=== PATIENT | male | born 1950 | race African-American/Black ===

== ENCOUNTER 2017-01-01 17:21 | Emergency (ER) | payer MEDICAID ==
[2017-01-01] MEDS ORDERED: Nitroglycerin TAB 0.4 MG* 0.4 MG TAB ONE ×2 (17:28)
[2017-01-01] MEDS ORDERED: Aspirin Low Dose CHEW TAB* 81 MG ONE ×2 (17:28)
[2017-01-01] MEDS ORDERED: Heparin for STEMI(*) 5,000 UNITS/ML 1 ML VIAL IV ONE ×2 (17:29)
[2017-01-01] MEDS ORDERED: nitroGLYCERIN DRIP* 0 MCG/0 ML BTL ONE ×2 (17:29→17:39)
[2017-01-01] MEDS ORDERED: NS 0.9% 1000 ML* 2,000 ML IV ONE (17:31)
[2017-01-01] MEDS ORDERED: Heparin 2 UNITS/ML IVPREMIX* 2,000 ML IV ONE ×2 (17:38)
[2017-01-01] MEDS ORDERED: fentaNYL* 50 MCG/ML 2 ML VIAL (100 MCG VIAL) ONE (17:38)
[2017-01-01] MEDS ORDERED: Heparin(*) 1000 UNIT/ML 10 ML VIAL CATH LAB IV ONE (17:39)
[2017-01-01] MEDS ORDERED: Lidocaine 1% INJ* 10 MG/ML 30 ML SDV ONE (17:39)
[2017-01-01] MEDS ORDERED: Iohexol 350 (CONTRAST) 200 ML MDV IV ONE (17:39)
[2017-01-01] MEDS ORDERED: Midazolam* 1 MG/ML 10 ML VIAL (10 MG) ONE (17:40)
[2017-01-01] MEDS ORDERED: Succinylcholine* 20 MG/ML 10 ML VIAL IV ONE (17:48)
[2017-01-01] MEDS ORDERED: Midazolam* 1 MG/ML 5 ML VIAL (5 MG) IV ONE (17:48)
[2017-01-01 17:51] LABS: Hematocrit 29 % (42-52); Hemoglobin 9.4 g/dl (14.0-18.0); Mean Corpuscular HGB Conc 33 g/dl (31-36); Mean Corpuscular Hemoglobin 34 pg (27-31); Mean Corpuscular Volume 103 fL (80-94); Mean Platelet Volume 7 um3 (7.4-10.4); Red Blood Count 2.79 10^6/ul (4.0-5.4); Red Cell Distribution Width 15 % (10.5-15); White Blood Count 5.1 10^3/ul (3.5-10.8)
[2017-01-01] MEDS ORDERED: Heparin DRIP 25,000 UNITS(*) 25,000 UNITS/500 ML BAG IV SCH (18:00)
[2017-01-01] MEDS ORDERED: Heparin VIAL(*) 5000 UNITS/ML VIAL (FIVE THOUSAND) IV SCH (18:00)
[2017-01-01] MEDS ORDERED: Midazolam PREMIX BAG 1 MG/ML* 100 MG/100 ML BAG IV SCH ×2 (18:00)
[2017-01-01] MEDS ORDERED: Midazolam IV for DRIP* 100 MG in NS 0.9% 100 ML* 80 ML IV SCH (18:00)
[2017-01-01] MEDS ORDERED: Succinylcholine* 20 MG/ML 10 ML VIAL ONE ×2 (18:00)
--- NOTE | 2017-01-01 18:02 | RAD ---
INDICATION: Altered mental status, intubation. COMPARISON: Comparison is made with a prior chest x-ray study from August 23, 2014. TECHNIQUE: A portable view of the chest was obtained. FINDINGS: The patient is status post intubation. The endotracheal tube appears slightly low in position approximately 1.2 cm above the candido. There is a nasogastric tube which demonstrates normal course. The lungs are underinflated. There is mild prominence of the interstitial markings. No focal infiltrate or pleural effusion is seen. The heart is within normal limits in size. IMPRESSION: STATUS POST INTUBATION. THE ENDOTRACHEAL TUBE TIP APPEARS SLIGHTLY LOW IN POSITION NOTED.
[2017-01-01 18:04] LABS: Albumin 3.5 g/dL (3.2-5.2); BUN/Creatinine Ratio 7.6 (8-20); Calcium 8.5 mg/dL (8.6-10.3); EGFR African American 70.2 (>60); EGFR Non-African American 54.6 (>60); Globulin 2.9 g/dL (2-4); Potassium 3.6 mmol/L (3.5-5.0); Total Bilirubin 0.4 mg/dL (0.2-1.0); Total Protein 6.4 g/dL (6.4-8.9)
[2017-01-01] MEDS ORDERED: Heparin DRIP 25,000 UNITS(*) 25,000 UNITS/500 ML BAG ONE ×2 (18:09)
[2017-01-01 18:15] LABS: Troponin I 0.04 ng/mL (<0.04)
[2017-01-01] MEDS ORDERED: fentaNYL* 50 MCG/ML 2 ML VIAL (100 MCG VIAL) IV SLOW PU ONE (18:33)
--- NOTE | 2017-01-01 18:46 | ED ---
Michael Membreno Abhishek, scribed for Tyron Chu MD on 01/01/17 at 1823 . Palpitations / Dysrhythmia - HPI Summary HPI Summary: LEVEL 5 CAVEAT, HPI was unable to be obtained by pt due to altered mental state. STEMI Alert at 1717: Pt ETA was 5 min from [facility] This patient is a 66 year old M BIBA with a chief complaint of dysrhythmia since minutes ago. Patient is unresponsive and was brought into room at 1720. ABC code alert at 1721. HPI obtained from previous medical records and EMS reports. Symptoms aggravated by nothing. Symptoms alleviated by nothing. Patient reports unresponsiveness and exhibited LOC at [facility]. Prior to entering [facility] according to EMS report, patient was at fiance's house at the onset of the episode and vomited one time prior to EMS arrival. EMS reports bradycardia, bradypnea, CP and low BP prior to entering [facility]. Patient's family member states patient "was doing a little bit of everything" when describing prior substance history of the patient. Patient's family member also report a PMHx of a "blockage in his leg", substance abuse (cocaine) and a "torn muscle near his heart area." - History of Current Complaint Chief Complaint: EDDysrhythmPalp Hx Obtained From: Family/Grinder Setup Operator, EMS Hx From Patient Unobtainable Due To: Altered Mental Status Onset/Duration: Sudden Onset - minutes ago Timing: Constant Aggravating: Nothing Alleviating: Nothing Associated Signs & Symptoms: Syncope - LOC, Chest Pain, Vomiting - 1 times - Allergy/Home Medications Allergies/Adverse Reactions: Allergies Allergy/AdvReac Type Severity Reaction Status Date / Time Aspirin Allergy Nausea Verified 09/12/14 13:22 PMH/Surg Hx/FS Hx/Imm Hx Endocrine/Hematology History: Denies: Hx Diabetes Cardiovascular History: Reports: Hx Hypertension, Other Cardiovascular Problems/ Disorders - based on meds with patient HTN and rate control Denies: Hx Congestive Heart Failure History: Denies: Hx Renal Disease Musculoskeletal History: Reports: Hx Scoliosis Psychiatric History: Denies: Hx Eating Disorder, Hx of Violent Episodes Against Others - Surgical History Surgery Procedure, Year, and Place: carpal tunnel left and right wrist 2000. tonsillectomy 1999 Hx Anesthesia Reactions: No - Immunization History Date of Tetanus Vaccine: UNKNOWN Infectious Disease History: No Infectious Disease History: Denies: Traveled Outside the [place] in Last 30 Days - Family History Known Family History: Positive: Cardiac Disease, Respiratory Disease - Asthma, Other - Cancer - Social History Alcohol Use: Occasionally Alcohol Amount: 2 beers Substance Use Type: Reports: Cocaine, Marijuana Substance Use Comment - Amount & Last Used: occasional Smoking Status (MU): Heavy Every Day Tobacco Smoker Type: Cigarettes Have You Smoked in the Last Year: Yes Review of Systems Constitutional: Negative Eyes: Negative ENT: Negative Positive: Chest Pain Respiratory: Negative Positive: Vomiting Genitourinary: Negative Musculoskeletal: Negative Skin: Negative Positive: Syncope Psychological: Other - LOC All Other Systems Reviewed And Are Negative: Yes Physical Exam - Summary Physical Exam Summary: LEVEL 5 CAVEAT due to altered mental state. General: Tolerating oral pharyngeal airway without gagging, HENT: Atraumatic Lymph: no adenopathy Cardiovascular: Dorsalis pedal pulses are minimal bilaterally Pulmonary: Minimal spontaneous breathing Abdomen: Non-distended Skin: Warm, pink, dry Musculoskeletal: no joint swelling Neuro: Pupils are reactive 4 mm Psych: N/A Triage Information Reviewed: Yes Vital Signs On Initial Exam: Initial Vitals Temp Pulse Resp BP Pulse Ox 96 F 58 14 131/85 85 01/01/17 17:34 01/01/17 17:34 01/01/17 17:34 01/01/17 17:34 01/01/17 17:34 Vital Signs Reviewed: Yes Diagnostics - Vital Signs Vital Signs Temp Pulse Resp BP Pulse Ox 01/01/17 17:34 96 F 58 14 131/85 85 - Laboratory Lab Results: Lab Results 01/01/17 Range/Units 17:30 WBC 5.1 (3.5-10.8) 10^3/ul RBC 2.79 L (4.0-5.4) 10^6/ul Hgb 9.4 L (14.0-18.0) g/dl Hct 29 L (42-52) % MCV 103 H (80-94) fL MCH 34 H (27-31) pg MCHC 33 (31-36) g/dl RDW 15 (10.5-15) % Plt Count 256 (150-450) 10^3/ul MPV 7 L (7.4-10.4) um3 Result Diagrams: 01/01/17 17:30 01/01/17 17:31 Lab Statement: Any lab studies that have been ordered have been reviewed, and results considered in the medical decision making process. - Radiology Chest x-ray Radiology Interpretation Completed By: Radiologist - CXR reveals STATUS POST INTUBATION. THE ENDOTRACHEAL TUBE TIP APPEARS SLIGHTLY LOW IN POSITION NOTED. ED Physician as reviewed this radiology report and agrees. Re-Evaluation - Re-Evaluation 1800 Re-Evaluation Time: 18:00 - NSR, BP STABLE Change: Unchanged Second Eval Re-Evaluation Time: 18:45 - NSR, BP STABLE, SYMMETRIC LUNG SOUNDS Course/Dx - Course Assessment/Plan: LEVEL 5 CAVEAT, HPI was unable to be obtained by pt due to altered mental state. STEMI Alert at 1717: Pt ETA was 5 min from [facility]. This patient is a 66 year old M BIBA with a chief complaint of dysrhythmia since minutes ago. Patient is unresponsive and was brought into room at 1720. ABC code alert at 1721. HPI obtained from previous medical records and EMS reports. Patient reports unresponsiveness and exhibited LOC at [facility]. Prior to entering [facility] according to EMS report, patient was at [facility] at the onset of the episode and vomited one time prior to EMS arrival. EMS reports bradycardia, bradypnea, CP and low BP prior to entering [facility]. Patient's family member states patient "was doing a little bit of everything" when describing prior substance history of the patient. Patient's family member also report a PMHx of a "blockage in his leg", substance abuse (cocaine) and a "torn muscle near his heart area.". CXR reveals STATUS POST INTUBATION. THE ENDOTRACHEAL TUBE TIP APPEARS SLIGHTLY LOW IN. POSITION NOTED. ED Physician as reviewed this radiology report and agrees. We did a medical records review and patient has a history of substance abuse (cocaine). Consulted swatch clerk at 1750 Dr. Roberts. We did not administer any other sedatives as he received versed in the ambulance 3 minutes before arrival. Patient will be transfered to [facility] due to high risk cardiac catheterizatoin and extensive vascular disease. Dx is acute cornary syndrome and 3rd degree heart block. 90 minutes of critical care time was given. - Diagnoses Provider Diagnoses: Acute coronary syndrome, Third degree heart block - Physician Notifications Discussed Care Of Patient With: John Roberts Time Discussed With Above Provider: 17:50 Instructed by Provider To: Transfer - Transfer to [facility] due to high risk cardiac catheterization and extensive vascular disease. - Critical Care Time Critical Care Time: 75-104 min - 90 minutes Discharge - Discharge Plan Condition: Critical Disposition: TRANS HIGHER LVL OF CARE FAC Referrals: Garret Lockhart MD [Primary Care Provider] - The documentation as recorded by the Michael arreguin Abhishek accurately reflects the service I personally performed and the decisions made by , Tyron Chu MD.
[2017-01-01 18:51] VITALS: BP 132/71
--- NOTE | 2017-01-02 12:33 | CONS ---
Cc: Dr. Moses Sun; Dr. Niraj Ly.* EMERGENCY ROOM INTERVENTIONAL CARDIOLOGY CONSULT: DATE OF CONSULT: 01/01/17 REASON FOR CONSULT: Reportedly had acute ST-segment elevation inferior wall myocardial infarction with unresponsiveness, question transient loss of pulse and blood pressure with advanced heart block, assess cardiac status. HISTORY OF PRESENT ILLNESS: The patient is a 66-year-old gentleman for whom the emergency medical service was called complaining of chest discomfort prior to the ambulance arrival. Apparently on arrival the patient became somewhat unresponsive and emergency medical service had difficulty finding a pulse on him. EKG was performed, which showed mild ST segment elevation in III and aVF with reciprocal changes in I and aVL and down slopping in V4 through V6. There was T-wave inversion in the inferior leads as well. He spontaneously developed return of circulation. He was noted to have advanced heart block, which at one point was felt to be a third-degree heart block with a junctional escape of 38 beats per minute. They gave him atropine without significant success. Pulling into the emergency room, he apparently went unresponsive again. He, in the emergency room was intubated, and when I came to see him, was already sedated and intubated, by that time had a blood pressure that was stable in the 113 range with 2:1 heart block with no evidence of more advance heart block with narrowed complex. A history of his prior cardiac issues included a history of cardiac catheterization back in March 2014 with the right coronary artery noted to have a heavily calcified 20 mm long lesion in the mid portion followed by 60% distal lesion. A balloon was attempted to be passed and could not even be passed across this. Decision was going to be made to do rotational atherectomy when a discussion with the patient's primary chief ii dispatcher Dr. Hernán Sun with the patient on the table discussed that he felt the patient had a fixed defect suggesting a prior infarct to that area and as such he did not recommend proceeding with the intervention at that time. The patient did not have the intervention done. He apparently had a 40% lesion seen in the mid LAD and the circumflex with mildly disease at best. This was preoperatively for an aortobifem bypass. It appears the patient never had that procedure and when I was in the emergency room and with discussion with Dr. Sun, he had no evidence that the patient had ever had a bypass or treatment to that at that time with him reviewing the available records he had online. He also stated that the patient had did not have good pulses in his radial arteries bilaterally and as such radial approach could not be used. 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 PAST MEDICAL HISTORY: The patient's past medical history included hypertension , carpal tunnel, claudication bilaterally, chronic hepatitis, left ventricular systolic dysfunction, and cocaine abuse. With regard to the cocaine abuse, the family that was present could not say whether or not he had used cocaine that day. REVIEW OF SYSTEMS: Unobtainable as the patient was sedated and intubated. PHYSICAL EXAM: When I saw him, revealed blood pressure 113/62, pulse was in the 50s with probable 2:1 heart block with narrow complex, respirations 18, unresponsive due to sedation. Neck had no increased JVP. Carotids could not be assessed due to the breathing sounds from the ventilator. Lungs were coarse bilaterally. Heart had a regular rate and rhythm without any murmur. Abdomen was soft. Extremities: Without edema. The pulses were severely diminished bilaterally. They could not be palpated in the femoral areas as well. Neuro: The patient was sedated. DIAGNOSTIC STUDIES/LAB DATA: Laboratory results that had come back by the time I saw him revealed a hemoglobin and hematocrit of 9.4 and 29 with a white count of 5100, platelet count of 256,000. Sodium 139, potassium 3.6, chloride 108, bicarb 23, BUN 10, creatinine 1.3, glucose 110. SGOT was 201, SGPT 137, troponin was 0.04. CPK 109, MB 3.7, BNP 122. Repeat EKG done had showed resolution of the ST-segment elevation with T-wave inversion inferiorly with improvement of the downsloping ST segments in V4 through V6 with T-wave inversions still noted in V3. Mild down slopping in I and aVL still seen. IMPRESSION: Mr. Ga presents now with severe peripheral vascular disease with a non-dilatable right coronary artery lesion known in the past. At this point in time, I honestly believe the best form of therapy for him would be placing him on heparin and emergently flying him to the [facility] for assessment for possible rotational atherectomy for this lesion or bypass potentially. Discussion was had with the interventionalist comparison shopper for the [facility], Dr. Beck, who graciously accepted the patient but felt the patient should go to the intensive care unit, so they could further analyze potential options of how to approach doing coronary arteriography, specifically from what vascular site. The patient is on heparin therapy currently and I would avoid all beta jesus therapy in light of his heart block at this point. ADDENDUM: A family member eventually did come in who explained that it is her understanding that the patient had received a stent to one of his legs but could be stented in the other leg, so as such there is perhaps a vehicle to get up from the groin area. This information was shared with Dr. Beck with the patient in flight. Of note, Dr. John Pacheco, the dip brazier graciously came in to manage the ventilator while in the emergency room prior to helicopter transport and the patient was stable throughout the course prior to being transferred by helicopter to the [facility]. The amount of time spent with this patient well exceeded 90 minutes with at least three-quarters of it directly in patient care with the patient in addition to discussing with the family, what was going on as well as making phone calls to both Dr. Sun to get further information and keeping him updated as well as personally speaking with Dr. Beck the interventionalist who accepted the patient at the [facility]. [id number]/[facility] #: [id number] MTDD
== END 2017-01-01 19:10 | disposition short-term general hospital (02) ==
LOC: ED 17:21
DX: I24.9 Acute ischemic heart disease, unspecified (principal); I44.2 Atrioventricular block, complete; I10 Essential (primary) hypertension; K73.9 Chronic hepatitis, unspecified
CPT/HCPCS: 36415; 71010; 80053; 82550; 82553; 83721; 83880; 84484; 85027; 85610; 85730; 86850; 86900; 86901; 92950; 93005; 94002; 96360; 96374; 96375; 96376; 99285; A9270-GY; J0330; J1644; J2250; J3010

== ENCOUNTER 2017-03-29 07:42 | Inpatient (IN) | payer MEDICAID ==
[2017-03-29] MEDS ORDERED: NS 0.9% 1000 ML*IV.FLUID IV ONE (08:05)
--- NOTE | 2017-03-29 08:47 | RAD ---
Indication: Tachycardia. Single frontal view of the chest performed at 0813 hours was reviewed. Comparison is made with previous exam dated January 01, 2017. No mediastinal shift is noted. Heart is of normal size and configuration. Lung mraino appear clear. IMPRESSION: NO ACTIVE CARDIOPULMONARY DISEASE IS NOTED.
[2017-03-29 09:07] LABS: EGFR Non-African American 57.1 (>60)
[2017-03-29] MEDS ORDERED: Iohexol 350* (CONTRAST) 500 ML MDV IV ONE (09:24)
[2017-03-29] MEDS ORDERED: diPHENhydraMINE IV* 50 MG/ML 1 ml VIAL (BENADRYL) ONE (09:59)
[2017-03-29] MEDS ORDERED: Vancomycin(*) 1,000 MG in NS 0.9% 250 ML* 250 ML IVPB ONE (10:13)
[2017-03-29] MEDS ORDERED: Cefepime(*) 2 GM in NS 0.9% 50 ML* 50 ML IVPB ONE (10:13)
[2017-03-29] MEDS ORDERED: Amiodarone 150 MG IVPREMIX* 150 MG/100 ML BAG IV ONE (10:14)
[2017-03-29] MEDS ORDERED: NS 0.9% 1000 ML* 1,000 ML IV ONE (10:14)
[2017-03-29] MEDS ORDERED: Propofol* 100 ML ONE (10:24)
[2017-03-29 10:31] LABS: INR 1.48 (0.77-1.02)
[2017-03-29 10:34] LABS: Hematocrit 8 % (42-52); Hemoglobin 2.1 g/dl (14.0-18.0); Mean Corpuscular HGB Conc 27 g/dl (31-36); Mean Corpuscular Hemoglobin 32 pg (27-31); Mean Corpuscular Volume 118 fL (80-94); Mean Platelet Volume 7 um3 (7.4-10.4); Platelet Count 224 10^3/ul (150-450); Red Blood Count 0.65 10^6/ul (4.0-5.4); Red Cell Distribution Width 25 % (10.5-15); White Blood Count 11.7 10^3/ul (3.5-10.8)
[2017-03-29] MEDS: Propofol* 100 ML IV SCH ×4 (10:41→22:36)
[2017-03-29] MEDS ORDERED: Midazolam* 1 MG/ML 5 ML VIAL (5 MG) ONE (10:44)
[2017-03-29] MEDS ORDERED: Midazolam* 1 MG/ML 2 ML VIAL (2 MG) IV ONE (10:44)
[2017-03-29] MEDS ORDERED: NS 0.9% 50 ML* 50 ML ONE (10:44)
[2017-03-29] MEDS ORDERED: Cefepime 2 GM in Dextrose(*) 2 GM/50 ML BAG IV ONE ×2 (10:45→11:00)
[2017-03-29] MEDS ORDERED: Midazolam* 1 MG/ML 5 ML VIAL (5 MG) SLOW PUSH ONE (10:47)
--- NOTE | 2017-03-29 10:50 | RAD ---
STUDY: CT angiography of the chest, abdomen and pelvis. INDICATION: Hypotension and dizziness after "recent vascular intervention". COMPARISON: CTA chest abdomen pelvis dated August 23, 2014 TECHNIQUE: Multidetector CT angiography of the chest, abdomen and pelvis were obtained from the lung apices to the ischial tuberosities after the intravenous injection of 99 mL Omnipaque 350. Reformats were created in the coronal and sagittal planes. 3-D vascular imaging was created from the source images and reviewed as well. ANGIOGRAPHIC FINDINGS: The patient is status post left subclavian artery by femoral bypass graft placement. The surgical graft appears to be patent. There is scattered calcified atherosclerosis at the coronary arteries, aortic ring and arch of the aorta. There is mild curvature of the lower thoracic and abdominal aorta. There is no pathologic aneurysmal dilatation or signs of dissection of the thoracic or abdominal aorta. The major branch vessels of the abdominal aorta including the celiac trunk, superior mesenteric artery and bilateral renal arteries exhibit calcified atherosclerosis to varying degrees but otherwise appear to be patent. There is eccentric noncalcified atheroma occluding the right anterior half of the abdominal aorta above the iliac bifurcation. This connects to complete occlusion of the bilateral common iliac arteries. More inferiorly there is coarse calcification occluding the lumens of both of the common iliac arteries with an appearance consistent with "coral calcification". The bypass graft bifurcates in the subcutaneous tissue overlying the left upper abdomen before anastomosing with the bilateral common femoral arteries. There is diminutive filling of the bilateral external iliac arteries. The visualized portions of the bilateral femoral profundus and superficial femoral arteries appear to fill with contrast. NON ANGIOGRAPHIC FINDINGS: Chest: Adjacent to the lateral aspect of the left fissure is an elongate nodule measuring 4 mm in greatest dimension (axial image 39 and sagittal image 101). Along the lateral aspect of the right upper lobe (axial image 30) there is a groundglass nodule abutting the pleura measuring 1.1 x 1.2 x 1.4 cm. At the right middle lobe there is a 2 mm pleural-based nodule (image 44). Overall the lungs exhibit mild centrilobular emphysematous changes. There are no large pleural effusions. There are coarsely calcified granulomas at the lower posterior right of midline mediastinum tracking along the right mainstem bronchus and inferior. There are no pathologically enlarged mediastinal or hilar lymph nodes that are not calcified. The heart is grossly normal in appearance. Abdomen & Pelvis: There are scattered calcified granulomas in the spleen. The spleen is otherwise normal in attenuation and size. The liver, pancreas and adrenal glands are grossly normal in appearance. The gallbladder is normal. The kidneys are normal in appearance without focal mass, calcification or signs of hydronephrosis. The renal cortices enhance promptly and symmetrically on arterial phase imaging. The small and large bowel are not distended. There is no gross retroperitoneal or mesenteric lymphadenopathy. The pelvic viscera is normal in appearance. There are multilevel degenerative changes of the thoracic and lumbar spine including loss of intervertebral disc height. There is levoconvex curvature of the lumbar spine measuring approximately 60 degrees with the apex at the L2/L3 intervertebral disc space. The L1 vertebral body is hypoplastic exhibiting a triangular deformity in the coronal plane (coronal image 100) either accommodating or contributing to the patient's scoliosis. IMPRESSION: 1. Patent left subclavian artery to bilateral common femoral artery bypass graft without CTA evidence of acute vascular abnormality. 2. Multiple pulmonary nodules as described above, the largest is a groundglass nodule measuring 1.2 cm in greatest axial dimension. This was not seen on the August 23, 2014 CT examination. Considering the patient's apparent cigarette smoking history, the possibility of neoplasm should be considered. Recommendation is either for short-term interval follow-up, PET/CT or tissue sampling. 3. Additional chronic and degenerative changes described in the body the report.
[2017-03-29 10:54] LABS: Monocytes % 5 % (0-13)
[2017-03-29 10:56] LABS: Hematocrit 8 % (42-52); Hemoglobin 2.1 g/dl (14.0-18.0); Mean Corpuscular HGB Conc 27 g/dl (31-36); Mean Corpuscular Hemoglobin 33 pg (27-31); Mean Corpuscular Volume 119 fL (80-94); Mean Platelet Volume 7 um3 (7.4-10.4); Platelet Count 207 10^3/ul (150-450); Red Blood Count 0.63 10^6/ul (4.0-5.4); Red Cell Distribution Width 25 % (10.5-15); White Blood Count 9.9 10^3/ul (3.5-10.8)
[2017-03-29 11:24] LABS: ABS Basophils 0.1 10^3/ul (0-0.2); ABS Eosinophils 0 10^3/ul (0-0.6); ABS Lymphocytes 1.9 10^3/ul (1.0-4.8); ABS Monocytes 0.6 10^3/ul (0-0.8); ABS Neutrophils 7.2 10^3/ul (1.5-7.7); ABS Nucleated RBC 1.1 10^3/ul; Eosinophil % 0.2 % (0-6); Lymphocyte % 19.6 % (25-47); Nucleated Red Blood Cells % 10.6
--- NOTE | 2017-03-29 12:05 | ED ---
Jeo Membreno Angela, scribed for Bebo Gibson MD on 03/29/17 at 0759 . Complex/Multi-Sys Presentation - HPI Summary HPI Summary: This pt is a 66 y/o male presenting to [facility] via EMS for SOB today. Partner states the pt had a hard time breathing this morning. Last night, pt was vomiting all day. EMS reports the pt is currently hypotensive. Partner reports that pt had recent vascular surgery (on Mar.15) in [place]. Pt has a follow up appointment in [place] tomorrow. He was seen by his visiting nurse yesterday. Denies diarrhea, abd pain. Pt is not currently on any pain medications. - History Of Current Complaint Hx Obtained From: Patient Onset/Duration: Lasting Hours, Still Present Timing: Hours Severity Currently: Moderate Aggravating Factor(s): nothing Alleviating Factor(s): nothing Associated Signs And Symptoms: Positive: SOB, Nausea, Vomiting. Negative: Diarrhea, Abdominal Pain - Allergies/Home Medications Allergies/Adverse Reactions: Allergies Allergy/AdvReac Type Severity Reaction Status Date / Time aspirin Allergy Nausea Verified 03/29/17 09:25 Home Medications: Home Medications Atorvastatin* [Lipitor*] 20 mg PO DAILY 03/29/17 [History Confirmed 03/29/17] Cyclobenzaprine TAB* [Flexeril 10 MG TAB*] 10 mg PO BEDTIME 03/29/17 [History Confirmed 03/29/17] Ferrous Sulfate TAB* 325 mg PO BID 03/29/17 [History Confirmed 03/29/17] HYDROcodone/ACETAMIN 5-325 MG* [Mcgrady 5-325 TAB*] 1 tab PO Q6H PRN 03/29/17 [ History Confirmed 03/29/17] LoraTADine TAB(NF) [Claritin 10 MG TAB(NF)] 10 mg PO DAILY 03/29/17 [History Confirmed 03/29/17] Metoprolol Succinate XL TAB* [Toprol XL TAB*] 25 mg PO DAILY 03/29/17 [History Confirmed 03/29/17] Ranitidine TAB (NF) [Zantac TAB (NF)] 150 mg PO BID 03/29/17 [History Confirmed 03/29/17] Rivaroxaban TAB(*) [Xarelto 15 mg(*)] 15 mg PO BID 03/29/17 [History Confirmed 03/29/17] PMH/Surg Hx/FS Hx/Imm Hx Endocrine/Hematology History: Denies: Hx Diabetes Cardiovascular History: Reports: Hx Hypertension, Other Cardiovascular Problems/ Disorders - based on meds with patient HTN and rate control Denies: Hx Congestive Heart Failure History: Denies: Hx Renal Disease Musculoskeletal History: Reports: Hx Scoliosis Psychiatric History: Denies: Hx Eating Disorder, Hx of Violent Episodes Against Others - Surgical History Surgery Procedure, Year, and Place: carpal tunnel left and right wrist 2000. tonsillectomy 1999 Hx Anesthesia Reactions: No - Immunization History Date of Tetanus Vaccine: UNKNOWN - Family History Known Family History: Positive: Cardiac Disease, Respiratory Disease - Asthma, Other - Cancer - Social History Alcohol Use: Occasionally Alcohol Amount: 2 beers Substance Use Type: Reports: Cocaine, Marijuana Substance Use Comment - Amount & Last Used: occasional Smoking Status (MU): Heavy Every Day Tobacco Smoker Type: Cigarettes Have You Smoked in the Last Year: Yes Review of Systems Constitutional: Other - pt is warm Negative: Fever Cardiovascular: Other - hypotensive Positive: Shortness Of Breath Positive: Vomiting, Nausea. Negative: Abdominal Pain, Diarrhea All Other Systems Reviewed And Are Negative: Yes Physical Exam - Summary Physical Exam Summary: General: well-appearing, no pain distress. Pt mumbles responses. Skin: warm, color reflects adequate perfusion, dry Head: normal Eyes: EOMI, EILEEN ENT: Oral mucosa is dry. Neck: supple, nontender Respiratory: CTA, breath sounds present Cardiovascular: Tachycardic Abdomen: soft, nontender Bowel Sounds: decreased Musculoskeletal: strength/ROM intact. Bilateral feet are warm, normal capillary refill. There are surgical wounds on the left upper chest and both inguinal femoral area. Wounds are clean, dry and intact. No drainage. Neurological: normal, sensory/motor intact, A&O x3. No focal neurological deficits. Psychological: affect/mood appropriate Triage Information Reviewed: Yes Vital Signs On Initial Exam: Initial Vitals Temp Pulse Resp BP Pulse Ox 98.1 F 128 18 92/60 94 03/29/17 08:09 03/29/17 08:09 03/29/17 08:09 03/29/17 08:09 03/29/17 08:09 Vital Signs Reviewed: Yes Diagnostics - Vital Signs Vital Signs Temp Pulse Resp BP Pulse Ox 03/29/17 10:12 95/78 03/29/17 10:07 13 66/53 03/29/17 10:04 127 10 132/101 55 03/29/17 10:00 66 9 103/48 81 03/29/17 09:30 76 24 88/57 67 03/29/17 09:15 112 92/60 03/29/17 09:00 23 94/81 03/29/17 08:47 52 23 99/50 78 03/29/17 08:09 98.1 F 128 18 92/60 94 - Laboratory Lab Results: Lab Results 03/29/17 03/29/17 03/29/17 Range/Units 08:37 08:37 08:37 WBC (3.5-10.8) 10^3/ul RBC (4.0-5.4) 10^6/ul Hgb (14.0-18.0) g/dl Hct (42-52) % MCV (80-94) fL MCH (27-31) pg MCHC (31-36) g/dl RDW (10.5-15) % Plt Count (150-450) 10^3/ul MPV (7.4-10.4) um3 Neut % (Auto) Lymph % (Auto) [place] % (Auto) Eos % (Auto) Baso % (Auto) Absolute Neuts (auto) Absolute Lymphs (auto) Absolute Monos (auto) Absolute Eos (auto) Absolute Basos (auto) Absolute Nucleated RBC Immature Gran % (0-9) % Neutrophils % (38-83) % Band Neutrophils % (0-8) % Lymphocytes % (25-47) % Monocytes % (0-13) % Eosinophils % (0-6) % Basophils % (0-2) % Metamyelocytes % (0-2) % Nucleated RBC % Abs Neuts (Manual) (1.5-7.7) 10^3/ul Abs Monocytes (Manual) (0-0.8) 10^3/ul Absolute Eos (Manual) (0-0.6) 10^3/ul Abs Basophils (Manual) (0-0.2) 10^3/ul Nucleated RBCs/100 WBC (0-0) Normal RBC Morphology Polychromasia Hypochromasia Anisocytosis Acanthocytes (Spur) Hem Pathologist Commnt INR (Anticoag Therapy) (0.77-1.02) APTT (26.0-36.3) seconds Sodium 139 (133-145) mmol/L Potassium 4.0 (3.5-5.0) mmol/L Chloride 111 (101-111) mmol/L Carbon Dioxide 19 L (22-32) mmol/L Anion Gap 9 (2-11) mmol/L BUN 31 H (6-24) mg/dL Creatinine 1.27 H (0.67-1.17) mg/dL Est GFR ( Amer) 73.4 (>60) Est GFR (Non-Af Amer) 57.1 (>60) BUN/Creatinine Ratio 24.4 H (8-20) Glucose 134 H (70-100) mg/dL Lactic Acid 5.6 H* (0.5-2.0) mmol/L Calcium 7.7 L (8.6-10.3) mg/dL Total Bilirubin 0.50 (0.2-1.0) mg/dL AST 22 (13-39) U/L ALT 11 (7-52) U/L Alkaline Phosphatase 32 L (34-104) U/L Troponin I 0.04 H* (<0.04) ng/mL C-Reactive Protein 2.39 (< 5.00) mg/L B-Natriuretic Peptide 133 H ( - 100) pg/mL Total Protein 4.5 L (6.4-8.9) g/dL Albumin 2.2 L (3.2-5.2) g/dL Globulin 2.3 (2-4) g/dL Albumin/Globulin Ratio 1.0 (1-3) Lipase 42 (11.0-82.0) U/L Procalcitonin (<0.6) ng/mL Blood Type Antibody Screen Crossmatch 03/29/17 03/29/17 03/29/17 Range/Units 08:37 10:18 10:18 WBC 11.7 H (3.5-10.8) 10^3/ul RBC 0.65 L (4.0-5.4) 10^6/ul Hgb 2.1 L* (14.0-18.0) g/dl Hct 8 L (42-52) % MCV 118 H (80-94) fL MCH 32 H (27-31) pg MCHC 27 L (31-36) g/dl RDW 25 H (10.5-15) % Plt Count 224 (150-450) 10^3/ul MPV 7 L (7.4-10.4) um3 Neut % (Auto) Not Reportable Lymph % (Auto) Not Reportable [place] % (Auto) Not Reportable Eos % (Auto) Not Reportable Baso % (Auto) Not Reportable Absolute Neuts (auto) Not Reportable Absolute Lymphs (auto) Not Reportable Absolute Monos (auto) Not Reportable Absolute Eos (auto) Not Reportable Absolute Basos (auto) Not Reportable Absolute Nucleated RBC Not Reportable Immature Gran % 8 (0-9) % Neutrophils % 61 (38-83) % Band Neutrophils % 7 (0-8) % Lymphocytes % 26 (25-47) % Monocytes % 5 (0-13) % Eosinophils % 0 (0-6) % Basophils % 0 (0-2) % Metamyelocytes % 1 (0-2) % Nucleated RBC % Not Reportable Abs Neuts (Manual) 7.1 (1.5-7.7) 10^3/ul Abs Monocytes (Manual) 0.6 (0-0.8) 10^3/ul Absolute Eos (Manual) 0 (0-0.6) 10^3/ul Abs Basophils (Manual) 0 (0-0.2) 10^3/ul Nucleated RBCs/100 WBC 5 H (0-0) Normal RBC Morphology Not Reportable Polychromasia 2+ Hypochromasia 1+ Anisocytosis 2+ Acanthocytes (Spur) 2+ Hem Pathologist Commnt Pending INR (Anticoag Therapy) 1.48 H (0.77-1.02) APTT 42.5 H (26.0-36.3) seconds Sodium (133-145) mmol/L Potassium (3.5-5.0) mmol/L Chloride (101-111) mmol/L Carbon Dioxide (22-32) mmol/L Anion Gap (2-11) mmol/L BUN (6-24) mg/dL Creatinine (0.67-1.17) mg/dL Est GFR ( Amer) (>60) Est GFR (Non-Af Amer) (>60) BUN/Creatinine Ratio (8-20) Glucose (70-100) mg/dL Lactic Acid (0.5-2.0) mmol/L Calcium (8.6-10.3) mg/dL Total Bilirubin (0.2-1.0) mg/dL AST (13-39) U/L ALT (7-52) U/L Alkaline Phosphatase (34-104) U/L Troponin I (<0.04) ng/mL C-Reactive Protein (< 5.00) mg/L B-Natriuretic Peptide ( - 100) pg/mL Total Protein (6.4-8.9) g/dL Albumin (3.2-5.2) g/dL Globulin (2-4) g/dL Albumin/Globulin Ratio (1-3) Lipase (11.0-82.0) U/L Procalcitonin 0.1 (<0.6) ng/mL Blood Type Antibody Screen Crossmatch 03/29/17 Range/Units 10:18 WBC (3.5-10.8) 10^3/ul RBC (4.0-5.4) 10^6/ul Hgb (14.0-18.0) g/dl Hct (42-52) % MCV (80-94) fL MCH (27-31) pg MCHC (31-36) g/dl RDW (10.5-15) % Plt Count (150-450) 10^3/ul MPV (7.4-10.4) um3 Neut % (Auto) Lymph % (Auto) [place] % (Auto) Eos % (Auto) Baso % (Auto) Absolute Neuts (auto) Absolute Lymphs (auto) Absolute Monos (auto) Absolute Eos (auto) Absolute Basos (auto) Absolute Nucleated RBC Immature Gran % (0-9) % Neutrophils % (38-83) % Band Neutrophils % (0-8) % Lymphocytes % (25-47) % Monocytes % (0-13) % Eosinophils % (0-6) % Basophils % (0-2) % Metamyelocytes % (0-2) % Nucleated RBC % Abs Neuts (Manual) (1.5-7.7) 10^3/ul Abs Monocytes (Manual) (0-0.8) 10^3/ul Absolute Eos (Manual) (0-0.6) 10^3/ul Abs Basophils (Manual) (0-0.2) 10^3/ul Nucleated RBCs/100 WBC (0-0) Normal RBC Morphology Polychromasia Hypochromasia Anisocytosis Acanthocytes (Spur) Hem Pathologist Commnt INR (Anticoag Therapy) (0.77-1.02) APTT (26.0-36.3) seconds Sodium (133-145) mmol/L Potassium (3.5-5.0) mmol/L Chloride (101-111) mmol/L Carbon Dioxide (22-32) mmol/L Anion Gap (2-11) mmol/L BUN (6-24) mg/dL Creatinine (0.67-1.17) mg/dL Est GFR ( Amer) (>60) Est GFR (Non-Af Amer) (>60) BUN/Creatinine Ratio (8-20) Glucose (70-100) mg/dL Lactic Acid (0.5-2.0) mmol/L Calcium (8.6-10.3) mg/dL Total Bilirubin (0.2-1.0) mg/dL AST (13-39) U/L ALT (7-52) U/L Alkaline Phosphatase (34-104) U/L Troponin I (<0.04) ng/mL C-Reactive Protein (< 5.00) mg/L B-Natriuretic Peptide ( - 100) pg/mL Total Protein (6.4-8.9) g/dL Albumin (3.2-5.2) g/dL Globulin (2-4) g/dL Albumin/Globulin Ratio (1-3) Lipase (11.0-82.0) U/L Procalcitonin (<0.6) ng/mL Blood Type O Positive Antibody Screen Negative Crossmatch See Detail Result Diagrams: 03/29/17 10:40 03/29/17 08:37 Lab Statement: Any lab studies that have been ordered have been reviewed, and results considered in the medical decision making process. - Radiology Chest XR Xray Interpretation: No Acute Changes - IMPRESSION: No active cardiopulmonary disease is noted. Dr. Gibson has reviewed this radiology report. Radiology Interpretation Completed By: Radiologist - CT CTA chest/abdomen/pelvis CT Interpretation: Positive (See Comments) - IMPRESSION: 1. Patent left subclavian artery to bilateral common femoral artery bypass graft without CTA evidence of acute vascular abnormality. 2. Multiple pulmonary nodules as described above, the largest is a groundglass nodule measuring 1.2 cm in greatest axial dimension. This was not seen on the August 23, 2014 CT examination. Considering the patient's apparent cigarette smoking history, the possibility of neoplasm should be considered. Recommendation is either for short -term interval follow-up, PET/CT or tissue sampling. 3. Additional chronic and degenerative changes described in the body the report. Dr. Gibson has reviewed this radiology report. CT Interpretation Completed By: Radiologist - EKG 08:15 Cardiac Rate: Tachycardia EKG Rhythm: Sinus Tachycardia - at 120 bpm EKG Interpretation: LBBB. Re-Evaluation - Re-Evaluation First Eval Re-Evaluation Time: 10:00 Comment: Dr. Evans, gift packer, at bedside. Complex Multi-Symp Course/Dx Course Of Treatment: Medications reviewed. Allergies noted. Lab results show WBC of 11.7, hemoglobin of 2.1, hematocrit of 8, troponin is 0.04 and lactic acid is 5.6. Chest XR is negative. I discussed pt care with Dr. Evans, gift packer, who accepted the pt for admission. INITIALLY PATIENT TREATED WITH IVF FOR POSSIBLE SEPSIS. CTA ORDERED TO ENSURE NO BLEEDING FROM RECENT VASCULAR PROCEEDURE. PATIENT CODED UPON RETURN TO ED FOR CT. SUCESSFULLY RESUCITATED. GIVEN IVF, AMIODARONE FOR VTACH ON MONITOR, SYNCRONIZED SHOCK, CHEST COMPRESSIONS. CBC WAS NOT RESULTED AT THE TIME OF THE CODE. DR EVANS, ICU , IN ED FOR CODE. IV ABX ORDERED. CBC RESULTED HGB 2.1. DR EVANS ORDERED BLOOD AND ADMITTED TO ICU. - Diagnoses Provider Diagnoses: Cardiac arrest, Anemia During the Visit The Following Alert/Code Occurred: ABC Alert - at 09:58 - Physician Notifications Discussed Care Of Patient With: Homer Evans Instructed by Provider To: Other - I discussed pt care with Dr. Evans, gift packer, who has agreed to admit the pt. - Critical Care Time Critical Care Time: 30-74 min Discharge - Discharge Plan Condition: Critical Disposition: ADMITTED TO [facility] documentation as recorded by the Joe arreguin Angela accurately reflects the service I personally performed and the decisions made by me, Bebo Gibson MD.
--- NOTE | 2017-03-29 12:40 | RAD ---
INDICATION: Status post central line placement. COMPARISON: Comparison is made with a prior study from approximately 4 hours earlier. TECHNIQUE: A portable view of the chest was obtained. FINDINGS: There is an endotracheal tube which projects over the midline. There is a nasogastric tube which extends into the stomach. The catheter tip projects to the right of the midline possibly within the duodenum or antrum of the stomach. There is a central venous catheter entering from the right jugular approach which projects at the junction of the superior vena cava and right atrium. The heart is within normal limits in size The lungs are underinflated and clear. No pleural effusion is seen. IMPRESSION: STATUS POST LINE PLACEMENT NOTED.
[2017-03-29 12:48] LABS: Urine Appearance Cloudy; Urine Blood Negative (Negative); Urine Color Yellow; Urine Ketones Negative (Negative); Urine Protein Negative (Negative); Urine Specific Gravity 1.025 (1.010-1.030); Urine Urobilinogen Negative (Negative)
--- NOTE | 2017-03-29 13:32 | HP ---
H&P (Free Text) History and Physical: History and Physical - Critical Care Limitations in history/physical: intubated, post cardiac arrest Date of admission: 03/29/2017 HPI: 66y M pmhx HTN, PVD s/p axillo-fem bypass 03/2017 at [facility], COPD. As per partner, he developed multiple episodes of nausea/vom yesterday, no abd pain, no blood noted. This morning he woke up and was short of breath and felt dizzy. No chest pain/syncope. In ER, he was being worked up, hypotensive 80-90s , tachycardic. Noted to have elevated lactic acid. Taken for CT chest/abd for eval of possible infectious source, no acute findings noted. While in ER, patient went unresponsive, CPR started, PEA arrest, ~5 min of CPR with ROSC achieved. Unclear if any slow VT, but defibrillated x1, given amio push 150mg x1. Patient was intubated, then awake slowly. Sedated. BP stable after code. CBC returned with hg of 2.1, repeat also 2.1. Currently intubated, sedated now in ICU. Family at bedside, discussed current plan. Noted he is only rivaroxaban PO for unclear etiology. EKG with NSR. ROS: negative except for pertinent positives mentioned above. PMHx: HTN, COPD, PVD PSHx: 03/2017 s/p left axillary-fem bypass Family History: HTN Social History: Alcohol-active, Smoking-active, Drug use-occassional cocaine and marijuana Allergies: NKDA Home Medications: Aspirin EC Low Dose* [Ecotrin EC Low Dose 81 MG*] 81 mg PO DAILY 08/26/14 [ History Confirmed 03/29/17] Atorvastatin* [Lipitor*] 20 mg PO DAILY 03/29/17 [History Confirmed 03/29/17] Cyclobenzaprine TAB* [Flexeril 10 MG TAB*] 10 mg PO BEDTIME 03/29/17 [History Confirmed 03/29/17] Ferrous Sulfate TAB* 325 mg PO BID 03/29/17 [History Confirmed 03/29/17] HYDROcodone/ACETAMIN 5-325 MG* [[place] 5-325 TAB*] 1 tab PO Q6H PRN 03/29/17 [ History Confirmed 03/29/17] LoraTADine TAB(NF) [Claritin 10 MG TAB(NF)] 10 mg PO DAILY 03/29/17 [History Confirmed 03/29/17] Metoprolol Succinate XL TAB* [Toprol XL TAB*] 25 mg PO DAILY 03/29/17 [History Confirmed 03/29/17] Ranitidine TAB (NF) [Zantac TAB (NF)] 150 mg PO BID 03/29/17 [History Confirmed 03/29/17] Rivaroxaban TAB(*) [Xarelto 15 mg(*)] 15 mg PO BID 03/29/17 [History Confirmed 03/29/17] Tele: NSR Vitals: O2/Vent: AC 14/50/+5/90% Infusions: propofol Current Medications: Propofol (Diprivan*) 100 mls @ 8.165 mls/hr IV .PER RATE MAEVE; 20 MCG/KG/MIN PRN Reason: Protocol Last Admin: 03/29/17 10:41 Dose: 8.165 mls/hr Physical Exam: General: intubated, sedated Head: normocephalic, atraumatic HEENT: ++ pallor, no icterus, moist mucous membranes Neck: soft, supple, no jvd CVS: normal rate, regular, no murmur Resp: bilateral air entry, no rhales, no wheeze, no rhonchi, no acc muscle use; left chest surgical site intact Abdomen: soft, nondistended, bowel sounds present Ext: pulses diminished, warm, no edema; bilateral fem surgical sites intact Skin: intact, no breakdown, no dryness Neuro: intubated, sedated, was awake post intubation Labs: Laboratory Results - last 24 hr 03/29/17 03/29/17 03/29/17 08:37 08:37 08:37 WBC RBC Hgb Hct MCV MCH MCHC RDW Plt Count MPV Neut % (Auto) Lymph % (Auto) Gillespie % (Auto) Eos % (Auto) Baso % (Auto) Absolute Neuts (auto) Absolute Lymphs (auto) Absolute Monos (auto) Absolute Eos (auto) Absolute Basos (auto) Absolute Nucleated RBC Immature Gran % Neutrophils % Band Neutrophils % Lymphocytes % Monocytes % Eosinophils % Basophils % Metamyelocytes % Nucleated RBC % Abs Neuts (Manual) Abs Monocytes (Manual) Absolute Eos (Manual) Abs Basophils (Manual) Nucleated RBCs/100 WBC Normal RBC Morphology Polychromasia Hypochromasia Anisocytosis Acanthocytes (Spur) INR (Anticoag Therapy) APTT Patient Temperature ABG pH ABG pH (Temp Correct) ABG pCO2 ABG pCO2 (Temp Corrct ABG pO2 ABG pO2 (Temp Correct ABG HCO3 ABG O2 Saturation ABG Base Excess Respiration Rate O2 Delivery Device Ventilator Type Vent Mode FiO2 Inspiratory Time PEEP Pressure Support Pressure Control EPAP IPAP BiPAP Sodium 139 Potassium 4.0 Chloride 111 Carbon Dioxide 19 L Anion Gap 9 BUN 31 H Creatinine 1.27 H Est GFR ( Amer) 73.4 Est GFR (Non-Af Amer) 57.1 BUN/Creatinine Ratio 24.4 H Glucose 134 H Lactic Acid 5.6 H* Calcium 7.7 L Total Bilirubin 0.50 AST 22 ALT 11 Alkaline Phosphatase 32 L Troponin I 0.04 H* C-Reactive Protein 2.39 B-Natriuretic Peptide 133 H Total Protein 4.5 L Albumin 2.2 L Globulin 2.3 Albumin/Globulin Ratio 1.0 Lipase 42 Procalcitonin Urine Color Urine Appearance Urine pH Ur Specific [place] Urine Protein Urine Ketones Urine Blood Urine Nitrate Urine Bilirubin Urine Urobilinogen Ur Leukocyte Esterase Urine Glucose Blood Type Antibody Screen Crossmatch 03/29/17 03/29/17 03/29/17 08:37 10:18 10:18 WBC 11.7 H RBC 0.65 L Hgb 2.1 L* Hct 8 L MCV 118 H MCH 32 H MCHC 27 L RDW 25 H Plt Count 224 MPV 7 L Neut % (Auto) Not Reportable Lymph % (Auto) Not Reportable Gillespie % (Auto) Not Reportable Eos % (Auto) Not Reportable Baso % (Auto) Not Reportable Absolute Neuts (auto) Not Reportable Absolute Lymphs (auto) Not Reportable Absolute Monos (auto) Not Reportable Absolute Eos (auto) Not Reportable Absolute Basos (auto) Not Reportable Absolute Nucleated RBC Not Reportable Immature Gran % 8 Neutrophils % 61 Band Neutrophils % 7 Lymphocytes % 26 Monocytes % 5 Eosinophils % 0 Basophils % 0 Metamyelocytes % 1 Nucleated RBC % Not Reportable Abs Neuts (Manual) 7.1 Abs Monocytes (Manual) 0.6 Absolute Eos (Manual) 0 Abs Basophils (Manual) 0 Nucleated RBCs/100 WBC 5 H Normal RBC Morphology Not Reportable Polychromasia 2+ Hypochromasia 1+ Anisocytosis 2+ Acanthocytes (Spur) 2+ INR (Anticoag Therapy) 1.48 H APTT 42.5 H Patient Temperature ABG pH ABG pH (Temp Correct) ABG pCO2 ABG pCO2 (Temp Corrct ABG pO2 ABG pO2 (Temp Correct ABG HCO3 ABG O2 Saturation ABG Base Excess Respiration Rate O2 Delivery Device Ventilator Type Vent Mode FiO2 Inspiratory Time PEEP Pressure Support Pressure Control EPAP IPAP BiPAP Sodium Potassium Chloride Carbon Dioxide Anion Gap BUN Creatinine Est GFR ( Amer) Est GFR (Non-Af Amer) BUN/Creatinine Ratio Glucose Lactic Acid Calcium Total Bilirubin AST ALT Alkaline Phosphatase Troponin I C-Reactive Protein B-Natriuretic Peptide Total Protein Albumin Globulin Albumin/Globulin Ratio Lipase Procalcitonin 0.1 Urine Color Urine Appearance Urine pH Ur Specific [place] Urine Protein Urine Ketones Urine Blood Urine Nitrate Urine Bilirubin Urine Urobilinogen Ur Leukocyte Esterase Urine Glucose Blood Type Antibody Screen Crossmatch 03/29/17 03/29/17 03/29/17 10:18 10:40 11:52 WBC 9.9 RBC 0.63 L Hgb 2.1 L* Hct 8 L MCV 119 H MCH 33 H MCHC 27 L RDW 25 H Plt Count 207 MPV 7 L Neut % (Auto) 72.8 Lymph % (Auto) 19.6 L Gillespie % (Auto) 6.1 Eos % (Auto) 0.2 Baso % (Auto) 1.3 Absolute Neuts (auto) 7.2 Absolute Lymphs (auto) 1.9 Absolute Monos (auto) 0.6 Absolute Eos (auto) 0 Absolute Basos (auto) 0.1 Absolute Nucleated RBC 1.1 Immature Gran % Neutrophils % Band Neutrophils % Lymphocytes % Monocytes % Eosinophils % Basophils % Metamyelocytes % Nucleated RBC % 10.6 Abs Neuts (Manual) Abs Monocytes (Manual) Absolute Eos (Manual) Abs Basophils (Manual) Nucleated RBCs/100 WBC Normal RBC Morphology Polychromasia Hypochromasia Anisocytosis Acanthocytes (Spur) INR (Anticoag Therapy) APTT Patient Temperature ABG pH ABG pH (Temp Correct) ABG pCO2 ABG pCO2 (Temp Corrct ABG pO2 ABG pO2 (Temp Correct ABG HCO3 ABG O2 Saturation ABG Base Excess Respiration Rate O2 Delivery Device Ventilator Type Vent Mode FiO2 Inspiratory Time PEEP Pressure Support Pressure Control EPAP IPAP BiPAP Sodium Potassium Chloride Carbon Dioxide Anion Gap BUN Creatinine Est GFR ( Amer) Est GFR (Non-Af Amer) BUN/Creatinine Ratio Glucose Lactic Acid Calcium Total Bilirubin AST ALT Alkaline Phosphatase Troponin I C-Reactive Protein B-Natriuretic Peptide Total Protein Albumin Globulin Albumin/Globulin Ratio Lipase Procalcitonin Urine Color Yellow Urine Appearance Cloudy Urine pH 5.0 Ur Specific [place] 1.025 Urine Protein Negative Urine Ketones Negative Urine Blood Negative Urine Nitrate Negative Urine Bilirubin Negative Urine Urobilinogen Negative Ur Leukocyte Esterase Negative Urine Glucose Negative Blood Type O Positive Antibody Screen Negative Crossmatch See Detail 03/29/17 12:47 WBC RBC Hgb Hct MCV MCH MCHC RDW Plt Count MPV Neut % (Auto) Lymph % (Auto) Gillespie % (Auto) Eos % (Auto) Baso % (Auto) Absolute Neuts (auto) Absolute Lymphs (auto) Absolute Monos (auto) Absolute Eos (auto) Absolute Basos (auto) Absolute Nucleated RBC Immature Gran % Neutrophils % Band Neutrophils % Lymphocytes % Monocytes % Eosinophils % Basophils % Metamyelocytes % Nucleated RBC % Abs Neuts (Manual) Abs Monocytes (Manual) Absolute Eos (Manual) Abs Basophils (Manual) Nucleated RBCs/100 WBC Normal RBC Morphology Polychromasia Hypochromasia Anisocytosis Acanthocytes (Spur) INR (Anticoag Therapy) APTT Patient Temperature Not Reportable ABG pH 7.30 L ABG pH (Temp Correct) Not Reportable ABG pCO2 26 L ABG pCO2 (Temp Corrct Not Reportable ABG pO2 452 H ABG pO2 (Temp Correct Not Reportable ABG HCO3 15.2 L ABG O2 Saturation 98.8 H ABG Base Excess -12.6 L Respiration Rate Not Reportable O2 Delivery Device Vent Ventilator Type Not Reportable Vent Mode Not Reportable FiO2 90 Inspiratory Time Not Reportable PEEP Not Reportable Pressure Support Not Reportable Pressure Control Not Reportable EPAP Not Reportable IPAP Not Reportable BiPAP Not Reportable Sodium Potassium Chloride Carbon Dioxide Anion Gap BUN Creatinine Est GFR ( Amer) Est GFR (Non-Af Amer) BUN/Creatinine Ratio Glucose Lactic Acid Calcium Total Bilirubin AST ALT Alkaline Phosphatase Troponin I C-Reactive Protein B-Natriuretic Peptide Total Protein Albumin Globulin Albumin/Globulin Ratio Lipase Procalcitonin Urine Color Urine Appearance Urine pH Ur Specific [place] Urine Protein Urine Ketones Urine Blood Urine Nitrate Urine Bilirubin Urine Urobilinogen Ur Leukocyte Esterase Urine Glucose Blood Type Antibody Screen Crossmatch Imaging: CT chest no acute process noted CXR right IJ tlc in place, ett above candido, no acute infiltrate Assessment: 66y M pmhx HTN, PVD s/p axillo-fem bypass 03/2017 at [facility], COPD. As per partner, he developed multiple episodes of nausea/vom yesterday, no abd pain, no blood noted. This morning he woke up and was short of breath and felt dizzy. Was hypotensive, tachy, hypothermic in ER. On workup after CT scan had a PEA cardiac arrest, ROSC achieved, Intubated. Noted CBC with hg of 2.2. -Hypotension, hypovolemic shock -acute blood loss anemia -PEA cardiac arrest -acute hypoxic respiratory failure -Acute kidney injury -metabolic acidosis -PVD Plan: Neuro- intubated, sedated; cont propofol. reassess after prbc given. CVS- s/p PEA arrest, likely from hypovolemia and acute severe anemia. transfuse 4 prbc now. will give additional 2 more units prbc. hold further AC, coag panel otherwise normal. no clear source of bleeding, check fobt. check hemolytic panel. hold further amio, no clear VT, monitor for now. obtain ECHO to eval LV function. Graft appears intact. Poor pulses, get arterial duplex of LE and graft. trend Lactic acid. Resp- intubated on 100%, PO2 is good, decrease fio2. cxr without congestion. maintain for now, re-eval once hg improved. ID- hypothermic, likely from poor perfusion/anemia. wbc okay. no clear infectious process. s/p cefepime and vanco. will hold abx for now. blood cultures done. GI- npo. ngt in place. start PPI infusion. check fobt. will lavage stomach. Renal- renal insuff noted. metabolic acidosis+. K okay. s/p IVF bolus. transfusing prbc now. moreno in place, monitor urine output, making urine now. Heme- acute anemia, for prbc x4 now, +2 more units. hold AC. send hemolytic panel, check fobt. plt okay. hold aspirin. Endo- fingersticks as needed Musculsk- bedrest. Wounds- surgical sites intact. Nutrition- npo DVT prophylaxis: scds GI prophylaxis: protonix infusion Central Line: right ij 03/29 Arterial Line: no Moreno Cathetor: yes Disposition: ICU Code Status: full code Total Critical Care time is 60 minutes, excluding procedures/teaching Homer Evans MD [place] Machine Operator (Electronically Signed)
[2017-03-29] MEDS ORDERED: Pantoprazole IV* 40 MG IV ONE (13:37)
[2017-03-29] MEDS ORDERED: Perflutren Lipid Microsphere* 3 ML VIAL ONE (15:01)
[2017-03-29] MEDS: Pantoprazole IV* 80 MG in NS 0.9% 250 ML* 250 ML IVPB SCH (15:04)
--- NOTE | 2017-03-29 15:21 | PN ---
Progress Note - Progress Note Date of Service: 03/29/17 Note: Central Line Procedure Note Indication: Hypotension/shock, poor vascular access Consent was emergent - Prior labs/history was reviewed prior to procedure - Full sterile precautions with chlorhexidine/full drapes/gowns/gloves utilized - Right IJ vein visualized with ultrasound - Vessel accessed under ultrasound guidance with return of nonpulsatile blood. A guidewire was passed into vessel and confirmed in vessel with ultrasound. 1 attempt was made to access vessel. Vessel was dilated and cathetor was passed over wire into vessel. All ports demonstrated good blood return and flushed. Catheter was sutured to site and dressing applied Adequate hemostasis was achieved, EBL <5 cc No immediate complications noted, patient tolerated procedure well. CXR - confirmed right IJ placement of cathetor; no ptx Homer Evans MD Illusionist (electronically signed)
--- NOTE | 2017-03-29 15:22 | PN ---
Progress Note - Progress Note Date of Service: 03/29/17 Note: Attempted left IJ placement of TLC for vascular access, unable to pass wire due to obstruction lower down. no hematoma. procedure aborted. Site switched. Patient tolerated left IJ attemtp without complication. CXR without ptx Homer Evans Md Cryptanalyst
[2017-03-29] MEDS: Chlorhexidine MOUTHWASH 0.12%* 15 ML UDC TOPICAL SCH ×3 (15:46→22:17)
--- NOTE | 2017-03-29 17:09 | ECHO ---
Patient: MANUEL LONGORIA [facility] Rec#: [id number] : 1950 Date: 03/29/2017 Age: 66y Height: 180.34 cm / 71.0 in Weight: 66.68 kg / 147.0 lbs Sex: F BSA: 1.85 Room#: [facility] Admit Date#: 03/29/2017 Type: Inpatient Referring: Homer Evans Reading: Xin Song MD Accountant Supervisor: Adela Tucker RDCS CC: Niraj Ly MD Transthoracic Echocardiogram Indication: S/P Cardiac Arrest BP: 113/87 HR: 82 Rhythm: NSR Findings History: HTN,COPD,smoker,Cocaine user, anemia. Currently sedated, intubated and mechanically ventilated. Technical Comments: The study is technically limited due to patient being intubated and on a ventilator. Completed at 1545. Left Ventricle: The left ventricular chamber size is normal. Severe global hypokinesis of the left ventricle is observed.Only the base of the posterior lateral wall shows some systolic contractility. Other regions show akinesis and dyskinesis. The estimated ejection fraction is less than 20%. Abnormal left ventricular diastolic function is observed. The left ventricular diastolic filling pattern is consistent with elevated left ventricular end-diastolic pressure. Left Atrium: The left atrial chamber size is normal. Right Ventricle: The right ventricular cavity size is normal. The right ventricular global systolic function is severely reduced. The free wall of the right ventricle appears hypokinetic. Right Atrium: The right atrial cavity size is normal. Aortic Valve: The aortic valve is trileaflet. There is no evidence of aortic regurgitation. There is no evidence of aortic stenosis. Mitral Valve: The mitral valve leaflets are mildly thickened. There is mild to moderate mitral regurgitation. There is no evidence of mitral stenosis. Tricuspid Valve: The tricuspid valve leaflets are normal. There is mild to moderate tricuspid regurgitation. Unable to estimate the right ventricular systolic pressure. There is no tricuspid stenosis. Pulmonic Valve: The pulmonic valve appears normal. There is a trace pulmonic regurgitation. There is no pulmonic stenosis. Pericardium: The pericardium appears normal. Aorta: There is no dilatation of the ascending aorta. There is no dilatation of the aortic arch. There is no dilation of the aortic root. Pulmonary Artery: The main pulmonary artery appears normal. Venous: Unable to accurately comment on the size collapsibility of the IVC as the patient in known to be on mechanical ventilation. The inferior vena cava appears normal in size. Contrast: Definity was used to optimize study. A total of 3.5ml. used. Intravenous contrast was used to enhance endocardial border definition. Conclusions Severe global hypokinesis of the left ventricle is observed.Only the base of the posterior lateral wall shows some systolic contractility. Other regions show akinesis and dyskinesis. The estimated ejection fraction is less than 20%. The left ventricular diastolic filling pattern is consistent with elevated left ventricular end-diastolic pressure. The right ventricular global systolic function is severely reduced. There is mild to moderate mitral regurgitation. There is mild to moderate tricuspid regurgitation. Unable to estimate the right ventricular systolic pressure. Compared with prior study of 08/24/14, EF has decreased from 35-40%, RV hypokinesis is new, MR and TR have increased from trace, previous study described bicuspid aortic valve and dilated ascending aorta, not appreciated on this study. Measurements Name Value Normal Range RVIDd (AP) 2D 2.8 cm (0.9 - 2.6) RVDdMajor (2D) 3.4 cm (2.2 - 4.4) RAd ISD 4CH 3.7 cm (3.4 - 4.9) RA (A4C)W 4.1 cm (2.9 - 4.6) IVSd (2D) 0.8 cm (0.6 - 1) LVPWd (2D) 0.8 cm (0.6 - 1) LVIDd (2D) 4.7 cm (3.6 - 5.4) LVIDs (2D) 4.4 cm - LV FS (2D) 6 % (25 - 45) Aortic Annulus 1.7 cm (1.4 - 2.6) Ao root diameter (2D) 2.7 cm (2.1 - 3.5) Ascending Ao 3 cm (2.1 - 3.4) Aortic arch 2 cm (1.8 - 3.4) Descending Ao 0.4 cm - LA dimension (AP) 2D 2.8 cm (2.3 - 3.8) LAd ISD 4CH 4.6 cm (2.9 - 5.3) LA ISD 4CH W 4.1 cm (2.5 - 4.5) Name Value Normal Range LA ESV SP 4CH (A/L) 47 ml - LA ESV SP 2CH (A/L) 23 ml - LA ESV BP (A/L) 40 ml - LA ESV BP (A/L) index 21.47 ml/m2 - LA ESV SP 4CH (MOD) 41 ml - LA ESV SP 2CH (MOD) 25 ml - Name Value Normal Range MV E-wave Vmax 0.6 m/sec - MV deceleration time 129 msec - MV A-wave Vmax 0.7 m/sec - MV E:A ratio 0.88 ratio - LV septal e' Vmax 0.03 m/sec - LV lateral e' Vmax 0.06 m/sec - LV E:e' septal ratio 20 ratio - LV E:e' lateral ratio 10 ratio - Name Value Normal Range AV Vmax 1.2 m/sec - AV VTI 20.1 cm - AV peak gradient 5.26 mmHg - AV mean gradient 2.93 mmHg - LVOT diameter 2.2 cm - LVOT Vmax 0.7 m/sec - LVOT VTI 11.7 cm - LVOT peak gradient 1.83 mmHg - LVOT mean gradient 0.77 mmHg - Name Value Normal Range MR Vmax 3.1 m/sec - MR VTI 127.5 cm - Name Value Normal Range TR Vmax 2.1 m/sec - TR peak gradient 18 mmHg - IVC diameter 1.7 cm - Name Value Normal Range PV Vmax 0.6 m/sec - PV peak gradient 1.43 mmHg -
[2017-03-29 20:15] LABS: EGFR Non-African American 48.6 (>60)
[2017-03-29 20:53] LABS: Hematocrit 22 % (42-52); Hemoglobin 7.6 g/dl (14.0-18.0); Mean Corpuscular HGB Conc 34 g/dl (31-36); Mean Corpuscular Hemoglobin 32 pg (27-31); Mean Corpuscular Volume 94 fL (80-94); Mean Platelet Volume 7 um3 (7.4-10.4); Platelet Count 175 10^3/ul (150-450); Red Blood Count 2.39 10^6/ul (4.0-5.4); Red Cell Distribution Width 16 % (10.5-15); White Blood Count 8.8 10^3/ul (3.5-10.8)
[2017-03-29] MEDS ORDERED: diPHENhydraMINE PO* 50 MG PO ONE (23:00)
[2017-03-29] MEDS ORDERED: Acetaminophen TAB* 325 MG PO ONE (23:00)
[2017-03-30] MEDS: Pantoprazole IV* 80 MG in NS 0.9% 250 ML* 250 ML IVPB SCH ×3 (00:15→20:59)
[2017-03-30] MEDS ORDERED: diPHENhydraMINE LIQ* 12.5 MG/5 ML UDC PO ONE (02:00)
[2017-03-30] MEDS ORDERED: Acetaminophen ADULT LIQ* 650 MG/20.3 ML UDC PO ONE (02:00)
[2017-03-30] MEDS: Propofol* 100 ML IV SCH ×2 (02:06→05:43)
[2017-03-30] MEDS: Chlorhexidine MOUTHWASH 0.12%* 15 ML UDC TOPICAL SCH ×6 (02:07→23:51)
[2017-03-30 05:50] LABS: Hematocrit 25 % (42-52); Hemoglobin 8.5 g/dl (14.0-18.0); Mean Corpuscular HGB Conc 34 g/dl (31-36); Mean Corpuscular Hemoglobin 31 pg (27-31); Mean Corpuscular Volume 92 fL (80-94); Mean Platelet Volume 8 um3 (7.4-10.4); Platelet Count 175 10^3/ul (150-450); Red Blood Count 2.72 10^6/ul (4.0-5.4); Red Cell Distribution Width 16 % (10.5-15); White Blood Count 10.1 10^3/ul (3.5-10.8)
[2017-03-30 05:58] LABS: INR 1.06 (0.77-1.02)
[2017-03-30 06:03] LABS: EGFR Non-African American 44.1 (>60)
--- NOTE | 2017-03-30 08:00 | RAD ---
INDICATION: Congestion in a patient with cardiac arrest COMPARISON: Most recent chest x-rays from the previous dated March 29, 2017 TECHNIQUE: Single AP portable view of the chest was obtained. FINDINGS: Image quality is compromised due to the relative inferiority of a portable chest x-ray. Automatic external defibrillator pads are seen overlying the chest. The lower margin of the endotracheal tube is level with the lower heads of the clavicles approximately 6 cm above the candido. A gastric tube descends below the level the diaphragm overlying the expected location of the gastric fundus. The heart and mediastinum exhibit normal size and contour. The lungs are grossly clear. There is no evidence of a large pleural effusion. Visualized bones are normal for the patient's age. IMPRESSION: Appropriately positioned lines and tubes. No radiographic evidence for acute cardiopulmonary abnormality on this portable chest x-ray.
--- NOTE | 2017-03-30 09:39 | PN ---
Progress Note - Progress Note Date of Service: 03/30/17 Note: History and Physical - Critical Care 24 hour events: -intubated -s/p 5 prbc overnight -hemodyn stable, no pressors; remains on sedation -making urine -afebrile -no bleeding noted from anywhere Tele: NSR Vitals: Vital Signs Temp 99.0 F 03/30/17 08:30 Pulse 96 03/30/17 08:30 Resp 16 03/30/17 08:00 BP 96/73 03/30/17 08:30 Pulse Ox 100 03/30/17 08:30 Intake & Output 03/29/17 03/30/17 03/30/17 18:59 06:59 18:59 Intake Total 1205 1909 Output Total 900 Balance 1205 1009 Weight 0 oz 178 lb 9.191 oz Intake: IV Fluids 500 769 NS (0.9%) 500 769 IVPB 240 ABX - VANCOMYCIN 240 Medicated IV 75 299 CC - Propofol/Diprivan 75 150 GEN - Pantoprazole/ 149 Protonix Packed Cells 630 601 Output: Moreno 900 Other: Date of Last Bowel 03/28/17 Movement O2/Vent: AC 14/50/+5/90% Infusions: propofol, protonix infusion Current Medications: Chlorhexidine Gluconate (Peridex Mouth Wash 0.12%*) 15 ml TOPICAL Q4H [facility] Last Admin: 03/30/17 05:44 Dose: 15 ml Propofol (Diprivan*) 100 mls @ 8.165 mls/hr IV .PER RATE MAEVE; 20 MCG/KG/MIN PRN Reason: Protocol Last Admin: 03/30/17 05:43 Dose: 8.165 mls/hr Pantoprazole Sodium 80 mg/ (Sodium Chloride) 250 mls @ 25 mls/hr IVPB Q10H MAEVE Last Admin: 03/30/17 00:15 Dose: 25 mls/hr Physical Exam: General: intubated, sedated Head: normocephalic, atraumatic HEENT: ++ pallor, no icterus, moist mucous membranes Neck: soft, supple, no jvd CVS: normal rate, regular, no murmur Resp: bilateral air entry, no rhales, no wheeze, no rhonchi, no acc muscle use; left chest surgical site intact Abdomen: soft, nondistended, bowel sounds present Ext: pulses diminished, warm, no edema; bilateral fem surgical sites intact Skin: intact, no breakdown, no dryness Neuro: intubated, sedated Labs: Laboratory Results - last 24 hr 03/29/17 03/29/17 03/29/17 08:37 08:37 10:18 WBC 11.7 H RBC 0.65 L Hgb 2.1 L* Hct 8 L MCV 118 H MCH 32 H MCHC 27 L RDW 25 H Plt Count 224 MPV 7 L Neut % (Auto) Not Reportable Lymph % (Auto) Not Reportable Elliott % (Auto) Not Reportable Eos % (Auto) Not Reportable Baso % (Auto) Not Reportable Absolute Neuts (auto) Not Reportable Absolute Lymphs (auto) Not Reportable Absolute Monos (auto) Not Reportable Absolute Eos (auto) Not Reportable Absolute Basos (auto) Not Reportable Absolute Nucleated RBC Not Reportable Immature Gran % 8 Neutrophils % 61 Band Neutrophils % 7 Lymphocytes % 26 Monocytes % 5 Eosinophils % 0 Basophils % 0 Metamyelocytes % 1 Nucleated RBC % Not Reportable Abs Neuts (Manual) 7.1 Abs Monocytes (Manual) 0.6 Absolute Eos (Manual) 0 Abs Basophils (Manual) 0 Nucleated RBCs/100 WBC 5 H Normal RBC Morphology Not Reportable Polychromasia 2+ Hypochromasia 1+ Anisocytosis 2+ Acanthocytes (Spur) 2+ INR (Anticoag Therapy) APTT Patient Temperature ABG pH ABG pH (Temp Correct) ABG pCO2 ABG pCO2 (Temp Corrct ABG pO2 ABG pO2 (Temp Correct ABG HCO3 ABG O2 Saturation ABG Base Excess Respiration Rate O2 Delivery Device Ventilator Type Vent Mode FiO2 Inspiratory Time PEEP Pressure Support Pressure Control EPAP IPAP BiPAP Sodium 139 Potassium 4.0 Chloride 111 Carbon Dioxide 19 L Anion Gap 9 BUN 31 H Creatinine 1.27 H Est GFR ( Amer) 73.4 Est GFR (Non-Af Amer) 57.1 BUN/Creatinine Ratio 24.4 H Glucose 134 H Lactic Acid Calcium 7.7 L Magnesium Total Bilirubin 0.50 AST 22 ALT 11 Alkaline Phosphatase 32 L Lactate Dehydrogenase 326 H Troponin I 0.04 H* C-Reactive Protein 2.39 Total Protein 4.5 L Albumin 2.2 L Globulin 2.3 Albumin/Globulin Ratio 1.0 Lipase 42 Vitamin B12 Cancelled Folate Cancelled Procalcitonin 0.1 Urine Color Urine Appearance Urine pH Ur Specific [place] Urine Protein Urine Ketones Urine Blood Urine Nitrate Urine Bilirubin Urine Urobilinogen Ur Leukocyte Esterase Urine Glucose Blood Type Antibody Screen Crossmatch Donor Unit # Post-Trans Blood Type Post-Trans AGUS 03/29/17 03/29/17 03/29/17 10:18 10:18 10:40 WBC 9.9 RBC 0.63 L Hgb 2.1 L* Hct 8 L MCV 119 H MCH 33 H MCHC 27 L RDW 25 H Plt Count 207 MPV 7 L Neut % (Auto) 72.8 Lymph % (Auto) 19.6 L Elliott % (Auto) 6.1 Eos % (Auto) 0.2 Baso % (Auto) 1.3 Absolute Neuts (auto) 7.2 Absolute Lymphs (auto) 1.9 Absolute Monos (auto) 0.6 Absolute Eos (auto) 0 Absolute Basos (auto) 0.1 Absolute Nucleated RBC 1.1 Immature Gran % Neutrophils % Band Neutrophils % Lymphocytes % Monocytes % Eosinophils % Basophils % Metamyelocytes % Nucleated RBC % 10.6 Abs Neuts (Manual) Abs Monocytes (Manual) Absolute Eos (Manual) Abs Basophils (Manual) Nucleated RBCs/100 WBC Normal RBC Morphology Polychromasia Hypochromasia Anisocytosis Acanthocytes (Spur) INR (Anticoag Therapy) 1.48 H APTT 42.5 H Patient Temperature ABG pH ABG pH (Temp Correct) ABG pCO2 ABG pCO2 (Temp Corrct ABG pO2 ABG pO2 (Temp Correct ABG HCO3 ABG O2 Saturation ABG Base Excess Respiration Rate O2 Delivery Device Ventilator Type Vent Mode FiO2 Inspiratory Time PEEP Pressure Support Pressure Control EPAP IPAP BiPAP Sodium Potassium Chloride Carbon Dioxide Anion Gap BUN Creatinine Est GFR ( Amer) Est GFR (Non-Af Amer) BUN/Creatinine Ratio Glucose Lactic Acid Calcium Magnesium Total Bilirubin AST ALT Alkaline Phosphatase Lactate Dehydrogenase Troponin I C-Reactive Protein Total Protein Albumin Globulin Albumin/Globulin Ratio Lipase Vitamin B12 Folate Procalcitonin Urine Color Urine Appearance Urine pH Ur Specific [place] Urine Protein Urine Ketones Urine Blood Urine Nitrate Urine Bilirubin Urine Urobilinogen Ur Leukocyte Esterase Urine Glucose Blood Type O Positive Antibody Screen Negative Crossmatch See Detail Donor Unit # Post-Trans Blood Type Post-Trans AGUS 02/21/18 02/21/18 02/21/18 11:52 12:32 12:47 WBC RBC Hgb Hct MCV MCH MCHC RDW Plt Count MPV Neut % (Auto) Lymph % (Auto) Elliott % (Auto) Eos % (Auto) Baso % (Auto) Absolute Neuts (auto) Absolute Lymphs (auto) Absolute Monos (auto) Absolute Eos (auto) Absolute Basos (auto) Absolute Nucleated RBC Immature Gran % Neutrophils % Band Neutrophils % Lymphocytes % Monocytes % Eosinophils % Basophils % Metamyelocytes % Nucleated RBC % Abs Neuts (Manual) Abs Monocytes (Manual) Absolute Eos (Manual) Abs Basophils (Manual) Nucleated RBCs/100 WBC Normal RBC Morphology Polychromasia Hypochromasia Anisocytosis Acanthocytes (Spur) INR (Anticoag Therapy) APTT Patient Temperature Not Reportable ABG pH 7.30 L ABG pH (Temp Correct) Not Reportable ABG pCO2 26 L ABG pCO2 (Temp Corrct Not Reportable ABG pO2 452 H ABG pO2 (Temp Correct Not Reportable ABG HCO3 15.2 L ABG O2 Saturation 98.8 H ABG Base Excess -12.6 L Respiration Rate Not Reportable O2 Delivery Device Vent Ventilator Type Not Reportable Vent Mode Not Reportable FiO2 90 Inspiratory Time Not Reportable PEEP Not Reportable Pressure Support Not Reportable Pressure Control Not Reportable EPAP Not Reportable IPAP Not Reportable BiPAP Not Reportable Sodium Potassium Chloride Carbon Dioxide Anion Gap BUN Creatinine Est GFR ( Amer) Est GFR (Non-Af Amer) BUN/Creatinine Ratio Glucose Lactic Acid 6.7 H* Calcium Magnesium Total Bilirubin AST ALT Alkaline Phosphatase Lactate Dehydrogenase Troponin I C-Reactive Protein Total Protein Albumin Globulin Albumin/Globulin Ratio Lipase Vitamin B12 Folate Procalcitonin Urine Color Yellow Urine Appearance Cloudy Urine pH 5.0 Ur Specific [place] 1.025 Urine Protein Negative Urine Ketones Negative Urine Blood Negative Urine Nitrate Negative Urine Bilirubin Negative Urine Urobilinogen Negative Ur Leukocyte Esterase Negative Urine Glucose Negative Blood Type Antibody Screen Crossmatch Donor Unit # Post-Trans Blood Type Post-Trans AGUS 03/29/17 03/29/17 03/29/17 19:07 19:50 19:50 WBC RBC Hgb Hct MCV MCH MCHC RDW Plt Count MPV Neut % (Auto) Lymph % (Auto) Elliott % (Auto) Eos % (Auto) Baso % (Auto) Absolute Neuts (auto) Absolute Lymphs (auto) Absolute Monos (auto) Absolute Eos (auto) Absolute Basos (auto) Absolute Nucleated RBC Immature Gran % Neutrophils % Band Neutrophils % Lymphocytes % Monocytes % Eosinophils % Basophils % Metamyelocytes % Nucleated RBC % Abs Neuts (Manual) Abs Monocytes (Manual) Absolute Eos (Manual) Abs Basophils (Manual) Nucleated RBCs/100 WBC Normal RBC Morphology Polychromasia Hypochromasia Anisocytosis Acanthocytes (Spur) INR (Anticoag Therapy) APTT Patient Temperature ABG pH ABG pH (Temp Correct) ABG pCO2 ABG pCO2 (Temp Corrct ABG pO2 ABG pO2 (Temp Correct ABG HCO3 ABG O2 Saturation ABG Base Excess Respiration Rate O2 Delivery Device Ventilator Type Vent Mode FiO2 Inspiratory Time PEEP Pressure Support Pressure Control EPAP IPAP BiPAP Sodium 138 Potassium 4.7 Chloride 115 H Carbon Dioxide 18 L Anion Gap 5 BUN 36 H Creatinine 1.46 H Est GFR ( Amer) 62.5 Est GFR (Non-Af Amer) 48.6 BUN/Creatinine Ratio 24.7 H Glucose 127 H Lactic Acid 0.9 Calcium 6.8 L Magnesium Total Bilirubin AST ALT Alkaline Phosphatase Lactate Dehydrogenase Troponin I C-Reactive Protein Total Protein Albumin Globulin Albumin/Globulin Ratio Lipase Vitamin B12 Folate Procalcitonin Urine Color Urine Appearance Urine pH Ur Specific [place] Urine Protein Urine Ketones Urine Blood Urine Nitrate Urine Bilirubin Urine Urobilinogen Ur Leukocyte Esterase Urine Glucose Blood Type Antibody Screen Crossmatch Donor Unit # [id number] Post-Trans Blood Type TNP Post-Trans AGUS TNP 03/29/17 03/30/17 03/30/17 20:45 05:35 05:35 WBC 8.8 10.1 RBC 2.39 L 2.72 L Hgb 7.6 L 8.5 L Hct 22 L 25 L MCV 94 92 MCH 32 H 31 MCHC 34 34 RDW 16 H 16 H Plt Count 175 175 MPV 7 L 8 Neut % (Auto) Lymph % (Auto) Elliott % (Auto) Eos % (Auto) Baso % (Auto) Absolute Neuts (auto) Absolute Lymphs (auto) Absolute Monos (auto) Absolute Eos (auto) Absolute Basos (auto) Absolute Nucleated RBC Immature Gran % Neutrophils % Band Neutrophils % Lymphocytes % Monocytes % Eosinophils % Basophils % Metamyelocytes % Nucleated RBC % Abs Neuts (Manual) Abs Monocytes (Manual) Absolute Eos (Manual) Abs Basophils (Manual) Nucleated RBCs/100 WBC Normal RBC Morphology Polychromasia Hypochromasia Anisocytosis Acanthocytes (Spur) INR (Anticoag Therapy) 1.06 H APTT 27.4 Patient Temperature ABG pH ABG pH (Temp Correct) ABG pCO2 ABG pCO2 (Temp Corrct ABG pO2 ABG pO2 (Temp Correct ABG HCO3 ABG O2 Saturation ABG Base Excess Respiration Rate O2 Delivery Device Ventilator Type Vent Mode FiO2 Inspiratory Time PEEP Pressure Support Pressure Control EPAP IPAP BiPAP Sodium Potassium Chloride Carbon Dioxide Anion Gap BUN Creatinine Est GFR ( Amer) Est GFR (Non-Af Amer) BUN/Creatinine Ratio Glucose Lactic Acid Calcium Magnesium Total Bilirubin AST ALT Alkaline Phosphatase Lactate Dehydrogenase Troponin I C-Reactive Protein Total Protein Albumin Globulin Albumin/Globulin Ratio Lipase Vitamin B12 Folate Procalcitonin Urine Color Urine Appearance Urine pH Ur Specific [place] Urine Protein Urine Ketones Urine Blood Urine Nitrate Urine Bilirubin Urine Urobilinogen Ur Leukocyte Esterase Urine Glucose Blood Type Antibody Screen Crossmatch Donor Unit # Post-Trans Blood Type Post-Trans AGUS 03/30/17 03/30/17 05:35 06:10 WBC RBC Hgb Hct MCV MCH MCHC RDW Plt Count MPV Neut % (Auto) Lymph % (Auto) Elliott % (Auto) Eos % (Auto) Baso % (Auto) Absolute Neuts (auto) Absolute Lymphs (auto) Absolute Monos (auto) Absolute Eos (auto) Absolute Basos (auto) Absolute Nucleated RBC Immature Gran % Neutrophils % Band Neutrophils % Lymphocytes % Monocytes % Eosinophils % Basophils % Metamyelocytes % Nucleated RBC % Abs Neuts (Manual) Abs Monocytes (Manual) Absolute Eos (Manual) Abs Basophils (Manual) Nucleated RBCs/100 WBC Normal RBC Morphology Polychromasia Hypochromasia Anisocytosis Acanthocytes (Spur) INR (Anticoag Therapy) APTT Patient Temperature Not Reportable ABG pH 7.37 ABG pH (Temp Correct) Not Reportable ABG pCO2 29 L ABG pCO2 (Temp Corrct Not Reportable ABG pO2 233 H ABG pO2 (Temp Correct Not Reportable ABG HCO3 19.0 ABG O2 Saturation 99.6 H ABG Base Excess -7.6 L Respiration Rate 12 O2 Delivery Device vent Ventilator Type 500 Vent Mode Not Reportable FiO2 50 Inspiratory Time Not Reportable PEEP 5 Pressure Support Not Reportable Pressure Control Not Reportable EPAP Not Reportable IPAP Not Reportable BiPAP Not Reportable Sodium 140 Potassium 4.4 Chloride 117 H Carbon Dioxide 16 L Anion Gap 7 BUN 40 H Creatinine 1.59 H Est GFR ( Amer) 56.7 Est GFR (Non-Af Amer) 44.1 BUN/Creatinine Ratio 25.2 H Glucose 114 H Lactic Acid Calcium 7.1 L Magnesium 1.7 L Total Bilirubin 0.80 AST 44 H ALT 17 Alkaline Phosphatase 32 L Lactate Dehydrogenase Troponin I C-Reactive Protein Total Protein 4.2 L Albumin 2.0 L Globulin 2.2 Albumin/Globulin Ratio 0.9 L Lipase Vitamin B12 Folate Procalcitonin Urine Color Urine Appearance Urine pH Ur Specific [place] Urine Protein Urine Ketones Urine Blood Urine Nitrate Urine Bilirubin Urine Urobilinogen Ur Leukocyte Esterase Urine Glucose Blood Type Antibody Screen Crossmatch Donor Unit # Post-Trans Blood Type Post-Trans AGUS Imaging: CT chest no acute process noted CXR right IJ tlc in place, ett above candido, no acute infiltrate echo 03/29 - LV systolic dysfunction, lvef 20%, severely reduced RV systolic function, mild-mod MR/TR, no effusion. Assessment: 66y M pmhx HTN, PVD s/p axillo-fem bypass 03/2017 at [facility], COPD, Ischemic CMP/Biventricular dysfunction, CAD; As per partner, he developed multiple episodes of nausea/vom yesterday, no abd pain, no blood noted. This morning he woke up and was short of breath and felt dizzy. Was hypotensive, tachy, hypothermic in ER. On workup after CT scan had a PEA cardiac arrest, ROSC achieved, Intubated. Noted CBC with hg of 2.2. -Hypotension, hypovolemic shock -acute blood loss anemia -PEA cardiac arrest -acute hypoxic respiratory failure -Acute kidney injury -metabolic acidosis -PVD Severe Biventricular Systolic dysfunction CAD Plan: Neuro- intubated, sedated; wean propofol for neurochecks and vent weaning. coming off propofol, awaiting ability to follow commands. CVS- s/p PEA arrest, likely from hypovolemia and acute severe anemia. s/p 5 prbc , hg from 2.1->8.5. no bowel movments, pending fobt. no other bleeding noted. holding AC for now. No arrythmias overnight noted. Severe Biventricular dysfunction noted on ECHO, previous CAD histroy from family also, previous ECHO with LV dysfunction prior. Graft appears intact. LE arterial duplex to eval grafts. Resp- intubated on 50%. cxr without congestion. Once more awake, vent weaning. secretions+ noted. ID- Temp improved. WBC okay. no clear infectious etiology. no abx indicated. GI- npo. ngt in place. PPI infusion. check fobt, no bowel movements yet, no bleeding from anysource. Renal- DONTRELL, Cr increasing. making urine though. likely from hypoperfusion/ hypotension/anemia as cause. Positive balance. start NS infusion 75cc/hour, re- eval after a few hours. Hyperchloremia. metabolic acidosis+. moreno in place, monitor urine output. Heme- acute anemia, s/p 5 prbc. hg 8.5 now. no clear source of bleeding identified. ldh slightly up. unable to do hemolytic panel due to low amount of blood for sample prior to transfusions. check fobt. hold AC for now. will obtain heme consult. check retic count, vit b12/folate level. cbc q12 h. hold aspirin for now. Endo- fingersticks as needed Musculsk- bedrest. Wounds- surgical sites intact. Nutrition- npo DVT prophylaxis: scds GI prophylaxis: protonix infusion Central Line: right ij 03/29 Arterial Line: no Moreno Cathetor: yes Disposition: ICU Code Status: full code Total Critical Care time is 45 minutes, excluding procedures/teaching Homer Evans MD [employer] (Electronically Signed)
[2017-03-30] MEDS ORDERED: NS 0.45% 1000 ML BAG* 1,000 ML IV SCH (10:00)
[2017-03-30 10:22] LABS: Hematocrit for Retic CNT 25 % (42-52); RBC Retic Count 2.73 10^6/ul (4.6-6.2)
[2017-03-30] MEDS: NS 0.45% 1000 ML BAG* 1,000 ML IV SCH ×2 (10:32→23:51)
[2017-03-30 11:08] LABS: Corrected Retic Count 3.8 % (0.5-1.5); Immature Retic Fraction 0.62
--- NOTE | 2017-03-30 13:14 | RAD ---
INDICATION: Axillobifemoral bypass graft creation COMPARISON: CTA dated March 29, 2017 TECHNIQUE: Ankle-brachial indices and Doppler tracings were obtained of the lower extremities bilaterally. Volume pulse recordings were acquired at the bilateral ankles. REPORT: Ankle-brachial indices: Right: Value (SBP) Index Brachial: 108 Posterior tibialis: 100 0.91 Dorsalis pedis: 170 1.06 Left: Value (SBP) Index Brachial: 110 Posterior tibialis: 95 0.86 Dorsalis pedis: 99 0.90 Doppler waveforms (acquired at rest): In the interrogated lower extremity arteries, Doppler waveforms are monophasic in all distributions. Volume pulse recordings (acquired at rest): Volume pulse recordings, measured at the bilateral ankles, are symmetric. IMPRESSION: Borderline claudication values acquired in the left lower extremity with monophasic waveforms measured at the bilateral pedal arteries.
[2017-03-30] MEDS ORDERED: Magnesium Sulfate 2 GM IV* 2 GM/50 ML BAG IVPB ONE (14:58)
[2017-03-30 18:17] LABS: Hematocrit 20 % (42-52); Hemoglobin 6.8 g/dl (14.0-18.0); Mean Corpuscular HGB Conc 34 g/dl (31-36); Mean Corpuscular Hemoglobin 32 pg (27-31); Mean Corpuscular Volume 93 fL (80-94); Mean Platelet Volume 8 um3 (7.4-10.4); Platelet Count 158 10^3/ul (150-450); Red Blood Count 2.15 10^6/ul (4.0-5.4); Red Cell Distribution Width 16 % (10.5-15); White Blood Count 10.2 10^3/ul (3.5-10.8)
[2017-03-30 18:59] LABS: Hematocrit 20 % (42-52); Hemoglobin 6.8 g/dl (14.0-18.0); Mean Corpuscular HGB Conc 34 g/dl (31-36); Mean Corpuscular Hemoglobin 32 pg (27-31); Mean Corpuscular Volume 93 fL (80-94); Mean Platelet Volume 8 um3 (7.4-10.4); Platelet Count 160 10^3/ul (150-450); Red Blood Count 2.13 10^6/ul (4.0-5.4); Red Cell Distribution Width 17 % (10.5-15); White Blood Count 9.9 10^3/ul (3.5-10.8)
[2017-03-31] MEDS: Chlorhexidine MOUTHWASH 0.12%* 15 ML UDC TOPICAL SCH ×2 (02:22→05:16)
--- NOTE | 2017-03-31 03:53 | CONS ---
CONSULTATION REPORT: DATE OF CONSULT: REFERRING PHYSICIAN: Dr. Evans. REASON FOR CONSULT: Profound anemia. HISTORY OF PRESENT ILLNESS: A 66-year-old male with history of hypertension and peripheral vascular disease. He had an axillofem bypass earlier this month in [place], [place]. Per patient, surgery went well, but he did have extensive bruising after the procedure. It is possible that he left the hospital against medical advice prior to his planned discharge date. By patient report, he was doing reasonably well after the surgery except for some heavy bruising. He felt okay over the weekend, then on Monday and Monday of this week, he started to feel dizzy. On Monday morning, his girlfriend found him unarousable. He was brought to the hospital. On presentation yesterday, he was found to have a hemoglobin of 2.1, MCV of 119, platelet count of 207, white count 9.9 and left shift at differential. He received 5 units packed red blood cells with hemoglobin that went up to 8.5 at 5 am this morning , most recent check it is at 6.8 this evening. Other blood work include a reticulocyte count from this morning of 6.9, adjusted 3.8, heptoglobin < 14 , creatine is now mildly elevated at 1.6 from a baseline of 1 and LDH slightly elevated at 326, low albumin at 2.0 and a B12 normal at 358. He was intubated after cardiac arrest including CPR and resuscitation for approximately 5 minutes before regaining a rhythm. He had been in the ICU intubated until several hours ago when he was extubated. He appeared stable from a respiratory stand point. Home medications included rivaroxaban, which he is taking daily since his surgery, presumably for peripheral vascular disease. PAST MEDICAL HISTORY: 1. Peripheral vascular disease. 2. COPD. 3. Hypertension. PAST SURGICAL HISTORY: Known is the axillofem bypass as noted above. HOME MEDICATIONS: 1. Xarelto 15 mg p.o. b.i.d. 2. Ranitidine 150 mg b.i.d. 3. Metoprolol 25 mg a day. 4. Claritin 10 mg a day. 5. Hydrocodone/acetaminophen q. 6 p.r.n. 6. Ferrous sulfate 325 b.i.d. 7. Flexeril 10 at bedtime. 8. Lipitor 20 a day. 9. Aspirin 81 mg daily. ALLERGIES: No known allergies. FAMILY HISTORY: Hypertension. SOCIAL HISTORY: On discussion with the son, the patient is a known daily user of alcohol. Son reports that he drinks daily to get drunk, but is not sure if he drinks high volumes of alcohol. He is also smokes, very dependent on the son emotionally. REVIEW OF SYSTEMS: Difficult to obtain as he was just extubated. He denies being in pain at this time, his breathing is not in distress. He is constipated. He does report having trips of the diarrhea prior to admission. No urinary complaints. Diffuse muscle and joint soreness after his surgery. Neurologically he is oriented to questions but not entirely coherent. PHYSICAL EXAM: Temperature 98.8, BP 120/83, pulse 81, oxygen saturation 100% on a nasal cannula. HEENT: Mucosa moist. No lesions, no bleeding in the mouth. No cervical or supraclavicular adenopathy. Lungs are clear to auscultation. Heart: Distant S1, S2. No clear murmurs. Abdomen: No splenomegaly, hepatomegaly. Nontender, nondistended. Skin: He has an incision up on the left shoulder and left groin from surgery. There is no clear bruising. No ecchymosis or evidence of hematoma subcutaneously. He is not bleeding from his IV sites. DIAGNOSTIC STUDIES/LAB DATA: As noted in HPI. Other relevant data includes an echocardiogram with EF of 20%. CT scan of chest, abdomen and pelvis that shows a relatively small spleen. No lymphadenopathy. Extensive vascular disease. ASSESSMENT AND PLAN: A 66-year-old male who presents with the a hemoglobin of 2.1 and cardiac arrest. Likely blood loss and he is hypocoagulable secondary to the rivaroxaban. I would still suspect GI bleed given the severity of anemia and lack of other identified bleeding. The CT scan does not show retroperitoneal or thigh hematoma, no SQ blood collections on exam. Cannot rule out a sever hemolytic process given increased MCV, haptoglobin and reticulocytosis but borderline Estefani test is non specific. His anemia may be exacerbated by chronic alcohol use and marrow suppression. Elevated MCV could be from reticulocytosis, alcohol, do not suspect marrow dysfunction given normal WBC and platelets. 1. I would transfuse as needed and give 2 more units of packed red blood cells tonight. 2. Consider EGD and/or colonoscopy once medically stable. 3. He continues to be hypocoagulable, his last rivaroxaban was about 36 hours ago. Given his renal sufficiency, it has a 3 to 5-day half life. Hopefully as rivaroxaban dissipates, he will have a more stable hemoglobin. 4. We will send cold agglutinin and cryoglobulins. May recheck Estefani in a few days if anemia continues and we do not see a source of bleeding. 5. I do not see clear evidence of marrow dysfunction given preserved white count and platelets. 6. Check LDH daily as a potential measure of hemolysis. 7. I will review the manual blood film. Non specific given percent of transfused blood. 8. We will continue to follow throughout the hospitalization. [id number]/[facility] #: [id number] MAKENNA
[2017-03-31] MEDS: Pantoprazole IV* 80 MG in NS 0.9% 250 ML* 250 ML IVPB SCH ×2 (05:38→20:31)
[2017-03-31 06:02] LABS: Hematocrit 22 % (42-52); Hemoglobin 7.7 g/dl (14.0-18.0); Mean Corpuscular HGB Conc 35 g/dl (31-36); Mean Corpuscular Hemoglobin 31 pg (27-31); Mean Corpuscular Volume 91 fL (80-94); Mean Platelet Volume 8 um3 (7.4-10.4); Platelet Count 126 10^3/ul (150-450); Red Blood Count 2.47 10^6/ul (4.0-5.4); Red Cell Distribution Width 15 % (10.5-15); White Blood Count 7.3 10^3/ul (3.5-10.8)
--- NOTE | 2017-03-31 09:10 | PN ---
Progress Note - Progress Note Date of Service: 03/31/17 Note: Progress Note - Critical Care 24 hour events: -extubated yesterday, remains in no distress, on NC, comfortable -overnight hg 6.8, given 2 prbc again -no bowel movements, no source of bleeding yet, no n/v/abd pain -heme consult reviewed -afebrile, bp stable, hr 90s; making good urine -noted nsvt this morning for <10 beats, hemodyn stable Tele: sinus, tachy at times, nsvt x1 Vitals: Vital Signs Temp 98.2 F 03/31/17 07:00 Pulse 97 03/31/17 07:00 Resp 20 03/31/17 08:00 BP 111/75 03/31/17 07:00 Pulse Ox 100 03/31/17 07:00 Intake & Output 03/30/17 03/31/17 03/31/17 18:59 06:59 18:59 Intake Total 604 2134 Output Total 850 1650 Balance -246 484 Weight 162 lb 14.746 oz 162 lb 14.746 oz Intake: IV Fluids 1105 NS (0.45%) 1105 IVPB 387 55 NS (0.45%) 387 55 Medicated IV 217 380 GEN - Pantoprazole/ 217 380 Protonix Packed Cells 594 Output: Dahl 850 1650 O2/Vent: NC Infusions: heplock Current Medications: Chlorhexidine Gluconate (Peridex Mouth Wash 0.12%*) 15 ml TOPICAL Q4H [facility] Last Admin: 03/31/17 05:16 Dose: Not Given Folic Acid (Folvite Tab*) 1 mg PO DAILY [facility] Propofol (Diprivan*) 100 mls @ 8.165 mls/hr IV .PER RATE [facility]; 20 MCG/KG/MIN PRN Reason: Protocol Last Admin: 03/30/17 05:43 Dose: 8.165 mls/hr Pantoprazole Sodium 80 mg/ (Sodium Chloride) 250 mls @ 25 mls/hr IVPB Q10H [facility] Last Admin: 03/31/17 05:38 Dose: 25 mls/hr Sodium Chloride (Ns 0.45% 1000 Ml Bag*) 1,000 mls @ 75 mls/hr IV PER RATE [facility] Last Admin: 03/30/17 23:51 Dose: 75 mls/hr Metoprolol Tartrate (Lopressor Tab*) 25 mg PO BID [facility] Multivitamins (Theragran W/Minerals Liq*) 15 ml PO DAILY [facility] Thiamine HCl (Vitamin B-1 Tab*) 100 mg PO DAILY [facility] Physical Exam: General: awake, alert, oriented, no distress Head: normocephalic, atraumatic HEENT: ++ pallor, no icterus, moist mucous membranes Neck: soft, supple, no jvd CVS: normal rate, regular, no murmur Resp: bilateral air entry, no rhales, no wheeze, no rhonchi, no acc muscle use; left chest surgical site intact Abdomen: soft, nondistended, bowel sounds present Ext: pulses diminished, warm, no edema; bilateral fem surgical sites intact without swelling Skin: intact, no breakdown, no dryness Neuro: awake, alert, follows commands, moves all ext equally Labs: Laboratory Results - last 24 hr 03/29/17 03/29/17 03/29/17 08:37 10:18 10:18 WBC RBC RBC (Retic) Hgb Plasma Hgb Hct HCT (Retic) MCV MCH MCHC RDW Plt Count MPV Retic Count, Calc Corrected Retic Count Retic Shift Factor Retic Production Index Immature Retic Fraction Mean Retic Volume Haptoglobin <14 L Hem Pathologist Commnt Oxyhemoglobin Sodium Potassium Chloride Carbon Dioxide Anion Gap BUN Creatinine Est GFR ( Amer) Est GFR (Non-Af Amer) BUN/Creatinine Ratio Glucose Calcium Magnesium Total Bilirubin AST ALT Alkaline Phosphatase Lactate Dehydrogenase Total Protein Albumin Globulin Albumin/Globulin Ratio Vitamin B12 Folate Blood Type O Positive Antibody Screen Negative Direct Antiglob Test Crossmatch See Detail 03/29/17 03/30/17 03/30/17 15:48 05:35 05:35 WBC 10.1 RBC 2.72 L RBC (Retic) 2.73 L Hgb 8.5 L Plasma Hgb 15.2 Hct 25 L HCT (Retic) 25 L MCV 92 MCH 31 MCHC 34 RDW 16 H Plt Count 175 MPV 8 Retic Count, Calc 6.9 H Corrected Retic Count 3.8 H Retic Shift Factor 2.0 Retic Production Index 1.90 Immature Retic Fraction 0.62 Mean Retic Volume 135.9 Haptoglobin Hem Pathologist Commnt Oxyhemoglobin 5.2 Sodium 140 Potassium 4.4 Chloride 117 H Carbon Dioxide 16 L Anion Gap 7 BUN 40 H Creatinine 1.59 H Est GFR ( Amer) 56.7 Est GFR (Non-Af Amer) 44.1 BUN/Creatinine Ratio 25.2 H Glucose 114 H Calcium 7.1 L Magnesium 1.7 L Total Bilirubin 0.80 AST 44 H ALT 17 Alkaline Phosphatase 32 L Lactate Dehydrogenase Total Protein 4.2 L Albumin 2.0 L Globulin 2.2 Albumin/Globulin Ratio 0.9 L Vitamin B12 Cancelled Folate Cancelled Blood Type Antibody Screen Direct Antiglob Test Crossmatch 03/30/17 03/30/17 03/30/17 10:54 12:45 18:00 WBC 10.2 RBC 2.15 L RBC (Retic) Hgb 6.8 L Plasma Hgb Hct 20 L HCT (Retic) MCV 93 MCH 32 H MCHC 34 RDW 16 H Plt Count 158 MPV 8 Retic Count, Calc Corrected Retic Count Retic Shift Factor Retic Production Index Immature Retic Fraction Mean Retic Volume Haptoglobin Hem Pathologist Commnt Oxyhemoglobin Sodium Potassium Chloride Carbon Dioxide Anion Gap BUN Creatinine Est GFR ( Amer) Est GFR (Non-Af Amer) BUN/Creatinine Ratio Glucose Calcium Magnesium Total Bilirubin AST ALT Alkaline Phosphatase Lactate Dehydrogenase Total Protein Albumin Globulin Albumin/Globulin Ratio Vitamin B12 358 Folate 10.00 Blood Type Antibody Screen Direct Antiglob Test Weakly positive Crossmatch See Detail 03/30/17 03/31/17 03/31/17 18:30 05:48 05:48 WBC 9.9 7.3 RBC 2.13 L 2.47 L RBC (Retic) Hgb 6.8 L 7.7 L Plasma Hgb Hct 20 L 22 L HCT (Retic) MCV 93 91 MCH 32 H 31 MCHC 34 35 RDW 17 H 15 Plt Count 160 126 L MPV 8 8 Retic Count, Calc Corrected Retic Count Retic Shift Factor Retic Production Index Immature Retic Fraction Mean Retic Volume Haptoglobin Hem Pathologist Commnt Oxyhemoglobin Sodium 139 Potassium 3.9 Chloride 118 H Carbon Dioxide 19 L Anion Gap 2 BUN 46 H Creatinine 1.12 Est GFR ( Amer) 84.9 Est GFR (Non-Af Amer) 66.0 BUN/Creatinine Ratio 41.1 H Glucose 99 Calcium 7.0 L Magnesium 2.0 Total Bilirubin AST ALT Alkaline Phosphatase Lactate Dehydrogenase 311 H Total Protein Albumin Globulin Albumin/Globulin Ratio Vitamin B12 Folate Blood Type Antibody Screen Direct Antiglob Test Crossmatch Imaging: CT chest no acute process noted CXR right IJ tlc in place, ett above candido, no acute infiltrate echo 03/29 - LV systolic dysfunction, lvef 20%, severely reduced RV systolic function, mild-mod MR/TR, no effusion. Assessment: 66y M pmhx HTN, PVD s/p axillo-fem bypass 03/2017 at [facility], COPD, Ischemic CMP/Biventricular dysfunction, CAD; As per partner, he developed multiple episodes of nausea/vom yesterday, no abd pain, no blood noted. This morning he woke up and was short of breath and felt dizzy. Was hypotensive, tachy, hypothermic in ER. On workup after CT scan had a PEA cardiac arrest, ROSC achieved, Intubated. Noted CBC with hg of 2.2. -Hypotension, hypovolemic shock, resolved -acute blood loss anemia -unclear source of blood loss -PEA cardiac arrest -acute hypoxic respiratory failure, extubated 03/30 -Acute kidney injury, improving -metabolic acidosis, improving -PVD Severe Biventricular Systolic dysfunction CAD Plan: Neuro- awake, alert. no focal findings post arrest. not on sedation. CVS- s/p PEA arrest, no neuro injury it seems. Hg drop again overnigth to 6.8, given 2 prbc. this morning 7.7. BP stable. check h/h q12h. will give additional 1 unit prbc. restart metoprolol 25mg po BID. noted nsvt x1 this morning. Good urine output, euvolemic appearing. holding AC for now. Severe Biventricular dysfunction noted on ECHO, previous CAD histroy from family also, previous ECHO with LV dysfunction prior. Graft appears intact. LE arterial duplex reviewed with some decreased flow to LE, but otherwise warm and dopplerable pulses. Resp- NC, no distress ID- afebrile. wbc normal. no infectious etiology. no abx indicated. GI- PPI infusion. still no bowel movements at all, abd soft, no swelling, no n/ v. clear liquid diet only. FOBT when movement. GI consult called. for nuclear bleeding scan this morning. Renal- DONTRELL improving. acidosis improving. K okay. making good urine. no ivf infusion. PRBC as needed. Dahl can be discontinued. Heme- acute anemia, last hg 7.7 after 2 units from 6.8. check h/h q12h. bleeding scan today. reviewed heme consult, unclear if truley hemolytic, will trend LDH. GI consult today. MCV was high, alcohol use history, started folate/ b12 po. AC is still off, likely still clearing given some renal insuff on admission. Endo- fingersticks as needed Musculsk- oob to chair Wounds- surgical sites intact. Nutrition- clear liquid, keep npo for possible scope later DVT prophylaxis: scds GI prophylaxis: protonix infusion Central Line: right ij 03/29 Arterial Line: no Dahl Cathetor: yes Disposition: ICU Code Status: full code Total Critical Care time is 45 minutes, excluding procedures/teaching Homer Evans MD Gang Investigator (Electronically Signed)
[2017-03-31] MEDS: Folic Acid TAB* 1 MG PO SCH (09:49)
[2017-03-31] MEDS: Thiamine TAB* 100 MG TAB PO SCH (09:49)
[2017-03-31] MEDS: Multivitamins ADULT w/MIN LIQ* 15 ML UDC PO SCH (09:49)
--- NOTE | 2017-03-31 09:53 | PN ---
Progress Note - Progress Note Date of Service: 03/31/17 Note: sudden large bowel movement, melanotic stool noted. Hemodynamics still good, BP 120s systolic, HR 90s awake, alert no ngt in place cancelled nuclear scan cont ppi infusion updated GI, keep npo, for upper EGD today, possible lower discussed with patient and significant other at bedside Homer Evans MD Second Worker
[2017-03-31] MEDS ORDERED: Metoprolol Tartrate TAB* 25 MG PO SCH (10:00)
[2017-03-31] MEDS: Metoprolol Tartrate IV* 1 MG/ML 5 ML VIAL IV SCH ×3 (10:01→22:54)
[2017-03-31] MEDS: NS 0.45% 1000 ML BAG* 1,000 ML IV SCH (13:49)
[2017-03-31 15:21] LABS: Hematocrit 23 % (42-52); Hemoglobin 7.8 g/dl (14.0-18.0)
[2017-03-31] MEDS ORDERED: Phenylephrine INJ* 10 MG/ML 1 ML VIAL (10 MG) ONE (16:46)
[2017-03-31] MEDS ORDERED: Naloxone* 0.4 MG/ML 1 ML VIAL IV PRN (18:00)
[2017-03-31] MEDS ORDERED: Succinylcholine* 20 MG/ML 10 ML VIAL ONE (18:37)
[2017-03-31] MEDS ORDERED: Propofol* 10 MG/ML 20 ML BTL IV PUSH ONE (18:37)
[2017-03-31] MEDS ORDERED: EPINEPHrine SYR 0.1 MG/ML* (1:10,000) SYRINGE ONE (19:08)
[2017-03-31 20:46] LABS: Hematocrit 22 % (42-52); Hemoglobin 7.5 g/dl (14.0-18.0)
[2017-03-31] MEDS ORDERED: oxyCODONE TAB* 5 MG TAB ONE (23:28)
[2017-03-31] MEDS: oxyCODONE TAB* 5 MG TAB PO PRN (23:30)
--- NOTE | 2017-04-01 00:02 | CONS ---
CC: Dr. Homer Evans* GASTROENTEROLOGY CONSULTATION REPORT: DATE OF CONSULT: 03/29/17 HOSPITAL PROVIDER: Homer Evans MD REASON FOR CONSULTATION: Severe anemia, melena. HISTORY OF PRESENT ILLNESS: Mr. Ga is a pleasant 66-year-old gentleman with a history of hypertension, decreased ejection fraction to less than 25%, peripheral vascular disease, status post axillofem bypass in early March 2017 at [facility], on Xarelto therapy, COPD, substance abuse who presented to [facility] ER with fatigue, multiple episodes of nausea, vomiting. In the ER, he became unresponsive and cardiopulmonary resuscitation was initiated and the patient was intubated. He has subsequently been extubated for a day now without respiratory issues. His admitting hemoglobin was 2.1. He has since been transfused 7 units of packed red blood cells and his hemoglobin remains in the 7s. He was noted to have an episode of a large melenic bowel movements this morning. His Xarelto has been held since admission. He currently states he is comfortable. Denies abdominal pain, further nausea, vomiting. Denies fevers, chills, chest pain, shortness of breath. Recent change in bowel movements. Previous history of melena. Weight has been currently stable. REVIEW OF SYSTEMS: On a 14-point scale has been reviewed, all pertinent positives and negatives have been noted above in the HPI. PAST MEDICAL HISTORY: 1. Peripheral vascular disease, status post axillofem bypass. 2. COPD. 3. Hypertension. 4. Substance abuse. PAST SURGICAL HISTORY: Left axillary fem bypass in early March 2017. No prior history of upper endoscopy and colonoscopy. FAMILY HISTORY: Hypertension. SOCIAL HISTORY: Active alcohol and tobacco user. Admits to using cocaine and marijuana occasionally. ALLERGIES: No known drug allergies. CURRENT HOSPITAL MEDICATIONS: Include: 1. Folic acid. 2. Metoprolol. 3. Multivitamins. 4. Pantoprazole drip. 5. Thiamine. PHYSICAL EXAM: Generally, the patient is awake, alert, and oriented, in no acute distress. HEENT: Normocephalic, atraumatic. Anicteric sclerae bilaterally. Moist mucous membranes. Cardiovascular Exam: Regular rate and rhythm. Pulmonary: Clear to auscultation bilaterally. No wheezes, rhonchi, rales. There is a left chest surgical site that is intact. Abdomen: Positive bowel sounds, soft, nontender, nondistended. Extremities: No clubbing, cyanosis, or edema. Bilateral fem surgical sites are clear, dry, and intact. Neurological: No gross focal deficits are appreciated. DIAGNOSTIC STUDIES/LAB DATA: WBC 7.3, hemoglobin 7.7, hematocrit 22, platelets 126. Sodium 139, potassium 3.9, chloride 118, CO2 19, anion gap 2, BUN 46, creatinine 1.12, calcium 7.0, glucose 99, magnesium 2.0, lactate dehydrogenase 311, vitamin B12 348, folate 10. CTA of the chest, abdomen, and pelvis revealed a left patent subclavian artery to bilateral common fem artery bypass graft without CTA evidence of acute vascular abnormality. There were some multiple pulmonary nodules noted; however, these were not seen on CAT scan on . Possible neoplasm could be considered, otherwise no acute process was seen. ASSESSMENT AND PLAN: Mr. Ga is a pleasant 66-year-old gentleman with a history of chronic obstructive pulmonary disease, hypertension, polysubstance abuse, and recent axillofem bypass in early March 2017, on Xarelto therapy, who presented with nausea, vomiting, fatigue and was noted to have a hemoglobin of 2.1 in the ER. He subsequently had a cardiac arrest and was resuscitated and recently extubated a day ago. Gastroenterology was consulted for an episode of large melenic bowel movement this morning and acute anemia. His Xarelto therapy has currently been placed on hold. He is hemodynamically stable at this time. Given the patient's current history, we will plan for an emergent upper endoscopy with monitored anesthesia care. The patient is currently n.p.o. and has a Protonix strip infusing. We will continue this medical regimen for now. Further recommendations will be provided as the patient's clinical course progresses and after upper endoscopy has been completed. Case was discussed with Dr. Homer Evans and Dr. Александр Calhoun as well. If you should have any further questions or concerns, please do not hesitate to contact us at any time. [id number]/[facility] #: [id number] [facility]
[2017-04-01 02:36] LABS: Hematocrit 21 % (42-52)
[2017-04-01] MEDS: Metoprolol Tartrate IV* 1 MG/ML 5 ML VIAL IV SCH (04:46)
[2017-04-01 07:00] LABS: Hematocrit 20 % (42-52); Hemoglobin 6.8 g/dl (14.0-18.0); Mean Corpuscular HGB Conc 34 g/dl (31-36); Mean Corpuscular Hemoglobin 31 pg (27-31); Mean Corpuscular Volume 90 fL (80-94); Mean Platelet Volume 8 um3 (7.4-10.4); Platelet Count 122 10^3/ul (150-450); Red Blood Count 2.22 10^6/ul (4.0-5.4); Red Cell Distribution Width 16 % (10.5-15); White Blood Count 5.3 10^3/ul (3.5-10.8)
[2017-04-01] MEDS: Pantoprazole IV* 80 MG in NS 0.9% 250 ML* 250 ML IVPB SCH ×2 (07:11→17:08)
[2017-04-01 07:17] LABS: EGFR Non-African American 75.2 (>60)
--- NOTE | 2017-04-01 07:29 | PN ---
Progress Note - Progress Note Date of Service: 04/01/17 Note: Cross Cover Note: 1 Unit PRBC ordered for Hb decrease to 6.8
[2017-04-01] MEDS: Folic Acid TAB* 1 MG PO SCH (08:12)
[2017-04-01] MEDS: Multivitamins ADULT w/MIN LIQ* 15 ML UDC PO SCH (08:12)
[2017-04-01] MEDS: Thiamine TAB* 100 MG TAB PO SCH (08:12)
[2017-04-01] MEDS: oxyCODONE TAB* 5 MG TAB PO PRN (08:13)
--- NOTE | 2017-04-01 08:45 | PN ---
Progress Note - Progress Note Date of Service: 04/01/17 Note: Progress Note - Critical Care 24 hour events: -large melanotic stool yesterday, cancelled nuclear scan -s/p EGD 03/31 - found bleeding vessel/duolaphoy, s/p epi injection and clipping -this mornign for 2 more prbc now; no further bloody bowel movements after procedure -BP stable 100s, HR 80s, awake, alert, no distress; on liquid diet, no nausea/ vom. Tele: nsr Vitals: Vital Signs Temp 97.9 F 04/01/17 07:01 Pulse 73 04/01/17 07:01 Resp 13 04/01/17 07:01 BP 118/69 04/01/17 07:00 Pulse Ox 100 04/01/17 07:01 Intake & Output 03/31/17 04/01/17 04/01/17 18:59 06:59 18:59 Intake Total 1577 2258 Output Total 1500 350 Balance 77 1908 Weight 162 lb 14.746 oz Intake: IV Fluids 1116 1022 LR 650 NS (0.45%) 466 1022 Medicated IV 204 316 GEN - Pantoprazole/ 204 316 Protonix Oral 920 Packed Cells 257 Output: Dahl 1500 350 Other: # Bowel Movements 1 Estimated Stool Amount Large Large O2/Vent: NC Infusions: 1/2 ns 50cc/hour; protonix 8mg/hr Current Medications: Folic Acid (Folvite Tab*) 1 mg PO DAILY [facility] Last Admin: 04/01/17 08:12 Dose: 1 mg Pantoprazole Sodium 80 mg/ (Sodium Chloride) 250 mls @ 25 mls/hr IVPB Q10H [facility] Last Admin: 04/01/17 07:11 Dose: 25 mls/hr Sodium Chloride (Ns 0.45% 1000 Ml Bag*) 1,000 mls @ 50 mls/hr IV PER RATE [facility] Metoprolol Tartrate (Lopressor Tab*) 25 mg PO BID [facility] Multivitamins (Theragran W/Minerals Liq*) 15 ml PO DAILY [facility] Last Admin: 04/01/17 08:12 Dose: 15 ml Oxycodone HCl (Roxycodone Tab*) 5 mg PO Q4H PRN PRN Reason: PAIN Last Admin: 04/01/17 08:13 Dose: 5 mg Thiamine HCl (Vitamin B-1 Tab*) 100 mg PO DAILY [facility] Last Admin: 04/01/17 08:12 Dose: 100 mg Physical Exam: General: awake, alert, oriented, no distress Head: normocephalic, atraumatic HEENT: ++ pallor, no icterus, moist mucous membranes Neck: soft, supple, no jvd CVS: normal rate, regular, no murmur Resp: bilateral air entry, no rhales, no wheeze, no rhonchi, no acc muscle use; left chest surgical site intact Abdomen: soft, nondistended, bowel sounds present Ext: pulses diminished, warm, no edema; bilateral fem surgical sites intact without swelling Skin: intact, no breakdown, no dryness Neuro: awake, alert, follows commands, moves all ext equally Labs: Laboratory Results - last 24 hr 03/29/17 03/29/17 03/30/17 10:18 19:07 12:45 WBC RBC Hgb Hct MCV MCH MCHC RDW Plt Count MPV Sodium Potassium Chloride Carbon Dioxide Anion Gap BUN Creatinine Est GFR ( Amer) Est GFR (Non-Af Amer) BUN/Creatinine Ratio Glucose Calcium Lactate Dehydrogenase Blood Type O Positive Antibody Screen Negative Crossmatch See Detail See Detail Transfusion React Rpt Reaction Interpretation 03/31/17 03/31/17 04/01/17 14:53 20:34 01:24 WBC RBC Hgb 7.8 L 7.5 L 7.0 L Hct 23 L 22 L 21 L MCV MCH MCHC RDW Plt Count MPV Sodium Potassium Chloride Carbon Dioxide Anion Gap BUN Creatinine Est GFR ( Amer) Est GFR (Non-Af Amer) BUN/Creatinine Ratio Glucose Calcium Lactate Dehydrogenase Blood Type Antibody Screen Crossmatch Transfusion React Rpt Reaction Interpretation 04/01/17 04/01/17 04/01/17 06:00 06:00 06:00 WBC 5.3 RBC 2.22 L Hgb 6.8 L Hct 20 L MCV 90 MCH 31 MCHC 34 RDW 16 H Plt Count 122 L MPV 8 Sodium 137 Potassium 3.7 Chloride 116 H Carbon Dioxide 19 L Anion Gap 2 BUN 31 H Creatinine 1.00 Est GFR ( Amer) 96.7 Est GFR (Non-Af Amer) 75.2 BUN/Creatinine Ratio 31.0 H Glucose 89 Calcium 7.2 L Lactate Dehydrogenase 371 H Blood Type O Positive Antibody Screen Negative Crossmatch See Detail Transfusion React Rpt Reaction Interpretation Imaging: CT chest no acute process noted CXR right IJ tlc in place, ett above candido, no acute infiltrate echo 03/29 - LV systolic dysfunction, lvef 20%, severely reduced RV systolic function, mild-mod MR/TR, no effusion. Assessment: 66y M pmhx HTN, PVD s/p axillo-fem bypass 03/2017 at [facility], COPD, Ischemic CMP/Biventricular dysfunction, CAD; As per partner, he developed multiple episodes of nausea/vom yesterday, no abd pain, no blood noted. This morning he woke up and was short of breath and felt dizzy. Was hypotensive, tachy, hypothermic in ER. On workup after CT scan had a PEA cardiac arrest, ROSC achieved, Intubated. Noted CBC with hg of 2.2. -Hypotension, hypovolemic shock, resolved -acute blood loss anemia -Upper GI hemorrhage 03/10 to duodenal duolaphoy; s/p EGD with injection/ clipping 03/31 -PEA cardiac arrest -acute hypoxic respiratory failure, extubated 03/30 -Acute kidney injury -metabolic acidosis -PVD with left axillo-bifem ptfe graft; off AC now Severe Biventricular Systolic dysfunction CAD Plan: Neuro- awake, alert. no focal findings post arrest. not on sedation. CVS- s/p PEA arrest, no neuro injury it seems. s/p EGD with clipping. h/h slowly down to 6.8, transfuse 2 units prbc to keep hg 8> given cardiac disease/ pvd. BP stable, not tachycardic. continue 1/2 NS 50cc/hour. change metoprolol to 25mg po bid, d/c IV. no further nsvt noted. Good urine output, euvolemic appearing. discussed with vascular surgeon from [place], updated status, will hold AC while bleed ongoing, will attempt to restart AC once stable and montior for further bleeding then, will eventually need AC given PTFE graft. Severe Biventricular dysfunction, CAD.Graft appears intact. Resp- NC, no distress ID- afebrile. wbc normal. no abx indicated. GI- PPI infusion, will change to PPI 40mg IV bid later today. 1 melanotic movement during EGD. s/p EGD 03/31 with clipping. cont liquid diet for now, follow h/h. if further bleeding may need rescope or will consider bleeding scan then, discussed with GI last night. AC held. Renal- DONTRELL improved, good urine output. acidosis improved. Replete K po. Heme- acute anemia, hg slowly down to 6.8, give 2 prbc now. holding AC. no antiplatelets either now. asa/rivaroxaban held till stable, then reattempt restart for graft. folate/thiamine/mvi given alcohol use. Endo- fingersticks as needed Musculsk- oob to chair Wounds- surgical sites intact. Nutrition- full liquid diet for now. DVT prophylaxis: scds GI prophylaxis: protonix infusion Central Line: right ij 03/29 Arterial Line: no Dahl Cathetor: yes, may d/c tomorrow Disposition: ICU Code Status: full code Total Critical Care time is 40 minutes, excluding procedures/teaching Homer Evans MD Cement Conveyor Operator (Electronically Signed)
[2017-04-01] MEDS ORDERED: NS 0.45% 1000 ML BAG* 1,000 ML IV SCH (08:46)
[2017-04-01] MEDS ORDERED: Potassium Chloride LIQUID* 20 MEQ PACKET PO ONE (09:09)
[2017-04-01] MEDS: Metoprolol Tartrate TAB* 25 MG PO SCH ×2 (09:28→22:14)
--- NOTE | 2017-04-01 11:28 | PN ---
Progress Note - Progress Note Date of Service: 04/01/17 SOAP: Subjective: [] Doing better. Breathing well, has had BM. Tolerated EGD. No abdominal pain. EGD 03/31- Active bleeing but vessel not identified. Epi injected. Folic Acid (Folvite Tab*) 1 mg PO DAILY [facility] Last Admin: 04/01/17 08:12 Dose: 1 mg Pantoprazole Sodium 80 mg/ (Sodium Chloride) 250 mls @ 25 mls/hr IVPB Q10H [facility] Last Admin: 04/01/17 07:11 Dose: 25 mls/hr Sodium Chloride (Ns 0.45% 1000 Ml Bag*) 1,000 mls @ 50 mls/hr IV PER RATE [facility] Metoprolol Tartrate (Lopressor Tab*) 25 mg PO BID [facility] Last Admin: 04/01/17 09:28 Dose: 25 mg Multivitamins (Theragran W/Minerals Liq*) 15 ml PO DAILY [facility] Last Admin: 04/01/17 08:12 Dose: 15 ml Oxycodone HCl (Roxycodone Tab*) 5 mg PO Q4H PRN PRN Reason: PAIN Last Admin: 04/01/17 08:13 Dose: 5 mg Thiamine HCl (Vitamin B-1 Tab*) 100 mg PO DAILY [facility] Last Admin: 04/01/17 08:12 Dose: 100 mg Objective: [] Vital Signs Temp Pulse Resp BP Pulse Ox 98.1 F 79 17 99/68 100 04/01/17 09:00 04/01/17 09:00 04/01/17 09:00 04/01/17 09:00 04/01/17 09:00 HEENT - IJ catheter CTA RRR in 70s S1S2 +BS and non tender, no HSM Ext - warm and good pulses Assessment: []66 year old with profound anemia from UGIB. Possible contribution of alcohol, I do not think there is a significant hemolytic component. Plan: []1. Transfuse to Hgb < 8.0 2. Will contact his surgeon on Monday. Avoid rivaroxaban, consider Coumadin if he need thrombin inhibition. 3. FEN. Stable, Cr improved.
[2017-04-01 12:15] LABS: Hematocrit 24 % (42-52); Hemoglobin 8.1 g/dl (14.0-18.0)
--- NOTE | 2017-04-01 16:00 | PRO ---
CC: Dr. Evans; Dr. Ly * GASTROENTEROLOGY OPERATIVE REPORT: DATE OF PROCEDURE: 03/31/17 - ROOM #451 OPERATIVE PROCEDURE: Esophagogastroduodenoscopy to first portion of jejunum. SURGEON: Raven Gordon MD ANESTHESIA: General. HISTORY OF PRESENT ILLNESS: Bulmaro is a pleasant 66-year-old gentleman with multiple comorbidities and status post recent fem-popliteal bypass in early March 2017. He was placed on Xarelto therapy at that time. He presented to [facility] Emergency Room with fatigue and had a cardiac arrest in the emergency room and was noted to have a hemoglobin of 2.1. He has been transfused a total of 7 units in the intensive care unit. He has now been extubated for one day. Gastroenterology was consulted for evaluation of anemia. He was subsequently noted to have a melanic bowel movement a couple hours ago. He is here for an emergent endoscopy. PREOPERATIVE DIAGNOSES: 1. Melena. 2. Severe acute blood loss anemia. 3. History of anticoagulant use. POSTOPERATIVE DIAGNOSES: 1. Active bleeding in the third portion of the duodenum with possible underlying Dieulafoy lesion, status post 1 cc of epinephrine and 1 Endoclip placement with hemostasis. 2. Pangastritis. No active bleeding seen in the stomach. 3. Normal-appearing esophagus. RECOMMENDATIONS: 1. Continue to hold Xarelto therapy and we will restart as soon as possible given recent fem-popliteal bypass. 2. If patient rebleeds again, would recommend either a push enteroscopy to further evaluate patient's intestines versus a tagged RBC scan to localize bleeding and possible IR intervention. 3. We will continue to monitor patient's hemoglobin. 4. Continue proton pump inhibitor drip. 5. The patient should remain in the intensive care unit for now. These findings were discussed with Dr. vEans and patient in postop. DESCRIPTION OF PROCEDURE: Esophagogastroduodenoscopy was explained in detail to the patient. The risks, benefits, complications, alternatives and possibilities of missed lesions were explained and understood. Complications included and were not limited to reaction to anesthesia, aspiration, increased risk of bleeding, and perforation. All questions were answered. The patient demonstrated understanding of the conversation. Informed consent was obtained. Next, the patient was brought to the endoscopy suite, placed in the left lateral recumbent position, where blood pressure, cardiac, and oxygen monitors were applied. The patient was found to be a fit candidate for general anesthesia. After adequate IV sedation was achieved, a bite-block was placed. Next, a standard adult Olympus endoscope was inserted per os under direct visualization to the first, second, third and fourth portions of the duodenum and the beginning portions of the jejunum. There was active bleeding and significant bright red blood noted in the third portion of the duodenum. 1 cc of epinephrine was administered and mild oozing was seen. After aggressive irrigation and suctioning, an Endoclip was placed. Hemostasis was seen. The endoscope was then further withdrawn into the gastric lumen, where moderate erythema was seen throughout. There was no active bleeding noted. The endoscope was then further withdrawn in the esophagus which was normal appearing. Air was then removed from the patient. Endoscope was removed from the patient. Patient tolerated the procedure well. There were no immediate complications. After a period of observation in the PACU, patient was transferred back to the intensive care unit for further evaluation, care and treatment in stable condition. Thank you, Dr. Evans, for allowing us to participate in the care of your patient. If you should have any further questions or concerns, please do not hesitate to contact us. [id number]/[facility] #: [id number] [facility]ONX HOSPITALWilbert
[2017-04-02] MEDS: Pantoprazole IV* 80 MG in NS 0.9% 250 ML* 250 ML IVPB SCH ×2 (03:46→09:01)
[2017-04-02 06:17] LABS: Hematocrit 25 % (42-52); Hemoglobin 8.7 g/dl (14.0-18.0); Mean Corpuscular HGB Conc 34 g/dl (31-36); Mean Corpuscular Hemoglobin 30 pg (27-31); Mean Corpuscular Volume 88 fL (80-94); Mean Platelet Volume 8 um3 (7.4-10.4); Platelet Count 130 10^3/ul (150-450); Red Blood Count 2.88 10^6/ul (4.0-5.4); Red Cell Distribution Width 17 % (10.5-15); White Blood Count 4.9 10^3/ul (3.5-10.8)
[2017-04-02 06:25] LABS: EGFR Non-African American 88.3 (>60)
[2017-04-02] MEDS: Multivitamins ADULT w/MIN LIQ* 15 ML UDC PO SCH (08:44)
[2017-04-02] MEDS: Folic Acid TAB* 1 MG PO SCH (08:44)
[2017-04-02] MEDS: Thiamine TAB* 100 MG TAB PO SCH (08:44)
[2017-04-02] MEDS: Metoprolol Tartrate TAB* 25 MG PO SCH ×2 (08:44→22:20)
--- NOTE | 2017-04-02 09:23 | PN ---
Progress Note - Progress Note Date of Service: 04/02/17 Note: Progress Note - Critical Care 24 hour events: -stable ovenright, no further melanotic stools, BP stable, no further PRBC except yesterday -making urine -on ns infusion and PPI infusion -no n/v/abd pain. tolerating po intake full liquid diet. Tele: nsr Vitals: Vital Signs Temp 98.2 F 04/02/17 09:01 Pulse 68 04/02/17 09:01 Resp 13 04/02/17 09:01 BP 121/79 04/02/17 09:01 Pulse Ox 100 04/02/17 09:01 Intake & Output 04/01/17 04/02/17 04/02/17 18:59 06:59 18:59 Intake Total 2113 2105 67 Output Total 1500 1110 Balance 613 995 67 Weight 159 lb 13.362 oz Intake: IV Fluids 955 NS (0.45%) 955 IVPB 495 NS (0.45%) 495 Medicated IV 165 410 67 GEN - Pantoprazole/ 165 410 67 Protonix Oral 875 740 Packed Cells 578 Output: Moreno 1500 1110 O2/Vent: NC Infusions: 1/2 ns 50cc/hour; protonix 8mg/hr Current Medications: Folic Acid (Folvite Tab*) 1 mg PO DAILY [facility] Last Admin: 04/02/17 08:44 Dose: 1 mg Sodium Chloride (Ns 0.45% 1000 Ml Bag*) 1,000 mls @ 50 mls/hr IV PER RATE [facility] Last Admin: 04/01/17 19:20 Dose: 50 mls/hr Metoprolol Tartrate (Lopressor Tab*) 25 mg PO BID [facility] Last Admin: 04/02/17 08:44 Dose: 25 mg Multivitamins (Theragran W/Minerals Liq*) 15 ml PO DAILY [facility] Last Admin: 04/02/17 08:44 Dose: 15 ml Omeprazole (Prilosec Cap*) 20 mg PO BID [facility] Oxycodone HCl (Roxycodone Tab*) 5 mg PO Q4H PRN PRN Reason: PAIN Last Admin: 04/01/17 08:13 Dose: 5 mg Thiamine HCl (Vitamin B-1 Tab*) 100 mg PO DAILY [facility] Last Admin: 04/02/17 08:44 Dose: 100 mg Physical Exam: General: awake, alert, oriented, no distress Head: normocephalic, atraumatic HEENT: ++ pallor, no icterus, moist mucous membranes Neck: soft, supple, no jvd CVS: normal rate, regular, no murmur Resp: bilateral air entry, no rhales, no wheeze, no rhonchi, no acc muscle use; left chest surgical site intact Abdomen: soft, nondistended, bowel sounds present Ext: pulses diminished, warm, no edema; bilateral fem surgical sites intact without swelling Skin: intact, no breakdown, no dryness Neuro: awake, alert, follows commands, moves all ext equally Labs: Laboratory Results - last 24 hr 04/01/17 04/01/17 04/02/17 06:00 12:00 05:51 WBC RBC Hgb 8.1 L Hct 24 L MCV MCH MCHC RDW Plt Count MPV Sodium 136 Potassium 4.0 Chloride 115 H Carbon Dioxide 20 L Anion Gap 1 L BUN 16 Creatinine 0.87 Est GFR ( Amer) 113.6 Est GFR (Non-Af Amer) 88.3 BUN/Creatinine Ratio 18.4 Glucose 91 Calcium 7.4 L Lactate Dehydrogenase 373 H Blood Type O Positive Antibody Screen Negative Crossmatch See Detail 04/02/17 05:51 WBC 4.9 RBC 2.88 L Hgb 8.7 L Hct 25 L MCV 88 MCH 30 MCHC 34 RDW 17 H Plt Count 130 L MPV 8 Sodium Potassium Chloride Carbon Dioxide Anion Gap BUN Creatinine Est GFR ( Amer) Est GFR (Non-Af Amer) BUN/Creatinine Ratio Glucose Calcium Lactate Dehydrogenase Blood Type Antibody Screen Crossmatch Imaging: CT chest no acute process noted CXR right IJ tlc in place, ett above candido, no acute infiltrate echo 03/29 - LV systolic dysfunction, lvef 20%, severely reduced RV systolic function, mild-mod MR/TR, no effusion. Assessment: 66y M pmhx HTN, PVD s/p axillo-fem bypass 03/2017 at [facility], COPD, Ischemic CMP/Biventricular dysfunction, CAD; As per partner, he developed multiple episodes of nausea/vom yesterday, no abd pain, no blood noted. This morning he woke up and was short of breath and felt dizzy. Was hypotensive, tachy, hypothermic in ER. On workup after CT scan had a PEA cardiac arrest, ROSC achieved, Intubated. Noted CBC with hg of 2.2. -Hypotension, hypovolemic shock, resolved -acute blood loss anemia -Upper GI hemorrhage 03/10 to duodenal duolaphoy; s/p EGD with injection/ clipping 03/31 -PEA cardiac arrest -acute hypoxic respiratory failure, extubated 03/30 -Acute kidney injury -metabolic acidosis -PVD with left axillo-bifem ptfe graft; off AC now Severe Biventricular Systolic dysfunction CAD Plan: Neuro- awake, alert. no focal findings post arrest. not on sedation. CVS- s/p PEA arrest, acute blood loss anemia/UGI hemorrhage, stable. s/p EGD with clipping/injection. hg 8.7 and increasing/stable. keep hg 8> given cardiac disease/pvd. d/c /02/07 NS infusion. given lasix 20mg iv x1 dose today for some LE edema (left>right). Metoprolol to 25mg po bid. discussed with vascular surgeon from [place], will hold AC until bleeding stops, would need restart of AC for bypass graft at some point. Heme following, notes reviewed, they will discuss with surgeon about warfarin use. Severe Biventricular dysfunction, CAD. Graft appears intact. check LE duplex venous. Resp- NC, no distress ID- afebrile. wbc normal. no abx indicated. GI- d/c PPI infusion, protonix 40mg po bid. s/p EGD 03/31 with clipping. Change diet to regular consistency heart healthy. follow h/h. If further bleeding may need rescope or will consider bleeding scan then. AC held for now. Renal- DONTRELL improved, good urine output. acidosis improved. Replete K po. d/c moreno today Heme- acute anemia, h/h stable 8.7 now. plt okay. off AC, plan to probably restart tomorrow if okay with heme to use Rivaroxaban vs warfarin for Graft. Would need ASA restart also. folate/thiamine/mvi given alcohol use. Endo- fingersticks as needed Musculsk- oob to chair Wounds- surgical sites intact. Nutrition- heart healthy diet DVT prophylaxis: scds GI prophylaxis: ppi bid Central Line: right ij 03/29 Arterial Line: no Moreno Cathetor: yes Disposition: stable for transfer to telemetry Code Status: full code Homer Evans MD Lens Dotter (Electronically Signed)
[2017-04-02] MEDS ORDERED: Furosemide IV* 10 MG/ML 2 ML VIAL (20 MG) IV SLOW PU ONE (09:25)
[2017-04-02] MEDS: Omeprazole CAP* 20 MG PO SCH ×2 (09:34→22:20)
--- NOTE | 2017-04-02 19:19 | RAD ---
Indication: Leg edema. Duplex Doppler sonography of the deep venous system of both lower extremities was performed. Bilaterally the common femoral veins, proximal greater saphenous veins, proximal deep femoral veins, femoral veins, popliteal veins, posterior tibial veins and peroneal veins appear patent and compressible. Complex fluid collection in the right inguinal region likely representing postoperative change measuring 4.4 x 2.6 x 2.6 cm. IMPRESSION: NO EVIDENCE OF DEEP VENOUS THROMBOSIS OF EITHER LOWER EXTREMITY IS PRESENT. Complex fluid collection in the right inguinal region measuring 4.4 x 2.6 x 2.6 cm.
[2017-04-03 06:26] LABS: EGFR Non-African American 80.8 (>60)
[2017-04-03 07:42] LABS: Hematocrit 26 % (42-52); Hemoglobin 8.8 g/dl (14.0-18.0); Mean Corpuscular HGB Conc 34 g/dl (31-36); Mean Corpuscular Hemoglobin 30 pg (27-31); Mean Corpuscular Volume 88 fL (80-94); Mean Platelet Volume 8 um3 (7.4-10.4); Platelet Count 143 10^3/ul (150-450); Red Blood Count 2.96 10^6/ul (4.0-5.4); Red Cell Distribution Width 17 % (10.5-15); White Blood Count 4.9 10^3/ul (3.5-10.8)
[2017-04-03] MEDS: Multivitamins ADULT w/MIN LIQ* 15 ML UDC PO SCH (09:58)
[2017-04-03] MEDS: Metoprolol Tartrate TAB* 25 MG PO SCH ×2 (09:58→21:34)
[2017-04-03] MEDS: Thiamine TAB* 100 MG TAB PO SCH (09:58)
[2017-04-03] MEDS: Folic Acid TAB* 1 MG PO SCH (09:58)
[2017-04-03] MEDS: Omeprazole CAP* 20 MG PO SCH ×2 (09:58→21:34)
--- NOTE | 2017-04-03 10:19 | PN ---
Progress Note - Progress Note Date of Service: 04/03/17 SOAP: Subjective: [] Doing well. Still with dark BM. No abdominal pain. Eating. Out of ICU. Folic Acid (Folvite Tab*) 1 mg PO DAILY [facility] Last Admin: 04/03/17 09:58 Dose: 1 mg Metoprolol Tartrate (Lopressor Tab*) 25 mg PO BID [facility] Last Admin: 04/03/17 09:58 Dose: 25 mg Multivitamins (Theragran W/Minerals Liq*) 15 ml PO DAILY [facility] Last Admin: 04/03/17 09:58 Dose: 15 ml Omeprazole (Prilosec Cap*) 20 mg PO BID [facility] Last Admin: 04/03/17 09:58 Dose: 20 mg Oxycodone HCl (Roxycodone Tab*) 5 mg PO Q4H PRN PRN Reason: PAIN Last Admin: 04/01/17 08:13 Dose: 5 mg Thiamine HCl (Vitamin B-1 Tab*) 100 mg PO DAILY [facility] Last Admin: 04/03/17 09:58 Dose: 100 mg Objective: [] Vital Signs Temp Pulse Resp BP Pulse Ox 98.5 F 60 18 129/64 100 04/03/17 07:44 04/03/17 07:44 04/03/17 08:00 04/03/17 07:44 04/03/17 07:44 HEENT - IJ catheter CTA RRR in 70s S1S2 +BS and non tender, no HSM Ext - warm and good pulses Assessment: []66 year old with profound anemia from UGIB, possible contribution of alcohol. Now stable after EGD and Epi injection but did not have visible vessel to clip. Case discussed with Dr. Mims who feels he will have a longer graft life on anti-coagulation. Plan: []1. Consider re-starting anticoagulation, IV Heparin and Coumadin. 2. senior care goal of 2.0-2.5 3. If additional bleeding consider repeat EGD or embolization of bleeding vessel.
--- NOTE | 2017-04-03 15:44 | PN ---
Subjective Date of Service: 04/03/17 Interval History: No complaints Denies CP/SOB/N/V +BM ambulating without difficulty Objective Active Medications: Ferrous Sulfate (Ferrous Sulfate Tab*) 325 mg PO DAILY [facility] Folic Acid (Folvite Tab*) 1 mg PO DAILY [facility] Last Admin: 04/03/17 09:58 Dose: 1 mg Heparin Sodium (Porcine) (Heparin Vial(*)) 0 units IV .PER PROTOCOL [facility] PRN Reason: Protocol Heparin Sodium/Dextrose (Heparin Drip 25,000 Units(*)) 25,000 units in 500 mls @ 0 mls/hr IVPB PER RATE [facility]; Per Protocol PRN Reason: Protocol Metoprolol Tartrate (Lopressor Tab*) 25 mg PO BID [facility] Last Admin: 04/03/17 09:58 Dose: 25 mg Multivitamins (Theragran W/Minerals Liq*) 15 ml PO DAILY [facility] Last Admin: 04/03/17 09:58 Dose: 15 ml Omeprazole (Prilosec Cap*) 20 mg PO BID [facility] Last Admin: 04/03/17 09:58 Dose: 20 mg Oxycodone HCl (Roxycodone Tab*) 5 mg PO Q4H PRN PRN Reason: PAIN Last Admin: 04/01/17 08:13 Dose: 5 mg Pharmacy Profile Note (Coumadin Per Pharmacy*) 0 note FOLLOW UP .PER PHARMACY PROTOC [facility] PRN Reason: Protocol Thiamine HCl (Vitamin B-1 Tab*) 100 mg PO DAILY [facility] Last Admin: 04/03/17 09:58 Dose: 100 mg Vital Signs - 8 hr 04/03/17 04/03/17 04/03/17 07:44 08:00 11:11 Temperature 98.5 F 97.5 F Pulse Rate 60 77 Respiratory 18 18 16 Rate Blood Pressure 129/64 118/71 (mmHg) O2 Sat by Pulse 100 94 Oximetry Oxygen Devices in Use Now: None Appearance: well appearing, NAD Eyes: No Scleral Icterus, PERRLA Ears/Nose/Mouth/Throat: Clear Oropharnyx, Mucous Membranes Moist Neck: NL Appearance and Movements; NL JVP, Trachea Midline Respiratory: Symmetrical Chest Expansion and Respiratory Effort, Clear to Auscultation Cardiovascular: RRR, - - soft 2/6 SUPRIYA RUSB Abdominal: NL Sounds; No Tenderness; No Distention, No Hepatosplenomegaly Lymphatic: No Cervical Adenopathy Skin: - - surgical wounds healing b/l groins Neurological: Alert and Oriented x 3 Lines/Tubes/Other Access: Clean, Dry and Intact Central Line - right IJ c/d/i Result Diagrams: 04/03/17 07:28 04/03/17 05:57 Additional Lab and Data: Lab Results 03/29/17 03/29/17 03/29/17 Range/Units 08:37 08:37 08:37 WBC (3.5-10.8) 10^3/ul RBC (4.0-5.4) 10^6/ul Hgb (14.0-18.0) g/dl Hct (42-52) % MCV (80-94) fL MCH (27-31) pg MCHC (31-36) g/dl RDW (10.5-15) % Plt Count (150-450) 10^3/ul MPV (7.4-10.4) um3 Neut % (Auto) Lymph % (Auto) Craig % (Auto) Eos % (Auto) Baso % (Auto) Absolute Neuts (auto) Absolute Lymphs (auto) Absolute Monos (auto) Absolute Eos (auto) Absolute Basos (auto) Absolute Nucleated RBC Immature Gran % (0-9) % Neutrophils % (38-83) % Band Neutrophils % (0-8) % Lymphocytes % (25-47) % Monocytes % (0-13) % Eosinophils % (0-6) % Basophils % (0-2) % Metamyelocytes % (0-2) % Nucleated RBC % Abs Neuts (Manual) (1.5-7.7) 10^3/ul Abs Monocytes (Manual) (0-0.8) 10^3/ul Absolute Eos (Manual) (0-0.6) 10^3/ul Abs Basophils (Manual) (0-0.2) 10^3/ul Nucleated RBCs/100 WBC (0-0) Normal RBC Morphology Polychromasia Hypochromasia Anisocytosis Acanthocytes (Spur) Hem Pathologist Commnt INR (Anticoag Therapy) (0.77-1.02) APTT (26.0-36.3) seconds Sodium 139 (133-145) mmol/L Potassium 4.0 (3.5-5.0) mmol/L Chloride 111 (101-111) mmol/L Carbon Dioxide 19 L (22-32) mmol/L Anion Gap 9 (2-11) mmol/L BUN 31 H (6-24) mg/dL Creatinine 1.27 H (0.67-1.17) mg/dL Est GFR ( Amer) 73.4 (>60) Est GFR (Non-Af Amer) 57.1 (>60) BUN/Creatinine Ratio 24.4 H (8-20) Glucose 134 H (70-100) mg/dL Lactic Acid 5.6 H* (0.5-2.0) mmol/L Calcium 7.7 L (8.6-10.3) mg/dL Total Bilirubin 0.50 (0.2-1.0) mg/dL AST 22 (13-39) U/L ALT 11 (7-52) U/L Alkaline Phosphatase 32 L (34-104) U/L Troponin I 0.04 H* (<0.04) ng/mL C-Reactive Protein 2.39 (< 5.00) mg/L B-Natriuretic Peptide 133 H ( - 100) pg/mL Total Protein 4.5 L (6.4-8.9) g/dL Albumin 2.2 L (3.2-5.2) g/dL Globulin 2.3 (2-4) g/dL Albumin/Globulin Ratio 1.0 (1-3) Lipase 42 (11.0-82.0) U/L Procalcitonin (<0.6) ng/mL Blood Type Antibody Screen Crossmatch 03/29/17 03/29/17 03/29/17 Range/Units 08:37 10:18 10:18 WBC 11.7 H (3.5-10.8) 10^3/ul RBC 0.65 L (4.0-5.4) 10^6/ul Hgb 2.1 L* (14.0-18.0) g/dl Hct 8 L (42-52) % MCV 118 H (80-94) fL MCH 32 H (27-31) pg MCHC 27 L (31-36) g/dl RDW 25 H (10.5-15) % Plt Count 224 (150-450) 10^3/ul MPV 7 L (7.4-10.4) um3 Neut % (Auto) Not Reportable Lymph % (Auto) Not Reportable Craig % (Auto) Not Reportable Eos % (Auto) Not Reportable Baso % (Auto) Not Reportable Absolute Neuts (auto) Not Reportable Absolute Lymphs (auto) Not Reportable Absolute Monos (auto) Not Reportable Absolute Eos (auto) Not Reportable Absolute Basos (auto) Not Reportable Absolute Nucleated RBC Not Reportable Immature Gran % 8 (0-9) % Neutrophils % 61 (38-83) % Band Neutrophils % 7 (0-8) % Lymphocytes % 26 (25-47) % Monocytes % 5 (0-13) % Eosinophils % 0 (0-6) % Basophils % 0 (0-2) % Metamyelocytes % 1 (0-2) % Nucleated RBC % Not Reportable Abs Neuts (Manual) 7.1 (1.5-7.7) 10^3/ul Abs Monocytes (Manual) 0.6 (0-0.8) 10^3/ul Absolute Eos (Manual) 0 (0-0.6) 10^3/ul Abs Basophils (Manual) 0 (0-0.2) 10^3/ul Nucleated RBCs/100 WBC 5 H (0-0) Normal RBC Morphology Not Reportable Polychromasia 2+ Hypochromasia 1+ Anisocytosis 2+ Acanthocytes (Spur) 2+ Hem Pathologist Commnt Pending INR (Anticoag Therapy) 1.48 H (0.77-1.02) APTT 42.5 H (26.0-36.3) seconds Sodium (133-145) mmol/L Potassium (3.5-5.0) mmol/L Chloride (101-111) mmol/L Carbon Dioxide (22-32) mmol/L Anion Gap (2-11) mmol/L BUN (6-24) mg/dL Creatinine (0.67-1.17) mg/dL Est GFR ( Amer) (>60) Est GFR (Non-Af Amer) (>60) BUN/Creatinine Ratio (8-20) Glucose (70-100) mg/dL Lactic Acid (0.5-2.0) mmol/L Calcium (8.6-10.3) mg/dL Total Bilirubin (0.2-1.0) mg/dL AST (13-39) U/L ALT (7-52) U/L Alkaline Phosphatase (34-104) U/L Troponin I (<0.04) ng/mL C-Reactive Protein (< 5.00) mg/L B-Natriuretic Peptide ( - 100) pg/mL Total Protein (6.4-8.9) g/dL Albumin (3.2-5.2) g/dL Globulin (2-4) g/dL Albumin/Globulin Ratio (1-3) Lipase (11.0-82.0) U/L Procalcitonin 0.1 (<0.6) ng/mL Blood Type Antibody Screen Crossmatch 03/29/17 Range/Units 10:18 WBC (3.5-10.8) 10^3/ul RBC (4.0-5.4) 10^6/ul Hgb (14.0-18.0) g/dl Hct (42-52) % MCV (80-94) fL MCH (27-31) pg MCHC (31-36) g/dl RDW (10.5-15) % Plt Count (150-450) 10^3/ul MPV (7.4-10.4) um3 Neut % (Auto) Lymph % (Auto) Craig % (Auto) Eos % (Auto) Baso % (Auto) Absolute Neuts (auto) Absolute Lymphs (auto) Absolute Monos (auto) Absolute Eos (auto) Absolute Basos (auto) Absolute Nucleated RBC Immature Gran % (0-9) % Neutrophils % (38-83) % Band Neutrophils % (0-8) % Lymphocytes % (25-47) % Monocytes % (0-13) % Eosinophils % (0-6) % Basophils % (0-2) % Metamyelocytes % (0-2) % Nucleated RBC % Abs Neuts (Manual) (1.5-7.7) 10^3/ul Abs Monocytes (Manual) (0-0.8) 10^3/ul Absolute Eos (Manual) (0-0.6) 10^3/ul Abs Basophils (Manual) (0-0.2) 10^3/ul Nucleated RBCs/100 WBC (0-0) Normal RBC Morphology Polychromasia Hypochromasia Anisocytosis Acanthocytes (Spur) Hem Pathologist Commnt INR (Anticoag Therapy) (0.77-1.02) APTT (26.0-36.3) seconds Sodium (133-145) mmol/L Potassium (3.5-5.0) mmol/L Chloride (101-111) mmol/L Carbon Dioxide (22-32) mmol/L Anion Gap (2-11) mmol/L BUN (6-24) mg/dL Creatinine (0.67-1.17) mg/dL Est GFR ( Amer) (>60) Est GFR (Non-Af Amer) (>60) BUN/Creatinine Ratio (8-20) Glucose (70-100) mg/dL Lactic Acid (0.5-2.0) mmol/L Calcium (8.6-10.3) mg/dL Total Bilirubin (0.2-1.0) mg/dL AST (13-39) U/L ALT (7-52) U/L Alkaline Phosphatase (34-104) U/L Troponin I (<0.04) ng/mL C-Reactive Protein (< 5.00) mg/L B-Natriuretic Peptide ( - 100) pg/mL Total Protein (6.4-8.9) g/dL Albumin (3.2-5.2) g/dL Globulin (2-4) g/dL Albumin/Globulin Ratio (1-3) Lipase (11.0-82.0) U/L Procalcitonin (<0.6) ng/mL Blood Type O Positive Antibody Screen Negative Crossmatch See Detail Microbiology and Other Data: Microbiology 03/29/17 19:07 Transfusion Reaction Culture - Final Blood Bag No Growth Day 5 Transfusion Reaction Gram Stain - Final 03/31/17 09:40 Stool Occult Blood (TESFAYE) - Final Stool 03/29/17 14:00 Nasal Screen MRSA (PCR)(TESFAYE) - Final Nasal Mrsa Not Detected Assess/Plan/Problems-Billing Assessment: 66 yo M recent axillo/fem bypass 03/2017, COPD, ischemic CMP presented to [facility] [place] with N/V found with Hb 2 then PEA cardiac arrest s/p ROSC/intubation EGD notable for dieulafoy lesion s/p epi/clip - Patient Problems (1) Presence of bypass graft stent Comment: Appreciate critical care, heme coordination with vascular surgeon Start heparin gtt today and monitor for e/o bleeding Discussed with pt and GF Plan on dc with coumadin (2) Acute blood loss anemia Comment: Upper GI bleed s/p epi and clipping Resolved If rebleed may need repeat EGD vs bleding scan check cbc while starting AC folic acid and iron (3) DONTRELL (acute kidney injury) Comment: resolved (4) Biventricular failure Comment: LVEF 20% and RV severed reduced fxn c.w metoprolol hold WENDI but consider starting prior to dc Holding ASA while starting heparin in setting of bleed
[2017-04-03] MEDS ORDERED: Heparin VIAL(*) 5000 UNITS/ML VIAL (FIVE THOUSAND) IV SCH (16:00)
[2017-04-03] MEDS: Heparin DRIP 25,000 UNITS(*) 25,000 UNITS/500 ML BAG IVPB SCH (16:58)
[2017-04-03] MEDS ORDERED: Warfarin TAB(*) 5 MG PO ONE (17:00)
[2017-04-04 06:15] LABS: Hematocrit 24 % (42-52); Hemoglobin 8.3 g/dl (14.0-18.0); Mean Corpuscular HGB Conc 34 g/dl (31-36); Mean Corpuscular Hemoglobin 30 pg (27-31); Mean Corpuscular Volume 88 fL (80-94); Mean Platelet Volume 8 um3 (7.4-10.4); Platelet Count 113 10^3/ul (150-450); Red Blood Count 2.77 10^6/ul (4.0-5.4); Red Cell Distribution Width 16 % (10.5-15); White Blood Count 4.5 10^3/ul (3.5-10.8)
[2017-04-04 06:21] LABS: INR 0.91 (0.77-1.02)
[2017-04-04 07:09] LABS: EGFR Non-African American 93.3 (>60)
[2017-04-04] MEDS ORDERED: Potassium Chlor TAB* 20 MEQ TAB.ER PO ONE ×2 (08:17→11:21)
[2017-04-04] MEDS: Omeprazole CAP* 20 MG PO SCH ×2 (09:03→20:08)
[2017-04-04] MEDS: Metoprolol Tartrate TAB* 25 MG PO SCH ×2 (09:03→20:08)
[2017-04-04] MEDS: Ferrous Sulfate TAB* 325 MG PO SCH (09:03)
[2017-04-04] MEDS: Thiamine TAB* 100 MG TAB PO SCH (09:03)
[2017-04-04] MEDS: Folic Acid TAB* 1 MG PO SCH (09:03)
[2017-04-04] MEDS: Multivitamins ADULT w/MIN LIQ* 15 ML UDC PO SCH (09:06)
[2017-04-04] MEDS ORDERED: Warfarin TAB(*) 5 MG PO ONE (17:00)
--- NOTE | 2017-04-04 18:59 | PN ---
Subjective Date of Service: 04/04/17 Interval History: No complaints. No bleeding Brown stool. No chest pain with walking Objective Active Medications: Ferrous Sulfate (Ferrous Sulfate Tab*) 325 mg PO DAILY [facility] Last Admin: 04/04/17 09:03 Dose: 325 mg Folic Acid (Folvite Tab*) 1 mg PO DAILY [facility] Last Admin: 04/04/17 09:03 Dose: 1 mg Heparin Sodium (Porcine) (Heparin Vial(*)) 0 units IV .PER PROTOCOL [facility] PRN Reason: Protocol Last Admin: 04/03/17 16:57 Dose: 4,000 units Heparin Sodium/Dextrose (Heparin Drip 25,000 Units(*)) 25,000 units in 500 mls @ 0 mls/hr IVPB PER RATE [facility]; Per Protocol PRN Reason: Protocol Last Admin: 04/03/17 16:58 Dose: 17 mls/hr Metoprolol Tartrate (Lopressor Tab*) 25 mg PO BID [facility] Last Admin: 04/04/17 09:03 Dose: 25 mg Multivitamins (Theragran W/Minerals Liq*) 15 ml PO DAILY [facility] Last Admin: 04/04/17 09:06 Dose: 15 ml Omeprazole (Prilosec Cap*) 20 mg PO BID [facility] Last Admin: 04/04/17 09:03 Dose: 20 mg Oxycodone HCl (Roxycodone Tab*) 5 mg PO Q4H PRN PRN Reason: PAIN Last Admin: 04/01/17 08:13 Dose: 5 mg Pharmacy Profile Note (Coumadin Per Pharmacy*) 0 note FOLLOW UP .PER PHARMACY PROTOC [facility] PRN Reason: Protocol Thiamine HCl (Vitamin B-1 Tab*) 100 mg PO DAILY [facility] Last Admin: 04/04/17 09:03 Dose: 100 mg Vital Signs - 8 hr 04/04/17 04/04/17 11:50 15:20 Temperature 98.2 F 98.5 F Pulse Rate 59 60 Respiratory 18 14 Rate Blood Pressure 124/70 134/70 (mmHg) O2 Sat by Pulse 100 100 Oximetry Oxygen Devices in Use Now: None Appearance: NAD, interactive Eyes: No Scleral Icterus, PERRLA Ears/Nose/Mouth/Throat: Clear Oropharnyx, Mucous Membranes Moist Neck: NL Appearance and Movements; NL JVP, Trachea Midline Respiratory: Symmetrical Chest Expansion and Respiratory Effort, Clear to Auscultation Cardiovascular: RRR Abdominal: NL Sounds; No Tenderness; No Distention, No Hepatosplenomegaly Lymphatic: No Cervical Adenopathy Skin: No Rash or Ulcers Neurological: Alert and Oriented x 3 Result Diagrams: 04/04/17 05:40 04/04/17 05:40 Additional Lab and Data: Lab Results 03/29/17 03/29/17 03/29/17 Range/Units 08:37 08:37 08:37 WBC (3.5-10.8) 10^3/ul RBC (4.0-5.4) 10^6/ul Hgb (14.0-18.0) g/dl Hct (42-52) % MCV (80-94) fL MCH (27-31) pg MCHC (31-36) g/dl RDW (10.5-15) % Plt Count (150-450) 10^3/ul MPV (7.4-10.4) um3 Neut % (Auto) Lymph % (Auto) [place] % (Auto) Eos % (Auto) Baso % (Auto) Absolute Neuts (auto) Absolute Lymphs (auto) Absolute Monos (auto) Absolute Eos (auto) Absolute Basos (auto) Absolute Nucleated RBC Immature Gran % (0-9) % Neutrophils % (38-83) % Band Neutrophils % (0-8) % Lymphocytes % (25-47) % Monocytes % (0-13) % Eosinophils % (0-6) % Basophils % (0-2) % Metamyelocytes % (0-2) % Nucleated RBC % Abs Neuts (Manual) (1.5-7.7) 10^3/ul Abs Monocytes (Manual) (0-0.8) 10^3/ul Absolute Eos (Manual) (0-0.6) 10^3/ul Abs Basophils (Manual) (0-0.2) 10^3/ul Nucleated RBCs/100 WBC (0-0) Normal RBC Morphology Polychromasia Hypochromasia Anisocytosis Acanthocytes (Spur) Hem Pathologist Commnt INR (Anticoag Therapy) (0.77-1.02) APTT (26.0-36.3) seconds Sodium 139 (133-145) mmol/L Potassium 4.0 (3.5-5.0) mmol/L Chloride 111 (101-111) mmol/L Carbon Dioxide 19 L (22-32) mmol/L Anion Gap 9 (2-11) mmol/L BUN 31 H (6-24) mg/dL Creatinine 1.27 H (0.67-1.17) mg/dL Est GFR ( Amer) 73.4 (>60) Est GFR (Non-Af Amer) 57.1 (>60) BUN/Creatinine Ratio 24.4 H (8-20) Glucose 134 H (70-100) mg/dL Lactic Acid 5.6 H* (0.5-2.0) mmol/L Calcium 7.7 L (8.6-10.3) mg/dL Total Bilirubin 0.50 (0.2-1.0) mg/dL AST 22 (13-39) U/L ALT 11 (7-52) U/L Alkaline Phosphatase 32 L (34-104) U/L Troponin I 0.04 H* (<0.04) ng/mL C-Reactive Protein 2.39 (< 5.00) mg/L B-Natriuretic Peptide 133 H ( - 100) pg/mL Total Protein 4.5 L (6.4-8.9) g/dL Albumin 2.2 L (3.2-5.2) g/dL Globulin 2.3 (2-4) g/dL Albumin/Globulin Ratio 1.0 (1-3) Lipase 42 (11.0-82.0) U/L Procalcitonin (<0.6) ng/mL Blood Type Antibody Screen Crossmatch 03/29/17 03/29/17 03/29/17 Range/Units 08:37 10:18 10:18 WBC 11.7 H (3.5-10.8) 10^3/ul RBC 0.65 L (4.0-5.4) 10^6/ul Hgb 2.1 L* (14.0-18.0) g/dl Hct 8 L (42-52) % MCV 118 H (80-94) fL MCH 32 H (27-31) pg MCHC 27 L (31-36) g/dl RDW 25 H (10.5-15) % Plt Count 224 (150-450) 10^3/ul MPV 7 L (7.4-10.4) um3 Neut % (Auto) Not Reportable Lymph % (Auto) Not Reportable [place] % (Auto) Not Reportable Eos % (Auto) Not Reportable Baso % (Auto) Not Reportable Absolute Neuts (auto) Not Reportable Absolute Lymphs (auto) Not Reportable Absolute Monos (auto) Not Reportable Absolute Eos (auto) Not Reportable Absolute Basos (auto) Not Reportable Absolute Nucleated RBC Not Reportable Immature Gran % 8 (0-9) % Neutrophils % 61 (38-83) % Band Neutrophils % 7 (0-8) % Lymphocytes % 26 (25-47) % Monocytes % 5 (0-13) % Eosinophils % 0 (0-6) % Basophils % 0 (0-2) % Metamyelocytes % 1 (0-2) % Nucleated RBC % Not Reportable Abs Neuts (Manual) 7.1 (1.5-7.7) 10^3/ul Abs Monocytes (Manual) 0.6 (0-0.8) 10^3/ul Absolute Eos (Manual) 0 (0-0.6) 10^3/ul Abs Basophils (Manual) 0 (0-0.2) 10^3/ul Nucleated RBCs/100 WBC 5 H (0-0) Normal RBC Morphology Not Reportable Polychromasia 2+ Hypochromasia 1+ Anisocytosis 2+ Acanthocytes (Spur) 2+ Hem Pathologist Commnt Pending INR (Anticoag Therapy) 1.48 H (0.77-1.02) APTT 42.5 H (26.0-36.3) seconds Sodium (133-145) mmol/L Potassium (3.5-5.0) mmol/L Chloride (101-111) mmol/L Carbon Dioxide (22-32) mmol/L Anion Gap (2-11) mmol/L BUN (6-24) mg/dL Creatinine (0.67-1.17) mg/dL Est GFR ( Amer) (>60) Est GFR (Non-Af Amer) (>60) BUN/Creatinine Ratio (8-20) Glucose (70-100) mg/dL Lactic Acid (0.5-2.0) mmol/L Calcium (8.6-10.3) mg/dL Total Bilirubin (0.2-1.0) mg/dL AST (13-39) U/L ALT (7-52) U/L Alkaline Phosphatase (34-104) U/L Troponin I (<0.04) ng/mL C-Reactive Protein (< 5.00) mg/L B-Natriuretic Peptide ( - 100) pg/mL Total Protein (6.4-8.9) g/dL Albumin (3.2-5.2) g/dL Globulin (2-4) g/dL Albumin/Globulin Ratio (1-3) Lipase (11.0-82.0) U/L Procalcitonin 0.1 (<0.6) ng/mL Blood Type Antibody Screen Crossmatch 03/29/17 Range/Units 10:18 WBC (3.5-10.8) 10^3/ul RBC (4.0-5.4) 10^6/ul Hgb (14.0-18.0) g/dl Hct (42-52) % MCV (80-94) fL MCH (27-31) pg MCHC (31-36) g/dl RDW (10.5-15) % Plt Count (150-450) 10^3/ul MPV (7.4-10.4) um3 Neut % (Auto) Lymph % (Auto) [place] % (Auto) Eos % (Auto) Baso % (Auto) Absolute Neuts (auto) Absolute Lymphs (auto) Absolute Monos (auto) Absolute Eos (auto) Absolute Basos (auto) Absolute Nucleated RBC Immature Gran % (0-9) % Neutrophils % (38-83) % Band Neutrophils % (0-8) % Lymphocytes % (25-47) % Monocytes % (0-13) % Eosinophils % (0-6) % Basophils % (0-2) % Metamyelocytes % (0-2) % Nucleated RBC % Abs Neuts (Manual) (1.5-7.7) 10^3/ul Abs Monocytes (Manual) (0-0.8) 10^3/ul Absolute Eos (Manual) (0-0.6) 10^3/ul Abs Basophils (Manual) (0-0.2) 10^3/ul Nucleated RBCs/100 WBC (0-0) Normal RBC Morphology Polychromasia Hypochromasia Anisocytosis Acanthocytes (Spur) Hem Pathologist Commnt INR (Anticoag Therapy) (0.77-1.02) APTT (26.0-36.3) seconds Sodium (133-145) mmol/L Potassium (3.5-5.0) mmol/L Chloride (101-111) mmol/L Carbon Dioxide (22-32) mmol/L Anion Gap (2-11) mmol/L BUN (6-24) mg/dL Creatinine (0.67-1.17) mg/dL Est GFR ( Amer) (>60) Est GFR (Non-Af Amer) (>60) BUN/Creatinine Ratio (8-20) Glucose (70-100) mg/dL Lactic Acid (0.5-2.0) mmol/L Calcium (8.6-10.3) mg/dL Total Bilirubin (0.2-1.0) mg/dL AST (13-39) U/L ALT (7-52) U/L Alkaline Phosphatase (34-104) U/L Troponin I (<0.04) ng/mL C-Reactive Protein (< 5.00) mg/L B-Natriuretic Peptide ( - 100) pg/mL Total Protein (6.4-8.9) g/dL Albumin (3.2-5.2) g/dL Globulin (2-4) g/dL Albumin/Globulin Ratio (1-3) Lipase (11.0-82.0) U/L Procalcitonin (<0.6) ng/mL Blood Type O Positive Antibody Screen Negative Crossmatch See Detail Microbiology and Other Data: Microbiology 03/29/17 19:07 Transfusion Reaction Culture - Final Blood Bag No Growth Day 5 Transfusion Reaction Gram Stain - Final 03/31/17 09:40 Stool Occult Blood (TESFAYE) - Final Stool 03/29/17 14:00 Nasal Screen MRSA (PCR)(TESFAYE) - Final Nasal Mrsa Not Detected Assess/Plan/Problems-Billing Assessment: 66 yo M recent axillo/fem bypass 03/2017, COPD, ischemic CMP presented to [facility] [place] with N/V found with Hb 2 then PEA cardiac arrest s/p ROSC/intubation EGD notable for dieulafoy lesion s/p epi/clip - Patient Problems (1) Presence of bypass graft stent Comment: Appreciate critical care, heme coordination with vascular surgeon Start heparin gtt 04/03 and monitor for e/o bleeding Discussed with pt and GF Started coumadin 04/03 (2) Acute blood loss anemia Comment: Upper GI bleed s/p epi and clipping Resolved If rebleed may need repeat EGD vs bleding scan check cbc while starting AC folic acid and iron (3) DONTRELL (acute kidney injury) Comment: resolved (4) Biventricular failure Comment: LVEF 20% and RV severed reduced fxn c.w metoprolol hold WENDI but consider starting prior to dc Holding ASA while starting heparin in setting of bleed Status and Disposition: Inpatient while starting heparin
[2017-04-05] MEDS: Heparin DRIP 25,000 UNITS(*) 25,000 UNITS/500 ML BAG IVPB SCH (03:07)
[2017-04-05 03:43] LABS: Hematocrit 24 % (42-52); Mean Corpuscular HGB Conc 34 g/dl (31-36); Mean Corpuscular Hemoglobin 30 pg (27-31); Mean Corpuscular Volume 88 fL (80-94); Mean Platelet Volume 8 um3 (7.4-10.4); Platelet Count 110 10^3/ul (150-450); Red Cell Distribution Width 17 % (10.5-15); White Blood Count 4.8 10^3/ul (3.5-10.8)
[2017-04-05 04:00] LABS: INR 1.02 (0.77-1.02)
[2017-04-05 04:08] LABS: EGFR Non-African American 90.7 (>60)
[2017-04-05] MEDS: Folic Acid TAB* 1 MG PO SCH (08:13)
[2017-04-05] MEDS: Ferrous Sulfate TAB* 325 MG PO SCH (08:13)
[2017-04-05] MEDS: Omeprazole CAP* 20 MG PO SCH ×2 (08:13→20:12)
[2017-04-05] MEDS: Multivitamins ADULT w/MIN LIQ* 15 ML UDC PO SCH (08:13)
[2017-04-05] MEDS: Metoprolol Tartrate TAB* 25 MG PO SCH ×2 (08:13→20:12)
[2017-04-05] MEDS: Thiamine TAB* 100 MG TAB PO SCH (08:13)
--- NOTE | 2017-04-05 12:58 | PN ---
Subjective Date of Service: 04/05/17 Interval History: Pt states he is feeling well. He denies any pain. He denies any lightheadedness. He is anxious to get home as soon as possible. He states he has been having normal BMs. Objective Active Medications: Ferrous Sulfate (Ferrous Sulfate Tab*) 325 mg PO DAILY [facility] Last Admin: 04/05/17 08:13 Dose: 325 mg Folic Acid (Folvite Tab*) 1 mg PO DAILY [facility] Last Admin: 04/05/17 08:13 Dose: 1 mg Heparin Sodium (Porcine) (Heparin Vial(*)) 0 units IV .PER PROTOCOL [facility] PRN Reason: Protocol Last Admin: 04/03/17 16:57 Dose: 4,000 units Heparin Sodium/Dextrose (Heparin Drip 25,000 Units(*)) 25,000 units in 500 mls @ 0 mls/hr IVPB PER RATE [facility]; Per Protocol PRN Reason: Protocol Last Admin: 04/05/17 03:07 Dose: 16 mls/hr Metoprolol Tartrate (Lopressor Tab*) 25 mg PO BID [facility] Last Admin: 04/05/17 08:13 Dose: 25 mg Multivitamins (Theragran W/Minerals Liq*) 15 ml PO DAILY [facility] Last Admin: 04/05/17 08:13 Dose: 15 ml Omeprazole (Prilosec Cap*) 20 mg PO BID [facility] Last Admin: 04/05/17 08:13 Dose: 20 mg Oxycodone HCl (Roxycodone Tab*) 5 mg PO Q4H PRN PRN Reason: PAIN Last Admin: 04/01/17 08:13 Dose: 5 mg Pharmacy Profile Note (Coumadin Per Pharmacy*) 0 note FOLLOW UP .PER PHARMACY PROTOC [facility] PRN Reason: Protocol Thiamine HCl (Vitamin B-1 Tab*) 100 mg PO DAILY [facility] Last Admin: 04/05/17 08:13 Dose: 100 mg Vital Signs - 8 hr 04/05/17 04/05/17 04/05/17 08:00 08:19 11:32 Temperature 98.4 F 97.9 F Pulse Rate 63 55 Respiratory 16 16 18 Rate Blood Pressure 126/66 (mmHg) O2 Sat by Pulse 100 100 Oximetry 04/05/17 12:03 Temperature Pulse Rate Respiratory Rate Blood Pressure 138/82 (mmHg) O2 Sat by Pulse Oximetry Oxygen Devices in Use Now: None Appearance: Middle aged male sitting up in a chair, eating lunch, NAD Eyes: No Scleral Icterus Ears/Nose/Mouth/Throat: Mucous Membranes Moist Respiratory: Symmetrical Chest Expansion and Respiratory Effort, Clear to Auscultation - diminished breath sounds in all lung marino Cardiovascular: NL Sounds; No Murmurs; No JVD, RRR, - - 1+ B/L ankle edema Abdominal: NL Sounds; No Tenderness; No Distention Extremities: No Clubbing, Cyanosis Skin: No Rash or Ulcers, No Nodules or Sclerosis Neurological: Alert and Oriented x 3 Result Diagrams: 04/05/17 03:30 04/05/17 03:30 Additional Lab and Data: Lab Results 03/29/17 03/29/17 03/29/17 Range/Units 08:37 08:37 08:37 WBC (3.5-10.8) 10^3/ul RBC (4.0-5.4) 10^6/ul Hgb (14.0-18.0) g/dl Hct (42-52) % MCV (80-94) fL MCH (27-31) pg MCHC (31-36) g/dl RDW (10.5-15) % Plt Count (150-450) 10^3/ul MPV (7.4-10.4) um3 Neut % (Auto) Lymph % (Auto) [place] % (Auto) Eos % (Auto) Baso % (Auto) Absolute Neuts (auto) Absolute Lymphs (auto) Absolute Monos (auto) Absolute Eos (auto) Absolute Basos (auto) Absolute Nucleated RBC Immature Gran % (0-9) % Neutrophils % (38-83) % Band Neutrophils % (0-8) % Lymphocytes % (25-47) % Monocytes % (0-13) % Eosinophils % (0-6) % Basophils % (0-2) % Metamyelocytes % (0-2) % Nucleated RBC % Abs Neuts (Manual) (1.5-7.7) 10^3/ul Abs Monocytes (Manual) (0-0.8) 10^3/ul Absolute Eos (Manual) (0-0.6) 10^3/ul Abs Basophils (Manual) (0-0.2) 10^3/ul Nucleated RBCs/100 WBC (0-0) Normal RBC Morphology Polychromasia Hypochromasia Anisocytosis Acanthocytes (Spur) Hem Pathologist Commnt INR (Anticoag Therapy) (0.77-1.02) APTT (26.0-36.3) seconds Sodium 139 (133-145) mmol/L Potassium 4.0 (3.5-5.0) mmol/L Chloride 111 (101-111) mmol/L Carbon Dioxide 19 L (22-32) mmol/L Anion Gap 9 (2-11) mmol/L BUN 31 H (6-24) mg/dL Creatinine 1.27 H (0.67-1.17) mg/dL Est GFR ( Amer) 73.4 (>60) Est GFR (Non-Af Amer) 57.1 (>60) BUN/Creatinine Ratio 24.4 H (8-20) Glucose 134 H (70-100) mg/dL Lactic Acid 5.6 H* (0.5-2.0) mmol/L Calcium 7.7 L (8.6-10.3) mg/dL Total Bilirubin 0.50 (0.2-1.0) mg/dL AST 22 (13-39) U/L ALT 11 (7-52) U/L Alkaline Phosphatase 32 L (34-104) U/L Troponin I 0.04 H* (<0.04) ng/mL C-Reactive Protein 2.39 (< 5.00) mg/L B-Natriuretic Peptide 133 H ( - 100) pg/mL Total Protein 4.5 L (6.4-8.9) g/dL Albumin 2.2 L (3.2-5.2) g/dL Globulin 2.3 (2-4) g/dL Albumin/Globulin Ratio 1.0 (1-3) Lipase 42 (11.0-82.0) U/L Procalcitonin (<0.6) ng/mL Blood Type Antibody Screen Crossmatch 03/29/17 03/29/17 03/29/17 Range/Units 08:37 10:18 10:18 WBC 11.7 H (3.5-10.8) 10^3/ul RBC 0.65 L (4.0-5.4) 10^6/ul Hgb 2.1 L* (14.0-18.0) g/dl Hct 8 L (42-52) % MCV 118 H (80-94) fL MCH 32 H (27-31) pg MCHC 27 L (31-36) g/dl RDW 25 H (10.5-15) % Plt Count 224 (150-450) 10^3/ul MPV 7 L (7.4-10.4) um3 Neut % (Auto) Not Reportable Lymph % (Auto) Not Reportable [place] % (Auto) Not Reportable Eos % (Auto) Not Reportable Baso % (Auto) Not Reportable Absolute Neuts (auto) Not Reportable Absolute Lymphs (auto) Not Reportable Absolute Monos (auto) Not Reportable Absolute Eos (auto) Not Reportable Absolute Basos (auto) Not Reportable Absolute Nucleated RBC Not Reportable Immature Gran % 8 (0-9) % Neutrophils % 61 (38-83) % Band Neutrophils % 7 (0-8) % Lymphocytes % 26 (25-47) % Monocytes % 5 (0-13) % Eosinophils % 0 (0-6) % Basophils % 0 (0-2) % Metamyelocytes % 1 (0-2) % Nucleated RBC % Not Reportable Abs Neuts (Manual) 7.1 (1.5-7.7) 10^3/ul Abs Monocytes (Manual) 0.6 (0-0.8) 10^3/ul Absolute Eos (Manual) 0 (0-0.6) 10^3/ul Abs Basophils (Manual) 0 (0-0.2) 10^3/ul Nucleated RBCs/100 WBC 5 H (0-0) Normal RBC Morphology Not Reportable Polychromasia 2+ Hypochromasia 1+ Anisocytosis 2+ Acanthocytes (Spur) 2+ Hem Pathologist Commnt Pending INR (Anticoag Therapy) 1.48 H (0.77-1.02) APTT 42.5 H (26.0-36.3) seconds Sodium (133-145) mmol/L Potassium (3.5-5.0) mmol/L Chloride (101-111) mmol/L Carbon Dioxide (22-32) mmol/L Anion Gap (2-11) mmol/L BUN (6-24) mg/dL Creatinine (0.67-1.17) mg/dL Est GFR ( Amer) (>60) Est GFR (Non-Af Amer) (>60) BUN/Creatinine Ratio (8-20) Glucose (70-100) mg/dL Lactic Acid (0.5-2.0) mmol/L Calcium (8.6-10.3) mg/dL Total Bilirubin (0.2-1.0) mg/dL AST (13-39) U/L ALT (7-52) U/L Alkaline Phosphatase (34-104) U/L Troponin I (<0.04) ng/mL C-Reactive Protein (< 5.00) mg/L B-Natriuretic Peptide ( - 100) pg/mL Total Protein (6.4-8.9) g/dL Albumin (3.2-5.2) g/dL Globulin (2-4) g/dL Albumin/Globulin Ratio (1-3) Lipase (11.0-82.0) U/L Procalcitonin 0.1 (<0.6) ng/mL Blood Type Antibody Screen Crossmatch 03/29/17 Range/Units 10:18 WBC (3.5-10.8) 10^3/ul RBC (4.0-5.4) 10^6/ul Hgb (14.0-18.0) g/dl Hct (42-52) % MCV (80-94) fL MCH (27-31) pg MCHC (31-36) g/dl RDW (10.5-15) % Plt Count (150-450) 10^3/ul MPV (7.4-10.4) um3 Neut % (Auto) Lymph % (Auto) [place] % (Auto) Eos % (Auto) Baso % (Auto) Absolute Neuts (auto) Absolute Lymphs (auto) Absolute Monos (auto) Absolute Eos (auto) Absolute Basos (auto) Absolute Nucleated RBC Immature Gran % (0-9) % Neutrophils % (38-83) % Band Neutrophils % (0-8) % Lymphocytes % (25-47) % Monocytes % (0-13) % Eosinophils % (0-6) % Basophils % (0-2) % Metamyelocytes % (0-2) % Nucleated RBC % Abs Neuts (Manual) (1.5-7.7) 10^3/ul Abs Monocytes (Manual) (0-0.8) 10^3/ul Absolute Eos (Manual) (0-0.6) 10^3/ul Abs Basophils (Manual) (0-0.2) 10^3/ul Nucleated RBCs/100 WBC (0-0) Normal RBC Morphology Polychromasia Hypochromasia Anisocytosis Acanthocytes (Spur) Hem Pathologist Commnt INR (Anticoag Therapy) (0.77-1.02) APTT (26.0-36.3) seconds Sodium (133-145) mmol/L Potassium (3.5-5.0) mmol/L Chloride (101-111) mmol/L Carbon Dioxide (22-32) mmol/L Anion Gap (2-11) mmol/L BUN (6-24) mg/dL Creatinine (0.67-1.17) mg/dL Est GFR ( Amer) (>60) Est GFR (Non-Af Amer) (>60) BUN/Creatinine Ratio (8-20) Glucose (70-100) mg/dL Lactic Acid (0.5-2.0) mmol/L Calcium (8.6-10.3) mg/dL Total Bilirubin (0.2-1.0) mg/dL AST (13-39) U/L ALT (7-52) U/L Alkaline Phosphatase (34-104) U/L Troponin I (<0.04) ng/mL C-Reactive Protein (< 5.00) mg/L B-Natriuretic Peptide ( - 100) pg/mL Total Protein (6.4-8.9) g/dL Albumin (3.2-5.2) g/dL Globulin (2-4) g/dL Albumin/Globulin Ratio (1-3) Lipase (11.0-82.0) U/L Procalcitonin (<0.6) ng/mL Blood Type O Positive Antibody Screen Negative Crossmatch See Detail Microbiology and Other Data: Microbiology 03/29/17 19:07 Transfusion Reaction Culture - Final Blood Bag No Growth Day 5 Transfusion Reaction Gram Stain - Final 03/31/17 09:40 Stool Occult Blood (TESFAYE) - Final Stool 03/29/17 14:00 Nasal Screen MRSA (PCR)(TESFAYE) - Final Nasal Mrsa Not Detected Assess/Plan/Problems-Billing Mr Ga is a 66 yo M who is s/p recent axillo/fem bypass 03/2017, COPD, ischemic CMP presented to [facility] [place] with N/V found with Hb 2 then PEA cardiac arrest s /p CPR with ROSC/intubation. - Patient Problems (1) Hypovolemic shock Current Visit: Yes Status: Acute Code(s): R57.1 - HYPOVOLEMIC SHOCK SNOMED Code(s): 07647014 Comment: Secondary to massive blood loss. Now resolved. (2) Acute blood loss anemia Current Visit: Yes Status: Acute Code(s): D62 - ACUTE POSTHEMORRHAGIC ANEMIA SNOMED Code(s): 536337511 Comment: No signs of re-bleeding. He is s/p EGD with epi and clipping of possible dieulafoy lesion. Follow H/H closely. Continue PPI. (3) PEA (Pulseless electrical activity) Current Visit: Yes Status: Acute Code(s): I46.9 - CARDIAC ARREST, CAUSE UNSPECIFIED SNOMED Code(s): 965311910 Comment: Likely secondary to severe acute blood loss. S/P ROSC with CPR and 1 defibrillation. (4) Biventricular failure Current Visit: Yes Status: Acute Code(s): I50.82 - BIVENTRICULAR HEART FAILURE SNOMED Code(s): 03491464 Comment: LVEF reduced at 20%, RV also severely reduced. EF reduced further from echo 2015 and RV function was previously normal. Follow up echo as outpatient. BP now in good range. Will start low dose ACEI in addition to metoprolol. (5) Presence of bypass graft stent Current Visit: Yes Status: Acute Code(s): Z95.828 - PRESENCE OF OTHER VASCULAR IMPLANTS AND GRAFTS SNOMED Code(s): 02905540 Comment: Vascular surgery indicates the patient needs anticoagulation. Will continue heparin drip bridge to coumadin. Await therapeutic INR. (6) DONTRELL (acute kidney injury) Current Visit: Yes Status: Acute Code(s): N17.9 - ACUTE KIDNEY FAILURE, UNSPECIFIED SNOMED Code(s): 14482934 Comment: Creatinine peaked at ~1.6 (1.5x baseline). Now resolved. (7) HTN (hypertension) Current Visit: Yes Status: Acute Code(s): I10 - ESSENTIAL (PRIMARY) HYPERTENSION SNOMED Code(s): 22927848 Comment: BP now in normal range. Continue metoprolol. (8) COPD (chronic obstructive pulmonary disease) Current Visit: Yes Status: Acute Code(s): J44.9 - CHRONIC OBSTRUCTIVE PULMONARY DISEASE, UNSPECIFIED SNOMED Code(s): 69923066 Comment: No signs of exacerbation. (9) DVT prophylaxis Current Visit: Yes Status: Acute Code(s): XMG2157 - SNOMED Code(s): 696126115 Comment: heparin drip (10) Full code status Current Visit: Yes Status: Acute Code(s): Z78.9 - OTHER SPECIFIED HEALTH STATUS SNOMED Code(s): 214645920 Status and Disposition: .
[2017-04-05] MEDS: Lisinopril TAB* 5 MG PO SCH (16:11)
[2017-04-05] MEDS ORDERED: Warfarin TAB(*) 5 MG PO ONE (17:00)
[2017-04-06 06:07] LABS: INR 1.44 (0.77-1.02)
[2017-04-06 06:09] LABS: EGFR Non-African American 89.5 (>60)
[2017-04-06] MEDS: Thiamine TAB* 100 MG TAB PO SCH (08:37)
[2017-04-06] MEDS: Multivitamins ADULT w/MIN LIQ* 15 ML UDC PO SCH (08:37)
[2017-04-06] MEDS: Folic Acid TAB* 1 MG PO SCH (08:37)
[2017-04-06] MEDS: Lisinopril TAB* 5 MG PO SCH (08:37)
[2017-04-06] MEDS: Omeprazole CAP* 20 MG PO SCH ×2 (08:37→20:07)
[2017-04-06] MEDS: Metoprolol Tartrate TAB* 25 MG PO SCH ×2 (08:37→20:07)
[2017-04-06] MEDS: Ferrous Sulfate TAB* 325 MG PO SCH (08:37)
[2017-04-06] MEDS: Heparin DRIP 25,000 UNITS(*) 25,000 UNITS/500 ML BAG IVPB SCH (12:14)
[2017-04-06] MEDS ORDERED: Potassium Chlor TAB* 20 MEQ TAB.ER PO ONE (13:38)
--- NOTE | 2017-04-06 13:44 | PN ---
Subjective Date of Service: 04/06/17 Interval History: Pt is feeling well. He denies any pain or SOB. He states he is urinating without difficulty. He had a brown BM today. Objective Active Medications: Ferrous Sulfate (Ferrous Sulfate Tab*) 325 mg PO DAILY [facility] Last Admin: 04/06/17 08:37 Dose: 325 mg Folic Acid (Folvite Tab*) 1 mg PO DAILY [facility] Last Admin: 04/06/17 08:37 Dose: 1 mg Heparin Sodium (Porcine) (Heparin Vial(*)) 0 units IV .PER PROTOCOL [facility] PRN Reason: Protocol Last Admin: 04/03/17 16:57 Dose: 4,000 units Heparin Sodium/Dextrose (Heparin Drip 25,000 Units(*)) 25,000 units in 500 mls @ 0 mls/hr IVPB PER RATE [facility]; Per Protocol PRN Reason: Protocol Last Admin: 04/06/17 12:14 Dose: 16 mls/hr Lisinopril (Prinivil Tab*) 2.5 mg PO DAILY [facility] Last Admin: 04/06/17 08:37 Dose: 2.5 mg Metoprolol Tartrate (Lopressor Tab*) 25 mg PO BID [facility] Last Admin: 04/06/17 08:37 Dose: 25 mg Multivitamins (Theragran W/Minerals Liq*) 15 ml PO DAILY [facility] Last Admin: 04/06/17 08:37 Dose: 15 ml Omeprazole (Prilosec Cap*) 20 mg PO BID [facility] Last Admin: 04/06/17 08:37 Dose: 20 mg Oxycodone HCl (Roxycodone Tab*) 5 mg PO Q4H PRN PRN Reason: PAIN Last Admin: 04/01/17 08:13 Dose: 5 mg Pharmacy Profile Note (Coumadin Per Pharmacy*) 0 note FOLLOW UP .PER PHARMACY PROTOC [facility] PRN Reason: Protocol Potassium Chloride (Klor Con Er Tab*) 40 meq PO ONCE ONE Stop: 04/06/17 13:39 Thiamine HCl (Vitamin B-1 Tab*) 100 mg PO DAILY [facility] Last Admin: 04/06/17 08:37 Dose: 100 mg Vital Signs - 8 hr 04/06/17 04/06/17 04/06/17 07:26 07:42 12:16 Temperature 98.2 F 98.5 F Pulse Rate 51 61 Respiratory 14 16 16 Rate Blood Pressure 129/77 117/51 (mmHg) O2 Sat by Pulse 100 98 Oximetry Oxygen Devices in Use Now: None Appearance: Middle aged thin male sitting up in bed, eating lunch, NAD Eyes: No Scleral Icterus Ears/Nose/Mouth/Throat: Mucous Membranes Moist Respiratory: Symmetrical Chest Expansion and Respiratory Effort, Clear to Auscultation Cardiovascular: NL Sounds; No Murmurs; No JVD, RRR, No Edema Abdominal: NL Sounds; No Tenderness; No Distention Extremities: No Clubbing, Cyanosis Skin: No Rash or Ulcers, No Nodules or Sclerosis Neurological: Alert and Oriented x 3 Result Diagrams: 04/05/17 03:30 04/06/17 04:47 Additional Lab and Data: Lab Results 03/29/17 03/29/17 03/29/17 Range/Units 08:37 08:37 08:37 WBC (3.5-10.8) 10^3/ul RBC (4.0-5.4) 10^6/ul Hgb (14.0-18.0) g/dl Hct (42-52) % MCV (80-94) fL MCH (27-31) pg MCHC (31-36) g/dl RDW (10.5-15) % Plt Count (150-450) 10^3/ul MPV (7.4-10.4) um3 Neut % (Auto) Lymph % (Auto) [place] % (Auto) Eos % (Auto) Baso % (Auto) Absolute Neuts (auto) Absolute Lymphs (auto) Absolute Monos (auto) Absolute Eos (auto) Absolute Basos (auto) Absolute Nucleated RBC Immature Gran % (0-9) % Neutrophils % (38-83) % Band Neutrophils % (0-8) % Lymphocytes % (25-47) % Monocytes % (0-13) % Eosinophils % (0-6) % Basophils % (0-2) % Metamyelocytes % (0-2) % Nucleated RBC % Abs Neuts (Manual) (1.5-7.7) 10^3/ul Abs Monocytes (Manual) (0-0.8) 10^3/ul Absolute Eos (Manual) (0-0.6) 10^3/ul Abs Basophils (Manual) (0-0.2) 10^3/ul Nucleated RBCs/100 WBC (0-0) Normal RBC Morphology Polychromasia Hypochromasia Anisocytosis Acanthocytes (Spur) Hem Pathologist Commnt INR (Anticoag Therapy) (0.77-1.02) APTT (26.0-36.3) seconds Sodium 139 (133-145) mmol/L Potassium 4.0 (3.5-5.0) mmol/L Chloride 111 (101-111) mmol/L Carbon Dioxide 19 L (22-32) mmol/L Anion Gap 9 (2-11) mmol/L BUN 31 H (6-24) mg/dL Creatinine 1.27 H (0.67-1.17) mg/dL Est GFR ( Amer) 73.4 (>60) Est GFR (Non-Af Amer) 57.1 (>60) BUN/Creatinine Ratio 24.4 H (8-20) Glucose 134 H (70-100) mg/dL Lactic Acid 5.6 H* (0.5-2.0) mmol/L Calcium 7.7 L (8.6-10.3) mg/dL Total Bilirubin 0.50 (0.2-1.0) mg/dL AST 22 (13-39) U/L ALT 11 (7-52) U/L Alkaline Phosphatase 32 L (34-104) U/L Troponin I 0.04 H* (<0.04) ng/mL C-Reactive Protein 2.39 (< 5.00) mg/L B-Natriuretic Peptide 133 H ( - 100) pg/mL Total Protein 4.5 L (6.4-8.9) g/dL Albumin 2.2 L (3.2-5.2) g/dL Globulin 2.3 (2-4) g/dL Albumin/Globulin Ratio 1.0 (1-3) Lipase 42 (11.0-82.0) U/L Procalcitonin (<0.6) ng/mL Blood Type Antibody Screen Crossmatch 03/29/17 03/29/17 03/29/17 Range/Units 08:37 10:18 10:18 WBC 11.7 H (3.5-10.8) 10^3/ul RBC 0.65 L (4.0-5.4) 10^6/ul Hgb 2.1 L* (14.0-18.0) g/dl Hct 8 L (42-52) % MCV 118 H (80-94) fL MCH 32 H (27-31) pg MCHC 27 L (31-36) g/dl RDW 25 H (10.5-15) % Plt Count 224 (150-450) 10^3/ul MPV 7 L (7.4-10.4) um3 Neut % (Auto) Not Reportable Lymph % (Auto) Not Reportable [place] % (Auto) Not Reportable Eos % (Auto) Not Reportable Baso % (Auto) Not Reportable Absolute Neuts (auto) Not Reportable Absolute Lymphs (auto) Not Reportable Absolute Monos (auto) Not Reportable Absolute Eos (auto) Not Reportable Absolute Basos (auto) Not Reportable Absolute Nucleated RBC Not Reportable Immature Gran % 8 (0-9) % Neutrophils % 61 (38-83) % Band Neutrophils % 7 (0-8) % Lymphocytes % 26 (25-47) % Monocytes % 5 (0-13) % Eosinophils % 0 (0-6) % Basophils % 0 (0-2) % Metamyelocytes % 1 (0-2) % Nucleated RBC % Not Reportable Abs Neuts (Manual) 7.1 (1.5-7.7) 10^3/ul Abs Monocytes (Manual) 0.6 (0-0.8) 10^3/ul Absolute Eos (Manual) 0 (0-0.6) 10^3/ul Abs Basophils (Manual) 0 (0-0.2) 10^3/ul Nucleated RBCs/100 WBC 5 H (0-0) Normal RBC Morphology Not Reportable Polychromasia 2+ Hypochromasia 1+ Anisocytosis 2+ Acanthocytes (Spur) 2+ Hem Pathologist Commnt Pending INR (Anticoag Therapy) 1.48 H (0.77-1.02) APTT 42.5 H (26.0-36.3) seconds Sodium (133-145) mmol/L Potassium (3.5-5.0) mmol/L Chloride (101-111) mmol/L Carbon Dioxide (22-32) mmol/L Anion Gap (2-11) mmol/L BUN (6-24) mg/dL Creatinine (0.67-1.17) mg/dL Est GFR ( Amer) (>60) Est GFR (Non-Af Amer) (>60) BUN/Creatinine Ratio (8-20) Glucose (70-100) mg/dL Lactic Acid (0.5-2.0) mmol/L Calcium (8.6-10.3) mg/dL Total Bilirubin (0.2-1.0) mg/dL AST (13-39) U/L ALT (7-52) U/L Alkaline Phosphatase (34-104) U/L Troponin I (<0.04) ng/mL C-Reactive Protein (< 5.00) mg/L B-Natriuretic Peptide ( - 100) pg/mL Total Protein (6.4-8.9) g/dL Albumin (3.2-5.2) g/dL Globulin (2-4) g/dL Albumin/Globulin Ratio (1-3) Lipase (11.0-82.0) U/L Procalcitonin 0.1 (<0.6) ng/mL Blood Type Antibody Screen Crossmatch 03/29/17 Range/Units 10:18 WBC (3.5-10.8) 10^3/ul RBC (4.0-5.4) 10^6/ul Hgb (14.0-18.0) g/dl Hct (42-52) % MCV (80-94) fL MCH (27-31) pg MCHC (31-36) g/dl RDW (10.5-15) % Plt Count (150-450) 10^3/ul MPV (7.4-10.4) um3 Neut % (Auto) Lymph % (Auto) [place] % (Auto) Eos % (Auto) Baso % (Auto) Absolute Neuts (auto) Absolute Lymphs (auto) Absolute Monos (auto) Absolute Eos (auto) Absolute Basos (auto) Absolute Nucleated RBC Immature Gran % (0-9) % Neutrophils % (38-83) % Band Neutrophils % (0-8) % Lymphocytes % (25-47) % Monocytes % (0-13) % Eosinophils % (0-6) % Basophils % (0-2) % Metamyelocytes % (0-2) % Nucleated RBC % Abs Neuts (Manual) (1.5-7.7) 10^3/ul Abs Monocytes (Manual) (0-0.8) 10^3/ul Absolute Eos (Manual) (0-0.6) 10^3/ul Abs Basophils (Manual) (0-0.2) 10^3/ul Nucleated RBCs/100 WBC (0-0) Normal RBC Morphology Polychromasia Hypochromasia Anisocytosis Acanthocytes (Spur) Hem Pathologist Commnt INR (Anticoag Therapy) (0.77-1.02) APTT (26.0-36.3) seconds Sodium (133-145) mmol/L Potassium (3.5-5.0) mmol/L Chloride (101-111) mmol/L Carbon Dioxide (22-32) mmol/L Anion Gap (2-11) mmol/L BUN (6-24) mg/dL Creatinine (0.67-1.17) mg/dL Est GFR ( Amer) (>60) Est GFR (Non-Af Amer) (>60) BUN/Creatinine Ratio (8-20) Glucose (70-100) mg/dL Lactic Acid (0.5-2.0) mmol/L Calcium (8.6-10.3) mg/dL Total Bilirubin (0.2-1.0) mg/dL AST (13-39) U/L ALT (7-52) U/L Alkaline Phosphatase (34-104) U/L Troponin I (<0.04) ng/mL C-Reactive Protein (< 5.00) mg/L B-Natriuretic Peptide ( - 100) pg/mL Total Protein (6.4-8.9) g/dL Albumin (3.2-5.2) g/dL Globulin (2-4) g/dL Albumin/Globulin Ratio (1-3) Lipase (11.0-82.0) U/L Procalcitonin (<0.6) ng/mL Blood Type O Positive Antibody Screen Negative Crossmatch See Detail Microbiology and Other Data: Microbiology 03/29/17 19:07 Transfusion Reaction Culture - Final Blood Bag No Growth Day 5 Transfusion Reaction Gram Stain - Final 03/31/17 09:40 Stool Occult Blood (TESFAYE) - Final Stool 03/29/17 14:00 Nasal Screen MRSA (PCR)(TESFAYE) - Final Nasal Mrsa Not Detected Assess/Plan/Problems-Billing Mr Ga is a 66 yo M who is s/p recent axillo/fem bypass 03/2017, COPD, ischemic CMP presented to [facility] with N/V found with Hb 2 then PEA cardiac arrest s /p CPR with ROSC/intubation. - Patient Problems (1) Hypovolemic shock Current Visit: Yes Status: Acute Code(s): R57.1 - HYPOVOLEMIC SHOCK SNOMED Code(s): 15696188 Comment: Secondary to massive blood loss. Now resolved. (2) Acute blood loss anemia Current Visit: Yes Status: Acute Code(s): D62 - ACUTE POSTHEMORRHAGIC ANEMIA SNOMED Code(s): 764643294 Comment: No signs of re-bleeding. He is s/p EGD with epi and clipping of possible dieulafoy lesion. Follow H/H closely. Continue PPI. (3) PEA (Pulseless electrical activity) Current Visit: Yes Status: Acute Code(s): I46.9 - CARDIAC ARREST, CAUSE UNSPECIFIED SNOMED Code(s): 497706725 Comment: Likely secondary to severe acute blood loss. S/P ROSC with CPR and 1 defibrillation. Pt had an episode of NSVT this afternoon right after I saw him. Will give KCl 40mEq now and check Mg level. Repeat echo to see if EF any better. Possibly cardiology consult. (4) Biventricular failure Current Visit: Yes Status: Acute Code(s): I50.82 - BIVENTRICULAR HEART FAILURE SNOMED Code(s): 33170216 Comment: LVEF reduced at 20%, RV also severely reduced. Continue metoprolol and lisinopril. Repeat echo now. (5) Presence of bypass graft stent Current Visit: Yes Status: Acute Code(s): Z95.828 - PRESENCE OF OTHER VASCULAR IMPLANTS AND GRAFTS SNOMED Code(s): 30211634 Comment: Vascular surgery indicates the patient needs anticoagulation. Will continue heparin drip bridge to coumadin. Await therapeutic INR. (6) DONTRELL (acute kidney injury) Current Visit: Yes Status: Acute Code(s): N17.9 - ACUTE KIDNEY FAILURE, UNSPECIFIED SNOMED Code(s): 87694440 Comment: Creatinine peaked at ~1.6 (1.5x baseline). Now resolved. (7) HTN (hypertension) Current Visit: Yes Status: Acute Code(s): I10 - ESSENTIAL (PRIMARY) HYPERTENSION SNOMED Code(s): 05711490 Comment: BP now in normal range. Continue metoprolol. (8) COPD (chronic obstructive pulmonary disease) Current Visit: Yes Status: Acute Code(s): J44.9 - CHRONIC OBSTRUCTIVE PULMONARY DISEASE, UNSPECIFIED SNOMED Code(s): 23633204 Comment: No signs of exacerbation. (9) DVT prophylaxis Current Visit: Yes Status: Acute Code(s): VHH5785 - SNOMED Code(s): 325596639 Comment: heparin drip (10) Full code status Current Visit: Yes Status: Acute Code(s): Z78.9 - OTHER SPECIFIED HEALTH STATUS SNOMED Code(s): 520674604 Status and Disposition: .
--- NOTE | 2017-04-06 15:33 | ECHO ---
Patient: MANUEL LONGORIA [facility] Rec#: [id number] : 1950 Date: 04/06/2017 Age: 66y Weight: kg / NaN lbs Sex: M Room#: 451 Admit Date#: 03/29/2017 Type: Inpatient Referring: Alissa Oro DO Reading: John Roberts MD Doctorate Of Chiropractic: Mariana Ricks RDCS CC: Niraj Ly MD Transthoracic Echocardiogram Indication: Follow up s/p cardiac arrest. BP: 117/51 HR: 57 Rhythm: Bradycardia Findings History: HTN, COPD, smoker, cocaine use, anemia. This is a LIMITED study to reassess left ventricular wall motion and ejection fraction. Technical Comments: The study quality is good. Completed at 1500. Left Ventricle: The left ventricular chamber size is normal. There is global hypokinesis of the left ventricle with minor regional variation. There is moderately decreased left ventricular systolic function. The estimated ejection fraction is 35-40%. Visually estimated LVEF is closer to 35 %. Right Ventricle: The right ventricular cavity size is normal. The right ventricular global systolic function is moderately reduced. Conclusions There is global hypokinesis of the left ventricle with minor regional variation. There is moderately decreased left ventricular systolic function. Visually estimated LVEF is closer to 35 %. Compared to report of study from 03/29/2017, there has been significant improvement of the LV systolic function (was less than 20 %).
[2017-04-06] MEDS ORDERED: Warfarin TAB(*) 2 MG PO ONE (17:00)
[2017-04-06] MEDS ORDERED: Warfarin TAB(*) 5 MG PO ONE (17:00)
[2017-04-07 05:09] LABS: Hematocrit 25 % (42-52); Hemoglobin 8.7 g/dl (14.0-18.0); Mean Corpuscular HGB Conc 34 g/dl (31-36); Mean Corpuscular Hemoglobin 31 pg (27-31); Mean Corpuscular Volume 90 fL (80-94); Mean Platelet Volume 8 um3 (7.4-10.4); Platelet Count 135 10^3/ul (150-450); Red Blood Count 2.84 10^6/ul (4.0-5.4); Red Cell Distribution Width 17 % (10.5-15); White Blood Count 4.4 10^3/ul (3.5-10.8)
[2017-04-07 05:16] LABS: INR 1.84 (0.77-1.02)
[2017-04-07 05:21] LABS: EGFR Non-African American 88.3 (>60)
[2017-04-07] MEDS ORDERED: Magnesium Sulfate 2 GM IV* 2 GM/50 ML BAG IVPB ONE (08:34)
[2017-04-07] MEDS: Folic Acid TAB* 1 MG PO SCH (09:22)
[2017-04-07] MEDS: Metoprolol Tartrate TAB* 25 MG PO SCH ×2 (09:22→21:14)
[2017-04-07] MEDS: Thiamine TAB* 100 MG TAB PO SCH (09:22)
[2017-04-07] MEDS: Omeprazole CAP* 20 MG PO SCH ×2 (09:22→21:14)
[2017-04-07] MEDS: Lisinopril TAB* 5 MG PO SCH (09:22)
[2017-04-07] MEDS: Ferrous Sulfate TAB* 325 MG PO SCH (09:22)
[2017-04-07] MEDS: Multivitamins ADULT w/MIN LIQ* 15 ML UDC PO SCH (09:22)
--- NOTE | 2017-04-07 16:35 | PN ---
Subjective Date of Service: 04/07/17 Interval History: Pt is feeling well today. He is frustrated that he needs to stay in the hospital but understands the need to stay. He denies any pain. No SOB. Objective Active Medications: Ferrous Sulfate (Ferrous Sulfate Tab*) 325 mg PO DAILY [facility] Last Admin: 04/07/17 09:22 Dose: 325 mg Folic Acid (Folvite Tab*) 1 mg PO DAILY [facility] Last Admin: 04/07/17 09:22 Dose: 1 mg Heparin Sodium (Porcine) (Heparin Vial(*)) 0 units IV .PER PROTOCOL [facility] PRN Reason: Protocol Last Admin: 04/03/17 16:57 Dose: 4,000 units Heparin Sodium/Dextrose (Heparin Drip 25,000 Units(*)) 25,000 units in 500 mls @ 0 mls/hr IVPB PER RATE [facility]; Per Protocol PRN Reason: Protocol Last Admin: 04/06/17 12:14 Dose: 16 mls/hr Lisinopril (Prinivil Tab*) 2.5 mg PO DAILY [facility] Last Admin: 04/07/17 09:22 Dose: 2.5 mg Metoprolol Tartrate (Lopressor Tab*) 25 mg PO BID [facility] Last Admin: 04/07/17 09:22 Dose: 25 mg Multivitamins (Theragran W/Minerals Liq*) 15 ml PO DAILY [facility] Last Admin: 04/07/17 09:22 Dose: 15 ml Omeprazole (Prilosec Cap*) 20 mg PO BID [facility] Last Admin: 04/07/17 09:22 Dose: 20 mg Oxycodone HCl (Roxycodone Tab*) 5 mg PO Q4H PRN PRN Reason: PAIN Last Admin: 04/01/17 08:13 Dose: 5 mg Pharmacy Profile Note (Coumadin Per Pharmacy*) 0 note FOLLOW UP .PER PHARMACY PROTOC [facility] PRN Reason: Protocol Thiamine HCl (Vitamin B-1 Tab*) 100 mg PO DAILY [facility] Last Admin: 04/07/17 09:22 Dose: 100 mg Warfarin Sodium (Coumadin Tab(*)) 3 mg PO 1700 ONE Stop: 04/07/17 17:01 Warfarin Sodium (Coumadin Tab(*)) 4 mg PO 1700 ONE Stop: 04/07/17 17:01 Vital Signs - 8 hr 04/07/17 04/07/17 11:59 15:33 Temperature 98.2 F 98.4 F Pulse Rate 50 53 Respiratory 16 16 Rate Blood Pressure 137/70 136/72 (mmHg) O2 Sat by Pulse 100 100 Oximetry Oxygen Devices in Use Now: None Appearance: Middle aged male sitting up in bed, NAD Eyes: No Scleral Icterus Ears/Nose/Mouth/Throat: Mucous Membranes Moist Respiratory: Symmetrical Chest Expansion and Respiratory Effort, Clear to Auscultation Cardiovascular: NL Sounds; No Murmurs; No JVD, RRR, No Edema Abdominal: NL Sounds; No Tenderness; No Distention Extremities: No Clubbing, Cyanosis Skin: No Rash or Ulcers, No Nodules or Sclerosis Neurological: Alert and Oriented x 3 Result Diagrams: 04/07/17 04:58 04/07/17 04:58 Additional Lab and Data: Lab Results 03/29/17 03/29/17 03/29/17 Range/Units 08:37 08:37 08:37 WBC (3.5-10.8) 10^3/ul RBC (4.0-5.4) 10^6/ul Hgb (14.0-18.0) g/dl Hct (42-52) % MCV (80-94) fL MCH (27-31) pg MCHC (31-36) g/dl RDW (10.5-15) % Plt Count (150-450) 10^3/ul MPV (7.4-10.4) um3 Neut % (Auto) Lymph % (Auto) [place] % (Auto) Eos % (Auto) Baso % (Auto) Absolute Neuts (auto) Absolute Lymphs (auto) Absolute Monos (auto) Absolute Eos (auto) Absolute Basos (auto) Absolute Nucleated RBC Immature Gran % (0-9) % Neutrophils % (38-83) % Band Neutrophils % (0-8) % Lymphocytes % (25-47) % Monocytes % (0-13) % Eosinophils % (0-6) % Basophils % (0-2) % Metamyelocytes % (0-2) % Nucleated RBC % Abs Neuts (Manual) (1.5-7.7) 10^3/ul Abs Monocytes (Manual) (0-0.8) 10^3/ul Absolute Eos (Manual) (0-0.6) 10^3/ul Abs Basophils (Manual) (0-0.2) 10^3/ul Nucleated RBCs/100 WBC (0-0) Normal RBC Morphology Polychromasia Hypochromasia Anisocytosis Acanthocytes (Spur) Hem Pathologist Commnt INR (Anticoag Therapy) (0.77-1.02) APTT (26.0-36.3) seconds Sodium 139 (133-145) mmol/L Potassium 4.0 (3.5-5.0) mmol/L Chloride 111 (101-111) mmol/L Carbon Dioxide 19 L (22-32) mmol/L Anion Gap 9 (2-11) mmol/L BUN 31 H (6-24) mg/dL Creatinine 1.27 H (0.67-1.17) mg/dL Est GFR ( Amer) 73.4 (>60) Est GFR (Non-Af Amer) 57.1 (>60) BUN/Creatinine Ratio 24.4 H (8-20) Glucose 134 H (70-100) mg/dL Lactic Acid 5.6 H* (0.5-2.0) mmol/L Calcium 7.7 L (8.6-10.3) mg/dL Total Bilirubin 0.50 (0.2-1.0) mg/dL AST 22 (13-39) U/L ALT 11 (7-52) U/L Alkaline Phosphatase 32 L (34-104) U/L Troponin I 0.04 H* (<0.04) ng/mL C-Reactive Protein 2.39 (< 5.00) mg/L B-Natriuretic Peptide 133 H ( - 100) pg/mL Total Protein 4.5 L (6.4-8.9) g/dL Albumin 2.2 L (3.2-5.2) g/dL Globulin 2.3 (2-4) g/dL Albumin/Globulin Ratio 1.0 (1-3) Lipase 42 (11.0-82.0) U/L Procalcitonin (<0.6) ng/mL Blood Type Antibody Screen Crossmatch 03/29/17 03/29/17 03/29/17 Range/Units 08:37 10:18 10:18 WBC 11.7 H (3.5-10.8) 10^3/ul RBC 0.65 L (4.0-5.4) 10^6/ul Hgb 2.1 L* (14.0-18.0) g/dl Hct 8 L (42-52) % MCV 118 H (80-94) fL MCH 32 H (27-31) pg MCHC 27 L (31-36) g/dl RDW 25 H (10.5-15) % Plt Count 224 (150-450) 10^3/ul MPV 7 L (7.4-10.4) um3 Neut % (Auto) Not Reportable Lymph % (Auto) Not Reportable [place] % (Auto) Not Reportable Eos % (Auto) Not Reportable Baso % (Auto) Not Reportable Absolute Neuts (auto) Not Reportable Absolute Lymphs (auto) Not Reportable Absolute Monos (auto) Not Reportable Absolute Eos (auto) Not Reportable Absolute Basos (auto) Not Reportable Absolute Nucleated RBC Not Reportable Immature Gran % 8 (0-9) % Neutrophils % 61 (38-83) % Band Neutrophils % 7 (0-8) % Lymphocytes % 26 (25-47) % Monocytes % 5 (0-13) % Eosinophils % 0 (0-6) % Basophils % 0 (0-2) % Metamyelocytes % 1 (0-2) % Nucleated RBC % Not Reportable Abs Neuts (Manual) 7.1 (1.5-7.7) 10^3/ul Abs Monocytes (Manual) 0.6 (0-0.8) 10^3/ul Absolute Eos (Manual) 0 (0-0.6) 10^3/ul Abs Basophils (Manual) 0 (0-0.2) 10^3/ul Nucleated RBCs/100 WBC 5 H (0-0) Normal RBC Morphology Not Reportable Polychromasia 2+ Hypochromasia 1+ Anisocytosis 2+ Acanthocytes (Spur) 2+ Hem Pathologist Commnt Pending INR (Anticoag Therapy) 1.48 H (0.77-1.02) APTT 42.5 H (26.0-36.3) seconds Sodium (133-145) mmol/L Potassium (3.5-5.0) mmol/L Chloride (101-111) mmol/L Carbon Dioxide (22-32) mmol/L Anion Gap (2-11) mmol/L BUN (6-24) mg/dL Creatinine (0.67-1.17) mg/dL Est GFR ( Amer) (>60) Est GFR (Non-Af Amer) (>60) BUN/Creatinine Ratio (8-20) Glucose (70-100) mg/dL Lactic Acid (0.5-2.0) mmol/L Calcium (8.6-10.3) mg/dL Total Bilirubin (0.2-1.0) mg/dL AST (13-39) U/L ALT (7-52) U/L Alkaline Phosphatase (34-104) U/L Troponin I (<0.04) ng/mL C-Reactive Protein (< 5.00) mg/L B-Natriuretic Peptide ( - 100) pg/mL Total Protein (6.4-8.9) g/dL Albumin (3.2-5.2) g/dL Globulin (2-4) g/dL Albumin/Globulin Ratio (1-3) Lipase (11.0-82.0) U/L Procalcitonin 0.1 (<0.6) ng/mL Blood Type Antibody Screen Crossmatch 03/29/17 Range/Units 10:18 WBC (3.5-10.8) 10^3/ul RBC (4.0-5.4) 10^6/ul Hgb (14.0-18.0) g/dl Hct (42-52) % MCV (80-94) fL MCH (27-31) pg MCHC (31-36) g/dl RDW (10.5-15) % Plt Count (150-450) 10^3/ul MPV (7.4-10.4) um3 Neut % (Auto) Lymph % (Auto) [place] % (Auto) Eos % (Auto) Baso % (Auto) Absolute Neuts (auto) Absolute Lymphs (auto) Absolute Monos (auto) Absolute Eos (auto) Absolute Basos (auto) Absolute Nucleated RBC Immature Gran % (0-9) % Neutrophils % (38-83) % Band Neutrophils % (0-8) % Lymphocytes % (25-47) % Monocytes % (0-13) % Eosinophils % (0-6) % Basophils % (0-2) % Metamyelocytes % (0-2) % Nucleated RBC % Abs Neuts (Manual) (1.5-7.7) 10^3/ul Abs Monocytes (Manual) (0-0.8) 10^3/ul Absolute Eos (Manual) (0-0.6) 10^3/ul Abs Basophils (Manual) (0-0.2) 10^3/ul Nucleated RBCs/100 WBC (0-0) Normal RBC Morphology Polychromasia Hypochromasia Anisocytosis Acanthocytes (Spur) Hem Pathologist Commnt INR (Anticoag Therapy) (0.77-1.02) APTT (26.0-36.3) seconds Sodium (133-145) mmol/L Potassium (3.5-5.0) mmol/L Chloride (101-111) mmol/L Carbon Dioxide (22-32) mmol/L Anion Gap (2-11) mmol/L BUN (6-24) mg/dL Creatinine (0.67-1.17) mg/dL Est GFR ( Amer) (>60) Est GFR (Non-Af Amer) (>60) BUN/Creatinine Ratio (8-20) Glucose (70-100) mg/dL Lactic Acid (0.5-2.0) mmol/L Calcium (8.6-10.3) mg/dL Total Bilirubin (0.2-1.0) mg/dL AST (13-39) U/L ALT (7-52) U/L Alkaline Phosphatase (34-104) U/L Troponin I (<0.04) ng/mL C-Reactive Protein (< 5.00) mg/L B-Natriuretic Peptide ( - 100) pg/mL Total Protein (6.4-8.9) g/dL Albumin (3.2-5.2) g/dL Globulin (2-4) g/dL Albumin/Globulin Ratio (1-3) Lipase (11.0-82.0) U/L Procalcitonin (<0.6) ng/mL Blood Type O Positive Antibody Screen Negative Crossmatch See Detail Microbiology and Other Data: Microbiology 03/29/17 19:07 Transfusion Reaction Culture - Final Blood Bag No Growth Day 5 Transfusion Reaction Gram Stain - Final 03/31/17 09:40 Stool Occult Blood (TESFAYE) - Final Stool 03/29/17 14:00 Nasal Screen MRSA (PCR)(TESFAYE) - Final Nasal Mrsa Not Detected Assess/Plan/Problems-Billing Mr Ga is a 66 yo M who is s/p recent axillo/fem bypass 03/2017, COPD, ischemic CMP presented to [facility] with N/V found with Hb 2 then PEA cardiac arrest s /p CPR with ROSC/intubation. - Patient Problems (1) Hypovolemic shock Current Visit: Yes Status: Acute Code(s): R57.1 - HYPOVOLEMIC SHOCK SNOMED Code(s): 95683219 Comment: Secondary to massive blood loss. Now resolved. (2) Acute blood loss anemia Current Visit: Yes Status: Acute Code(s): D62 - ACUTE POSTHEMORRHAGIC ANEMIA SNOMED Code(s): 440801948 Comment: No signs of re-bleeding. He is s/p EGD with epi and clipping of possible dieulafoy lesion. H/H stable. Continue to follow intermittently. Continue PPI. (3) PEA (Pulseless electrical activity) Current Visit: Yes Status: Acute Code(s): I46.9 - CARDIAC ARREST, CAUSE UNSPECIFIED SNOMED Code(s): 564001294 Comment: Likely secondary to severe acute blood loss. S/P ROSC with CPR and 1 defibrillation. Pt had an episode of NSVT 04/06/17. Cardiology consult today- recommended stress test 04/10/17. Possible life vest on d/c. Keep K>4, Mg>2. (4) Biventricular failure Current Visit: Yes Status: Acute Code(s): I50.82 - BIVENTRICULAR HEART FAILURE SNOMED Code(s): 93080444 Comment: Repeat echo shows moderately reduced EF of 35-40%. Continue metoprolol and lisinopril. (5) Presence of bypass graft stent Current Visit: Yes Status: Acute Code(s): Z95.828 - PRESENCE OF OTHER VASCULAR IMPLANTS AND GRAFTS SNOMED Code(s): 25569658 Comment: Vascular surgery indicates the patient needs anticoagulation. Will continue heparin drip bridge to coumadin. Await therapeutic INR. (6) DOTNRELL (acute kidney injury) Current Visit: Yes Status: Acute Code(s): N17.9 - ACUTE KIDNEY FAILURE, UNSPECIFIED SNOMED Code(s): 60673338 Comment: Creatinine peaked at ~1.6 (1.5x baseline). Now resolved. (7) HTN (hypertension) Current Visit: Yes Status: Acute Code(s): I10 - ESSENTIAL (PRIMARY) HYPERTENSION SNOMED Code(s): 95160498 Comment: BP acceptable. Monitor on metoprolol and lisinopril. (8) COPD (chronic obstructive pulmonary disease) Current Visit: Yes Status: Acute Code(s): J44.9 - CHRONIC OBSTRUCTIVE PULMONARY DISEASE, UNSPECIFIED SNOMED Code(s): 40611860 Comment: No signs of exacerbation. (9) DVT prophylaxis Current Visit: Yes Status: Acute Code(s): RHT9110 - SNOMED Code(s): 120175110 Comment: heparin drip (10) Full code status Current Visit: Yes Status: Acute Code(s): Z78.9 - OTHER SPECIFIED HEALTH STATUS SNOMED Code(s): 227858007 Status and Disposition: .
[2017-04-07] MEDS ORDERED: Warfarin TAB(*) 4 MG PO ONE (17:00)
[2017-04-07] MEDS ORDERED: Warfarin TAB(*) 3 MG PO ONE (17:00)
--- NOTE | 2017-04-07 22:17 | CONS ---
CARDIOLOGY CONSULTATION: DATE OF CONSULT: 04/07/17. REASON FOR CARDIOLOGY CONSULTATION: NSVT. HISTORY OF PRESENT ILLNESS: The patient was admitted to [facility] on 03/29/17. He apparently had had axillofemoral popliteal bypass in early March of 2017 at [facility] and while being evaluated in our ER for nausea, vomiting on 03/29/17, he had witnessed PEA arrest and after 5 minutes of CPR, there was return of spontaneous circulation. He was then intubated and mechanically ventilated. Subsequently, the patient was found to be severely anemic with hemoglobin of only 2, felt to be due to a duodenal bleed, so his PEA arrest was felt to be due to severe anemia. The duodenal ulcer was treated and he is being reanticoagulated with Coumadin for his PVD and recent axillofemoral popliteal bypass surgery. He did have an echocardiogram initially , which showed an EF less than 20% on 03/29/17; however, more recent echocardiogram completed yesterday showed ejection fraction of 35% to 40%, closer to 35% with global hypokinesis. He is known to have mild to moderate mitral regurgitation, mild to moderate tricuspid regurgitation by echocardiogram , 03/29/17. On 04/06/17, he did have a run of nonsustained ventricular tachycardia, 11 beats and so I was appropriately consulted by Dr. Oro of Hospitalist Medicine service. When I talked to the patient, he himself denies chest pain and states that his breathing is good. He denies fainting or palpitations including during hsi episode of nonsustained VT. PAST MEDICAL HISTORY: As above. He does not have known past cardiac history. Other past medical history includes COPD, recent severe anemia from GI bleeding DU, PVD status post axillofemoral bypass in early March of 2017, hypertension, environmental allergies, hyperlipidemia. HOME MEDICATIONS: Included, 1. Xarelto 15 mg p.o. b.i.d. 2. Ranitidine 150 mg p.o. b.i.d. 3. Metoprolol 25 mg once a day. 4. Claritin 10 mg once a day. 5. Hydrocodone q.6 p.r.n. 6. Flexeril 10 mg p.o. q.h.s. 7. Lipitor 20 mg once a day. 8. Aspirin 81 mg once a day. ALLERGIES TO MEDICATIONS: Listed as ASPIRIN, unknown reaction and it appears that patient had been on aspirin when he came into the hospital. FAMILY HISTORY: His father of a stroke. There is no family history of diabetes nor DE. There is family history of cancer. SOCIAL HISTORY: He quit smoking cigarettes in March of 2018 and smoked approximately one half to one third of pack per day for 50 years. He does not use alcohol, no illicit drugs although we see that on some of his medical records it is reported that he drinks high volumes of alcohol. He lives with his girlfriend. 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 He is not a high school graduate. REVIEW OF SYSTEMS: He denies a personal history of stroke, cancer, vomiting up blood, coughing up blood, bright red blood per rectum, bleeding stomach ulcers, renal calculi, cholelithiasis, asthma, tuberculosis, pneumonias, sleep apnea, nor home oxygen use. He denies diabetes. He has a history of hypertension. He denies prior DE, congestive heart failure, cardiac surgery, palpitations, cardiac murmurs. He denies psychiatric illnesses, lupus, psoriasis, seizures, Parkinson's disease, myasthenia gravis, thyroid disorders, liver disorders, kidney disorders, claudications. He did have prior claudication symptoms that has improved since his axillofemoral bypass surgery. He does have frequent heartburn. He denies peripheral edema. All other review of systems negative except as described above. PHYSICAL EXAM: Height 5 feet 10 inches, weight 142 pounds. Temperature 98.2 degrees Fahrenheit. Blood pressure is 137/70 to 124/71, pulse 50, respiratory rate 16, O2 saturation 100%. On general exam, he is pleasant, elderly gentleman , in no acute distress. HEENT shows the cranium is normocephalic and atraumatic. He has dry mucosal membrane. Neck veins are not distended. There are no carotid bruits. Visible skin warm and perfused. Affect appropriate. He appears oriented. He is quite pleasant. No significant kyphoscoliosis on recumbent back exam. Lungs clear to auscultation. No wheezes, no rales. Cardiac Exam: S1, S2. Regular rate. Soft, holosystolic murmur heard without radiation. There is no rub, no gallop. PMI is nondisplaced. Abdomen: Soft, nondistended. Appears benign. Extremities: Without significant edema. Pulses are difficult to palpate, but his lower extremities do appear perfused. DIAGNOSTIC STUDIES/LAB DATA: Hemoglobin on admission was 2.1. Today was 8.7. White blood cell count today 4.4, hematocrit 25, platelet count 135. INR 1.84. Sodium 136, potassium 4.1, chloride 106, bicarbonate 29. BUN 6, creatinine 0.87. A 12-lead EKG completed on 03/29/17 showed sinus tachycardia at 120 beats a minute with left bundle branch block. IMPRESSION: Mr. Ga is a 66-year-old gentleman with a history of axillary femoral bypass surgery, early March 2017 with witnessed PEA arrest in the setting of severe anemia felt due to gastrointestinal bleeding. He has persistent moderately depressed left ventricular ejection fraction of 35% to 40 % as reviewed above. He was found to have 11 beats of nonsustained ventricular tachycardia yesterday. Given his moderately depressed left ventricular ejection fraction with recent pulseless electrical activity cardiac arrest, albeit, in the setting of prior severe anemia with now 11 beats of nonsustained ventricular tachycardia, I would recommend further cardiovascular risk stratification with which the patient is in agreement. RECOMMENDATIONS: 1. The patient will have an ischemic evaluation. Certainly if he is felt to require invasive evaluation with cardiac catheterization, plus/minus PCI, that would need to be carefully discussed with his tourist escort, Dr. Calhoun, as well as the glass deposition tender and the hospitalist. If no significant ischemia is seen, then we would discuss with Dr. Constantino of Cardiac Device Services at [facility] whether the patient would be a candidate for an implantable defibrillator. In the meantime, we will continue telemetry monitoring, beta- jesus and given that the patient has occasional bradycardia, would not increase the beta jesus further and WENDI inhabiter. 2. Continue to monitor on telemetry. 3. Keep magnesium greater than 2, potassium greater than 4. 4. Other management as per the hospitalist medicine service and the case was discussed with Dr. Oro. Dear Dr. Alissa Oro, many thanks for allowing me to participate in the cardiovascular consultative care of Mr. Ga. Please do not hesitate to contact me if you have any questions or concerns regarding the patient's cardiovascular consultative care. [id number]/[facility] #: [id number] [facility]
[2017-04-07] MEDS: Heparin DRIP 25,000 UNITS(*) 25,000 UNITS/500 ML BAG IVPB SCH (23:31)
[2017-04-08 06:13] LABS: Hematocrit 26 % (42-52); Hemoglobin 8.8 g/dl (14.0-18.0); Mean Corpuscular HGB Conc 34 g/dl (31-36); Mean Corpuscular Hemoglobin 30 pg (27-31); Mean Corpuscular Volume 89 fL (80-94); Mean Platelet Volume 8 um3 (7.4-10.4); Platelet Count 152 10^3/ul (150-450); Red Blood Count 2.96 10^6/ul (4.0-5.4); Red Cell Distribution Width 17 % (10.5-15); White Blood Count 3.7 10^3/ul (3.5-10.8)
[2017-04-08 06:19] LABS: INR 2.52 (0.77-1.02)
[2017-04-08 06:25] LABS: EGFR Non-African American 80.8 (>60)
[2017-04-08] MEDS: Lisinopril TAB* 5 MG PO SCH (09:52)
[2017-04-08] MEDS: Multivitamins ADULT w/MIN LIQ* 15 ML UDC PO SCH (09:52)
[2017-04-08] MEDS: Ferrous Sulfate TAB* 325 MG PO SCH (09:52)
[2017-04-08] MEDS: Omeprazole CAP* 20 MG PO SCH ×2 (09:52→20:45)
[2017-04-08] MEDS: Folic Acid TAB* 1 MG PO SCH (09:52)
[2017-04-08] MEDS: Thiamine TAB* 100 MG TAB PO SCH (09:53)
[2017-04-08] MEDS: Metoprolol Tartrate TAB* 25 MG PO SCH ×2 (10:01→20:45)
--- NOTE | 2017-04-08 14:58 | PN ---
Subjective Date of Service: 04/08/17 Interval History: No overnight events, feels good, wants to go home. No abdominal pain, nausea, vomiting, diarrhea, constipation, melena, hematochezia. Objective Active Medications: Ferrous Sulfate (Ferrous Sulfate Tab*) 325 mg PO DAILY [facility] Last Admin: 04/08/17 09:52 Dose: 325 mg Folic Acid (Folvite Tab*) 1 mg PO DAILY [facility] Last Admin: 04/08/17 09:52 Dose: 1 mg Heparin Sodium (Porcine) (Heparin Vial(*)) 0 units IV .PER PROTOCOL [facility] PRN Reason: Protocol Last Admin: 04/03/17 16:57 Dose: 4,000 units Heparin Sodium/Dextrose (Heparin Drip 25,000 Units(*)) 25,000 units in 500 mls @ 0 mls/hr IVPB PER RATE [facility]; Per Protocol PRN Reason: Protocol Last Admin: 04/07/17 23:31 Dose: 13 mls/hr Lisinopril (Prinivil Tab*) 2.5 mg PO DAILY [facility] Last Admin: 04/08/17 09:52 Dose: 2.5 mg Metoprolol Tartrate (Lopressor Tab*) 25 mg PO BID [facility] Last Admin: 04/08/17 10:01 Dose: Not Given Multivitamins (Theragran W/Minerals Liq*) 15 ml PO DAILY [facility] Last Admin: 04/08/17 09:52 Dose: 15 ml Omeprazole (Prilosec Cap*) 20 mg PO BID [facility] Last Admin: 04/08/17 09:52 Dose: 20 mg Pharmacy Profile Note (Coumadin Per Pharmacy*) 0 note FOLLOW UP .PER PHARMACY PROTOC [facility] PRN Reason: Protocol Thiamine HCl (Vitamin B-1 Tab*) 100 mg PO DAILY [facility] Last Admin: 04/08/17 09:53 Dose: 100 mg Warfarin Sodium (Coumadin Tab(*)) 2 mg PO ONCE@1700 ONE Stop: 04/08/17 17:01 Vital Signs - 8 hr 04/08/17 04/08/17 04/08/17 07:42 08:00 11:27 Temperature 98.4 F 98.5 F Pulse Rate 52 52 Respiratory 16 16 16 Rate Blood Pressure 130/72 114/67 (mmHg) O2 Sat by Pulse 100 100 Oximetry Oxygen Devices in Use Now: None Appearance: alert, thin, well appearing Eyes: No Scleral Icterus Ears/Nose/Mouth/Throat: NL Teeth, Lips, Gums Neck: NL Appearance and Movements; NL JVP Respiratory: Symmetrical Chest Expansion and Respiratory Effort, Clear to Auscultation Cardiovascular: NL Sounds; No Murmurs; No JVD, - - healing incision over left upper chest. systolic murmur throughout. Abdominal: NL Sounds; No Tenderness; No Distention, No Hepatosplenomegaly Lymphatic: No Cervical Adenopathy Extremities: No Edema, - - healing incisions b/l groins Skin: No Rash or Ulcers Neurological: Alert and Oriented x 3 Result Diagrams: 04/08/17 05:54 04/08/17 05:54 Additional Lab and Data: Lab Results 03/29/17 03/29/17 03/29/17 Range/Units 08:37 08:37 08:37 WBC (3.5-10.8) 10^3/ul RBC (4.0-5.4) 10^6/ul Hgb (14.0-18.0) g/dl Hct (42-52) % MCV (80-94) fL MCH (27-31) pg MCHC (31-36) g/dl RDW (10.5-15) % Plt Count (150-450) 10^3/ul MPV (7.4-10.4) um3 Neut % (Auto) Lymph % (Auto) [place] % (Auto) Eos % (Auto) Baso % (Auto) Absolute Neuts (auto) Absolute Lymphs (auto) Absolute Monos (auto) Absolute Eos (auto) Absolute Basos (auto) Absolute Nucleated RBC Immature Gran % (0-9) % Neutrophils % (38-83) % Band Neutrophils % (0-8) % Lymphocytes % (25-47) % Monocytes % (0-13) % Eosinophils % (0-6) % Basophils % (0-2) % Metamyelocytes % (0-2) % Nucleated RBC % Abs Neuts (Manual) (1.5-7.7) 10^3/ul Abs Monocytes (Manual) (0-0.8) 10^3/ul Absolute Eos (Manual) (0-0.6) 10^3/ul Abs Basophils (Manual) (0-0.2) 10^3/ul Nucleated RBCs/100 WBC (0-0) Normal RBC Morphology Polychromasia Hypochromasia Anisocytosis Acanthocytes (Spur) Hem Pathologist Commnt INR (Anticoag Therapy) (0.77-1.02) APTT (26.0-36.3) seconds Sodium 139 (133-145) mmol/L Potassium 4.0 (3.5-5.0) mmol/L Chloride 111 (101-111) mmol/L Carbon Dioxide 19 L (22-32) mmol/L Anion Gap 9 (2-11) mmol/L BUN 31 H (6-24) mg/dL Creatinine 1.27 H (0.67-1.17) mg/dL Est GFR ( Amer) 73.4 (>60) Est GFR (Non-Af Amer) 57.1 (>60) BUN/Creatinine Ratio 24.4 H (8-20) Glucose 134 H (70-100) mg/dL Lactic Acid 5.6 H* (0.5-2.0) mmol/L Calcium 7.7 L (8.6-10.3) mg/dL Total Bilirubin 0.50 (0.2-1.0) mg/dL AST 22 (13-39) U/L ALT 11 (7-52) U/L Alkaline Phosphatase 32 L (34-104) U/L Troponin I 0.04 H* (<0.04) ng/mL C-Reactive Protein 2.39 (< 5.00) mg/L B-Natriuretic Peptide 133 H ( - 100) pg/mL Total Protein 4.5 L (6.4-8.9) g/dL Albumin 2.2 L (3.2-5.2) g/dL Globulin 2.3 (2-4) g/dL Albumin/Globulin Ratio 1.0 (1-3) Lipase 42 (11.0-82.0) U/L Procalcitonin (<0.6) ng/mL Blood Type Antibody Screen Crossmatch 03/29/17 03/29/17 03/29/17 Range/Units 08:37 10:18 10:18 WBC 11.7 H (3.5-10.8) 10^3/ul RBC 0.65 L (4.0-5.4) 10^6/ul Hgb 2.1 L* (14.0-18.0) g/dl Hct 8 L (42-52) % MCV 118 H (80-94) fL MCH 32 H (27-31) pg MCHC 27 L (31-36) g/dl RDW 25 H (10.5-15) % Plt Count 224 (150-450) 10^3/ul MPV 7 L (7.4-10.4) um3 Neut % (Auto) Not Reportable Lymph % (Auto) Not Reportable [place] % (Auto) Not Reportable Eos % (Auto) Not Reportable Baso % (Auto) Not Reportable Absolute Neuts (auto) Not Reportable Absolute Lymphs (auto) Not Reportable Absolute Monos (auto) Not Reportable Absolute Eos (auto) Not Reportable Absolute Basos (auto) Not Reportable Absolute Nucleated RBC Not Reportable Immature Gran % 8 (0-9) % Neutrophils % 61 (38-83) % Band Neutrophils % 7 (0-8) % Lymphocytes % 26 (25-47) % Monocytes % 5 (0-13) % Eosinophils % 0 (0-6) % Basophils % 0 (0-2) % Metamyelocytes % 1 (0-2) % Nucleated RBC % Not Reportable Abs Neuts (Manual) 7.1 (1.5-7.7) 10^3/ul Abs Monocytes (Manual) 0.6 (0-0.8) 10^3/ul Absolute Eos (Manual) 0 (0-0.6) 10^3/ul Abs Basophils (Manual) 0 (0-0.2) 10^3/ul Nucleated RBCs/100 WBC 5 H (0-0) Normal RBC Morphology Not Reportable Polychromasia 2+ Hypochromasia 1+ Anisocytosis 2+ Acanthocytes (Spur) 2+ Hem Pathologist Commnt Pending INR (Anticoag Therapy) 1.48 H (0.77-1.02) APTT 42.5 H (26.0-36.3) seconds Sodium (133-145) mmol/L Potassium (3.5-5.0) mmol/L Chloride (101-111) mmol/L Carbon Dioxide (22-32) mmol/L Anion Gap (2-11) mmol/L BUN (6-24) mg/dL Creatinine (0.67-1.17) mg/dL Est GFR ( Amer) (>60) Est GFR (Non-Af Amer) (>60) BUN/Creatinine Ratio (8-20) Glucose (70-100) mg/dL Lactic Acid (0.5-2.0) mmol/L Calcium (8.6-10.3) mg/dL Total Bilirubin (0.2-1.0) mg/dL AST (13-39) U/L ALT (7-52) U/L Alkaline Phosphatase (34-104) U/L Troponin I (<0.04) ng/mL C-Reactive Protein (< 5.00) mg/L B-Natriuretic Peptide ( - 100) pg/mL Total Protein (6.4-8.9) g/dL Albumin (3.2-5.2) g/dL Globulin (2-4) g/dL Albumin/Globulin Ratio (1-3) Lipase (11.0-82.0) U/L Procalcitonin 0.1 (<0.6) ng/mL Blood Type Antibody Screen Crossmatch 03/29/17 Range/Units 10:18 WBC (3.5-10.8) 10^3/ul RBC (4.0-5.4) 10^6/ul Hgb (14.0-18.0) g/dl Hct (42-52) % MCV (80-94) fL MCH (27-31) pg MCHC (31-36) g/dl RDW (10.5-15) % Plt Count (150-450) 10^3/ul MPV (7.4-10.4) um3 Neut % (Auto) Lymph % (Auto) [place] % (Auto) Eos % (Auto) Baso % (Auto) Absolute Neuts (auto) Absolute Lymphs (auto) Absolute Monos (auto) Absolute Eos (auto) Absolute Basos (auto) Absolute Nucleated RBC Immature Gran % (0-9) % Neutrophils % (38-83) % Band Neutrophils % (0-8) % Lymphocytes % (25-47) % Monocytes % (0-13) % Eosinophils % (0-6) % Basophils % (0-2) % Metamyelocytes % (0-2) % Nucleated RBC % Abs Neuts (Manual) (1.5-7.7) 10^3/ul Abs Monocytes (Manual) (0-0.8) 10^3/ul Absolute Eos (Manual) (0-0.6) 10^3/ul Abs Basophils (Manual) (0-0.2) 10^3/ul Nucleated RBCs/100 WBC (0-0) Normal RBC Morphology Polychromasia Hypochromasia Anisocytosis Acanthocytes (Spur) Hem Pathologist Commnt INR (Anticoag Therapy) (0.77-1.02) APTT (26.0-36.3) seconds Sodium (133-145) mmol/L Potassium (3.5-5.0) mmol/L Chloride (101-111) mmol/L Carbon Dioxide (22-32) mmol/L Anion Gap (2-11) mmol/L BUN (6-24) mg/dL Creatinine (0.67-1.17) mg/dL Est GFR ( Amer) (>60) Est GFR (Non-Af Amer) (>60) BUN/Creatinine Ratio (8-20) Glucose (70-100) mg/dL Lactic Acid (0.5-2.0) mmol/L Calcium (8.6-10.3) mg/dL Total Bilirubin (0.2-1.0) mg/dL AST (13-39) U/L ALT (7-52) U/L Alkaline Phosphatase (34-104) U/L Troponin I (<0.04) ng/mL C-Reactive Protein (< 5.00) mg/L B-Natriuretic Peptide ( - 100) pg/mL Total Protein (6.4-8.9) g/dL Albumin (3.2-5.2) g/dL Globulin (2-4) g/dL Albumin/Globulin Ratio (1-3) Lipase (11.0-82.0) U/L Procalcitonin (<0.6) ng/mL Blood Type O Positive Antibody Screen Negative Crossmatch See Detail Microbiology and Other Data: Microbiology 03/29/17 19:07 Transfusion Reaction Culture - Final Blood Bag No Growth Day 5 Transfusion Reaction Gram Stain - Final 03/31/17 09:40 Stool Occult Blood (TESFAYE) - Final Stool 03/29/17 14:00 Nasal Screen MRSA (PCR)(TESFAYE) - Final Nasal Mrsa Not Detected Assess/Plan/Problems-Billing Mr Ga is a 66 yo M who is s/p recent axillo/fem bypass 03/2017, COPD, ischemic CMP presented to [facility] with N/V found with Hb 2 then PEA cardiac arrest s /p CPR with ROSC/intubation. - Patient Problems (1) NSVT (nonsustained ventricular tachycardia) Current Visit: Yes Status: Acute Code(s): I47.2 - VENTRICULAR TACHYCARDIA SNOMED Code(s): 912591076 Comment: decreased LV function, normal lytes has not had an ischemic evaluation for cardiomyopathy, so evaluated by cardiology yesterday; plan for stress test Monday continue metoprolol 25mg bid; titration limited by bradycardia (2) Acute blood loss anemia Current Visit: Yes Status: Acute Code(s): D62 - ACUTE POSTHEMORRHAGIC ANEMIA SNOMED Code(s): 381669406 Comment: thought to be due to a dieulafoy lesion, s/p clipping by GI. hgb stable at 8.8; no melena/hemotochezia continue ppi (3) Biventricular failure Current Visit: Yes Status: Acute Code(s): I50.82 - BIVENTRICULAR HEART FAILURE SNOMED Code(s): 07170026 Comment: euvolemic. EF of 35-40% Continue metoprolol and lisinopril. (4) HTN (hypertension) Current Visit: Yes Status: Acute Code(s): I10 - ESSENTIAL (PRIMARY) HYPERTENSION SNOMED Code(s): 83974176 Comment: BP acceptable on metoprolol and lisinopril. (5) PEA (Pulseless electrical activity) Current Visit: Yes Status: Acute Code(s): I46.9 - CARDIAC ARREST, CAUSE UNSPECIFIED SNOMED Code(s): 547098338 Comment: Likely secondary to severe acute blood loss. S/P ROSC with CPR and 1 defibrillation. Pt had an episode of NSVT 04/06/17. Cardiology consult recommended stress test 04/10/17. Possible life vest on d/c. Keep K>4, Mg>2. (6) Presence of bypass graft stent Current Visit: Yes Status: Acute Code(s): Z95.828 - PRESENCE OF OTHER VASCULAR IMPLANTS AND GRAFTS SNOMED Code(s): 68898506 Comment: Continue therapeutic anticoagulation per vascular surgery. INR therapeutic today; DC heparin drip. Status and Disposition: .inpatient
[2017-04-08] MEDS ORDERED: Warfarin TAB(*) 2 MG PO ONE (17:00)
[2017-04-09 06:11] LABS: ABS Basophils 0 10^3/ul (0-0.2); ABS Eosinophils 0.1 10^3/ul (0-0.6); ABS Monocytes 0.6 10^3/ul (0-0.8); ABS Neutrophils 2.2 10^3/ul (1.5-7.7); ABS Nucleated RBC 0 10^3/ul; Eosinophil % 3.2 % (0-6); Hematocrit 27 % (42-52); Hemoglobin 8.9 g/dl (14.0-18.0); Lymphocyte % 26.1 % (25-47); Mean Corpuscular HGB Conc 34 g/dl (31-36); Mean Corpuscular Hemoglobin 30 pg (27-31); Mean Corpuscular Volume 89 fL (80-94); Mean Platelet Volume 8 um3 (7.4-10.4); Nucleated Red Blood Cells % 0.1; Platelet Count 160 10^3/ul (150-450); Red Blood Count 2.98 10^6/ul (4.0-5.4); Red Cell Distribution Width 17 % (10.5-15); White Blood Count 3.9 10^3/ul (3.5-10.8)
[2017-04-09 06:29] LABS: EGFR Non-African American 83.9 (>60)
[2017-04-09 06:30] LABS: INR 2.11 (0.77-1.02)
[2017-04-09] MEDS: Multivitamins ADULT w/MIN LIQ* 15 ML UDC PO SCH (07:26)
[2017-04-09] MEDS: Lisinopril TAB* 5 MG PO SCH (07:26)
[2017-04-09] MEDS: Folic Acid TAB* 1 MG PO SCH (07:26)
[2017-04-09] MEDS: Ferrous Sulfate TAB* 325 MG PO SCH (07:26)
[2017-04-09] MEDS: Thiamine TAB* 100 MG TAB PO SCH (07:26)
[2017-04-09] MEDS: Omeprazole CAP* 20 MG PO SCH ×2 (07:26→20:43)
--- NOTE | 2017-04-09 09:03 | PN ---
Subjective Date of Service: 04/09/17 Interval History: no complaints, feels good. no pain, shortness of breath, no melena, hematochezia. Family History: Unchanged from Admission Social History: Unchanged from Admission Past Medical History: Unchanged from Admission Objective Active Medications: Ferrous Sulfate (Ferrous Sulfate Tab*) 325 mg PO DAILY [facility] Last Admin: 04/09/17 07:26 Dose: 325 mg Folic Acid (Folvite Tab*) 1 mg PO DAILY [facility] Last Admin: 04/09/17 07:26 Dose: 1 mg Lisinopril (Prinivil Tab*) 2.5 mg PO DAILY [facility] Last Admin: 04/09/17 07:26 Dose: 2.5 mg Metoprolol Tartrate (Lopressor Tab*) 25 mg PO BID [facility] Last Admin: 04/08/17 20:45 Dose: 25 mg Multivitamins (Theragran W/Minerals Liq*) 15 ml PO DAILY [facility] Last Admin: 04/09/17 07:26 Dose: 15 ml Omeprazole (Prilosec Cap*) 20 mg PO BID [facility] Last Admin: 04/09/17 07:26 Dose: 20 mg Pharmacy Profile Note (Coumadin Per Pharmacy*) 0 note FOLLOW UP .PER PHARMACY PROTOC [facility] PRN Reason: Protocol Thiamine HCl (Vitamin B-1 Tab*) 100 mg PO DAILY [facility] Last Admin: 04/09/17 07:26 Dose: 100 mg Vital Signs - 8 hr 04/09/17 04/09/17 04:37 07:24 Temperature 98.6 F 98.5 F Pulse Rate 57 51 Respiratory 16 18 Rate Blood Pressure 132/63 147/69 (mmHg) O2 Sat by Pulse 99 100 Oximetry Oxygen Devices in Use Now: None Appearance: alert, sitting up in bed well appearing Eyes: No Scleral Icterus Ears/Nose/Mouth/Throat: NL Teeth, Lips, Gums Neck: NL Appearance and Movements; NL JVP Respiratory: Symmetrical Chest Expansion and Respiratory Effort, Clear to Auscultation Cardiovascular: - - systolic murmur at apex. healing incision left upper chest wall. Abdominal: NL Sounds; No Tenderness; No Distention, - - healing incisions b/l groins Lymphatic: No Cervical Adenopathy Extremities: No Edema Skin: No Rash or Ulcers Neurological: Alert and Oriented x 3 Result Diagrams: 04/09/17 05:49 04/09/17 05:49 Additional Lab and Data: Lab Results 03/29/17 03/29/17 03/29/17 Range/Units 08:37 08:37 08:37 WBC (3.5-10.8) 10^3/ul RBC (4.0-5.4) 10^6/ul Hgb (14.0-18.0) g/dl Hct (42-52) % MCV (80-94) fL MCH (27-31) pg MCHC (31-36) g/dl RDW (10.5-15) % Plt Count (150-450) 10^3/ul MPV (7.4-10.4) um3 Neut % (Auto) Lymph % (Auto) [place] % (Auto) Eos % (Auto) Baso % (Auto) Absolute Neuts (auto) Absolute Lymphs (auto) Absolute Monos (auto) Absolute Eos (auto) Absolute Basos (auto) Absolute Nucleated RBC Immature Gran % (0-9) % Neutrophils % (38-83) % Band Neutrophils % (0-8) % Lymphocytes % (25-47) % Monocytes % (0-13) % Eosinophils % (0-6) % Basophils % (0-2) % Metamyelocytes % (0-2) % Nucleated RBC % Abs Neuts (Manual) (1.5-7.7) 10^3/ul Abs Monocytes (Manual) (0-0.8) 10^3/ul Absolute Eos (Manual) (0-0.6) 10^3/ul Abs Basophils (Manual) (0-0.2) 10^3/ul Nucleated RBCs/100 WBC (0-0) Normal RBC Morphology Polychromasia Hypochromasia Anisocytosis Acanthocytes (Spur) Hem Pathologist Commnt INR (Anticoag Therapy) (0.77-1.02) APTT (26.0-36.3) seconds Sodium 139 (133-145) mmol/L Potassium 4.0 (3.5-5.0) mmol/L Chloride 111 (101-111) mmol/L Carbon Dioxide 19 L (22-32) mmol/L Anion Gap 9 (2-11) mmol/L BUN 31 H (6-24) mg/dL Creatinine 1.27 H (0.67-1.17) mg/dL Est GFR ( Amer) 73.4 (>60) Est GFR (Non-Af Amer) 57.1 (>60) BUN/Creatinine Ratio 24.4 H (8-20) Glucose 134 H (70-100) mg/dL Lactic Acid 5.6 H* (0.5-2.0) mmol/L Calcium 7.7 L (8.6-10.3) mg/dL Total Bilirubin 0.50 (0.2-1.0) mg/dL AST 22 (13-39) U/L ALT 11 (7-52) U/L Alkaline Phosphatase 32 L (34-104) U/L Troponin I 0.04 H* (<0.04) ng/mL C-Reactive Protein 2.39 (< 5.00) mg/L B-Natriuretic Peptide 133 H ( - 100) pg/mL Total Protein 4.5 L (6.4-8.9) g/dL Albumin 2.2 L (3.2-5.2) g/dL Globulin 2.3 (2-4) g/dL Albumin/Globulin Ratio 1.0 (1-3) Lipase 42 (11.0-82.0) U/L Procalcitonin (<0.6) ng/mL Blood Type Antibody Screen Crossmatch 03/29/17 03/29/17 03/29/17 Range/Units 08:37 10:18 10:18 WBC 11.7 H (3.5-10.8) 10^3/ul RBC 0.65 L (4.0-5.4) 10^6/ul Hgb 2.1 L* (14.0-18.0) g/dl Hct 8 L (42-52) % MCV 118 H (80-94) fL MCH 32 H (27-31) pg MCHC 27 L (31-36) g/dl RDW 25 H (10.5-15) % Plt Count 224 (150-450) 10^3/ul MPV 7 L (7.4-10.4) um3 Neut % (Auto) Not Reportable Lymph % (Auto) Not Reportable [place] % (Auto) Not Reportable Eos % (Auto) Not Reportable Baso % (Auto) Not Reportable Absolute Neuts (auto) Not Reportable Absolute Lymphs (auto) Not Reportable Absolute Monos (auto) Not Reportable Absolute Eos (auto) Not Reportable Absolute Basos (auto) Not Reportable Absolute Nucleated RBC Not Reportable Immature Gran % 8 (0-9) % Neutrophils % 61 (38-83) % Band Neutrophils % 7 (0-8) % Lymphocytes % 26 (25-47) % Monocytes % 5 (0-13) % Eosinophils % 0 (0-6) % Basophils % 0 (0-2) % Metamyelocytes % 1 (0-2) % Nucleated RBC % Not Reportable Abs Neuts (Manual) 7.1 (1.5-7.7) 10^3/ul Abs Monocytes (Manual) 0.6 (0-0.8) 10^3/ul Absolute Eos (Manual) 0 (0-0.6) 10^3/ul Abs Basophils (Manual) 0 (0-0.2) 10^3/ul Nucleated RBCs/100 WBC 5 H (0-0) Normal RBC Morphology Not Reportable Polychromasia 2+ Hypochromasia 1+ Anisocytosis 2+ Acanthocytes (Spur) 2+ Hem Pathologist Commnt Pending INR (Anticoag Therapy) 1.48 H (0.77-1.02) APTT 42.5 H (26.0-36.3) seconds Sodium (133-145) mmol/L Potassium (3.5-5.0) mmol/L Chloride (101-111) mmol/L Carbon Dioxide (22-32) mmol/L Anion Gap (2-11) mmol/L BUN (6-24) mg/dL Creatinine (0.67-1.17) mg/dL Est GFR ( Amer) (>60) Est GFR (Non-Af Amer) (>60) BUN/Creatinine Ratio (8-20) Glucose (70-100) mg/dL Lactic Acid (0.5-2.0) mmol/L Calcium (8.6-10.3) mg/dL Total Bilirubin (0.2-1.0) mg/dL AST (13-39) U/L ALT (7-52) U/L Alkaline Phosphatase (34-104) U/L Troponin I (<0.04) ng/mL C-Reactive Protein (< 5.00) mg/L B-Natriuretic Peptide ( - 100) pg/mL Total Protein (6.4-8.9) g/dL Albumin (3.2-5.2) g/dL Globulin (2-4) g/dL Albumin/Globulin Ratio (1-3) Lipase (11.0-82.0) U/L Procalcitonin 0.1 (<0.6) ng/mL Blood Type Antibody Screen Crossmatch 03/29/17 Range/Units 10:18 WBC (3.5-10.8) 10^3/ul RBC (4.0-5.4) 10^6/ul Hgb (14.0-18.0) g/dl Hct (42-52) % MCV (80-94) fL MCH (27-31) pg MCHC (31-36) g/dl RDW (10.5-15) % Plt Count (150-450) 10^3/ul MPV (7.4-10.4) um3 Neut % (Auto) Lymph % (Auto) [place] % (Auto) Eos % (Auto) Baso % (Auto) Absolute Neuts (auto) Absolute Lymphs (auto) Absolute Monos (auto) Absolute Eos (auto) Absolute Basos (auto) Absolute Nucleated RBC Immature Gran % (0-9) % Neutrophils % (38-83) % Band Neutrophils % (0-8) % Lymphocytes % (25-47) % Monocytes % (0-13) % Eosinophils % (0-6) % Basophils % (0-2) % Metamyelocytes % (0-2) % Nucleated RBC % Abs Neuts (Manual) (1.5-7.7) 10^3/ul Abs Monocytes (Manual) (0-0.8) 10^3/ul Absolute Eos (Manual) (0-0.6) 10^3/ul Abs Basophils (Manual) (0-0.2) 10^3/ul Nucleated RBCs/100 WBC (0-0) Normal RBC Morphology Polychromasia Hypochromasia Anisocytosis Acanthocytes (Spur) Hem Pathologist Commnt INR (Anticoag Therapy) (0.77-1.02) APTT (26.0-36.3) seconds Sodium (133-145) mmol/L Potassium (3.5-5.0) mmol/L Chloride (101-111) mmol/L Carbon Dioxide (22-32) mmol/L Anion Gap (2-11) mmol/L BUN (6-24) mg/dL Creatinine (0.67-1.17) mg/dL Est GFR ( Amer) (>60) Est GFR (Non-Af Amer) (>60) BUN/Creatinine Ratio (8-20) Glucose (70-100) mg/dL Lactic Acid (0.5-2.0) mmol/L Calcium (8.6-10.3) mg/dL Total Bilirubin (0.2-1.0) mg/dL AST (13-39) U/L ALT (7-52) U/L Alkaline Phosphatase (34-104) U/L Troponin I (<0.04) ng/mL C-Reactive Protein (< 5.00) mg/L B-Natriuretic Peptide ( - 100) pg/mL Total Protein (6.4-8.9) g/dL Albumin (3.2-5.2) g/dL Globulin (2-4) g/dL Albumin/Globulin Ratio (1-3) Lipase (11.0-82.0) U/L Procalcitonin (<0.6) ng/mL Blood Type O Positive Antibody Screen Negative Crossmatch See Detail Microbiology and Other Data: Microbiology 03/29/17 19:07 Transfusion Reaction Culture - Final Blood Bag No Growth Day 5 Transfusion Reaction Gram Stain - Final 03/31/17 09:40 Stool Occult Blood (TESFAYE) - Final Stool 03/29/17 14:00 Nasal Screen MRSA (PCR)(TESFAYE) - Final Nasal Mrsa Not Detected Assess/Plan/Problems-Billing Mr Ga is a 66 yo M who is s/p recent axillo/fem bypass 03/2017, COPD, ischemic CMP presented to [facility] [place] [facility] with N/V found with Hb 2 then PEA cardiac arrest s /p CPR with ROSC/intubation. - Patient Problems (1) NSVT (nonsustained ventricular tachycardia) Current Visit: Yes Status: Acute Code(s): I47.2 - VENTRICULAR TACHYCARDIA SNOMED Code(s): 300445070 Comment: decreased LV function, normal lytes evaluated by cardiology Monday; plan for nuclear stress test Monday (cannot walk due to leg weakness) continue metoprolol 25mg bid; titration limited by bradycardia (2) Acute blood loss anemia Current Visit: Yes Status: Acute Code(s): D62 - ACUTE POSTHEMORRHAGIC ANEMIA SNOMED Code(s): 724477763 Comment: thought to be due to a dieulafoy lesion, s/p clipping by GI. hgb stable at 8.9 today; no melena/hemotochezia continue ppi (3) Biventricular failure Current Visit: Yes Status: Acute Code(s): I50.82 - BIVENTRICULAR HEART FAILURE SNOMED Code(s): 55446848 Comment: euvolemic. EF of 35-40% Continue metoprolol and lisinopril. (4) HTN (hypertension) Current Visit: Yes Status: Acute Code(s): I10 - ESSENTIAL (PRIMARY) HYPERTENSION SNOMED Code(s): 33160887 Comment: BP acceptable on metoprolol and lisinopril. (5) PEA (Pulseless electrical activity) Current Visit: Yes Status: Acute Code(s): I46.9 - CARDIAC ARREST, CAUSE UNSPECIFIED SNOMED Code(s): 953269802 Comment: Likely secondary to severe acute blood loss. S/P ROSC with CPR and 1 defibrillation due to some concern for VT in the ED. Pt had an episode of NSVT 04/06/17. Cardiology consult recommended stress test 04/10/17. Possible life vest on d/c. Keep K>4, Mg>2. (6) Presence of bypass graft stent Current Visit: Yes Status: Acute Code(s): Z95.828 - PRESENCE OF OTHER VASCULAR IMPLANTS AND GRAFTS SNOMED Code(s): 39698020 Comment: Continue therapeutic anticoagulation per vascular surgery--had been on a NOAC but switched to warfarin here after massive bleed. INR therapeutic again; heparin drip discontinued yesterday warfarin being dosed by pharmacy; discussed this with them (7) Home environment related disease Current Visit: Yes Status: Acute Code(s): R69 - ILLNESS, UNSPECIFIED SNOMED Code(s): 73607356 Comment: He reports his apartment is too dirty to return to, he often has no running water, and has heat now but it is not reliable. He is [facility] to [facility] to the [facility] until he finds a better home. Consult social work. Status and Disposition: inpatient, stress test tomorrow
[2017-04-09] MEDS: Metoprolol Tartrate TAB* 25 MG PO SCH ×2 (09:26→21:55)
[2017-04-09] MEDS ORDERED: Warfarin TAB(*) 4 MG PO ONE (17:00)
[2017-04-09] MEDS ORDERED: Magnesium Sulfate 1 GM IV* 1 GM/100 ML BAG IV ONE (19:37)
[2017-04-10 06:45] LABS: ABS Basophils 0.1 10^3/ul (0-0.2); ABS Eosinophils 0.2 10^3/ul (0-0.6); ABS Lymphocytes 1.1 10^3/ul (1.0-4.8); ABS Monocytes 0.5 10^3/ul (0-0.8); ABS Neutrophils 2.5 10^3/ul (1.5-7.7); ABS Nucleated RBC 0 10^3/ul; Eosinophil % 3.9 % (0-6); Hematocrit 29 % (42-52); Hemoglobin 9.6 g/dl (14.0-18.0); Lymphocyte % 25.3 % (25-47); Mean Corpuscular HGB Conc 33 g/dl (31-36); Mean Corpuscular Hemoglobin 30 pg (27-31); Mean Corpuscular Volume 89 fL (80-94); Mean Platelet Volume 8 um3 (7.4-10.4); Nucleated Red Blood Cells % 0; Platelet Count 182 10^3/ul (150-450); Red Blood Count 3.24 10^6/ul (4.0-5.4); Red Cell Distribution Width 17 % (10.5-15); White Blood Count 4.3 10^3/ul (3.5-10.8)
[2017-04-10 07:00] LABS: EGFR Non-African American 75.2 (>60)
[2017-04-10 07:06] LABS: INR 1.82 (0.77-1.02)
[2017-04-10] MEDS: Omeprazole CAP* 20 MG PO SCH (08:20)
[2017-04-10] MEDS: Thiamine TAB* 100 MG TAB PO SCH (08:20)
[2017-04-10] MEDS: Folic Acid TAB* 1 MG PO SCH (08:20)
[2017-04-10] MEDS: Lisinopril TAB* 5 MG PO SCH (08:20)
[2017-04-10] MEDS: Ferrous Sulfate TAB* 325 MG PO SCH (08:20)
[2017-04-10] MEDS: Multivitamins ADULT w/MIN LIQ* 15 ML UDC PO SCH (08:20)
[2017-04-10] MEDS: Metoprolol Tartrate TAB* 25 MG PO SCH (08:22)
[2017-04-10] MEDS ORDERED: Regadenoson* 0.4 MG/5 ML SYRINGE ONE (13:15)
[2017-04-10] MEDS ORDERED: Aminophylline IV* 25 MG/ML 10 ML VIAL ONE (13:16)
--- NOTE | 2017-04-10 14:27 | RAD ---
Edited for charges. HISTORY: Ventricular tachycardia COMPARISONS: CT of the chest dated March 29, 2017 TECHNIQUE: A 1 day stress/rest myocardial perfusion study was performed, with pharmacologic stress. The stress portion was monitored by Dr. Constantino. Gated SPECT imaging was performed, with CT-based attenuation correction DOSE: Stress: Technetium 99m tetrofosmin, 25.5 millicuries, injected at 1:25 PM on April 10, 2017 Rest: Technetium 99m tetrofosmin, 10.6 millicuries, injected at 7:50 AM on April 10, 2017 Pharmacologic agent: Lexiscan FINDINGS: CARDIAC MONITORING: No ST changes with stress. EF: 40% TID: 1.04 MOTION: There is diffuse hypokinesia PERFUSION: There is a large fixed defect of the inferior wall towards the septum. There OTHER: There are calcified subcarinal nodes. IMPRESSION: DECREASED EJECTION FRACTION. LARGE AREA OF FIXED HYPOPERFUSION OF THE INFERIOR WALL CONSISTENT WITH PREVIOUS INFARCT. ASSESSMENT: INTERMEDIATE RISK. Based on imaging criteria from ACC/AHA 2002. Guideline Update for the Management of Patient's with Chronic Stable Angina, table 23. Noninvasive Risk Stratification. CPT II Codes: 4335R0I MTDD
[2017-04-10 15:19] VITALS: BP 111/83
[2017-04-10] MEDS ORDERED: Warfarin TAB(*) 5 MG PO SCH (17:00)
[2017-04-10] MEDS ORDERED: Warfarin TAB(*) 5 MG PO ONE (17:00)
--- NOTE | 2017-04-11 17:08 | DS ---
CC: Dr. Sun, [facility]; Niraj Ly MD * DISCHARGE SUMMARY: DATE OF ADMISSION: 03/29/17 DATE OF DISCHARGE: 04/10/17 ADMITTING PROVIDER: Homer Evans MD (care aid). ATTENDING PHYSICIAN ON DISCHARGE: Marv Yi MD CHIEF COMPLAINT: Cardiac arrest. PRINCIPAL DIAGNOSES: Pulseless electrical activity arrest in the setting of acute blood loss anemia secondary to duodenal source, hemoglobin of 2, status post epinephrine and clipping; ischemic cardiomyopathy; nonsustained ventricular tachycardia. HISTORY OF PRESENT ILLNESS/HOSPITAL COURSE: Bulmaro Ga is a 66-year-old male with past medical history of hypertension, peripheral vascular disease ( status post axillofemoral bypass in March 2017 at [facility] with Dr. Mims), COPD, myocardial infarction. His partner attested that he had developed nausea and vomiting the day prior to admission without abdominal pain or bleeding. He was short of breath and dizzy on morning of admission and initially in the ED hypotensive in the 80s to 90s and tachycardic with elevated lactic acid. He went unresponsive in the ER. CPR was started. He had PEA arrest for approximately 5 minutes before ROSC was achieved. He was defibrillated x1, amio bolused 150 mg, intubated. His lab work then returned hemoglobin of 2.1, stable on repeat of 2.1. He was transfused first 5 units, then additional 2 units. He had notably been on Xarelto for his axillofemoral bypass most recently. He did eventually have melenic stools and had an EGD with Dr. Gordon on 03/31/17, which showed active bleeding in the duodenum and was given epinephrine injection x1 of 1 cc. This was in the third portion of the duodenum with bright red blood noted. Endoclip was placed and hemostasis was achieved. There was moderate erythema throughout the gastric lumen. Esophagus was normal appearing. There was concern for a Dieulafoy lesion. Dr. Александр Calhoun of Hematology/Oncology had been also consulted given the profound anemia and concern for anticoagulation management in the setting of his axillofemoral bypass. He was in connection with Dr. Mims of [place], who did recommend anticoagulation to preserve the life of his stent. He was eventually started on Coumadin 5 mg on 04/04/17 and eventually got up to therapeutic range. The patient also had echocardiogram transthoracic on 03/29/17 , which showed ejection fraction of less than 20%. This was down from prior of 35% to 40% on 08/24/14. Also it showed [id number] mitral regurgitation, [id number] tricuspid regurgitation. The patient had repeat study transthoracic echocardiogram on 04/06/17, which showed improved ejection fraction 35% to 40% with global hypokinesis and minor regional variations. He had 11 beats of NSVT on 04/06/17 and Cardiology was consulted. He got a nuclear stress test on 04/10/17, which showed a fixed defect inferiorly consistent with a previous infarction. EF on that study was 40%. Dr. Constantino of Cardiology recommended further catheterization, but in the setting of his anticoagulation on Coumadin, this was not going to happen for at least a few days and the patient was anxious for discharge with outpatient left heart catheterization planned a week from discharge on 04/17/17. Dr. Constantino and Dr. Mims and Dr. Padgett of GI talked and the plan will be to discharge him on aspirin 81 mg daily and Plavix 75 mg daily until the catheterization, after which time plan to resume Coumadin again. It was to note that during the discharge planning that the patient thought his apartment was very dirty and that he intermittently had no access to heat or running water , although currently it seems that he does. Social Work consult was placed and he was given information about Section 8 Housing and Adult Protective Services was also contacted. He had attested to significant alcohol use and is being discharged on folate and thiamine supplementation and recommended to moderate his alcohol use. DISCHARGE MEDICATIONS: Include: 1. Aspirin 81 mg daily. 2. Atorvastatin 20 mg p.o. daily. 3. Plavix 75 mg p.o. daily (new). 4. Flexeril 10 mg p.o. b.i.d. 5. Ferrous sulfate 325 mg p.o. b.i.d. (new). 6. Folic acid 1 mg p.o. daily (new). 7. [place] 5/325 mg 1 tab p.o. q.6 hours p.r.n. 8. Lisinopril 2.5 mg p.o. daily (new). 9. Claritin 10 mg p.o. daily. 10. Metoprolol succinate 25 mg p.o. b.i.d. (new). 11. Omeprazole 20 mg p.o. b.i.d. (new), previously on Zantac, which has now been stopped. 12. Thiamine 100 mg p.o. daily (new). DISCHARGE DIET: Heart healthy. ACTIVITY: No restrictions. FOLLOWUP: Please follow up with Dr. Niraj Ly on 04/14/17 at 11: [address] Constantino for left heart catheterization at 10 a.m. on . Also visiting nurses services was going to follow up in the house. TIME SPENT ON DISCHARGE: 45 minutes. [id number]/[facility] #: [id number] MAKENNA
== END 2017-04-10 17:44 | disposition home health service (06) | DRG 241 ==
LOC: ED 07:42 → ICU 10:25 → MEDTELE 04-02 10:43
PROVIDERS: ADMIT Internal Medicine Critical Care Medicine; ATTEND Internal Medicine
PROC: 5A1945Z Respiratory Ventilation, 24-96 Consecutive Hours (ICD-10-PCS; principal; 2017-03-29)
PROC: 0BH17EZ Insertion of Endotracheal Airway into Trachea, Via Natural or Artificial Opening (ICD-10-PCS; 2017-03-29)
PROC: 30233N1 Transfusion of Nonautologous Red Blood Cells into Peripheral Vein, Percutaneous Approach (ICD-10-PCS; 2017-03-29)
PROC: 05HM33Z Insertion of Infusion Device into Right Internal Jugular Vein, Percutaneous Approach (ICD-10-PCS; 2017-03-29)
PROC: B543ZZA Ultrasonography of Right Jugular Veins, Guidance (ICD-10-PCS; 2017-03-29)
PROC: 5A12012 Performance of Cardiac Output, Single, Manual (ICD-10-PCS; 2017-03-29)
PROC: 0T9B70Z Drainage of Bladder with Drainage Device, Via Natural or Artificial Opening (ICD-10-PCS; 2017-03-30)
PROC: 0BP1XDZ Removal of Intraluminal Device from Trachea, External Approach (ICD-10-PCS; 2017-03-30)
PROC: 0W3P8ZZ Control Bleeding in Gastrointestinal Tract, Via Natural or Artificial Opening Endoscopic (ICD-10-PCS; 2017-03-31)
PROC: 3E0G8GC Introduction of Other Therapeutic Substance into Upper GI, Via Natural or Artificial Opening Endoscopic (ICD-10-PCS; 2017-03-31)
PROC: 4A02XM4 Measurement of Cardiac Total Activity, External Approach (ICD-10-PCS; 2017-04-10)
DX: K31.82 Dieulafoy lesion (hemorrhagic) of stomach and duodenum (principal); K29.61 Other gastritis with bleeding; I46.9 Cardiac arrest, cause unspecified; J96.01 Acute respiratory failure with hypoxia; R57.1 Hypovolemic shock; N17.9 Acute kidney failure, unspecified; E87.2 Acidosis; D62 Acute posthemorrhagic anemia; I95.9 Hypotension, unspecified; K92.1 Melena; I47.2 Ventricular tachycardia; M41.9 Scoliosis, unspecified; F14.90 Cocaine use, unspecified, uncomplicated; F12.90 Cannabis use, unspecified, uncomplicated; J44.9 Chronic obstructive pulmonary disease, unspecified; I73.9 Peripheral vascular disease, unspecified; I11.0 Hypertensive heart disease with heart failure; I50.82 Biventricular heart failure; I08.1 Rheumatic disorders of both mitral and tricuspid valves; E78.5 Hyperlipidemia, unspecified; I25.10 Atherosclerotic heart disease of native coronary artery without angina pectoris; I25.5 Ischemic cardiomyopathy; F17.210 Nicotine dependence, cigarettes, uncomplicated; I44.7 Left bundle-branch block, unspecified; Z82.49 Family history of ischemic heart disease and other diseases of the circulatory system; Z72.89 Other problems related to lifestyle; Z82.5 Family history of asthma and other chronic lower respiratory diseases; Z88.8 Allergy status to other drugs, medicaments and biological substances; I25.2 Old myocardial infarction; Z82.3 Family history of stroke; Z95.828 Presence of other vascular implants and grafts; Z79.82 Long term (current) use of aspirin; Z79.02 Long term (current) use of antithrombotics/antiplatelets
CPT/HCPCS: 36415; 36600; 71045; 71275; 74174; 78452; 80048; 80053; 81003; 82270; 82607; 82746; 82803; 83010; 83051; 83605; 83615; 83690; 83735; 83880; 84145; 84484; 85014; 85018; 85025; 85027; 85045; 85060; 85610; 85730; 86078; 86140; 86850; 86880; 86900; 86901; 86922; 87040; 87641; 92950; 93005; 93017; 93306; 93308; 93922; 93970; 94002; 94003; 99223; 99232; 99285; A9270-GY; A9502; C8929; J0171; J0280; J0330; J0692; J1200; J1644; J1940; J2250; J2704; J2785; J3370; J3475; J3490; P9040; Q9967

== ENCOUNTER 2017-11-06 03:41 | Observation (INO) | payer MEDICARE, MEDICAID ==
[2017-11-06] MEDS ORDERED: NS 0.9% 1000 ML* 1,000 ML IV ONE (04:19)
[2017-11-06] MEDS ORDERED: LORazepam INJ* 2 MG/ML 1 ML VIAL IV PUSH ONE (04:21)
--- NOTE | 2017-11-06 04:22 | ED ---
Syncope/Near Syncope - HPI Summary HPI Summary: This patient is a 67 year old M presenting to [facility] accompanied by his with a chief complaint of 3 or 4 szs since 2199. PMHx [place], CVA, bisections, sz, EMS called by his . Per EMS, the pt was fading in and out of decreased level of consciousness, his endorses the convulsions, woke up very confused. Pt endorses desire to leave without blood work, work-up. - History Of Current Complaint Chief Complaint: EDSyncope Time Seen by Provider: 11/06/17 04:18 Hx Obtained From: Patient, Family/Application Support Analyst Onset/Duration: Sudden Onset, Still Present Timing: Intermittent Episode Lasting - seconds Context: Witnessed, Loss Of Consciousness Activity At Onset: At Rest Associated Head Trauma: No Aggravating Factor(s): Nothing Alleviating Factor(s): Nothing Associated Signs And Symptoms: AMS, Seizure Frequency: Episodes x___ - 4-5 - Allergies/Home Medications Allergies/Adverse Reactions: Allergies Allergy/AdvReac Type Severity Reaction Status Date / Time aspirin Allergy Nausea Verified 11/06/17 05:16 PMH/Surg Hx/FS Hx/Imm Hx Endocrine/Hematology History: Reports: Hx Anticoagulant Therapy, Hx Blood Transfusions, Hx Anemia Denies: Hx Diabetes Cardiovascular History: Reports: Hx Cardiac Arrest, Hx Coronary Artery Disease, Hx Hypertension, Hx Peripheral Vascular Disease, Other Cardiovascular Problems/ Disorders - EF <20%, HLD. PVD Denies: Hx Congestive Heart Failure GI History: Reports: Hx Gastroesophageal Reflux Disease, Other GI Disorders - DUODENAL ULCER History: Reports: Other Problems/Disorders - DONTRELL Denies: Hx Renal Disease Musculoskeletal History: Reports: Hx Scoliosis Sensory History: Reports: Hx Contacts or Glasses Denies: Hx Hearing Aid Opthamlomology History: Reports: Hx Contacts or Glasses Psychiatric History: Reports: Hx Attention Deficit Hyperactivity Disorder, Other Psychiatric Issues/Disorders - ETOH Denies: Hx Eating Disorder, Hx of Violent Episodes Against Others - Surgical History Surgery Procedure, Year, and Place: carpal tunnel left and right wrist 2000. tonsillectomy 1999. ILIAC ARTERY OCCLUSION AND AXILLARY FEM BYPASS 03-15-17 Hx Anesthesia Reactions: No - Immunization History Date of Tetanus Vaccine: UNKNOWN Infectious Disease History: No Infectious Disease History: Denies: Traveled Outside the [place] in Last 30 Days - Family History Known Family History: Positive: Cardiac Disease, Respiratory Disease - Asthma, Other - Cancer - Social History Alcohol Use: Daily Alcohol Amount: 4beer/day Substance Use Type: Reports: Cocaine Substance Use Comment - Amount & Last Used: 03/09/17 Smoking Status (MU): Heavy Every Day Tobacco Smoker Type: Cigarettes Have You Smoked in the Last Year: Yes Review of Systems Negative: Fever Positive: no symptoms reported Positive: Syncope - sz, decreased level of consciousness Positive: Other - agitated All Other Systems Reviewed And Are Negative: Yes Physical Exam - Summary Physical Exam Summary: Appearance: Well appearing, no pain distress Skin: warm, dry, reflects adequate perfusion Head/face: normal Eyes: EOMI, EILEEN ENT: normal Neck: supple, non-tender Respiratory: CTA, breath sounds present Cardiovascular: RRR, pulses symmetrical Abdomen: non-tender, soft Bowel: present Musculoskeletal: normal, strength/ROM intact Neuro: normal, sensory motor intact, A&Ox3 Triage Information Reviewed: Yes Vital Signs On Initial Exam: Initial Vitals Temp Pulse Resp BP Pulse Ox 97.9 F 75 16 152/91 97 11/06/17 03:59 11/06/17 03:59 11/06/17 03:59 11/06/17 03:59 11/06/17 03:59 Vital Signs Reviewed: Yes - [place]ionette Coma Scale Best Eye Response: 4 - Spontaneous Best Motor Response: 6 - Obeys Commands Best Verbal Response: 5 - Oriented Coma Scale Total: 15 Diagnostics - Vital Signs Vital Signs Temp Pulse Resp BP Pulse Ox 11/06/17 03:59 97.9 F 75 16 152/91 97 - Laboratory Result Diagrams: 11/06/17 05:05 11/06/17 06:01 Lab Statement: Any lab studies that have been ordered have been reviewed, and results considered in the medical decision making process. - Radiology CXR Xray Interpretation: No Acute Changes Radiology Interpretation Completed By: ED Physician - Negative. Pending official imaging report. 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 Dr. Pace has reviewed this report. - EKG 0432 Cardiac Rate: NL - 70 EKG Rhythm: Sinus Rhythm ST Segment: Normal Ectopy: None EKG Interpretation: LBBB Re-Evaluation - Re-Evaluation First Eval Re-Evaluation Time: 04:20 Change: Worse Comment: Pt had a sz and woke up confused. Course/Dx Course Of Treatment: A 67-year-old M presents to the ED with a CC of several sz since 2200 11/05/17. (+) decreased LOC, convulsions, confusion. Had several seizures, is combattive and non-receptive to medical tx. A CXR was (-). An EKG reveals NSR at 70 BPM with a LBBB. A CT brain reveals an old infarct involving the left temporal parietal lobe, but was otherwise (-). In the ED course, pt was given ativan, keppra, and nl saline. At 0415 pt suffered a sz and woke up confused. Labs obtained and reviewed. - Diagnoses Differential Diagnosis/HQI/PQRI: Positive: Cerebral Vascular Accident, Dysrhythmia, Metabolic Reaction, Seizure, Transient Ischemic Attack Provider Diagnoses: Seizure, Altered mental status, Alcohol intoxication - Physician Notifications Discussed Care of Patient With: Antonio Howard Time Discussed With Above Provider: 06:30 Instructed by Provider To: Other - Defers disposition to his replacement at 0700. - Critical Care Time Critical Care Time: 30-74 min Discharge - Sign-Out/Discharge Documenting (check all that apply): Sign-Out Patient Signing out patient TO: Juan R Pillai - Admission/hospitalist consult - Discharge Plan Referrals: Niraj Ly MD [Primary Care Provider] - - Attestation Statements Document Initiated by Rachelibgeoffrey: Yes Documenting Scribe: Tony Storey Provider For Whom Scribe is Documenting (Include Credential): Dr. Rodrigo Pace MD Scribe Attestation: Tony Membreno scribed for Dr. Rodrigo Pace MD on 11/06/17 at 0647. Scribe Documentation Reviewed: Yes Provider Attestation: The documentation as recorded by the Tony arreguin accurately reflects the service I personally performed and the decisions made by me, Dr. Rodrigo Pace MD
[2017-11-06] MEDS ORDERED: levETIRAcetam IV* 1,000 MG in NS 0.9% 100 ML* 100 ML IVPB ONE (04:25)
--- NOTE | 2017-11-06 04:57 | RAD ---
EXAM: CT Head Without Intravenous Contrast CLINICAL HISTORY: 67 years old, male; Signs and symptoms; Alteration of consciousness; Other: Unknown; Additional info: Sz TECHNIQUE: Axial computed tomography images of the head/brain without intravenous contrast. All CT scans at this facility use at least one of these dose optimization techniques: automated exposure control; mA and/or kV adjustment per patient size (includes targeted exams where dose is matched to clinical indication); or iterative reconstruction. COMPARISON: No relevant prior studies available. FINDINGS: Brain: Infarcts in the left temporal parietal lobe. No mass effect. Patchy areas of diminished density in the subcortical and periventricular white matter consistent with microvascular leukoencephalopathy. No acute intracranial hemorrhage. No intracranial mass or mass effect. Ventricles: No obstructive hydrocephalus. Bones/joints: Unremarkable. No acute fracture. Soft tissues: Unremarkable. Sinuses: Unremarkable as visualized. No acute sinusitis. Mastoid air cells: Unremarkable as visualized. No mastoid effusion. 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
[2017-11-06 05:20] LABS: ABS Basophils 0 10^3/ul (0-0.2); ABS Eosinophils 0.1 10^3/ul (0-0.6); ABS Lymphocytes 1.5 10^3/ul (1.0-4.8); ABS Monocytes 0.5 10^3/ul (0-0.8); ABS Neutrophils 1.2 10^3/ul (1.5-7.7); ABS Nucleated RBC 0 10^3/ul; Eosinophil % 3.3 % (0-6); Hematocrit 38 % (42-52); Hemoglobin 12.6 g/dl (14.0-18.0); Lymphocyte % 45.1 % (25-47); Mean Corpuscular HGB Conc 33 g/dl (31-36); Mean Corpuscular Hemoglobin 34 pg (27-31); Mean Corpuscular Volume 102 fL (80-94); Mean Platelet Volume 8.3 um3 (7.4-10.4); Nucleated Red Blood Cells % 0.3; Platelet Count 216 10^3/ul (150-450); Red Blood Count 3.72 10^6/ul (4.00-5.40); Red Cell Distribution Width 16 % (10.5-15); White Blood Count 3.3 10^3/ul (3.5-10.8)
[2017-11-06 06:39] LABS: INR 0.84 (0.77-1.02)
--- NOTE | 2017-11-06 08:34 | RAD ---
HISTORY: sz COMPARISONS: March 30, 2017 VIEWS: 1: frontal AP view of the chest at 4:35 AM FINDINGS: LINES AND TUBES: None. CARDIOMEDIASTINAL SILHOUETTE: The cardiomediastinal silhouette is normal for portable technique. PLEURA: The costophrenic angles are sharp. No pleural abnormalities are noted. LUNG PARENCHYMA: The lungs are clear. ABDOMEN: The upper abdomen is clear. There is no subphrenic gas. BONES AND SOFT TISSUES: No bone or soft tissue abnormalities are noted. IMPRESSION: NO ACTIVE CARDIOPULMONARY DISEASE. R1
[2017-11-06] MEDS ORDERED: CMC:Pantoprazole TAB (NF) 40 MG TAB PO SCH (09:00)
[2017-11-06] MEDS ORDERED: Folic Acid TAB* 1 MG PO SCH (09:00)
[2017-11-06] MEDS ORDERED: Atorvastatin* 20 MG TAB PO SCH (09:00)
[2017-11-06] MEDS ORDERED: Clopidogrel TAB* 75 MG PO SCH (09:00)
[2017-11-06] MEDS ORDERED: Thiamine TAB* 100 MG TAB PO SCH (09:00)
[2017-11-06] MEDS ORDERED: Metoprolol Succinate XL TAB* 25 MG PO SCH (09:00)
[2017-11-06] MEDS ORDERED: Aspirin EC TAB* 81 MG TAB.EC PO SCH (09:00)
[2017-11-06] MEDS ORDERED: LORazepam INJ* 2 MG/ML 1 ML VIAL IV PUSH PRN (09:22)
[2017-11-06] MEDS ORDERED: Magnesium Sulfate 2 GM IV* 2 GM/50 ML BAG IVPB ONE (09:24)
[2017-11-06 09:28] VITALS: BP 134/82
--- NOTE | 2017-11-06 09:43 | PN ---
Progress Note - Progress Note Date of Service: 11/06/17 Note: I, Yusuf Davis, scribed for Dr. Juan R Pillai MD on 11/06/2017 at 0943. SIGN-OUT RECEIVED FROM DR. PEÑA AT SHIFT CHANGE PENDING ADMISSION BY HOSPITALIST. DR. TINEO ACCEPTS PT FOR ADMISSION. DISPO: ADMIT TO [facility] [place]
--- NOTE | 2017-11-06 09:48 | ADMNOTE ---
Subjective Date of Service: 11/06/17 Interval History: ADMISSION HISTORY AND PHYSICAL EXAM: Allergies Allergy/AdvReac Type Severity Reaction Status Date / Time aspirin AdvReac Nausea Verified 11/06/17 07:27 Home Medications Medication Instructions Recorded Confirmed Type Aspirin EC TAB* [Ecotrin EC Low 81 mg PO DAILY 08/26/14 11/06/17 History Dose 81 MG*] Atorvastatin* [Lipitor 20 MG*] 20 mg PO DAILY 03/29/17 11/06/17 History Cyclobenzaprine TAB* [Flexeril 10 10 mg PO BEDTIME 03/29/17 11/06/17 History MG TAB*] Ferrous Sulfate TAB* 325 mg PO BID 03/29/17 11/06/17 History LoraTADine TAB(NF) [Claritin 10 MG 10 mg PO DAILY 03/29/17 11/06/17 History TAB(NF)] Clopidogrel TAB* [Plavix TAB*] 75 mg PO DAILY #8 tab 04/10/17 11/06/17 Rx Folic Acid TAB* [Folvite TAB*] 1 mg PO DAILY #30 tab 04/10/17 11/06/17 Rx Metoprolol Succinate 25 mg PO BID #60 tab.er.24h 04/10/17 11/06/17 Rx Omeprazole CAP* [Prilosec CAP* 20 20 mg PO BID #60 cap.dr 04/10/17 11/06/17 Rx MG] Thiamine TAB* [Vitamin B-1 TAB 100 100 mg PO DAILY #30 tab 04/10/17 11/06/17 Rx MG*] HPI: History obtained from his girlfrined who lives with him. He was in his usual state of health yesterday when she went to work. About 2 AM today the ambulance brought him here. She says he has had spells like this in the past, has not had medical attention for them. He was drinking heavily as usual yesterday. Family History: Findings - unremarkable. Social History: Findings - Smokes cigarettes. Alcohol abuse. Lives with Cassi Ansari his partner who is his SDM. Past Medical History: Findings - alcohol and cocaine abuse. Hx heart disease and cardiac arrest per his partner. Review of Systems - Measurements Intake and Output: Intake and Output Last 24 Hours 11/04/17 11/05/17 11/06/17 11/07/17 06:59 06:59 06:59 06:59 Intake Total 110 1000 Balance 110 1000 Weight 140 lb Intake: IV Fluids 110 1000 - Review of Systems General Comments: Obtained from his partner. Constitutional Symptoms: Negative: Weight Gain, Weight Loss, Weakness, Fatigue, Fever, Night Sweats, Unexplained Falls, Other Dermatology: Positive: Normal HEENT: Positive: Normal Thyroid: Positive: Normal Pulmonary: Positive: Normal Cardiology: Positive: Normal Gastroenterology: Positive: Normal Genital - Urinary: Positive: Normal Musculoskeletal: Negative: Joint Pain, Joint Stiffness, Arthritis, Osteoporosis, Low Back Pain , Sciatica, Joint Deformities, Kyphoscoliosis, Other Endocrinology: Positive: Normal Hematologic/Lymphatic: Negative: Anemia, Easy Brusing, Hx Leukemia, Hx Lymphoma, Use of Anticoagulant, Use of Antiplatelet Drugs, Other Neurology: Positive: Normal Psychiatry: Positive: Normal Allergic/Immunologic: Negative: Hx Anaphylaxis, Hx Angioedema, Hx Environmental, Hx Seasonal, Athsma, Hx HIV, Immunocompromise, Swollen Glands LymphNodes, Other Objective Active Medications: Aspirin (Aspirin Ec Tab*) 81 mg PO DAILY [facility] Atorvastatin Calcium (Lipitor*) 20 mg PO DAILY [facility] Chlordiazepoxide (Librium Cap*) 75 mg PO TID [facility] Clopidogrel Bisulfate (Plavix Tab*) 75 mg PO DAILY [facility] Folic Acid (Folvite Tab*) 1 mg PO DAILY [facility] Sodium Chloride (Ns 0.9% 1000 Ml*) 1,000 mls @ 100 mls/hr IV ED ONCE ONE Stop: 11/06/17 14:18 Last Admin: 11/06/17 05:13 Dose: 100 mls/hr Potassium Chloride/Dextrose (D5w 1/2 Ns Kcl 20 Meq 1000 Ml*) 1,000 mls @ 150 mls/hr IV PER RATE [facility] Magnesium Sulfate (Magnesium Sulfate 2 Gm Iv*) 2 gm in 50 mls @ 50 mls/hr IVPB ONCE ONE Stop: 11/06/17 10:23 Lorazepam (Ativan Inj*) 2 mg IV PUSH Q2H PRN PRN Reason: AGITATION Metoprolol Succinate (Toprol Xl Tab*) 25 mg PO BID [facility] Pantoprazole Sodium (Protonix Tab (Nf)) 40 mg PO BID [facility] Thiamine HCl (Vitamin B-1 Tab*) 100 mg PO DAILY [facility] Vital Signs - 8 hr 11/06/17 11/06/17 11/06/17 03:59 04:19 04:24 Temperature 97.9 F Pulse Rate 75 92 80 Respiratory 16 19 Rate Blood Pressure 152/91 145/97 (mmHg) O2 Sat by Pulse 97 98 98 Oximetry 11/06/17 11/06/17 11/06/17 05:00 05:13 05:19 Temperature Pulse Rate 57 54 Respiratory 16 16 20 Rate Blood Pressure 114/66 (mmHg) O2 Sat by Pulse 100 98 Oximetry 11/06/17 11/06/17 11/06/17 05:48 05:58 06:00 Temperature Pulse Rate 52 61 73 Respiratory 10 17 20 Rate Blood Pressure 118/83 121/77 (mmHg) O2 Sat by Pulse 93 91 92 Oximetry 11/06/17 11/06/17 11/06/17 07:00 08:49 09:00 Temperature 98 F 96.5 F Pulse Rate 56 57 56 Respiratory 10 10 18 Rate Blood Pressure 125/73 134/82 (mmHg) O2 Sat by Pulse 95 97 100 Oximetry Oxygen Devices in Use Now: None Appearance: Lethargic, at times arouses and can be belligerent. When at rest looks comfortable. Eyes: No Scleral Icterus Neck: NL Appearance and Movements; NL JVP, No Thyroid Enlargement, Masses Respiratory: Symmetrical Chest Expansion and Respiratory Effort, Clear to Auscultation, Clear to Percussion Cardiovascular: NL Sounds; No Murmurs; No JVD, RRR, No Edema, - Extremities: No Edema, No Clubbing, Cyanosis, - Skin: No Rash or Ulcers, No Nodules or Sclerosis, - Neurological: - - Does not answer question, mostly keeps eyes closed. Occ states "I want to go home. No tremor. Result Diagrams: 11/06/17 05:05 11/06/17 06:01 Assess/Plan/Problems-Billing Assessment: - Patient Problems (1) Altered mental status Current Visit: No Status: Acute Code(s): R41.82 - ALTERED MENTAL STATUS, UNSPECIFIED SNOMED Code(s): 297599173 Comment: DT's and/or seizures. 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 Benzodiazepines ordered scheduled and PRN. EEG pending. (2) COPD (chronic obstructive pulmonary disease) Current Visit: No Status: Acute Code(s): J44.9 - CHRONIC OBSTRUCTIVE PULMONARY DISEASE, UNSPECIFIED SNOMED Code(s): 49024071 Comment: Current smoker. Nicotine patch ordered. 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 (3) CAD (coronary artery disease) Current Visit: No Status: Chronic Code(s): I25.10 - ATHSCL HEART DISEASE OF [place] CORONARY ARTERY W/O ANG PCTRS SNOMED Code(s): 69257475 Comment: - Records from Dr. Sun and Dr. Ly reviewed by others in the past. - Known CAD with 95% RCA stenosis not amenable to intervention. - Continue ASA, Atorvastatin, Metoprolol, clopidogrel.
[2017-11-06] MEDS ORDERED: Nicotine PATCH 7 MG/24 HR* PATCH TRANSDERM SCH (10:00)
[2017-11-06] MEDS ORDERED: D5W 1/2 NS KCl 20 Meq 1000 ML* 1,000 ML IV SCH (10:00)
[2017-11-06] MEDS: chlordiazePOXIDE CAP* 25 MG PO SCH ×2 (11:24→13:28)
[2017-11-06] MEDS ORDERED: Nicotine Patch Removal NOTE PATCH OFF SCH (21:00)
--- NOTE | 2017-11-07 14:11 | DS ---
CC: Dr. Ly; Dr. Morrell * DISCHARGE SUMMARY / DISCHARGE SUMMARY OF PATIENT SIGNING AGAINST MEDICAL ADVICE: DATE OF ADMISSION: 11/06/17 DATE OF SIGNING AGAINST MEDICAL ADVICE: 11/06/17 PRIMARY CARE PROVIDER: Dr. Ly. HISTORY OF PRESENT ILLNESS: Please note that patient was admitted early on today by Dr. Morrell for a "spell." The patient stated that he had a seizure. He stated that he had seizures in the past. He states that usually it occurs after he eats too much salt. His cardiac enzymes showed troponin of 0.04. The patient stated that he drank 1 beer yesterday and usually he drinks a beer or two a day. The patient was admitted to telemetry monitored bed by Dr. Morrell. Upon the arrival of the patient to the telemetry floor, the patient requested to leave the hospital. He stated that he would prefer to be evaluated in the hospital in [place], [place]. The patient is alert and oriented. He is able to cooperate with the ED evaluation. He stated that he does not operate any vehicles and he does not own a car. He plans to take a bus with his girlfriend , Cassi, who was present by the bedside to [place], [place], for further evaluation. He stated that he has not had any chest pain or shortness of breath. I did discuss with the patient possibility of cardiac arrhythmia causing "spells." The patient's son was also present in the room who tried to convince the patient to stay for further evaluation but later on was agreeable to take his father home. Once again, the patient continued to insist to sign out against medical advice to be evaluated at a different hospital. He was not agreeable to be transferred to another facility from our facility. The against medical advice documentation was signed in the presence of the patient's son and the patient's girlfriend. The patient's son is planning to take patient home. They are aware of the risks of the patient leaving against medical advice that include cardiac arrhythmia, seizure, or . The patient is able to make decisions for himself and competent to do so today. He is aware of risks and once again plans to go by himself to another hospital for evaluation. TIME SPENT: Approximately 25 minutes was spent at discharge of this patient. [id number]/[facility] #: [id number] [facility]
--- NOTE | 2017-11-07 14:28 | DS ---
CC: Dr. Ly * DISCHARGE SUMMARY: DATE OF ADMISSION: DATE OF DISCHARGE: 11/06/17 HOSPITAL COURSE: This patient had some type of poorly responsive spell at home. The ambulance was called at 2 a.m. He had been drinking heavily as usual. In the hospital in the morning, he was belligerent and not very communicative. In the afternoon, he was more alert. He demanded to be released. Dr. Lopez saw him and established he understood why he was in the hospital. He said he did not want to be evaluated in this hospital, but chose to go to [place] to be evaluated there. His girlfriend and his son were present at this time. Dr. Lopez felt he had capacity to make the decisions to leave against medical advice and the patient signed out against medical advice. He was not given any prescriptions and will follow the directions of his other providers regarding treatment at home. FINAL DIAGNOSES: 1. Alcohol intoxication. 2. Chronic obstructive pulmonary disease. 3. Coronary artery disease. DISCHARGE CONDITION: Stable. DISCHARGE DISPOSITION: Home. [id number]/[facility] #: [id number] [place]
== END 2017-11-06 15:28 | disposition left against medical advice (07) ==
LOC: ED 03:41 → MEDTELE 07:22
PROVIDERS: ADMIT Internal Medicine; ATTEND Internal Medicine
DX: F10.129 Alcohol abuse with intoxication, unspecified (principal); J44.9 Chronic obstructive pulmonary disease, unspecified; I25.10 Atherosclerotic heart disease of native coronary artery without angina pectoris; Z88.8 Allergy status to other drugs, medicaments and biological substances; Z79.899 Other long term (current) drug therapy; Z79.01 Long term (current) use of anticoagulants; K21.9 Gastro-esophageal reflux disease without esophagitis; F17.210 Nicotine dependence, cigarettes, uncomplicated; I44.7 Left bundle-branch block, unspecified
CPT/HCPCS: 36415; 70450; 71045; 80053; 80320; 80329; 82550; 83605; 83735; 84443; 84484; 85025; 85610; 93005; 96361; 96365; 96375; 99284; A9270-GY; G0378; G0480; J2060; J3475

== ENCOUNTER 2018-05-21 09:26 | Inpatient (IN) | payer MEDICARE, MEDICAID ==
[2018-05-21] MEDS ORDERED: NS 0.9% 1000 ML** 1,000 ML IV ONE (09:29)
--- NOTE | 2018-05-21 09:41 | ED ---
Dizziness - HPI Summary HPI Summary: Pt is a 67 y/o male brought in by EMS who presents to the ED c/o dizziness. At 9 :00 this morning he suddenly became weak, dizzy, near-syncopal, and had N/V. As per EMS pt is diaphoretic. Pt denies any CP, palpitations, or SOB. The dizziness is made worse with standing. As per his partner, pt has been intermittently dizzy over the past few days. PMHx HTN, TX, cardiac arrest, anemia. He is a heavy smoker and has a hx of cocaine and alcohol abuse. - History Of Current Complaint Stated Complaint: FEELING WEAK PER EMS Time Seen by Provider: 05/21/18 09:30 Hx Obtained From: Patient, Family/Food Concession Manager - partner, EMS Onset/Duration: Still Present Timing: Days - 2-3 Character: Dizzy Aggravating Factor(s): Position Change - standing up Associated Signs And Symptoms: Positive: Nausea, Vomiting, Other: - weakness, near-syncope. Negative: Chest Pain, SOB, Palpitations - Allergies/Home Medications Allergies/Adverse Reactions: Allergies Allergy/AdvReac Type Severity Reaction Status Date / Time aspirin AdvReac Nausea Verified 11/06/17 07:27 Home Medications: Home Medications Metoprolol Tartrate TAB* [Lopressor TAB*] 0.5 tab PO DAILY 05/21/18 [History Confirmed 05/21/18] Thiamine HCl [B-1] 1 tab PO DAILY 05/21/18 [History Confirmed 05/21/18] PMH/Surg Hx/FS Hx/Imm Hx Endocrine/Hematology History: Reports: Hx Anticoagulant Therapy, Hx Blood Transfusions, Hx Anemia Denies: Hx Diabetes Cardiovascular History: Reports: Hx Cardiac Arrest, Hx Coronary Artery Disease, Hx Hypertension, Hx Myocardial Infarction, Hx Peripheral Vascular Disease, Other Cardiovascular Problems/Disorders - EF <20%, HLD. PVD Denies: Hx Congestive Heart Failure GI History: Reports: Hx Gastroesophageal Reflux Disease, Other GI Disorders - DUODENAL ULCER History: Reports: Other Problems/Disorders - DONTRELL Denies: Hx Renal Disease Musculoskeletal History: Reports: Hx Scoliosis Denies: Hx Arthritis, Hx Osteoporosis Sensory History: Denies: Hx Contacts or Glasses, Hx Hearing Aid Opthamlomology History: Denies: Hx Contacts or Glasses Psychiatric History: Reports: Hx Attention Deficit Hyperactivity Disorder, Hx Substance Abuse - ETOH Denies: Hx Eating Disorder, Hx of Violent Episodes Against Others - Surgical History Surgery Procedure, Year, and Place: carpal tunnel left and right wrist 2000. tonsillectomy 1999. ILIAC ARTERY OCCLUSION AND AXILLARY FEM BYPASS 03-15-17 Hx Anesthesia Reactions: No - Immunization History Date of Tetanus Vaccine: UNKNOWN Infectious Disease History: No Infectious Disease History: Denies: Traveled Outside the [place] in Last 30 Days - Family History Known Family History: Positive: Cardiac Disease, Respiratory Disease - Asthma, Other - Cancer - Social History Alcohol Use: unable to obtain information from patient at this time. Alcohol Amount: 4beer/day Hx Substance Use: Yes Substance Use Type: Reports: Cocaine Substance Use Comment - Amount & Last Used: 03/09/17 Hx Tobacco Use: Yes Smoking Status (MU): Heavy Every Day Tobacco Smoker Type: Cigarettes Have You Smoked in the Last Year: Yes Review of Systems Positive: Skin Diaphoresis Negative: Palpitations, Chest Pain Negative: Shortness Of Breath Positive: Vomiting, Nausea Neurological: Other - dizziness Positive: Weakness - generalized, Syncope - near All Other Systems Reviewed And Are Negative: Yes Physical Exam - Summary Physical Exam Summary: Appearance: well appearing, no pain distress Skin: warm, dry, reflects adequate perfusion Head/face: normal Eyes: EOMI, EILEEN ENT: mucous membranes moist Neck: supple, non-tender Respiratory: CTA, breath sounds present Cardiovascular: RRR, pulses symmetrical Abdomen: non-tender, soft, midline surgical scar, no pulsatile masses Bowel Sounds: present Musculoskeletal: normal, strength/ROM intact Neuro: normal, sensory motor intact, A&Ox3 Triage Information Reviewed: Yes Vital Signs On Initial Exam: Initial Vitals Temp Pulse Resp BP Pulse Ox 96.9 F 60 20 134/90 100 05/21/18 09:28 05/21/18 09:28 05/21/18 09:28 05/21/18 09:28 05/21/18 09:28 Vital Signs Reviewed: Yes - [place] Coma Scale Best Eye Response: 4 - Spontaneous Best Motor Response: 6 - Obeys Commands Best Verbal Response: 5 - Oriented Coma Scale Total: 15 Diagnostics - Vital Signs Vital Signs Temp Pulse Resp BP Pulse Ox 05/21/18 09:28 96.9 F 60 20 134/90 100 - Laboratory Result Diagrams: 05/21/18 09:44 05/21/18 09:44 Lab Statement: Any lab studies that have been ordered have been reviewed, and results considered in the medical decision making process. - Radiology CXR Radiology Interpretation Completed By: Radiologist Summary of Radiographic Findings: NO ACTIVE CARDIOPULMONARY DISEASE IS NOTED. ED physician reviewed radiology report. - CT Brain CT CT Interpretation Completed By: Radiologist Summary of CT Findings: NO ACUTE INTRACRANIAL PATHOLOGY. ED physician reviewed radiology report. - EKG 9:30 Cardiac Rate: NL - 62 bpm EKG Rhythm: Sinus Rhythm ST Segment: Non-Specific EKG Comparison: Other - new flipped T waves in lateral leads compared to 11/06/17 Summary of EKG Findings: LAD, LBBB, flipped T waves in lateral leads Dizzy Course/Dx - Course Course Of Treatment: 67-year-old male with history of TX causing cardiac arrest presents with abrupt onset of lightheadedness nausea/vomiting. He states that this is similar to how he had his heart attack in the past. His troponin is elevated but has been chronically. He is also known to refused cocaine in the past but denies that today. He is improving with IV fluids and has not vomited since. He had no rotational or vertiginous component. He'll be admitted for observation. - Diagnoses Differential Diagnosis/HQI/PQRI: Benign Paroxysmal Positional Vertigo, Dysrhythmia, Hyperventilation, Hypovolemia, Medication Reaction, Metabolic Abnormality, Other - ACS Provider Diagnoses: Weakness, Acute coronary syndrome - Provider Notifications Discussed Care Of Patient With: Tara Moore Time Discussed With Above Provider: 10:31 Instructed by Provider To: Other - Dr. Moore accepts for admission. At 10:37 Dr. Pacheco said he will see the pt on the floor. Discharge - Sign-Out/Discharge Documenting (check all that apply): Patient Departure - Admit Patient Received Moderate/Deep Sedation with Procedure: No - Discharge Plan Condition: Fair Disposition: ADMITTED TO [facility] - Billing Disposition and Condition Condition: FAIR Disposition: Admitted to [facility] - Attestation Statements Document Initiated by Scribe: Yes Documenting Scribe: Nancy Pinedo Provider For Whom Scribe is Documenting (Include Credential): Ricardo Bolaños MD Scribe Attestation: Nancy Membreno, scribed for Ricardo Bolaños MD on 05/21/18 at 1458. Scribe Documentation Reviewed: Yes Provider Attestation: The documentation as recorded by the scribe, Nancy Pinedo accurately reflects the service I personally performed and the decisions made by me, Ricardo Bolaños MD Status of Scribe Document: Viewed
[2018-05-21] MEDS ORDERED: Aspirin 81 mg CHEW TAB* 81 MG TAB.CHEW PO ONE (09:49)
[2018-05-21 10:03] LABS: ABS Basophils 0.1 10^3/ul (0-0.2); ABS Eosinophils 0.1 10^3/ul (0-0.6); ABS Monocytes 0.3 10^3/ul (0-0.8); ABS Neutrophils 1.3 10^3/ul (1.5-7.7); ABS Nucleated RBC 0 10^3/ul; Eosinophil % 2.6 %; Hematocrit 35 % (36-46); Hemoglobin 11.7 g/dL (14.0-18.0); Lymphocyte % 37.5 %; Mean Corpuscular HGB Conc 33 g/dL (31-36); Mean Corpuscular Hemoglobin 33 pg (27-31); Mean Corpuscular Volume 100 fL (80-94); Mean Platelet Volume 8.2 fL (7.4-10.4); Nucleated Red Blood Cells % 0.6; Platelet Count 181 10^3/uL (150-450); Red Blood Count 3.54 10^6 /uL (4.18-5.48); Red Cell Distribution Width 16 % (10.5-15); White Blood Count 2.7 10^3/uL (3.5-10.8)
[2018-05-21 10:15] LABS: ALT 97 U/L (7-52); AST 172 U/L (13-39); Albumin 3.9 g/dL (3.2-5.2); Alkaline Phosphatase 57 U/L (34-104); Anion Gap 11 mmol/L (2-11); BUN/Creatinine Ratio 8.3 (8-20); Blood Urea Nitrogen 9 mg/dL (6-24); CO2 Carbon Dioxide 19 mmol/L (22-32); Calcium 9.2 mg/dL (8.6-10.3); Chloride 105 mmol/L (101-111); Creatine Kinase 85 U/L (10-223); EGFR African American 82.2 (>60); EGFR Non-African American 67.9 (>60); Globulin 3.9 g/dL (2-4); Glucose 112 mg/dL (70-100); Potassium 3.8 mmol/L (3.5-5.0); Sodium 135 mmol/L (135-145); Total Protein 7.8 g/dL (6.4-8.9)
[2018-05-21 10:17] LABS: INR 0.94 (0.77-1.02); Troponin I 0.04 ng/mL (<0.04)
[2018-05-21] MEDS ORDERED: Acetaminophen TAB* 325 MG PO PRN (11:45)
[2018-05-21] MEDS ORDERED: Al Hydrox/Mg Hydrox/Simet LIQ* 30 ML UDC PO PRN (11:45)
[2018-05-21] MEDS ORDERED: Magnesium Hydroxide LIQ* 30 ML UDC PO PRN (11:45)
[2018-05-21 12:09] LABS: Magnesium 1.9 mg/dL (1.9-2.7)
[2018-05-21] MEDS ORDERED: Magnesium Sulfate 2 GM IV* 2 GM/50 ML BAG IVPB ONE (12:26)
[2018-05-21] MEDS ORDERED: Potassium Chlor TAB* 20 MEQ TAB.ER PO ONE (12:26)
[2018-05-21 12:35] LABS: Folate > 20.00 ng/mL (>3.99)
[2018-05-21 12:51] LABS: Troponin I 0.04 ng/mL (<0.04)
[2018-05-21 13:07] LABS: Urine Appearance Cloudy; Urine Bilirubin Negative (Negative); Urine Blood Negative (Negative); Urine Color Yellow; Urine Glucose Negative (Negative); Urine Ketones Negative (Negative); Urine Nitrite Negative (Negative); Urine Protein Negative (Negative); Urine Specific Gravity 1.012 (1.010-1.030); Urine Urobilinogen Negative (Negative)
[2018-05-21] MEDS: Heparin VIAL(*) 5000 UNITS/ML VIAL (FIVE THOUSAND) SUBCUT SCH ×2 (13:36→20:53)
[2018-05-21] MEDS ORDERED: Perflutren Lipid Microsphere* 3 ML VIAL ONE (15:56)
[2018-05-21 16:00] LABS: Troponin I 0.04 ng/mL (<0.04)
--- NOTE | 2018-05-21 16:13 | HP ---
Amended report to enter cosigning physician. CC: Dr. Ly* HISTORY AND PHYSICAL: DATE OF ADMISSION: 05/21/18 OTHER PROVIDERS: Dr. Pacheco on consultation. PRIMARY CARE PHYSICIAN: Dr. Ly. ATTENDING PHYSICIAN: Dr. Tara Moore* (dictated by Shelli Emmanuel NP). CHIEF COMPLAINT: 1. Dizziness. 2. Weakness. 3. Syncope. 4. Nausea and vomiting. HISTORY OF PRESENT ILLNESS: Mr. Ga is a 67-year-old male with a past medical history significant for ETOH abuse, COPD, CAD,NH in 2017, PEA arrest secondary to anemia secondary to duodenal ulcer, PVD; who presented to the emergency department today via EMS after a syncopal episode while at the [facility] that was witnessed by his brother. The patient reports he has had dizziness and weakness for over a week. The patient reports the room is not spinning and he is not spinning, but instead he just feels lightheaded and weak. These symptoms are aggravated by standing or movement. These symptoms are alleviated by resting. Per the patient's brother who is with him today at the [facility], he reports that he was sitting in a chair and suddenly his eyes closed and he leaned to his side. Brother reports this episode only lasted a few seconds. The patient reports that prior to this episode, he felt diaphoretic, nausea, weak. There was no loss of bowel or bladder. The patient reports he did vomit upon awakening. In addition to this, the patient's partner reports that she has noticed his stool is "black and tarry." The patient reports this has been going on for greater than 6 months. Additionally the patient has been dealing with an upper respiratory infection, for which he has been taking Robitussin and Mucinex. Currently, he denies any upper respiratory symptoms. While in the emergency department, the patient received IV fluid and aspirin 324 mg p.o. In addition, the patient had lab work that revealed mild macrocytic anemia and elevated lactic at 2.1 and an elevated troponin at 0.04. In addition, the patient has a slightly elevated BNP at 117. The patient also noted to have an elevated TSH at 7.70. The patient had a chest x-ray and brain CT, which were unremarkable. There is greater concern for the patient's symptoms as he reports he had similar symptoms prior to his NH in 2017. Therefore, hospitalists were asked to consult for admission. It also should be noted that during my chart review, it was found that the patient was seen here at [facility] in March 2017, at which time he had a stress test, which revealed a fixed wall defect. At that time, the patient was consulted by Cardiology, who recommended a cardiac catheterization. Per report , the patient was anxious to leave, therefore the patient was discharged with a followup cardiac catheterization in 1 week. There is no evidence that this cardiac catheterization took place in patient's [facility] mobile chart or [facility] chart. I discussed this with the patient and he reports he never had the cardiac catheterization. Given these symptoms, noncompliance, medical history, the patient will be admitted for further evaluation. PAST MEDICAL HISTORY: 1. ETOH abuse history. 2. COPD. 3. CAD and NH in 2017. No cardiac stent per patient. 4. PEA arrest secondary to anemia, secondary to duodenal ulcer in March 2017. 5. PVD, status post axillofemoral bypass in March 2017. PAST SURGICAL HISTORY: Axillofemoral bypass. HOME MEDICATIONS: 1. Thiamine 100 mg p.o. daily. 2. Folic acid 1 mg p.o. daily. 3. Atorvastatin 20 mg p.o. daily. 4. Aspirin 81 mg p.o. daily. 5. Metoprolol 12.5 mg p.o. b.i.d. 6. Claritin 10 mg p.o. daily. 7. Ferrous sulfate 325 mg p.o. b.i.d. 8. Plavix 75 mg p.o. daily. ALLERGIES: The patient has ASPIRIN listed as an allergy, but states he has no medication allergies. FAMILY HISTORY: Mother in her 40s secondary to cancer. Father at 52 due to stroke. Brother due to Alzheimer's. Brother due to cancer. SOCIAL HISTORY: The patient is an active smoker of 56 years. He reports a couple of cigarettes a day. The patient reports alcohol use 1 to 2 drinks per week. The patient does have a history of significant alcohol abuse. The patient denies current drug use, but there is documentation of history of cocaine use. The patient does not work as he is disabled. The patient lives with his partner. The patient is independent in his ADLs. REVIEW OF SYSTEMS: No fevers, no anorexia. Cardiac: No chest pain, no edema. Respiratory: No cough, no hemoptysis, no shortness of breath. GI: No nausea, no diarrhea, no abdominal pain. The patient reports vomiting x1. The patient reports dark stools. : No gross hematuria, no dysuria. Neuro: No focal weakness or sensory loss. The patient reports weakness and lightheadedness. Eyes: No visual complaints. ENT: No dysphagia, no difficulty finding words, no sore throat. Musculoskeletal: No arthralgias or myalgias. Skin: No rashes or lesions. Psych: No psychosis or anxiety. PHYSICAL EXAMINATION GENERAL: Mr. Ga is a 67-year-old male who is lying on the ED stretcher. He is in no acute distress. Appears stated age. VITAL SIGNS: Temp 96.9, HR 60, RR 14, O2 saturation 98% on room air, BP 130/92. HEENT: PERRLA. EOMs intact. Oral mucosa is moist without lesion. Posterior pharynx is clear. NECK: Supple. No lymphadenopathy. Full range of motion. RESPIRATORY: Symmetrical chest expansion. No accessory muscle use. Lungs are clear to auscultation. No rhonchi, wheezes, or rales. CARDIOVASCULAR: Regular rate and rhythm. S1, S2 present. No murmurs, rubs, or gallops. No JVD. EXTREMITIES: Skin is warm and smooth bilaterally. No edema. No clubbing or cyanosis. Pedal pulses 2+ bilaterally. MUSCULOSKELETAL: Full range of motion. No pain or deformities. ABDOMEN: Soft, nontender to palpation. Bowel sounds normoactive throughout. RECTAL EXAM: Completed and unremarkable. Stool sent for blood. NEURO: Awake, alert, oriented x4. Cranial nerves II through XII intact. Moves all extremities. Motor strength is 5/5 in upper and lower extremities bilaterally. No impairment. Good coordination. Sensation intact. SKIN: Grossly intact without lesion. DIAGNOSTIC STUDIES/LABORATORY DATA: WBC 2.7, hemoglobin 11.7, hematocrit 35, platelets 181. Sodium 135, potassium 3.8, chloride 105, carbon dioxide 19, BUN 9, creatinine 1.09, glucose 112, lactic acid 2.1. AST 172, ALT 97, troponin 0.04, BNP 117, TSH 7.70. Chest x-ray: Impression: No acute cardiopulmonary disease is noted. Brain CT: Impression: No intracranial pathology. EKG: Impression: Sinus rhythm, 62 bpm, new flipped T-waves in lateral leads compared to 11/06/17, left bundle-branch block. ASSESSMENT AND PLAN: Mr. Ga is a 67-year-old male with a past medical history significant for ETOH abuse, COPD, CAD, PEA arrest secondary to anemia, secondary to duodenal ulcer, PVD; who presented to the emergency department today with weakness and dizziness. The patient will be admitted OBV telemetry for: 1. Dizziness/weakness: As mentioned in HPI, the patient reports this has been going on for greater than a week. Differentials include cardiac in origin, therefore Dr. Pacheco has been contacted. Echocardiogram has been ordered. The patient's trops will be trended. Lipid panel and hemoglobin A1c have been ordered. The patient will be placed on telemetry. As mentioned above, the patient had a fixed wall deficit in 2018 and was supposed to have a cardiac catheterization, which he did not, therefore Cardiology input will be greatly appreciated and necessary. The patient is currently chest-pain free. Additionally, our differentials include anemia. The patient's labs only show a very slight macrocytic anemia, therefore I have ordered a vitamin B12 and folate. I have also completed a rectal exam and sent the stool for blood. We will trend patient's H and H. Additionally, the differentials include neuro in etiology. The patient's brain CT was negative. The patient's neuro exam was within normal limits. I will order a Neuro checks. We may consider further imaging such as an MRI. 2. Elevated lactic acid: As mentioned above, the patient's lactic acid was slightly elevated at 2.1, therefore I have ordered a repeat at 1400 hours. I suspect this is secondary to dizziness and syncopal episode. There is no evidence of an infectious process currently as the patient has no leukocytosis or fever. Urine is pending. Chest x-ray is normal. 3. Elevated troponin: As mentioned above, the patient has an elevated troponin at 0.04. It should be mentioned that this is patient's baseline as this has been the value since 09/01/16. Either way, we will repeat his troponin. 4. Elevated AST/ALT: The patient's AST and ALT are slightly elevated, but once again these are slightly above the patient's baseline. I will repeat a CMP tomorrow. If continued elevation, may require a liver ultrasound. 5. Elevated BNP: As mentioned above, the patient's BNP is 117. He does not appear to be in acute exacerbation of CHF. An echo has been ordered as mentioned above. 6. Elevated TSH: The patient has no history of hypothyroid. This could be an acute reaction due to the patient's current acute illness. Therefore, we will repeat this at a later date. 7. ETOH abuse: The patient reports 1 to 2 drinks per week. He does not warrant a WAM at this time, but will require close monitoring. 8. Chronic obstructive pulmonary disease: The patient carries a history of COPD, but he is not on any medications for this diagnosis. We shall monitor and provide supportive care. 9. Coronary artery disease and myocardial infarction in 2017: We will continue the patient's medications including metoprolol and atorvastatin. I have ordered a lipid panel and a hemoglobin A1c. 10. PEA arrest secondary to anemia, secondary to duodenal ulcer: As mentioned above, I completed a rectal exam and sent a stool guaiac for blood. If positive , the patient may require a GI consult. We will continue the patient's ferrous sulfate as he has at home. 11. Peripheral vascular disease: The patient has a known history of peripheral vascular disease and is status post axillofemoral nerve bypass in March 2017. We will continue the patient's Plavix. 12. Code status: The patient is a full code. 13. Healthcare proxy/surrogate decision making: The patient's surrogate decision maker will be Cassi William, who is his partner, [phone]. 14. DVT prophylaxis: The patient is a high risk, therefore he will be placed on subcu heparin. 15. FEN: The patient will be currently n.p.o. until evaluated by Cardiology at which point we can add a heart-healthy diet and no caffeine. 16. Disposition: I suspect the patient will be in the hospital for 1 to 2 days for further evaluation. TIME SPENT: Approximately 60 minutes was spent on this admission, greater than half the time was spent with the patient and caregiver obtaining my history, performing my physical exam, and reviewing my plan of care. This case has also been reviewed by my attending Dr. Moore, who is in agreement with my plan of care. Reviewed by SHELLI EMMANUEL NP 05/28/18 @ [id number] [id number]/[facility] #: [id number] MAKENNA
--- NOTE | 2018-05-21 17:19 | ECHO ---
Patient: MANUEL LONGORIA [facility] Rec#: [id number] : 1950 Date: 05/21/2018 Age: 67y Height: 180 cm / 70.9 in Weight: 63.5 kg / 140.0 lbs Sex: M BSA: 1.81 Room#: 432 Admit Date#: 05/21/2018 Type: Inpatient Referring: SHELLI EMMANUEL E Reading: Ulices Pacheco DO Assistant Shift Supervisor: Adela Malone RDCS,RDMS CC: Niraj Ly MD Transthoracic Echocardiogram Indication: SYNCOPE BP: 152/74 HR: 68 Rhythm: NSR Findings History: MN, cardiac arrest, heavy smoker, ETOH Technical Comments: The study quality is fair. Left Ventricle: The left ventricular chamber size is normal. Mild concentric left ventricular hypertrophy is observed. There is global hypokinesis of the left ventricle with minor regional variation. There is severely decreased left ventricular systolic function. The estimated ejection fraction is 20-25%. , appears closer to 20% There is an E to A reversal in the mitral valve flow pattern suggestive of diastolic dysfunction. Left Atrium: The left atrial chamber size is normal. Right Ventricle: The right ventricular cavity size is normal. The right ventricular global systolic function is moderately reduced. Right Atrium: The right atrial cavity size is normal. Aortic Valve: The aortic valve is trileaflet. Systolic excursion of the aortic valve is normal. There is aortic annular calcification.that is mild There is no evidence of aortic regurgitation. There is no evidence of aortic stenosis. Mitral Valve: The mitral valve leaflets are mildly thickened. There is a trace of mitral regurgitation. There is no evidence of mitral stenosis. Tricuspid Valve: The tricuspid valve leaflets are normal. There is no evidence of tricuspid valve regurgitation. Unable to estimate the right ventricular systolic pressure. Pulmonic Valve: The pulmonic valve appears normal. There is a trace pulmonic regurgitation. Pericardium: There is no significant pericardial effusion. Aorta: The aortic root appears normal. There is no dilatation of the aortic arch. Pulmonary Artery: The main pulmonary artery is not well visualized. Venous: The inferior vena cava appears normal in size. There is less than 50% respiratory change in the inferior vena cava dimension. Contrast: Definity was used to optimize study. A total of 3 ml was used. Conclusions The left ventricular chamber size is normal. Mild concentric left ventricular hypertrophy is observed. There is severely decreased left ventricular systolic function. There is global hypokinesis of the left ventricle with minor regional variation. The estimated ejection fraction is 20%. The left atrial chamber size is normal. The right ventricular cavity size is normal. The right ventricular global systolic function is moderately reduced. No significant valvular abnormalities noted Compared to prior study from 04/2017, LVEF previously 35% but was Less Than 20% in 03/2017 Measurements Name Value Normal Range RVIDd (AP) 2D 2.7 cm (0.9 - 2.6) RVDdMajor (2D) 3.4 cm (2.2 - 4.4) RAd ISD 4CH 4.1 cm (3.4 - 4.9) RA (A4C)W 4 cm (2.9 - 4.6) IVSd (2D) 1.2 cm (0.6 - 1) LVPWd (2D) 1.1 cm (0.6 - 1) LVIDd (2D) 5.2 cm (3.6 - 5.4) LVIDs (2D) 3.6 cm - LV FS (2D) 29 % (25 - 45) Aortic Annulus 2 cm (1.4 - 2.6) Ao root diameter (2D) 3.1 cm (2.1 - 3.5) Ascending Ao 3.4 cm (2.1 - 3.4) Aortic arch 2.6 cm (1.8 - 3.4) LA dimension (AP) 2D 2.9 cm (2.3 - 3.8) LAd ISD 4CH 4.7 cm (2.9 - 5.3) LA ISD 4CH W 3.9 cm (2.5 - 4.5) Name Value Normal Range LA ESV BP (A/L) index 18 ml/m2 - Name Value Normal Range MV E-wave Vmax 0.5 m/sec - MV deceleration time 248 msec - MV A-wave Vmax 0.5 m/sec - MV E:A ratio 1 ratio - P. vein S-wave Vmax 0.4 m/sec - P. vein D-wave Vmax 0.3 m/sec - P. vein S:D Vmax ratio 1.3 ratio - P. vein A-wave duration 106 msec - LV septal e' Vmax 0.05 m/sec - LV lateral e' Vmax 0.08 m/sec - LV E:e' septal ratio 10 ratio - LV E:e' lateral ratio 7 ratio - Name Value Normal Range AV Vmax 1.6 m/sec - AV VTI 25 cm - AV peak gradient 10 mmHg - AV mean gradient 5 mmHg - LVOT Vmax 1.1 m/sec - LVOT VTI 17.5 cm - LVOT peak gradient 5 mmHg - LVOT mean gradient 2 mmHg - BUCKY Vmax 0.5 m/sec - Name Value Normal Range RAP 8 mmHg - IVC diameter 1.3 cm - Name Value Normal Range PV Vmax 0.8 m/sec - PV peak gradient 2.6 mmHg -
--- NOTE | 2018-05-21 18:49 | CONSULT ---
Subjective Date of Service: 05/21/18 Interval History: Admission and consult Date: 05/21/18 Provider: Hospitalist service PMD: Dr. Ly Senior Education Specialist: Dr Sun CHIEF COMPLAINT: Dizziness, Weakness, Syncope, Nausea and vomiting. HISTORY OF PRESENT ILLNESS: Mr. Ga is a 67-year-old man with a history as below. Patient has had dizziness and weakness for a week. He had an LOC episode at rest for a few seconds. He had a prodrome of diaphoresis, weakness and nausea. He vomited when he woke up. He denies any dyspnea or chest discomfort. I ambulated him around the hallway and he had to take breaks to grab the wall due to dizziness. The nausea was present during his GI bleed admission in 2018 He is also limited by claudication symptoms. PAST MEDICAL HISTORY: 1. ETOH abuse history, previously 2. COPD. 3. CAD and IWMI in 2017. No cardiac stent per patient. 4. PEA arrest secondary to anemia, secondary to duodenal ulcer in March 2017 following vascular surgery procedure on xarelto 15 mg po bid 5. PVD, status post axillofemoral bypass in March 2017. 6. severe LV systolic dysfunction, no symptoms of HF, suspect mixed ischemic/ non-ischemic etiology PAST SURGICAL HISTORY: Axillofemoral bypass. HOME MEDICATIONS: 1. Thiamine 100 mg p.o. daily. 2. Folic acid 1 mg p.o. daily. 3. Atorvastatin 20 mg p.o. daily. 4. Aspirin 81 mg p.o. daily. 5. Metoprolol 12.5 mg p.o. b.i.d. 6. Claritin 10 mg p.o. daily. 7. Ferrous sulfate 325 mg p.o. b.i.d. 8. Plavix 75 mg p.o. daily. ALLERGIES: The patient has ASPIRIN listed as an allergy, but states he has no medication allergies. FAMILY HISTORY: Mother in her 40s secondary to cancer. Father at 52 due to stroke. Brother due to Alzheimer's. Brother due to cancer. SOCIAL HISTORY: The patient is an active smoker of 56 years. He reports a couple of cigarettes a day. The patient reports alcohol use 1 to 2 drinks per week. The patient does have a history of significant alcohol abuse. The patient denies current drug use, but there is documentation of history of cocaine use. The patient does not work as he is disabled. The patient lives with his partner. The patient is independent in his ADLs. Medications Active Medications: Acetaminophen (Tylenol Tab*) 650 mg PO Q4H PRN PRN Reason: FEVER/PAIN Al Hydrox/Mg Hydrox/Simethicone (Maalox Plus*) 30 ml PO Q6H PRN PRN Reason: INDIGESTION Aspirin (Aspirin Ec Tab*) 81 mg PO DAILY [facility] Atorvastatin Calcium (Lipitor*) 20 mg PO DAILY [facility] Cetirizine HCl (Zyrtec*) 10 mg PO DAILY [facility] Clopidogrel Bisulfate (Plavix Tab*) 75 mg PO DAILY [facility] Ferrous Sulfate (Ferrous Sulfate Tab*) 325 mg PO BID [facility] Folic Acid (Folvite Tab*) 1 mg PO DAILY [facility] Heparin Sodium (Porcine) (Heparin Vial(*)) 5,000 units SUBCUT Q8HR [facility] Last Admin: 05/21/18 13:36 Dose: 5,000 units Magnesium Hydroxide (Milk Of Magnayde Liq*) 30 ml PO Q4H PRN PRN Reason: CONSTIPATION Metoprolol Tartrate (Lopressor Tab*) 12.5 mg PO BID [facility] Thiamine HCl (Vitamin B-1 Tab*) 100 mg PO DAILY [facility] Home Medications: Aspirin EC TAB* [Ecotrin EC Low Dose 81 MG*] 81 mg PO DAILY 08/26/14 [History Confirmed 05/21/18] Atorvastatin* [Lipitor 20 MG*] 20 mg PO DAILY 03/29/17 [History Confirmed ] Ferrous Sulfate TAB* 325 mg PO BID 03/29/17 [History Confirmed 05/21/18] LoraTADine TAB(NF) [Claritin 10 MG TAB(NF)] 10 mg PO DAILY 03/29/17 [History Confirmed 05/21/18] Clopidogrel TAB* [Plavix TAB*] 75 mg PO DAILY #8 tab 04/10/17 [Rx Confirmed ] Folic Acid TAB* [Folvite TAB*] 1 mg PO DAILY #30 tab 04/10/17 [Rx Confirmed ] Metoprolol Tartrate TAB* [Lopressor TAB*] 0.5 tab PO DAILY 05/21/18 [History Confirmed 05/21/18] Thiamine HCl [B-1] 1 tab PO DAILY 05/21/18 [History Confirmed 05/21/18] Review of Systems - Measurements Intake and Output: Intake and Output Last 24 Hours 05/19/18 05/20/18 05/21/18 05/22/18 06:59 06:59 06:59 06:59 Intake Total 1675 Balance 1675 Weight 136 lb 3.2 oz Intake: IV Fluids 1020 IVPB 55 Oral 600 - Review of Systems Constitutional Symptoms: Positive: Weakness, Fatigue Dermatology: Negative: Rash, Skin Lesions HEENT: Negative: Change in Hearing, Vertigo Eyes: Negative: Change in Vision, Double Vision Thyroid: Negative: Thyroid Nodule, Cold Intolerance, Heat Intolerance, Constipation, Palpitations, Weight Loss, Weight Gain Pulmonary: Negative: Cough, Sputum, Hemoptysis Cardiology: Positive: Peripheral Vascular Dis, Faintness, Syncope, Claudication Negative: Chest Pain, Shortness of Breath, Palpitations, Swelling of Ankles, Edema, Paroxysmal Nocturnal Dyspnea, Orthopnea Gastroenterology: Positive: Nausea, Vomiting Negative: Anorexia, Heartburn, Constipation, Diarrhea, Change in Bowel Habits Genital - Urinary: Negative: Dysuria, Hematuria, Nocturia Musculoskeletal: Negative: Joint Pain, Joint Stiffness Endocrinology: Negative: Obesity, Diabetes, Polydipsia, Polyuria Hematologic/Lymphatic: Positive: Use of Antiplatelet Drugs Negative: Hx Leukemia, Hx Lymphoma, Use of Anticoagulant Neurology: Positive: Dizziness, Change in Balancing Negative: Headaches, Migraines, Hx of Stroke\TIA, Hx Seizures Psychiatry: Negative: Unusual Anxiety, Suicidal Ideation Allergic/Immunologic: Negative: Hx HIV, Immunocompromise Review of Systems Statement: All other review of systems negative, unless stated above. Objective Vital Signs: Temp Pulse Resp BP Pulse Ox 98.6 F 61 16 134/78 100 05/21/18 15:30 05/21/18 15:30 05/21/18 15:30 05/21/18 15:30 05/21/18 15:30 Oxygen Devices in Use Now: None Appearance: nad, pleasant Ears/Nose/Mouth/Throat: Clear Oropharnyx, Mucous Membranes Moist Neck: NL Appearance and Movements; NL JVP, Trachea Midline Respiratory: Symmetrical Chest Expansion and Respiratory Effort, Clear to Auscultation Cardiovascular: RRR, - - rrr, 1/6 systolic murmur Abdominal: NL Sounds; No Tenderness; No Distention Extremities: No Edema Skin: No Rash or Ulcers Neurological: Alert and Oriented x 3 Laboratory Results: 05/21/18 09:44 05/21/18 09:44 INR (Anticoag Therapy) 0.94 (0.77-1.02) 05/21/18 09:44 Total Bilirubin 0.60 mg/dL (0.2-1.0) 05/21/18 09:44 AST 172 U/L (13-39) H 05/21/18 09:44 ALT 97 U/L (7-52) H 05/21/18 09:44 Alkaline Phosphatase 57 U/L (34-104) 05/21/18 09:44 B-Natriuretic Peptide 117 pg/mL (<=100) H 05/21/18 09:44 Total Protein 7.8 g/dL (6.4-8.9) 05/21/18 09:44 Albumin 3.9 g/dL (3.2-5.2) 05/21/18 09:44 Globulin 3.9 g/dL (2-4) 05/21/18 09:44 Albumin/Globulin Ratio 1.0 (1-3) 05/21/18 09:44 TSH 7.70 mcIU/mL (0.34-5.60) H 05/21/18 09:44 05/21/18 05/21/18 05/21/18 09:44 12:09 15:27 Troponin I 0.04 H* 0.04 H* 0.04 H* Diagnostic Imaging: Lexiscan stress MPI 04/2017: As per Dr. Pacheco, moderate sized inferior infarct with mild anderson-infarct ischemia Echo 05/21/2018: LVEF 20%, global LV hypokinesis with minor variation 03/2017: LVEF < 20% LVEF 04/2017 LVEF 35% Prior to GIB 03/2017 LVEF from [place] listed as 25% Chest x-ray: Impression: No acute cardiopulmonary disease is noted. Brain CT: Impression: No intracranial pathology. EKG Data: ekg today 05/21/2018 shows NSR, incomplete LBBB QRS width ~ 120 ms Compared to prior study from 11/2017, there are new asymmetric repolarization changes in v4-v6 although these were prseent previously 03/29/2017 ekg Assessment/Plan At this point, patients history he relates to ma of nausea and dizziness does not appear to be cardiac related. He has no evidence of a type 1 KY. He has no cardiac symptoms on ambulation limited by claudication and dizziness. Further evaluation/treatment of these symptoms as per primary service. I would restart 50 mg of losartan in addition to his other cardiac regimen (except change metoprolol to long acting succinate given systolic dysfunction) as above which he had been on previously. Patient was counseled that continued smoking, even in the short term, increases risk of things including but not limited to and recurrent KY. I think there is a small possibility the LOC episode was related to a ventricular arrhythmia event. I recommended a lifevest until he can follow up to determine if he is eligible for an ICD (with or without COMPUTER INFORMATION SYSTEMS INSTRUCTOR pending EP review of his EKG). After discussing the risks and benefits, he is not interested in either of these two options at this point. If telemetry is without a pathologic jose angel or tachyarrhythmia tomorrow, he can be discharged from a cardiac standpoint and follow up with his regular writer producer, Dr. Sun as an outpatient. Thank you for allowing me to participate in the cardiovascular care of this patient. Please do not hesitate to contact me with questions or concerns.
[2018-05-21] MEDS: Ferrous Sulfate TAB* 325 MG PO SCH (20:53)
[2018-05-21] MEDS: Metoprolol Tartrate TAB* 25 MG PO SCH (20:53)
[2018-05-22] MEDS: Heparin VIAL(*) 5000 UNITS/ML VIAL (FIVE THOUSAND) SUBCUT SCH ×3 (05:16→21:39)
[2018-05-22 05:43] LABS: ABS Basophils 0 10^3/ul (0-0.2); ABS Eosinophils 0.1 10^3/ul (0-0.6); ABS Monocytes 0.4 10^3/ul (0-0.8); ABS Neutrophils 1.6 10^3/ul (1.5-7.7); ABS Nucleated RBC 0 10^3/ul; Eosinophil % 2.1 %; Hematocrit 31 % (36-46); Hemoglobin 10.5 g/dL (14.0-18.0); Lymphocyte % 31.1 %; Mean Corpuscular HGB Conc 34 g/dL (31-36); Mean Corpuscular Hemoglobin 34 pg (27-31); Mean Corpuscular Volume 100 fL (80-94); Mean Platelet Volume 8.1 fL (7.4-10.4); Nucleated Red Blood Cells % 0.1; Platelet Count 122 10^3/uL (150-450); Red Blood Count 3.12 10^6 /uL (4.18-5.48); Red Cell Distribution Width 16 % (10.5-15); White Blood Count 3.1 10^3/uL (3.5-10.8)
[2018-05-22 05:59] LABS: Albumin 3.5 g/dL (3.2-5.2); BUN/Creatinine Ratio 13.3 (8-20); Calcium 9.3 mg/dL (8.6-10.3); EGFR African American 102.5 (>60); EGFR Non-African American 84.7 (>60); Globulin 3.6 g/dL (2-4); Indirect Bilirubin 0.4 mg/dL (0.3-1.0); Potassium 4.3 mmol/L (3.5-5.0); Total Bilirubin 0.7 mg/dL (0.2-1.0); Total Protein 7.1 g/dL (6.4-8.9)
[2018-05-22] MEDS: Thiamine TAB* 100 MG TAB PO SCH (07:53)
[2018-05-22] MEDS: Aspirin EC TAB* 81 MG TAB.EC PO SCH (07:53)
[2018-05-22] MEDS: Ferrous Sulfate TAB* 325 MG PO SCH ×2 (07:53→21:38)
[2018-05-22] MEDS: Cetirizine* 10 MG TAB PO SCH (07:53)
[2018-05-22] MEDS: Clopidogrel TAB* 75 MG PO SCH (07:53)
[2018-05-22] MEDS: Metoprolol Tartrate TAB* 25 MG PO SCH ×2 (07:53→21:38)
[2018-05-22] MEDS: Folic Acid TAB* 1 MG PO SCH (07:53)
[2018-05-22] MEDS: Atorvastatin* 20 MG TAB PO SCH (07:54)
--- NOTE | 2018-05-22 13:45 | PN ---
Subjective Date of Service: 05/22/18 Interval History: Patient has no new complaints. He is eating, can walk to bathroom. No further dizziness or chest pain. No blood visible in stool. Family History: Unchanged from Admission Social History: Unchanged from Admission Past Medical History: Unchanged from Admission Objective Active Medications: Acetaminophen (Tylenol Tab*) 650 mg PO Q4H PRN PRN Reason: FEVER/PAIN Al Hydrox/Mg Hydrox/Simethicone (Maalox Plus*) 30 ml PO Q6H PRN PRN Reason: INDIGESTION Aspirin (Aspirin Ec Tab*) 81 mg PO DAILY [facility] Last Admin: 05/22/18 07:53 Dose: 81 mg Atorvastatin Calcium (Lipitor*) 20 mg PO DAILY [facility] Last Admin: 05/22/18 07:54 Dose: 20 mg Cetirizine HCl (Zyrtec*) 10 mg PO DAILY [facility] Last Admin: 05/22/18 07:53 Dose: 10 mg Clopidogrel Bisulfate (Plavix Tab*) 75 mg PO DAILY [facility] Last Admin: 05/22/18 07:53 Dose: 75 mg Ferrous Sulfate (Ferrous Sulfate Tab*) 325 mg PO BID [facility] Last Admin: 05/22/18 07:53 Dose: 325 mg Folic Acid (Folvite Tab*) 1 mg PO DAILY [facility] Last Admin: 05/22/18 07:53 Dose: 1 mg Heparin Sodium (Porcine) (Heparin Vial(*)) 5,000 units SUBCUT Q8HR [facility] Last Admin: 05/22/18 13:09 Dose: 5,000 units Magnesium Hydroxide (Milk Of Magnesia Liq*) 30 ml PO Q4H PRN PRN Reason: CONSTIPATION Metoprolol Tartrate (Lopressor Tab*) 12.5 mg PO BID [facility] Last Admin: 05/22/18 07:53 Dose: 12.5 mg Thiamine HCl (Vitamin B-1 Tab*) 100 mg PO DAILY [facility] Last Admin: 05/22/18 07:53 Dose: 100 mg Vital Signs - 8 hr 05/22/18 05/22/18 07:30 11:25 Temperature 36.7 C 36.4 C Pulse Rate 73 65 Respiratory 16 16 Rate Blood Pressure 135/85 127/78 (mmHg) O2 Sat by Pulse 100 100 Oximetry Oxygen Devices in Use Now: None Appearance: alert, no distress Ears/Nose/Mouth/Throat: Clear Oropharnyx Neck: NL Appearance and Movements; NL JVP Respiratory: Symmetrical Chest Expansion and Respiratory Effort, Clear to Auscultation Cardiovascular: NL Sounds; No Murmurs; No JVD Abdominal: NL Sounds; No Tenderness; No Distention Neurological: Alert and Oriented x 3 Lines/Tubes/Other Access: Clean, Dry and Intact Peripheral IV Nutrition: Taking PO's Result Diagrams: 05/22/18 05:16 05/22/18 05:16 Additional Lab and Data: Laboratory Tests 05/21/18 05/21/18 05/21/18 09:44 12:09 15:27 AST 172 H ALT 97 H Troponin I 0.04 H* 0.04 H* 05/22/18 05:16 AST 122 H ALT 75 H Troponin I Microbiology and Other Data: Microbiology 05/21/18 15:55 Stool Occult Blood (TESFAYE) - Final Stool 05/21/18 11:35 Stool Occult Blood (TESFAYE) - Final Stool Assess/Plan/Problems-Billing Assessment: 67 year old with h/o duodenal bleed causing asystolic arrest, here with dizziness, recurrent GI bleed - Patient Problems (1) GI hemorrhage Current Visit: Yes Status: Acute Priority: High Code(s): K92.2 - GASTROINTESTINAL HEMORRHAGE, UNSPECIFIED SNOMED Code(s): 87064191 Comment: -Hemoglobin has dropped significantly, but not to dangerous level -Unclear whether upper or lower source -Continued alcohol abuse could cause gastritis or ulcer -Will restart PPI, monitor CBC -If HGB drops further, will need repeat EGD tomorrow. (2) Alcohol abuse Current Visit: Yes Status: Acute Priority: Medium Code(s): F10.10 - ALCOHOL ABUSE, UNCOMPLICATED SNOMED Code(s): 69787522 Comment: -Patient denies history of withdrawal -Monitoring for S/S withdrawal, would start WAM if needed (3) Dizziness Current Visit: Yes Status: Acute Priority: Medium Code(s): R42 - DIZZINESS AND GIDDINESS SNOMED Code(s): 037319687 Comment: -Appreciate cardiology note -Dizziness resolved, no further inpatient workup needed- -Can see research and evaluation manager at [facility] as needed. Status and Disposition: likely discharge tomorrow if HGB stable
[2018-05-22] MEDS: Pantoprazole IV* 40 MG IV SCH (14:33)
--- NOTE | 2018-05-22 20:41 | CONS ---
GASTROENTEROLOGY CONSULT: DATE OF CONSULT: 05/22/18 CONSULTING PHYSICIAN: Loc Joiner REASON FOR CONSULT: Heme-positive stool in a man who had acute GI bleed March 2017 with active bleeding in the descending duodenum, controlled by epinephrine and placement of clip. 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 He has been on telemetry and has had a cardiac consult. The etiology of syncope is unclear. There is concern as he does have some dyspepsia from [id number] and he had a GI bleed 14 months ago, which was shortly after vascular bypass surgery while he was on Xarelto. At that time, he bled down to a hemoglobin in the low 2s and had cardiac arrest in the ER. He was amazingly resuscitated and 2 days later when his hemoglobin was in the 7s, underwent upper endoscopy by Dr. Raven Gordon, who injected epinephrine in the duodenum and then applied a clip. She postulated a Dieulafoy lesion as no particular mucosal lesion was identified. Apparently, there was no acute ulcer. He is a difficult historian, as to even the most nondirected question, he would say "sometimes I do." When he was discharged form the hospital in March 2017 , he was sent home on omeprazole 20 mg b.i.d. also aspirin 81 mg, and Plavix 75 along with ferrous sulfate 325 b.i.d. At this admission, he was on all of those except omeprazole was not listed. He says his brought bottles in that completes the medication reconciliation process. He would not share whether he had a prior upper endoscopy. [facility] of his care has been at [facility]. PAST MEDICAL HISTORY: 1. EtOH abuse - with several AMA discharges or major decisions. 2. COPD. 3. Coronary artery disease, status post NC in 2017. 4. Status post axillobifemoral bypass. 5. History of unresponsive episode - never diagnosed with CVA or seizure per my review of the chart. MEDICATIONS: Reviewed. Home medications do not include any gastrointestinal remedies. FAMILY HISTORY: Father of CVA at age 52. Two brothers are passed, one from Alzheimer's and the other dude from an unspecified cancer. SOCIAL HISTORY: He was born in [place]. Lived here at [place] as an adult. 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 He does continue to smoke. Alcohol use was "sometimes." His brother lives in town. REVIEW OF SYSTEMS: No recent vomiting, weight loss, dysphagia, hemoptysis, hepatitis, rectal bleeding. His usual bowel habitus twice a day or three without bleeding. History of chronic skin disease or neurologic disease. No history of TB or hematuria. PHYSICAL EXAM: He is a very slender black male, in no overt distress. HEENT Exam: Shows rather muddy sclerae. Mucous membrane are moist, symmetric. He has no adenopathy. Breath sounds are diminished equivalently. Heart sounds are regular. The abdomen is symmetric with no mass or tenderness. The axillobifemoral graft can be felt crossing across the left side of abdomen and then in the infraumbilical area. Incisions are without hernias in the groins. Popliteal pulses are thready, left little better than the right. Posterior tibial pulses are not present. Rectal: Per hospitalist, did show negative in the first specimen at 11 a.m. and positive on the second specimen at 3 p.m. DIAGNOSTIC STUDIES/LAB DATA: Hemoglobin 11.7 on admission, 20 hours later it was 10.5, MCV 100, platelets 122. LFTs are abnormal with AST 122, ALT 75. Those elevations have been present in roughly those proportions right along. Normal ALTs in 2014 and March 2017. Radiology reports - brain CT 05/21/18 without contrast showed no intracranial abnormality. CTA of chest, abdomen, and pelvis on 03/29/17, showed stable pulmonary nodules and a left subclavian bypass. The liver and pancreas had no focal abnormality. IMPRESSION: This 67-year-old man admitted after an unresponsive episode. He has had a number of these in the past once linked to a duodenal ulcer, so this presentation raises the issue of an early GI bleed. That seems less likely as he has been recently stable with no overt bleeding over 30 hours under direct observation. Nonetheless, he still could have a significant lesion present as he is on aspirin and Plavix and no PPI at a somewhat high-risk situation where he has had bleeding in the past. I did inform him that he should be on acid jesus when he is ASA (which is likely to be permanent), which might be even indefinitely. He should learn the name. My feeling is that decision making has been enhanced by performing an upper endoscopy and that will be arranged. His LFTs are up in a pattern fairly suggestive of alcohol effects especially since quite normal ALTs have been present a couple of times over the last 4 years and that will be less characteristic of hepatitis C or some other drug effect. Corroborating much of the history with his significant other would be helpful. [id number]/[facility] #: [id number] MAKENNA
[2018-05-23 05:10] LABS: ABS Basophils 0 10^3/ul (0-0.2); ABS Eosinophils 0.1 10^3/ul (0-0.6); ABS Lymphocytes 0.9 10^3/ul (1.0-4.8); ABS Monocytes 0.3 10^3/ul (0-0.8); ABS Neutrophils 1.8 10^3/ul (1.5-7.7); ABS Nucleated RBC 0 10^3/ul; Eosinophil % 2.6 %; Hematocrit 31 % (36-46); Hemoglobin 10.1 g/dL (14.0-18.0); Lymphocyte % 30.2 %; Mean Corpuscular HGB Conc 33 g/dL (31-36); Mean Corpuscular Hemoglobin 33 pg (27-31); Mean Corpuscular Volume 100 fL (80-94); Mean Platelet Volume 9.1 fL (7.4-10.4); Nucleated Red Blood Cells % 0.3; Platelet Count 126 10^3/uL (150-450); Red Blood Count 3.04 10^6 /uL (4.18-5.48); Red Cell Distribution Width 16 % (10.5-15); White Blood Count 3.1 10^3/uL (3.5-10.8)
[2018-05-23] MEDS: Heparin VIAL(*) 5000 UNITS/ML VIAL (FIVE THOUSAND) SUBCUT SCH ×3 (05:11→21:13)
--- NOTE | 2018-05-23 11:16 | PN ---
<Ping Fu - Last Filed: 05/23/18 11:07> Subjective Date of Service: 05/23/18 - troponin elevation, ecg changes, syncope Interval History: Patient lying in bed with partner at bedside. Offers no complaints, he is agitated and anxious to leave hospital but is cooperative. He denies chest pain , denies dizziness, palpitations, sensation of heart racing. Medications Active Medications: Acetaminophen (Tylenol Tab*) 650 mg PO Q4H PRN PRN Reason: FEVER/PAIN Al Hydrox/Mg Hydrox/Simethicone (Maalox Plus*) 30 ml PO Q6H PRN PRN Reason: INDIGESTION Aspirin (Aspirin Ec Tab*) 81 mg PO DAILY [facility] Last Admin: 05/22/18 07:53 Dose: 81 mg Atorvastatin Calcium (Lipitor*) 20 mg PO DAILY [facility] Last Admin: 05/22/18 07:54 Dose: 20 mg Cetirizine HCl (Zyrtec*) 10 mg PO DAILY [facility] Last Admin: 05/22/18 07:53 Dose: 10 mg Clopidogrel Bisulfate (Plavix Tab*) 75 mg PO DAILY [facility] Last Admin: 05/22/18 07:53 Dose: 75 mg Ferrous Sulfate (Ferrous Sulfate Tab*) 325 mg PO BID [facility] Last Admin: 05/22/18 21:38 Dose: 325 mg Folic Acid (Folvite Tab*) 1 mg PO DAILY [facility] Last Admin: 05/22/18 07:53 Dose: 1 mg Heparin Sodium (Porcine) (Heparin Vial(*)) 5,000 units SUBCUT Q8HR [facility] Last Admin: 05/23/18 05:11 Dose: 5,000 units Magnesium Hydroxide (Milk Of Magnayde Liq*) 30 ml PO Q4H PRN PRN Reason: CONSTIPATION Metoprolol Tartrate (Lopressor Tab*) 12.5 mg PO BID [facility] Last Admin: 05/22/18 21:38 Dose: 12.5 mg Pantoprazole Sodium (Protonix Iv*) 40 mg IV DAILY [facility] Last Admin: 05/22/18 14:33 Dose: 40 mg Thiamine HCl (Vitamin B-1 Tab*) 100 mg PO DAILY [facility] Last Admin: 05/22/18 07:53 Dose: 100 mg Objective Vital Signs: Temp Pulse Resp BP Pulse Ox 98.4 F 78 18 77/54 100 05/23/18 07:22 05/23/18 10:08 05/23/18 07:22 05/23/18 10:10 05/23/18 07:22 Oxygen Devices in Use Now: None Appearance: nad, pleasant Ears/Nose/Mouth/Throat: Clear Oropharnyx, Mucous Membranes Moist Neck: NL Appearance and Movements; NL JVP, Trachea Midline Respiratory: Symmetrical Chest Expansion and Respiratory Effort, Clear to Auscultation Cardiovascular: RRR, - - rrr, 1/6 systolic murmur Abdominal: NL Sounds; No Tenderness; No Distention Extremities: No Edema Skin: No Rash or Ulcers Neurological: Alert and Oriented x 3 Lines/Tubes/Other Access: Clean, Dry and Intact Peripheral IV Laboratory Results: 05/23/18 04:41 05/22/18 05:16 INR (Anticoag Therapy) 0.94 (0.77-1.02) 05/21/18 09:44 Total Bilirubin 0.70 mg/dL (0.2-1.0) 05/22/18 05:16 Direct Bilirubin 0.30 mg/dL (0.03-0.18) H 05/22/18 05:16 Indirect Bilirubin 0.4 mg/dL (0.3-1.0) 05/22/18 05:16 AST 122 U/L (13-39) H 05/22/18 05:16 ALT 75 U/L (7-52) H 05/22/18 05:16 Alkaline Phosphatase 62 U/L (34-104) 05/22/18 05:16 B-Natriuretic Peptide 117 pg/mL (<=100) H 05/21/18 09:44 Total Protein 7.1 g/dL (6.4-8.9) 05/22/18 05:16 Albumin 3.5 g/dL (3.2-5.2) 05/22/18 05:16 Globulin 3.6 g/dL (2-4) 05/22/18 05:16 Albumin/Globulin Ratio 1.0 (1-3) 05/22/18 05:16 Triglycerides 58 mg/dL 05/22/18 05:16 Cholesterol 127 mg/dL 05/22/18 05:16 LDL Cholesterol 63 mg/dL 05/22/18 05:16 HDL Cholesterol 52.0 mg/dL 05/22/18 05:16 TSH 7.70 mcIU/mL (0.34-5.60) H 05/21/18 09:44 05/21/18 05/21/18 05/21/18 09:44 12:09 15:27 Troponin I 0.04 H* 0.04 H* 0.04 H* Laboratory Results - last 24 hr 05/21/18 05/23/18 12:09 04:41 WBC 3.1 L RBC 3.04 L Hgb 10.1 L Hct 31 L MCV 100 H MCH 33 H MCHC 33 RDW 16 H Plt Count 126 L MPV 9.1 Neut % (Auto) 56.0 Lymph % (Auto) 30.2 [place] % (Auto) 10.1 Eos % (Auto) 2.6 Baso % (Auto) 1.1 Absolute Neuts (auto) 1.8 Absolute Lymphs (auto) 0.9 L Absolute Monos (auto) 0.3 Absolute Eos (auto) 0.1 Absolute Basos (auto) 0 Absolute Nucleated RBC 0 Nucleated RBC % 0.3 Sickle Cell Screen Negative Diagnostic Imaging: Lexiscan stress MPI 04/2017: As per Dr. Pacheco, moderate sized inferior infarct with mild anderson-infarct ischemia Echo 05/21/2018: LVEF 20%, global LV hypokinesis with minor variation 03/2017: LVEF < 20% LVEF 04/2017 LVEF 35% Prior to GIB 03/2017 LVEF from [place] listed as 25% Chest x-ray: Impression: No acute cardiopulmonary disease is noted. Brain CT: Impression: No intracranial pathology. EKG Data: ekg 05/21/2018 shows NSR, incomplete LBBB QRS width ~ 120 ms Compared to prior study from 11/2017, there are new asymmetric repolarization changes in v4-v6 although these were present previously 03/29/2017 ekg EKG 05/22/2018; Sinus rhythm rate 51 with inferior TW depression Assessment/Plan #1 Syncope; Patient states he had a 3-4 day periord of weakness and dizziness worse with position change. 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 He had n/v after. I spoke with Dr. Ferreritic patient's primary rn forensic and the patient was last seen in 2016. He was not even aware of PEA arrest in 2018. Patient had LHC in 2014 due to SHF which revealed 95% mid RCA lesion which was not stented due to urgent nned for mediastinal tumor removal. He had f/u stress test that revealed inferior scar. In 12/2016 suffered from inferior AK and had transient complete HB in the setting of cocaine use. There was no change on MPI in regards to inferior scar per Dr. Sun. QRS was previously 110 on prior ECG with incomplete LBBB. Patient was non compliant with f/u per Dr. Ramos. Given new inferior TW inversion with troponin elevation I suspect patient would benefit from Lexiscan ST to ensure no reversible ischemia. He continues to refuse lifevest. Given non compliance and sub optimized CHF medication regimen I doubt T[employer] would be implanted at this time. This could be evaluated outpatient. #2 h/o CAD; On ASA, statin and Bblocker therapy. Unclear if Plavix is actually for PAD given no h/o cardiac stent and inferior AK in 2017 was medically treated. #3 h/o ICM and NCM with severe LV dysfunction. Per Dr. Ramos LVEF < 30% in 2014 which is what lead to LHC at that time. Patient is compensated on exam. Refuses lifevest. Will change lopressor to Toprol. Unable to uptitrate due to BP , unable to add Aldactone due to BP, unable to start ACEI due to BP. #4 Anemia, GI following. Patient to have EGD. #5 Disposition pending course patient full code. Will speak with Dr. Song. Attending: Xin Song <Xin Song - Last Filed: 05/23/18 14:18> Medications Active Medications: Acetaminophen (Tylenol Tab*) 650 mg PO Q4H PRN PRN Reason: FEVER/PAIN Al Hydrox/Mg Hydrox/Simethicone (Maalox Plus*) 30 ml PO Q6H PRN PRN Reason: INDIGESTION Aspirin (Aspirin Ec Tab*) 81 mg PO DAILY [facility] Last Admin: 05/23/18 12:22 Dose: 81 mg Atorvastatin Calcium (Lipitor*) 20 mg PO DAILY [facility] Last Admin: 05/23/18 12:22 Dose: 20 mg Cetirizine HCl (Zyrtec*) 10 mg PO DAILY [facility] Last Admin: 05/23/18 12:22 Dose: 10 mg Clopidogrel Bisulfate (Plavix Tab*) 75 mg PO DAILY [facility] Last Admin: 05/23/18 12:22 Dose: 75 mg Ferrous Sulfate (Ferrous Sulfate Tab*) 325 mg PO BID [facility] Last Admin: 05/23/18 12:22 Dose: 325 mg Folic Acid (Folvite Tab*) 1 mg PO DAILY [facility] Last Admin: 05/23/18 12:22 Dose: 1 mg Heparin Sodium (Porcine) (Heparin Vial(*)) 5,000 units SUBCUT Q8HR [facility] Last Admin: 05/23/18 12:23 Dose: 5,000 units Magnesium Hydroxide (Milk Of Magnesia Liq*) 30 ml PO Q4H PRN PRN Reason: CONSTIPATION Metoprolol Succinate (Toprol Xl Tab*) 12.5 mg PO DAILY [facility] Pantoprazole Sodium (Protonix Iv*) 40 mg IV DAILY [facility] Last Admin: 05/23/18 12:22 Dose: 40 mg Thiamine HCl (Vitamin B-1 Tab*) 100 mg PO DAILY [facility] Last Admin: 05/23/18 12:22 Dose: 100 mg Objective Vital Signs: Temp Pulse Resp BP Pulse Ox 98.4 F 64 18 136/82 100 05/23/18 11:25 05/23/18 11:25 05/23/18 11:25 05/23/18 11:25 05/23/18 11:25 Laboratory Results: 05/23/18 04:41 05/22/18 05:16 INR (Anticoag Therapy) 0.94 (0.77-1.02) 05/21/18 09:44 Total Bilirubin 0.70 mg/dL (0.2-1.0) 05/22/18 05:16 Direct Bilirubin 0.30 mg/dL (0.03-0.18) H 05/22/18 05:16 Indirect Bilirubin 0.4 mg/dL (0.3-1.0) 05/22/18 05:16 AST 122 U/L (13-39) H 05/22/18 05:16 ALT 75 U/L (7-52) H 05/22/18 05:16 Alkaline Phosphatase 62 U/L (34-104) 05/22/18 05:16 B-Natriuretic Peptide 117 pg/mL (<=100) H 05/21/18 09:44 Total Protein 7.1 g/dL (6.4-8.9) 05/22/18 05:16 Albumin 3.5 g/dL (3.2-5.2) 05/22/18 05:16 Globulin 3.6 g/dL (2-4) 05/22/18 05:16 Albumin/Globulin Ratio 1.0 (1-3) 05/22/18 05:16 Triglycerides 58 mg/dL 05/22/18 05:16 Cholesterol 127 mg/dL 05/22/18 05:16 LDL Cholesterol 63 mg/dL 05/22/18 05:16 HDL Cholesterol 52.0 mg/dL 05/22/18 05:16 TSH 7.70 mcIU/mL (0.34-5.60) H 05/21/18 09:44 05/21/18 05/21/18 05/21/18 09:44 12:09 15:27 Troponin I 0.04 H* 0.04 H* 0.04 H* Assessment/Plan I saw and examined the patient personally. The patient is not interested in a pacer/ICD/device (potential benefit from [employer]/ [employer] or T[employer] WORKER-D device). He was firm. I did discuss an implantable event montitor with him, he is willing to think about this, I will provide him with information. Await stress test in AM, I don't feel lexiscan is safe in the setting of LBBB and recent syncope, risk of CHB therefore dobutamine stress echo planned (some risk of VT with this, but this is more readily treated and reversed than complete heart block). I discussed the importance of compliance with the patient, he states he was unaware he was supposed to meet/f/u with Dr Gomez. Await stress test results prior to additional recommendations.
--- NOTE | 2018-05-23 12:02 | PN ---
Progress Note - Progress Note Date of Service: 05/23/18 Note: Brief Gastroenterology Note Reviewed chart. Spoke with cardiology (Ping Fu). Patient without overt bleeding. Hct stable over past 24 hours. EKG with new TWI. Known significant CAD and heart disease. Plan for stress test tomorrow to evaluate for inducible ischemia. - Will defer EGD while further cardiac work-up is pursued as patient is stable from potential GI standpoint. Stress test scheduled for tomorrow. - Diet per primary team and cardiology - GI will follow along to determine timing of EGD depending on clinical course. Please notify GI if acute clinical change. Erin Hope MD
[2018-05-23] MEDS: Folic Acid TAB* 1 MG PO SCH (12:22)
[2018-05-23] MEDS: Ferrous Sulfate TAB* 325 MG PO SCH ×2 (12:22→21:11)
[2018-05-23] MEDS: Aspirin EC TAB* 81 MG TAB.EC PO SCH (12:22)
[2018-05-23] MEDS: Pantoprazole IV* 40 MG IV SCH (12:22)
[2018-05-23] MEDS: Thiamine TAB* 100 MG TAB PO SCH (12:22)
[2018-05-23] MEDS: Cetirizine* 10 MG TAB PO SCH (12:22)
[2018-05-23] MEDS: Atorvastatin* 20 MG TAB PO SCH (12:22)
[2018-05-23] MEDS: Clopidogrel TAB* 75 MG PO SCH (12:22)
[2018-05-23] MEDS: Metoprolol Tartrate TAB* 25 MG PO SCH (12:25)
--- NOTE | 2018-05-23 16:58 | PN ---
Subjective Date of Service: 05/23/18 Interval History: Patient has no new complaints. Eating OK, no melena. Denies chest pain. Reviewed records from [place]. Patient had complex surgery for PVD in both legs prior to admission here in 03/26 with severe anemia, PEA. His f/u plan for GI bleed was to see Dr. Padgett, but that did not occur. Family History: Unchanged from Admission Social History: Unchanged from Admission Past Medical History: Unchanged from Admission Objective Active Medications: Acetaminophen (Tylenol Tab*) 650 mg PO Q4H PRN PRN Reason: FEVER/PAIN Al Hydrox/Mg Hydrox/Simethicone (Maalox Plus*) 30 ml PO Q6H PRN PRN Reason: INDIGESTION Aspirin (Aspirin Ec Tab*) 81 mg PO DAILY [facility] Last Admin: 05/23/18 12:22 Dose: 81 mg Atorvastatin Calcium (Lipitor*) 20 mg PO DAILY [facility] Last Admin: 05/23/18 12:22 Dose: 20 mg Cetirizine HCl (Zyrtec*) 10 mg PO DAILY [facility] Last Admin: 05/23/18 12:22 Dose: 10 mg Clopidogrel Bisulfate (Plavix Tab*) 75 mg PO DAILY [facility] Last Admin: 05/23/18 12:22 Dose: 75 mg Ferrous Sulfate (Ferrous Sulfate Tab*) 325 mg PO BID [facility] Last Admin: 05/23/18 12:22 Dose: 325 mg Folic Acid (Folvite Tab*) 1 mg PO DAILY [facility] Last Admin: 05/23/18 12:22 Dose: 1 mg Heparin Sodium (Porcine) (Heparin Vial(*)) 5,000 units SUBCUT Q8HR [facility] Last Admin: 05/23/18 12:23 Dose: 5,000 units Magnesium Hydroxide (Milk Of Magnesia Liq*) 30 ml PO Q4H PRN PRN Reason: CONSTIPATION Metoprolol Succinate (Toprol Xl Tab*) 12.5 mg PO DAILY [facility] Pantoprazole Sodium (Protonix Iv*) 40 mg IV DAILY [facility] Last Admin: 05/23/18 12:22 Dose: 40 mg Thiamine HCl (Vitamin B-1 Tab*) 100 mg PO DAILY [facility] Last Admin: 05/23/18 12:22 Dose: 100 mg Vital Signs - 8 hr 05/23/18 05/23/18 05/23/18 10:08 10:09 10:10 Temperature Pulse Rate 78 Respiratory Rate Blood Pressure 115/80 105/79 77/54 (mmHg) O2 Sat by Pulse Oximetry 05/23/18 11:25 Temperature 36.9 C Pulse Rate 64 Respiratory 18 Rate Blood Pressure 136/82 (mmHg) O2 Sat by Pulse 100 Oximetry Oxygen Devices in Use Now: None Appearance: alert, no distress Ears/Nose/Mouth/Throat: NL Teeth, Lips, Gums Neck: NL Appearance and Movements; NL JVP Respiratory: Symmetrical Chest Expansion and Respiratory Effort Cardiovascular: NL Sounds; No Murmurs; No JVD Abdominal: NL Sounds; No Tenderness; No Distention Neurological: Alert and Oriented x 3 Lines/Tubes/Other Access: Clean, Dry and Intact Peripheral IV Result Diagrams: 05/23/18 04:41 05/22/18 05:16 Microbiology and Other Data: Microbiology 05/21/18 15:55 Stool Occult Blood (TESFAYE) - Final Stool 05/21/18 11:35 Stool Occult Blood (TESFAYE) - Final Stool Assess/Plan/Problems-Billing Assessment: 67 year old with h/o duodenal bleed causing asystolic arrest, here with dizziness, recurrent GI bleed, new T-wave inversions on EKG - Patient Problems (1) GI hemorrhage Current Visit: Yes Status: Acute Priority: High Code(s): K92.2 - GASTROINTESTINAL HEMORRHAGE, UNSPECIFIED SNOMED Code(s): 31365705 Comment: -Hemoglobin has stabilized at tolerable level -Unclear whether upper or lower source -Continue IV PPI, monitor CBC -Plan EGD tomorrow after stress test (2) Alcohol abuse Current Visit: Yes Status: Acute Priority: Medium Code(s): F10.10 - ALCOHOL ABUSE, UNCOMPLICATED SNOMED Code(s): 86215532 Comment: -Patient denies history of withdrawal -Monitoring for S/S withdrawal, would start WAM if needed (3) Dizziness Current Visit: Yes Status: Acute Priority: Medium Code(s): R42 - DIZZINESS AND GIDDINESS SNOMED Code(s): 699860870 Comment: -Discussed with Ping and Dr. Song -Plan is for dobutamine stress echo tomorrow, due to high-risk coronary lesion that was not followed up at [facility] due to patient noncompliance (4) PAD (peripheral artery disease) Current Visit: Yes Status: Acute Priority: Medium Code(s): I73.9 - PERIPHERAL VASCULAR DISEASE, UNSPECIFIED SNOMED Code(s): 352872452 Comment: -Symptoms stable -remains on Plavix due to CAD and PAD (5) DVT prophylaxis Current Visit: No Status: Acute Priority: Low Code(s): HDN0872 - SNOMED Code(s): 460280776 Comment: -SC heparin Status and Disposition: likely discharge tomorrow if HGB stable and tests complete
[2018-05-24] MEDS: Heparin VIAL(*) 5000 UNITS/ML VIAL (FIVE THOUSAND) SUBCUT SCH ×2 (05:06→15:40)
[2018-05-24 06:48] LABS: ABS Basophils 0 10^3/ul (0-0.2); ABS Eosinophils 0.1 10^3/ul (0-0.6); ABS Lymphocytes 0.9 10^3/ul (1.0-4.8); ABS Monocytes 0.3 10^3/ul (0-0.8); ABS Neutrophils 1.6 10^3/ul (1.5-7.7); ABS Nucleated RBC 0 10^3/ul; Eosinophil % 3.1 %; Hematocrit 28 % (36-46); Hemoglobin 9.2 g/dL (14.0-18.0); Lymphocyte % 30.3 %; Mean Corpuscular HGB Conc 33 g/dL (31-36); Mean Corpuscular Hemoglobin 33 pg (27-31); Mean Corpuscular Volume 101 fL (80-94); Mean Platelet Volume 9.2 fL (7.4-10.4); Nucleated Red Blood Cells % 0.3; Platelet Count 129 10^3/uL (150-450); Red Blood Count 2.77 10^6 /uL (4.18-5.48); Red Cell Distribution Width 16 % (10.5-15)
[2018-05-24] MEDS ORDERED: Metoprolol Succinate XL TAB* 25 MG PO SCH (09:00)
[2018-05-24] MEDS ORDERED: Metoprolol Tartrate IV* 1 MG/ML 5 ML VIAL ONE (10:12)
[2018-05-24] MEDS ORDERED: DOBUTamine 2000 MCG/ML IVPREMX 500 MG/250 ML BAG IV ONE (10:12)
[2018-05-24] MEDS ORDERED: Atropine SYRINGE* 0.1 MG/ML 10 ML SYRINGE (1 MG) ONE (10:12)
[2018-05-24] MEDS ORDERED: Perflutren Lipid Microsphere* 3 ML VIAL ONE (10:34)
[2018-05-24] MEDS ORDERED: Adenosine* 3 MG/ML VIAL ONE (10:53)
[2018-05-24] MEDS ORDERED: Amiodarone IV VIAL* 0 ML ONE (10:57)
[2018-05-24] MEDS ORDERED: Amiodarone 150 MG IVPREMIX* 0 MG/0 ML BAG IV ONE (10:59)
[2018-05-24] MEDS ORDERED: NS 0.9% 500 ML* 500 ML IV ONE (11:43)
[2018-05-24] MEDS: Thiamine TAB* 100 MG TAB PO SCH (12:00)
[2018-05-24] MEDS: Pantoprazole IV* 40 MG IV SCH (12:00)
[2018-05-24] MEDS: Cetirizine* 10 MG TAB PO SCH (12:00)
[2018-05-24] MEDS: Aspirin EC TAB* 81 MG TAB.EC PO SCH (12:00)
[2018-05-24] MEDS: Ferrous Sulfate TAB* 325 MG PO SCH (12:01)
[2018-05-24] MEDS: Clopidogrel TAB* 75 MG PO SCH (12:01)
[2018-05-24] MEDS: Folic Acid TAB* 1 MG PO SCH (12:01)
[2018-05-24] MEDS: Atorvastatin* 20 MG TAB PO SCH (12:01)
[2018-05-24] MEDS ORDERED: Midazolam* 1 MG/ML 10 ML VIAL (10 MG) ONE (13:25)
[2018-05-24] MEDS ORDERED: fentaNYL* 50 MCG/ML 2 ML VIAL (100 MCG VIAL) ONE (13:25)
--- NOTE | 2018-05-24 14:36 | PN ---
Progress Note - Progress Note Date of Service: 05/24/18 Note: GI Brief EGD Note E- No varices, 2-3cm hiatal hernia G- gastritis, bx for LIZBETH D-normal No fresh or old blood on entire exam rec: outpatient colonoscopy f/u Dr. Padgett. Plt count down to 129, raises concern for cirrhosis. Needs outpatient liver workup Dr. Padgett Needs to D/C etoh entirely! PPI daily advance diet Ok for d/c from GI POV Romario Landers DO 05/24/18 1053
[2018-05-24 15:20] VITALS: BP 117/70
[2018-05-24] MEDS ORDERED: PEG 3000 GI LAVAGE* 1 GALLON PO ONE (16:00)
--- NOTE | 2018-05-24 21:50 | PRO ---
CC: Dr. Niraj Ly * ESOPHAGOGASTRODUODENOSCOPY REPORT: DATE OF PROCEDURE: 05/24/18 - ROOM #[id number] PRIMARY CARE PHYSICIAN: Dr. Niraj Ly. INDICATION FOR PROCEDURE: Iron-deficiency anemia, melena. PROCEDURE PERFORMED: Complete esophagogastroduodenoscopy with biopsies. MEDICATIONS GIVEN: Include 12 mg IV midazolam, 50 mcg IV fentanyl. DESCRIPTION OF PROCEDURE: After the EGD procedure including the risks, benefits , and alternatives, with the risks not limited to perforation, surgery, missed lesions, and/or were explained to the patient, written informed consent was obtained. IV medication was given and a bite block was placed between the teeth. The adult Olympus gastroscope was then inserted into the patient's oropharynx. There were no varices seen in the esophagus. The scope was advanced through the esophagus. There was a 2 to 3 cm hiatal hernia at the junction. The scope was advanced through this area into the stomach. There was mild antral predominant gastritis, this was biopsied. On retroflexion, the aforementioned hiatal hernia was visualized. The scope was then advanced through a widely patent pylorus into the duodenal bulb, C-loop, and distal duodenum and I pushed it deep into the small bowel as I could get. There were no evidence of any arteriovenous malformations. There was no fresh or old blood that was visualized on the entire exam. The scope was then removed from the patient. He tolerated the procedure well. He returned to the recovery room in stable condition. IMPRESSION: 1. Complete esophagogastroduodenoscopy with biopsies. 2. A 2 to 3 cm hiatal hernia. 3. No varices. 4. Bowel gastritis, biopsied. RECOMMENDATIONS: No etiology of the patient's iron deficiency was identified today. Discussed with Dr. Joiner, the patient's hospitalist, he has dropped 2 grams overall since admission, states his stool has been black. We will recommend inpatient colonoscopy given noncompliance with followup in the past. We will plan for full preparation tonight and proceed with inpatient colonoscopy on 05/25/18. This will be done with Anesthesia given his relatively poor intolerance to moderate sedation today during the EGD. [id number]/[facility] #: [id number] [facility]
--- NOTE | 2018-05-24 23:38 | DS ---
CC: Dr. Sun; Dr. Ly at [place] * DISCHARGE SUMMARY: DATE OF ADMISSION: 05/21/18. DATE OF DISCHARGE: 05/24/18. PRIMARY DIAGNOSIS: 1. GI hemorrhage from an intestine or colon source. 2. History of mediastinal tumor resected at [place]. SECONDARY DIAGNOSES: 1. Coronary artery disease. 2. Peripheral vascular disease. 3. Alcohol abuse. 4. Chronic obstructive pulmonary disease. 5. History of PEA arrest secondary to anemia with hemoglobin of 2 in March 2017. 6. Mixed ischemic and non-ischemic cardiomyopathy MEDICATIONS ON DISCHARGE: 1. Aspirin 81 mg p.o. daily. 2. Atorvastatin 20 mg p.o. q.h.s. 3. Ferrous sulfate 325 mg p.o. b.i.d. 4. Loratadine 10 mg p.o. daily p.r.n. 5. Thiamine 100 mg p.o. daily. 6. Acetaminophen 650 mg p.o. q.4 hours p.r.n. pain. 7. Maalox as needed. 8. Folic acid 1 mg p.o. daily. 9. Toprol-XL 12.5 mg p.o. daily. HOSPITAL COURSE: A 67-year-old man with the history of duodenal ulcer and Dieulafoy lesion diagnosed in March of last year, presented with presyncope and dizziness, it was similar symptomatology to the previous event that led to the PEA arrest. The patient was admitted to the hospital for suspected GI bleed and known coronary disease. His initial hemoglobin was 35, 31 on the day after admission, and fell to 28 on the day of discharge. He had black stools and guaiac positive stools. No hematemesis. During the hospital stay, his vital signs remained stable when at rest. He had no syncope, although he did have orthostatic hypotension and tachycardia. He on admission had a troponin of 0.04 that was repeated 3 times with the same result. He was seen in consultation by Dr. Pacheco of Cardiology, who reviewed a stress test from a year ago that showed a moderate anderson-infarct ischemia and an echocardiogram with ejection fraction of 20%. There were new asymmetric repolarization changes in V4 through V6, which were also found to be new on EKG. Further discussion was had between Cardiology and Dr. Sun at [facility] where the patient sees generally for Cardiology and there was a known untreated 95% mid RCA lesion on previous cardiac catheterization. This further information led to a dobutamine stress echo that was completed on the day of discharge, which showed the inferior infarct and hypokinesis generally, which augmented somewhat with dobutamine. Dr. Pacheco advised the patient was stable from a cardiac point of view and should see his primary specialty plant supervisor as an outpatient. He also advised that the patient was safe to have an endoscopy for a possible upper GI bleed. The endoscopy was also completed on the day of discharge and did not show any gastric or duodenal ulcers or Dieulafoy lesions. On the day of discharge after these 2 procedures, the patient became agitated and adamant about leaving the hospital against medical advice. The patient was able to vocalize that he knew he could be bleeding internally further and that he should stay in the hospital, have a blood transfusion and have a colonoscopy tomorrow. He accepted the risk of bleeding, readmission or , and I felt he was competent to make this decision despite it being a poor decision. The patient was discharged after signing AMA papers and receiving his medication instructions. DISPOSITION: To home. He is currently staying in a homeless half-way. ACTIVITY: Should be as tolerated. DIET: Would be low salt, low fat. HOSPITAL STATUS: His status during this hospital stay was inpatient. CONDITION: Guarded. FOLLOWUP: He should follow up with primary care within 1 week and should be seen by his specialty plant supervisor within 2 weeks. He should also have outpatient colonoscopy arranged with a search engine optimization manager in [place] or in [place]. [id number]/[facility] #: [id number] [facility]
== END 2018-05-24 17:28 | disposition left against medical advice (07) | DRG 378 ==
LOC: ED 09:26 → MEDTELE 11:45 → OBSVTOIN 05-23 16:00
PROVIDERS: ADMIT Internal Medicine; ATTEND Internal Medicine
PROC: 0DB68ZX Excision of Stomach, Via Natural or Artificial Opening Endoscopic, Diagnostic (ICD-10-PCS; principal; 2018-05-24)
PROC: 4A02XM4 Measurement of Cardiac Total Activity, External Approach (ICD-10-PCS; 2018-05-24)
DX: K92.1 Melena (principal); I42.8 Other cardiomyopathies; K29.71 Gastritis, unspecified, with bleeding; I25.10 Atherosclerotic heart disease of native coronary artery without angina pectoris; I10 Essential (primary) hypertension; I73.9 Peripheral vascular disease, unspecified; E78.5 Hyperlipidemia, unspecified; K21.9 Gastro-esophageal reflux disease without esophagitis; M41.9 Scoliosis, unspecified; F90.9 Attention-deficit hyperactivity disorder, unspecified type; F17.210 Nicotine dependence, cigarettes, uncomplicated; R40.2362 Coma scale, best motor response, obeys commands, at arrival to emergency department; R40.2142 Coma scale, eyes open, spontaneous, at arrival to emergency department; R40.2252 Coma scale, best verbal response, oriented, at arrival to emergency department; I44.7 Left bundle-branch block, unspecified; J44.9 Chronic obstructive pulmonary disease, unspecified; D53.9 Nutritional anemia, unspecified; F10.10 Alcohol abuse, uncomplicated; Y90.9 Presence of alcohol in blood, level not specified; R79.89 Other specified abnormal findings of blood chemistry; I25.5 Ischemic cardiomyopathy; R74.8 Abnormal levels of other serum enzymes; D50.9 Iron deficiency anemia, unspecified; R91.8 Other nonspecific abnormal finding of lung field; K44.9 Diaphragmatic hernia without obstruction or gangrene; Z82.49 Family history of ischemic heart disease and other diseases of the circulatory system; Z82.0 Family history of epilepsy and other diseases of the nervous system; Z82.3 Family history of stroke; Z82.5 Family history of asthma and other chronic lower respiratory diseases; Z88.8 Allergy status to other drugs, medicaments and biological substances; I25.2 Old myocardial infarction; Z86.74 Personal history of sudden cardiac arrest; Z91.19 Patient's noncompliance with other medical treatment and regimen; Z80.9 Family history of malignant neoplasm, unspecified; Z79.82 Long term (current) use of aspirin; Z87.11 Personal history of peptic ulcer disease
CPT/HCPCS: 36415; 70450; 71045; 80053; 80061; 81003; 82248; 82270; 82272; 82550; 82607; 82746; 83036; 83605; 83735; 83880; 84443; 84484; 85025; 85610; 85660; 87077; 93005; 93306; 93351; 99156; 99157; 99285; A9270-GY; C8929; G0378; J0153; J0282; J0461; J1250; J1644; J2250; J3010; J3475; J3490

== ENCOUNTER 2018-09-13 10:04 | Emergency (ER) | payer MEDICARE, MEDICAID ==
--- NOTE | 2018-09-13 10:17 | ED ---
HPI Chest Pain - HPI Summary HPI Summary: This pt is a 67 Y/O M brought in by EMS to [facility] accompanied by his and for left anterior CP that is rated a 10/10 in severity. He states that he has had nausea and his CP is reproducible with palpation. He states that the pain on palpation is usual after he had a CABG. The pain that he is complaining about radiates into his L shoulder. The pain is also radiated into his back and extends into his heart. He stated that he gets dizzy described as room spinning when changing position. He states that he has been having chills. He denies any SOB, abdominal pain, N/V, headaches, and fevers. He has no alleviating symptoms but stated that palpation aggravates his symptoms. He has a PMHx of CAD, previous NH, hypertension, and peripheral vascular disease. - History of Current Complaint Time Seen by Provider: 09/13/18 10:06 Hx Obtained From: Patient Onset/Duration: Started Minutes Ago, Still Present Timing: Constant Initial Severity: Severe Current Severity: Severe Pain Intensity: 10 Pain Scale Used: 0-10 Numeric Chest Pain Location: Left Anterior Chest Pain Radiates: Yes Chest Pain Radiates To:: Back - Left, Shoulder - Left Aggravating Factor(s): Position, Other: - palpation Alleviating Factor(s): Nothing Associated Signs and Symptoms: Positive: Chest Pain - left anterior, Dizziness, Chills, Back Pain - radiated pain. Negative: Headaches, Shortness of Breath, Fever, Nausea, Cough, Abdominal Pain, Vomiting - Additional Pertinent History Primary Care Physician: [id number] - Allergy/Home Medications Allergies/Adverse Reactions: Allergies Allergy/AdvReac Type Severity Reaction Status Date / Time No Known Allergies Allergy Verified 09/13/18 11:17 Home Medications: Home Medications Clopidogrel TAB* [Plavix TAB*] 75 mg PO DAILY 09/13/18 [History Confirmed ] PMH/Surg Hx/FS Hx/Imm Hx Previously Healthy: No Endocrine/Hematology History: Reports: Hx Anticoagulant Therapy, Hx Blood Transfusions, Hx Anemia Denies: Hx Diabetes Cardiovascular History: Reports: Hx Angina, Hx Cardiac Arrest, Hx Coronary Artery Disease, Hx Hypercholesterolemia, Hx Hypertension, Hx Myocardial Infarction, Hx Peripheral Vascular Disease, Other Cardiovascular Problems/ Disorders - EF <20%, HLD. PVD Denies: Hx Congestive Heart Failure Respiratory History: Denies: Hx Asthma, Hx Chronic Obstructive Pulmonary Disease (COPD) GI History: Reports: Hx Gastroesophageal Reflux Disease, Other GI Disorders - DUODENAL ULCER History: Reports: Other Problems/Disorders - DONTRELL Denies: Hx Chronic Renal Failure, Hx Renal Disease Musculoskeletal History: Reports: Hx Scoliosis Denies: Hx Arthritis, Hx Osteoporosis Sensory History: Denies: Hx Cataracts, Hx Contacts or Glasses, Hx Hearing Aid Opthamlomology History: Denies: Hx Cataracts, Hx Contacts or Glasses Neurological History: Denies: Hx Headaches, Hx Seizures, Hx Transient Ischemic Attacks (TIA) Psychiatric History: Reports: Hx Attention Deficit Hyperactivity Disorder, Hx Substance Abuse - ETOH, Other Psychiatric Issues/Disorders - ETOH Denies: Hx Eating Disorder, Hx of Violent Episodes Against Others - Surgical History Surgery Procedure, Year, and Place: carpal tunnel left and right wrist 2000. tonsillectomy 1999. ILIAC ARTERY OCCLUSION AND AXILLARY FEM BYPASS 03-15-17 Hx Anesthesia Reactions: No - Immunization History Date of Tetanus Vaccine: UNKNOWN Infectious Disease History: No Infectious Disease History: Denies: Traveled Outside the [place] in Last 30 Days - Family History Known Family History: Positive: Cardiac Disease, Respiratory Disease - Asthma, Other - Cancer - Social History Occupation: Retired Lives: At [facility] Alcohol Use: Occasionally Alcohol Amount: 4beer Hx Substance Use: Yes Substance Use Type: Reports: Cocaine Substance Use Comment - Amount & Last Used: 03/09/17 Hx Tobacco Use: Yes Smoking Status (MU): Heavy Every Day Tobacco Smoker Type: Cigarettes Have You Smoked in the Last Year: Yes Review of Systems Positive: Chills. Negative: Fever Positive: Chest Pain - Left anterior Negative: Shortness Of Breath Negative: Abdominal Pain, Vomiting, Nausea Positive: Myalgia - Left shoulder and Left upper back pain Negative: Headache All Other Systems Reviewed And Are Negative: Yes Physical Exam - Summary Physical Exam Summary: GENERAL: Patient is a well-developed and nourished M who is lying comfortable in the stretcher. Patient is not in any acute respiratory distress. HEAD AND FACE: Normocephalic EYES: PERRLA, EOMI x 2. EARS: Hearing grossly intact. MOUTH: Oropharynx within normal limits. NECK: Supple, trachea is midline, no adenopathy, no JVD, no carotid bruit. CHEST: Symmetric, Tender to palpation to the L anterior chest and L upper back area LUNGS: Clear to auscultation bilaterally. No wheezing or crackles. CVS: Regular rate and rhythm, S1 and S2 present, no murmurs or gallops appreciated. ABDOMEN: Soft, non-tender. Bowel sounds are normal. No abnormal abdominal pulsations. EXTREMITIES: Full ROM in all major joints, no edema, no cyanosis or clubbing. NEURO: Alert and oriented x 3. No acute neurological deficits. Speech is normal and follows commands. SKIN: Dry and warm GCS: 15 Triage Information Reviewed: Yes Vital Signs On Initial Exam: Initial Vitals Temp Pulse Resp BP Pulse Ox 97.4 F 80 16 140/84 99 09/13/18 10:11 09/13/18 10:11 09/13/18 10:11 09/13/18 10:11 09/13/18 10:11 Vital Signs Reviewed: Yes Diagnostics - Vital Signs Vital Signs Temp Pulse Resp BP Pulse Ox 09/13/18 10:11 97.4 F 80 16 140/84 99 - Laboratory Result Diagrams: 09/13/18 10:16 09/13/18 10:16 Lab Statement: Any lab studies that have been ordered have been reviewed, and results considered in the medical decision making process. - Radiology CXR Radiology Interpretation Completed By: Radiologist Summary of Radiographic Findings: 1. NO ACUTE CARDIOPULMONARY PROCESS BY RADIOGRAPH. 2. THE KNOWN GROUNDGLASS PULMONARY NODULES ARE BETTER CHARACTERIZED BY RECENT CHEST CT. ED Physician has reviewed this report. - CT Brain CT CT Interpretation Completed By: Radiologist Summary of CT Findings: 1. No acute intracranial abnormality (MRI is more sensitive for acute infarct). 2. 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 This pattern can be seen in the setting of critical stenosis of the carotid system. If not already performed, a head and neck CTA could be considered. ED physician has reviewed this report. Chest/Pelvis/Abdomen CT> CT Interpretation Completed By: Radiologist Summary of CT Findings: 1. NO EVIDENCE FOR PULMONARY EMBOLISM OR AORTIC DISSECTION. 2. ECTASIA OF THE ASCENDING THORACIC AND ABDOMINAL AORTA. THERE IS OCCLUSION OF THE DISTAL ABDOMINAL AORTA AND COMMON ILIAC ARTERIES WHICH APPEARS SIMILAR TO THE PRIOR EXAM. THERE IS A PATENT LEFT SUBCLAVIAN TO BILATERAL COMMON FEMORAL ARTERY BY PASS GRAFT. 3. SMALL PULMONARY NODULES, UNCHANGED. IF THE PATIENT HAS A SMOKING HISTORY RECOMMEND A FOLLOW-UP CT OF THE CHEST IN ONE YEAS TIME. ED physician has reviewed this report. - EKG 1002 Cardiac Rate: NL - 65 BPM EKG Rhythm: Sinus Rhythm EKG Comparison: No Significant Change - From previous EKGs taken on 05/22/18 and 05/25/18. Summary of EKG Findings: EKG at 1002 reveals normal sinus rhythm 65 BPM, LBBB, inverted T waves in inferior and lateral leads, consistent with previous EKGS. No STEMI. No acute changes. Interpreted by Dr. Weber at 1011 09/12/18. Chest Pain Course/Dx - Course Course Of Treatment: This pt is a 67 Y/O M brought in by EMS to [facility] accompanied by his and for left anterior CP that is rated a 10/10 in severity. He states that he has had nausea and his CP is reproducible with palpation. His PE found that he has tenderness to palpation of his L anterior chest and his L upper back. His EKG at 1002 reveals normal sinus rhythm 65 BPM , LBBB, inverted T waves in inferior and lateral leads, consistent with previous EKGS. No STEMI. No acute changes. His CXR shows the following results : 1. NO ACUTE CARDIOPULMONARY PROCESS BY RADIOGRAPH. 2. THE KNOWN GROUNDGLASS PULMONARY NODULES ARE BETTER CHARACTERIZED BY RECENT CHEST CT. CT Brain shows, per radiologist: 1. No acute intracranial abnormality (MRI is more sensitive for acute infarct). 2. 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 This pattern can be seen in the setting of critical stenosis of the carotid system. If not already performed, a head and neck CTA could be considered. Labs show no significant abnormalities except for WBC 2.7, RBC 3.00, Hgb 9.4, Hct 29, MCV 96, absolute neuts 1.3, D-dimer 488, sodium 134, glucose 101, AST 165, ALT 95, troponin 0.05 , B-natriuretic peptide 311. Chest/Pelvis/Abdomen CT shows, per radiologist: 1. NO EVIDENCE FOR PULMONARY EMBOLISM OR AORTIC DISSECTION. 2. ECTASIA OF THE ASCENDING THORACIC AND ABDOMINAL AORTA. THERE IS OCCLUSION OF THE DISTAL ABDOMINAL AORTA AND COMMON ILIAC ARTERIES WHICH APPEARS SIMILAR TO THE PRIOR EXAM. THERE IS A PATENT LEFT SUBCLAVIAN TO BILATERAL COMMON FEMORAL ARTERY BY PASS GRAFT. 3. SMALL PULMONARY NODULES, UNCHANGED. IF THE PATIENT HAS A SMOKING HISTORY RECOMMEND A FOLLOW-UP CT OF THE CHEST IN ONE YEAS TIME. In ED course, patient was given 1 L normal saline IV fluids. Patient has ECTASIA OF THE ASCENDING THORACIC AND ABDOMINAL AORTA which looks similiar compared to previous CT. I discussed results with patient in great details and recommended admission based on lab results and CT scans. However, patient is adamant on not saying in the hospital and he wants to sign out against medical advice. Patient is awake, alert, oriented, and seemed capable of making informed decisions, and able to verbalize risk of adverse outcomes including disabilities and/or and so he was allowed to sign out against medical advice. Patient's spouse is at bedside and she is also agreeable to signing out against medical advice. Patient was given copies of his CT reports and strict return precautions. Patient will follow up with Dr. Webster, vascular surgery. - Diagnoses Provider Diagnoses: Chest pain, Aortic ectasia, thoracoabdominal Discharge - Sign-Out/Discharge Documenting (check all that apply): Patient Departure - AMA Patient Received Moderate/Deep Sedation with Procedure: No - Discharge Plan Condition: Good Disposition: AGAINST MEDICAL ADVICE Patient Education Materials: Chest Pain (ED), Nonruptured Abdominal Aortic Aneurysm (DC) Referrals: Eleanor SCHULER,Alvarado Godwin [Medical Doctor] - 1 Day Additional Instructions: You were given copies of your CT Brain and your CTA Chest/Pelvis Abdomen. Please bring these copies to your follow-up appointment. Follow up with Dr. Webster, vascular surgery, in 1 day. Return to the Emergency Department for new or worsening symptoms. - Billing Disposition and Condition Condition: GOOD Disposition: Against Medical Advice - Attestation Statements Document Initiated by Roula: Yes Documenting Scribe: Moy Melgar Provider For Whom Roula is Documenting (Include Credential): Jaime Weber MD Scribe Attestation: Moy Membreno, scribed for Jaime Weber MD on 09/15/18 at 0759. Scribe Documentation Reviewed: Yes Provider Attestation: The documentation as recorded by the Moy arreguin accurately reflects the service I personally performed and the decisions made by me, Jaime Weber MD Status of Scribe Document: Viewed
[2018-09-13 10:30] LABS: ABS Monocytes 0.4 10^3/ul (0-0.8); ABS Neutrophils 1.3 10^3/ul (1.5-7.7); Eosinophil % 1.7 %; Hematocrit 29 % (42-52); Hemoglobin 9.4 g/dL (14.0-18.0); Lymphocyte % 37.2 %; Mean Corpuscular HGB Conc 33 g/dL (31-36); Mean Corpuscular Hemoglobin 31 pg (27-31); Mean Corpuscular Volume 96 fL (80-94); Mean Platelet Volume 7.8 fL (7.4-10.4); Nucleated Red Blood Cells % 0.2; Platelet Count 202 10^3/uL (150-450); Red Cell Distribution Width 14 % (10-15); White Blood Count 2.7 10^3/uL (3.5-10.8)
[2018-09-13 10:33] LABS: Activated Partial Thrombo Time 31.4 seconds (26.0-38.0); INR 0.92 (0.82-1.09)
[2018-09-13 10:44] LABS: ALT 95 U/L (7-52); AST 165 U/L (13-39); Albumin 4.1 g/dL (3.2-5.2); Albumin/Globulin Ratio 1.1 (1-3); Alkaline Phosphatase 56 U/L (34-104); Anion Gap 8 mmol/L (2-11); BUN/Creatinine Ratio 11.1 (8-20); Blood Urea Nitrogen 10 mg/dL (6-24); CO2 Carbon Dioxide 24 mmol/L (22-32); Calcium 9.2 mg/dL (8.6-10.3); Chloride 102 mmol/L (101-111); EGFR African American 102.5 (>60); EGFR Non-African American 84.7 (>60); Globulin 3.7 g/dL (2-4); Glucose 101 mg/dL (70-100); Sodium 134 mmol/L (135-145); Total Protein 7.8 g/dL (6.4-8.9)
[2018-09-13 10:51] LABS: Troponin I 0.05 ng/mL (<0.04)
[2018-09-13] MEDS ORDERED: NS 0.9% 1000 ML** 1,000 ML IV ONE (11:01)
[2018-09-13] MEDS ORDERED: Iodixanol* (CONTRAST) 320 MG/ML 100 ML SDV IV ONE (11:26)
[2018-09-13 13:21] VITALS: BP 133/78
[2018-09-13 13:58] LABS: Troponin I 0.04 ng/mL (<0.04)
== END 2018-09-13 13:29 | disposition left against medical advice (07) ==
LOC: ED 10:04
DX: R07.9 Chest pain, unspecified (principal); I77.812 Thoracoabdominal aortic ectasia; R91.8 Other nonspecific abnormal finding of lung field; I25.119 Atherosclerotic heart disease of native coronary artery with unspecified angina pectoris; I25.2 Old myocardial infarction; I10 Essential (primary) hypertension; I73.9 Peripheral vascular disease, unspecified; E78.00 Pure hypercholesterolemia, unspecified; F17.210 Nicotine dependence, cigarettes, uncomplicated; K21.9 Gastro-esophageal reflux disease without esophagitis; Z79.01 Long term (current) use of anticoagulants; Z95.1 Presence of aortocoronary bypass graft
CPT/HCPCS: 36415; 70450; 71045; 71275; 74174; 80053; 83880; 84484; 85025; 85379; 85610; 85730; 93005; 96360; 96361; 99283; Q9967

== ENCOUNTER 2019-01-11 14:55 | Emergency (ER) | payer MEDICARE, MEDICAID ==
--- NOTE | 2019-01-11 15:51 | ED ---
HPI Chest Pain - HPI Summary HPI Summary: This pt is a 68 y/o male, accompanied by partner, presenting to [facility] via EMS c/ o left sided chest/ribs pain for the past few days. Partner reports for the last week pt has been very weak and has had frequent falls. Per partner, after recent fall pt has been c/o pain on the left side of his chest/ribs. Pt saw his PCP today for medication refill and a routine check up and mentioned he had chest pain. Pt had an EKG done and was referred to the ED for further work up. Denies SOB, nausea, vomiting. PMHx: ghx of ETOH abuse, COPD, CAD and OK in 2017, PEA arrest secondary to anemia, PVD. Pt notes he has a vascular tube that starts on the left side of his chest and goes down his left leg (this was placed in [place]). - History of Current Complaint Chief Complaint: EDChestPainROMI Time Seen by Provider: 01/11/19 15:03 Hx Obtained From: Patient Onset/Duration: Started Days Ago, Still Present Timing: Lasting Days Current Severity: Mild Pain Intensity: 3 Pain Scale Used: 0-10 Numeric Chest Pain Location: Left Anterior Chest Pain Radiates: No Character: Dull/Aching - aching Aggravating Factor(s): Nothing Alleviating Factor(s): Nothing Associated Signs and Symptoms: Positive: Chest Pain, Weakness - generalized. Negative: Shortness of Breath, Fever, Chills, Nausea, Vomiting - Additional Pertinent History Primary Care Physician: [id number] - Allergy/Home Medications Allergies/Adverse Reactions: Allergies Allergy/AdvReac Type Severity Reaction Status Date / Time No Known Allergies Allergy Verified 01/11/19 15:13 Home Medications: Home Medications Aspirin EC TAB* [Ecotrin EC Low Dose 81 MG*] 81 mg PO DAILY 01/11/19 [History Confirmed 01/11/19] Cyclobenzaprine TAB* [Flexeril 10 MG TAB*] 10 mg PO BEDTIME 01/11/19 [History Confirmed 01/11/19] Docusate CAP* [Colace Cap*] 100 mg PO BID 01/11/19 [History Confirmed 01/11/19] Hydrocodone/Acetaminophen [Hydrocodone-Acetamin 5-325 mg] 1 each PO Q6H PRN MDD 4 tabs 01/11/19 [History Confirmed 01/11/19] Omeprazole CAP (NF) [Prilosec CAP* 20 MG] 20 mg PO BID 01/11/19 [History Confirmed 01/11/19] Thiamine Mononitrate (Vit B1) [Vitamin B-1] 100 mg PO DAILY 01/11/19 [History Confirmed 01/11/19] PMH/Surg Hx/FS Hx/Imm Hx Endocrine/Hematology History: Reports: Hx Anticoagulant Therapy, Hx Blood Transfusions, Hx Anemia Denies: Hx Diabetes Cardiovascular History: Reports: Hx Angina, Hx Cardiac Arrest, Hx Coronary Artery Disease, Hx Hypercholesterolemia, Hx Hypertension, Hx Myocardial Infarction, Hx Peripheral Vascular Disease, Other Cardiovascular Problems/ Disorders - EF <20%, HLD. PVD Denies: Hx Congestive Heart Failure Respiratory History: Denies: Hx Asthma, Hx Chronic Obstructive Pulmonary Disease (COPD) GI History: Reports: Hx Gastroesophageal Reflux Disease, Other GI Disorders - DUODENAL ULCER History: Reports: Other Problems/Disorders - DONTRELL Denies: Hx Chronic Renal Failure, Hx Renal Disease Musculoskeletal History: Reports: Hx Scoliosis Denies: Hx Arthritis, Hx Osteoporosis Sensory History: Denies: Hx Cataracts, Hx Contacts or Glasses, Hx Hearing Aid Opthamlomology History: Denies: Hx Cataracts, Hx Contacts or Glasses Neurological History: Denies: Hx Headaches, Hx Seizures, Hx Transient Ischemic Attacks (TIA) Psychiatric History: Reports: Hx Attention Deficit Hyperactivity Disorder, Hx Substance Abuse - ETOH, Other Psychiatric Issues/Disorders - ETOH Denies: Hx Eating Disorder, Hx of Violent Episodes Against Others - Surgical History Surgical History: Yes Surgery Procedure, Year, and Place: carpal tunnel left and right wrist 2000. tonsillectomy 1999. ILIAC ARTERY OCCLUSION AND AXILLARY FEM BYPASS 03-15-17 Hx Anesthesia Reactions: No - Immunization History Date of Tetanus Vaccine: UNKNOWN Infectious Disease History: No Infectious Disease History: Denies: Traveled Outside the [place] in Last 30 Days - Family History Known Family History: Positive: Cardiac Disease, Respiratory Disease - Asthma, Other - Cancer - Social History Alcohol Use: Daily Alcohol Amount: 2-3 Hx Substance Use: Yes Substance Use Type: Reports: None Substance Use Comment - Amount & Last Used: 03/09/17 Hx Tobacco Use: Yes Smoking Status (MU): Light Every Day Tobacco Smoker Type: Cigarettes Have You Smoked in the Last Year: Yes Review of Systems Negative: Fever Positive: Chest Pain Negative: Shortness Of Breath Negative: Vomiting, Nausea Positive: Weakness - generalized All Other Systems Reviewed And Are Negative: Yes Physical Exam - Summary Physical Exam Summary: GENERAL: Patient is an elderly and fragile male who is lying comfortable in the stretcher. Patient is not in any acute respiratory distress. HEAD AND FACE: No signs of trauma. No ecchymosis, hematomas or skull depressions. No sinus tenderness. EYES: PERRLA, EOMI x 2, No injected conjunctiva, no nystagmus. EARS: Hearing grossly intact. Ear canals and tympanic membranes are within normal limits. MOUTH: Oropharynx within normal limits. NECK: Supple, trachea is midline, no adenopathy, no JVD, no carotid bruit, no c- spine tenderness, neck with full ROM. CHEST: Symmetric, tenderness to palpation on the left side of the chest. There' s a tube on the left side of the chest. LUNGS: Clear to auscultation bilaterally. No wheezing or crackles. CVS: Regular rate and rhythm, S1 and S2 present, no murmurs or gallops appreciated. ABDOMEN: Soft, non-tender. No signs of distention. No rebound no guarding, and no masses palpated. Bowel sounds are normal. EXTREMITIES: FROM in all major joints, no edema, no cyanosis or clubbing. NEURO: Alert and oriented x 3. No acute neurological deficits. Speech is normal and follows commands. SKIN: Dry and warm Triage Information Reviewed: Yes Vital Signs On Initial Exam: Initial Vitals Temp Pulse Resp BP Pulse Ox 99.4 F 59 18 130/88 100 01/11/19 15:03 01/11/19 15:03 01/11/19 15:03 01/11/19 15:03 01/11/19 15:03 Vital Signs Reviewed: Yes Procedures - Sedation Patient Received Moderate/Deep Sedation with Procedure: No Diagnostics - Vital Signs Vital Signs Temp Pulse Resp BP Pulse Ox 01/11/19 15:03 99.4 F 59 18 130/88 100 - Laboratory Result Diagrams: 01/11/19 16:29 01/11/19 16:29 Lab Statement: Any lab studies that have been ordered have been reviewed, and results considered in the medical decision making process. - Radiology Ribs with chest XR Radiology Interpretation Completed By: Radiologist Summary of Radiographic Findings: IMPRESSION: #. Negative for LEFT rib fracture. #. No evidence for acute intrathoracic disease. Dr. Pillai has reviewed this report. - EKG 1504 Cardiac Rate: Bradycardia - at 57 bpm EKG Rhythm: Sinus Bradycardia Summary of EKG Findings: EKG at 1504 shows sinus bradycardia at a rate of [address] elevations. Chest Pain Course/Dx - Course Assessment/Plan: This pt is a 68 y/o male, accompanied by partner, presenting to [facility] via EMS c/o left sided chest/ribs pain for the past few days. Partner reports for the last week pt has been very weak and has had frequent falls. Per partner, after recent fall pt has been c/o pain on the left side of his chest/ ribs. Pt saw his PCP today for medication refill and a routine check up and mentioned he had chest pain. Pt had an EKG done and was referred to the ED for further work up. Denies SOB, nausea, vomiting. PMHx: ghx of ETOH abuse, COPD, CAD and OK in 2017, PEA arrest secondary to anemia, PVD. Pt notes he has a vascular tube that starts on the left side of his chest and goes down his left leg (this was placed in [place]). Blood work without any significant abnormalities except for WBC is 1.9, red blood cells 2.59, hemoglobin 8.4, hematocrit 26, and platelet is 107. AST of 203, ALT 101, troponin 0.04 and BNP 150. Chest x-ray and Left-sided rib cage x-ray impression: Negative for left wrist fracture. No evidence of acute intrathoracic disease. The patient has reproducible chest pain on the left side of the chest. The patient was given [place] for the pain and the pain significantly improved. Second troponin is 0.04. Since the troponins have not increased and the pain is reproducible only on the left side of the rib cage, the patient will be discharged home with follow-up from primary care physician. He was instructed to return to the emergency room if any of the symptoms return or worsen. The patient understands and agrees. - Chest Pain Differential Diagnosis/HQI/PQRI: Acute OK, ACS, Angina, CHF, Chest Wall, GI Disease, Lower Respiratory Infection, Pulmonary Edema - Diagnoses Provider Diagnoses: Rib pain Discharge ED - Sign-Out/Discharge Documenting (check all that apply): Patient Departure - Discharge home - Discharge Plan Condition: Stable Disposition: HOME Prescriptions: HYDROcodone/ACETAMIN 5-325 MG* [[place] 5-325 TAB*] 1 tab PO Q6H PRN #10 tab MDD 4 PRN Reason: Pain - Moderate Patient Education Materials: Chest Wall Pain (ED) Referrals: Niraj Ly MD [Primary Care Provider] - Additional Instructions: FOLLOW UP WITH YOUR PRIMARY CARE PROVIDER IN 2-3 DAYS. RETURN TO THE EMERGENCY DEPARTMENT FOR ANY WORSENING OR NEW SYMPTOMS. - Billing Disposition and Condition Condition: STABLE Disposition: Home - Attestation Statements Document Initiated by Roula: Yes Documenting Scribe: Tara Diaz Provider For Whom Roula is Documenting (Include Credential): Juan R Pillai MD Scribe Attestation: Tara Membreno scribed for Juan R Pillai MD on 01/13/19 at 1846. Scribe Documentation Reviewed: Yes Provider Attestation: The documentation as recorded by the Tara arreguin accurately reflects the service I personally performed and the decisions made by me, Juan R Pillai MD Status of Scribe Document: Viewed
--- OUTSIDE RECORDS SUMMARY | 2019-01-11 16:31 | XMS REPORT | Summary of Care ---
:1950 Author Organization [facility] Address [address] [place] [address] Care Team Providers Name Role Phone AliyahNiraj Tacho Primary Care Provider Jason Weaver OD Primary Tmd Teacher/Exhibitions And Collections Manager Lawrence Zhang MD Secondary Tmd Teacher/Exhibitions And Collections Manager Unavailable Reason for Visit Reason Comments Medication Check Pharmacy needs a provider visit to refill prescriptions. Encounter Details Date Type Department Care Team Description 01/11/2019 Office Visit [facility] Xiang Talbert, Dizziness and giddiness (Primary Dx); Medicine PA S/P vascular bypass; [address] [place] [address] [place] [address] [phone] Allergies No Known Allergiesdocumented as of this encounter (statuses as of 01/11/2019) Medications Medication Sig Dispensed Refills Start Date End Date Status Aspirin (ASPIRIN LOW Take 1 Tab by 30 Tab 6 05/24/2016 Active DOSE) 81 MG Oral Tab mouth DAILY. HYDROcodone-acetaminophen Take 1 Tab by 10 Tab 0 03/23/2017 Active (NORCO) 5-325 MG Oral Tab mouth EVERY SIX HOURS NEEDED (pain). Max Daily Amount: 4 Tabs. cyclobenzaprine Take 1 Tab by 30 Tab 11 08/17/2017 Active (FLEXERIL) 10 MG Oral mouth EVERY TabIndications: PVD BEDTIME. (peripheral vascular disease) ([facility]) docusate sodium (COLACE) Take 1 Cap by 60 Cap 11 08/17/2017 Active 100 MG Oral mouth TWICE CapIndications: PVD DAILY. (peripheral vascular disease) ([facility]) Omeprazole delayed rel Take 20 mg by 30 Cap 0 08/17/2017 Active cap 20 MG Oral CAPSULE mouth TWICE DELAYED DAILY. RELEASEIndications: PVD (peripheral vascular disease) ([facility]) Thiamine Mononitrate (RA Take 1 Tab by 30 Tab 11 08/17/2017 Active VITAMIN B-1) 100 MG Oral mouth DAILY. TabIndications: PVD (peripheral vascular disease) ([facility]) metoprolol (LOPRESSOR) 25 take 1/2 tablet 60 Tab 5 09/25/2017 Active MG Oral TabIndications: by mouth twice PVD (peripheral vascular a day disease) ([facility]) ferrous sulfate 325 (65 take 1 tablet 60 Tab 5 03/26/2018 Active Fe) MG Oral by mouth twice TabIndications: PVD a day (peripheral vascular disease) ([facility]) atorvastatin (LIPITOR) 20 Take 1 Tab by 90 Tab 3 05/01/2018 Active MG Oral TabIndications: mouth DAILY. PVD (peripheral vascular disease) ([facility]) Thiamine HCl (B-1) 100 MG Take 1 Tab by 30 Tab 11 09/14/2018 Active Oral Tab mouth DAILY. foliC acid 1 MG Oral TAKE 1 TABLET 30 Tab 0 10/18/2018 Active TabIndications: PVD BY MOUTH ONCE (peripheral vascular DAILY disease) ([facility]) loratadine TAKE 1 TABLET 30 Tab 0 11/06/2018 Active (CLARITIN,ALAVERT) 10 MG BY MOUTH ONCE Oral TabIndications: DAILY Urticaria, PVD (peripheral vascular disease) ([facility]) clopidogrel (PLAVIX) 75 TAKE 1 TABLET 90 Tab 0 12/10/2018 Active MG Oral TabIndications: BY MOUTH ONCE PVD (peripheral vascular DAILY. disease) ([facility]), S/P vascular bypass documented as of this encounter (statuses as of 01/11/2019) Active Problems Problem Noted Date Alcoholism 03/06/2018 Chronic systolic CHF (congestive heart failure) 03/06/2018 Bleeding ulcer 04/24/2017 Overview: [facility] admission april 2017 Dr Peter Dayronaron Keys 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 History of cocaine abuse 11/22/2014 CAD (coronary artery disease) 03/18/2014 LV dysfunction 01/27/2014 Atherosclerosis of leg with intermittent claudication 12/30/2013 Chronic hepatitis C 08/30/2013 Overview: Risk factor cocaine use Bilateral claudication of lower limb 08/29/2013 Essential hypertension, benign 08/29/2013 Carpal tunnel syndrome 05/20/2011 Overview: S/p surgery [address] Vasquez Knee osteoarthritis 05/20/2011 Tobacco use disorder 05/20/2011 Overview: 08/2013 5-7 cigarette per day Began age 49 documented as of this encounter (statuses as of 01/11/2019) Resolved Problems Problem Noted Date Resolved Date CAD (coronary artery disease) 12/30/2013 01/27/2014 Pain of left calf 08/15/2013 08/29/2013 Knee pain, left 08/15/2013 08/29/2013 documented as of this encounter (statuses as of 01/11/2019) Immunizations Name Administration Dates Next Due Influenza (IM) Preservative Free 03/20/2015, 12/21/2012 Influenza Vaccine High Dose 01/26/2017 PNEUMOCOCCAL POLYSACCHARIDE VACCINE 01/26/2017 Pneumococcal Conjugate(13 Valent) 05/06/2014 documented as of this encounter Social History Tobacco Use Types Packs/Day Years Used Date Current Some Day Smoker Cigarettes 25 Smokeless Tobacco: Former User Alcohol Use Drinks/Week oz/Week Comments Yes 14 Cans of beer 14.0 beer Sex Assigned at Date Recorded Not on file Job Start Date Occupation Industry Not on file Not on file Not on file Travel History Travel Start Travel End No recent travel history available. documented as of this encounter Last Filed Vital Signs Vital Sign Reading Time Taken Comments Blood Pressure 142/84 01/11/2019 2:13 PM EST Pulse 71 01/11/2019 2:13 PM EST Temperature 36.7 01/11/2019 1:48 PM EST C (98.1 F) Respiratory Rate - - Oxygen Saturation 99% 01/11/2019 2:13 PM EST Inhaled Oxygen Concentration - - Weight 62.1 kg (137 lb) 01/11/2019 1:48 PM EST Height 180.3 cm (5' 11") 01/11/2019 1:48 PM EST Body Mass Index 19.11 01/11/2019 1:48 PM EST documented in this encounter Progress Notes Xiang Talbert, [place] - 01/11/2019 2:00 PM EST PATIENT: Bulmaro Ga Jr. : 1950 DATE OF SERVICE: 01/11/2019 Subjective SUBJECTIVE: Bulmaro Ga Jr originally scheduled this visit to the office for medication reconciliation, however when I entered the door the patient appeared ill and was complaining of dizziness and chest pressure. Bulmaro Ga Jr. is a 68-y.o. male with chest pressure and dizziness. Onset was 5 minutes ago, with worsening course since that time. The patient admits to chest discomfort that is constant. Radiation to: none Rated as a scale of severe in intensity that is pressure in nature. Associated symptoms are chest pressure/discomfort, palpitations, near-syncope. Aggravating factors are: no specific factors. Alleviating factors are: nothing specific. Patient's cardiac risk factors are: Hypertension and is status post coronary artery bypass graft. Patient Active Problem List Diagnosis Date Noted Alcoholism ([facility]) 03/06/2018 Chronic systolic CHF (congestive heart failure) ([facility]) 03/06/2018 Bleeding ulcer 04/24/2017 [facility] admission ap[address] 2017 [address] [facility] PVD (peripheral vascular disease) ([facility]) 03/15/2017 Syncope and collapse 01/01/2017 Pseudophakia of both eyes 01/04/2016 Combined forms of age-related cataract of both eyes 10/22/2015 Glaucoma suspect of both eyes 10/22/2015 Pterygium eye 10/22/2015 Centrilobular emphysema (HCC) 03/20/2015 Iliac artery occlusion ([facility]) 12/17/2014 History of cocaine abuse ([facility]) 11/22/2014 CAD (coronary artery disease) 03/18/2014 LV dysfunction 01/27/2014 Atherosclerosis of leg with intermittent claudication ([facility]) 12/30/2013 Chronic hepatitis C ([facility]) 08/30/2013 Risk factor cocaine use Bilateral claudication of lower limb ([facility]) 08/29/2013 Essential hypertension, benign 08/29/2013 Carpal tunnel syndrome 05/20/2011 S/p surgery [address] Vasquez Knee osteoarthritis 05/20/2011 Tobacco use disorder 05/20/201108/2013 5-7 cigarette per day Began age 49 Past Medical History: Diagnosis Date Back pain Fibromyalgia GERD (gastroesophageal reflux disease) High cholesterol Hypertension PVD (peripheral vascular disease) ([facility]) Past Surgical History: Procedure Laterality Date CARPAL TUNNEL RELEASE Bilateral CATHETERIZATION HEART LEFT N/A 03/18/2014 Procedure: CATHETERIZATION HEART LEFT; Surgeon: Shaquille Huerta MD; Location: [facility] CCL PHACOEMULSIFICATION WITH INTRA OCULAR LENS Right 12/21/2015 Procedure: PHACOEMULSIFICATION WITH INTRA OCULAR LENS; Surgeon: Lawrence Zhang MD; Location:[facility] OR [place] REMV CATARACT EXTRACAP,INSERT LENS N/A 02/03/2016 Procedure: PHACOEMULSIFICATION WITH INTRA OCULAR LENS; Surgeon: Lawrence Zhang MD; Location:[facility] TONSILLECTOMY Prior to Admission medications Medication Sig Aspirin (ASPIRIN LOW DOSE) 81 MG Oral Tab Take 1 Tab by mouth DAILY. atorvastatin (LIPITOR) 20 MG Oral Tab Take 1 Tab by mouth DAILY. clopidogrel (PLAVIX) 75 MG Oral Tab TAKE 1 TABLET BY MOUTH ONCE DAILY. cyclobenzaprine (FLEXERIL) 10 MG Oral Tab Take 1 Tab by mouth EVERY BEDTIME. docusate sodium (COLACE) 100 MG Oral Cap Take 1 Cap by mouth TWICE DAILY. ferrous sulfate 325 (65 Fe) MG Oral Tab take 1 tablet by mouth twice a day foliC acid 1 MG Oral Tab TAKE 1 TABLET BY MOUTH ONCE DAILY HYDROcodone-acetaminophen (NORCO) 5-325 MG Oral Tab Take 1 Tab by mouth EVERY SIX HOURS NEEDED (pain). Max Daily Amount: 4 Tabs. loratadine (CLARITIN,ALAVERT) 10 MG Oral Tab TAKE 1 TABLET BY MOUTH ONCE DAILY metoprolol (LOPRESSOR) 25 MG Oral Tab take 1/2 tablet by mouth twice a day Omeprazole delayed rel cap 20 MG Oral CAPSULE DELAYED RELEASE Take 20 mg by mouth TWICE DAILY. Thiamine HCl (B-1) 100 MG Oral Tab Take 1 Tab by mouth DAILY. Thiamine Mononitrate (RA VITAMIN B-1) 100 MG Oral Tab Take 1 Tab by mouth DAILY. No Known Allergies Social History Tobacco Use Smoking status: Current Some Day Smoker Years: 25.00 Types: Cigarettes Smokeless tobacco: Former User Substance Use Topics Alcohol use: Yes Alcohol/week: 14.0 standard drinks Types: 14 Cans of beer per week Comment: beer Family History Problem Relation Age of Onset Cancer Mother Heart Disease Father Asthma Brother REVIEW OF SYSTEMS: Review of Systems Constitutional: Positive for chills and malaise/fatigue. Negative for diaphoresis and fever. Respiratory: Negative for cough, sputum production and shortness of breath. Cardiovascular: Negative for chest pain, palpitations and orthopnea. Complains of chest pressure and light-headedness when he arrived to the office. Gastrointestinal: Negative for heartburn, nausea and vomiting. Musculoskeletal: Complaining of bilateral rib pain. Spouse states that he had fallen at home in the bathroom without hitting his head. Neurological: Positive for dizziness and tremors. Objective OBJECTIVE: BP 142/84 (BP Location: Left arm, Patient Position: Sitting) | Pulse 71 | Temp 98.1 F (36.7 C) (Tympanic) | Ht 5' 11" (1.803 m) | Wt 137 lb ( 62.1 kg) | SpO2 99% | BMI 19.11 kg/m GENERAL: fatigued, distracted, severe distress, pale. LUNG: clear to auscultation bilaterally. HEART: regular rate and rhythm, S1, S2 normal, no murmur, click, rub or gallop ABDOMEN: soft, non-tender. Bowel sounds normal. No masses, no organomegaly. EXTREMITIES: no edema, redness or tenderness in the calves or thighs. SKIN: Warm and dry. No hyperpigmentation, vitiligo, or suspicious lesions and flushed. ELECTROCARDIOGRAM: Non specific changes on the ECG as a result of some patient noncompliance. Potential ST depression at leads V2-V5. ASSESSMENT: Chest pain, suspected etiology: coronary artery atherosclerotic heart disease ICD-9-CM ICD-10-CM 1. Dizziness and giddiness 780.4 R42 AMBULATORY 12 LEAD EKG (GLOBAL) 2. S/P vascular bypass V45.89 Z95.828 3. Chest pressure 786.59 R07.89 AMBULATORY 12 LEAD EKG (GLOBAL) Plan PLAN: 1. EKG ordered in house to to observe for STEMI/NSTEMI 2. Ambulance called to [facility] for transport to [facility] emergency room. Verbal report presented by Joan Real LPN to emergency room staff. Patient transported by ALS rig at [facility], and transfer of care was given with a thorough report. Patient was safely transported off hospital grounds without complications. Author: [place] Vu 01/11/2019 14:40 documented in this encounter Plan of Treatment Date Type Specialty Care Team Description 01/15/2019 Ancillary Procedure Radiology 01/15/2019 Office Visit Vascular Surgery Yogesh Mims MD [address] [place] [id number] 01/15/2019 Ancillary Procedure Radiology Name Type Priority Associated Diagnoses Order Schedule AMBULATORY 12 LEAD EKG EKG Routine Dizziness and giddiness Ordered: 01/11/2019 (GLOBAL) Chest pressure Health Maintenance Due Date Last Done Comments MEDICARE ANNUAL WELLNESS 1950 VISIT Colonoscopy 2002 ZOSTER IMMUNIZATION SERIES 2002 (1 of 2) INFLUENZA VACCINE (#1) 2018 01/26/2017, 03/20/2015, 12/21/2012 LIPID DISORDER SCREENING 05/02/2019 05/01/2018, 04/18/2014, 08/29/2013 DEPRESSION SCREENING 01/12/2020 01/11/2019 FALL RISK ASSESSMENT 01/12/2020 01/11/2019, 01/11/2019 PNEUMOCOCCAL 65+YRS (2 of 2 01/26/2022 01/26/2017, 05/06/2014 - PPSV23) AAA SCREENING/SURVEILLANCE Completed 03/06/2018, 04/18/2017, 03/10/2017, Additional history exists HPV IMMUNIZATION SERIES Aged Out No longer eligible based on patient's age to complete this topic MENINGOCOCCAL VACCINE IMM Aged Out No longer eligible based on patient's age to complete this topic documented as of this encounter Goals Goal Patient Goal Associated Recent Patient-Stated? Author Type Problems Progress Blood Pressure Blood Pressure Essential 142/84 No Belcher, < 140/90 hypertension, (01/11/2019 Niraj Titus, benign 2:13 PM EST) Note: Hypertension Care Plan Based on the patient's clinical history and according to JNC 8 guidelines target blood pressure goal is less than 140/90. Based on the patient's last blood pressure of BP: (!) 158/98 mmHg the patient is at above goal. As your provider, it is important that I advise you regarding: your current medications and help you with any challenges you may face taking your medications as directed (ex. instructions, cost, side effects, and interactions). Important lifestyle changes: exercise, weight reduction and smoking cessation your clinical goals and how you can achieve success: weight reduction, exercise plan and diet improvements medication management: adjusted medications as appropriate patient education/self-management tools provided: Yes To successfully manage my Hypertension I will: monitor my blood pressure daily, understanding that my goal is less than 140/ 90 per my healthcare provider's recommendation. I will schedule an appointment with my provider if consistent abnormal readings greater than 160/100. take medications every day as prescribed by my healthcare provider and if unable to take them I will discuss with my provider. monitor for symptoms of chest pain, chest tightness/pressure, irregular heartbeat, persistent dizziness, radiating arm pain, and neck or jaw pain. If any of these symptoms are noticed I will seek medical attention immediately by calling 911 exercise/walk 30 minutes 7 day(s) per week. If I experience chest pain, chest tightness, or shortness of breath, I will seek medical attention immediately. follow a diet rich in fruits, vegetables, and low-fat dairy products with reduced content of saturated & total fat. I will reduce my sodium intake daily. An example is the DASH diet. To obtain more information please refer to the DASH Eating Plan listed in Educational Resources. record my blood pressure results. Elizabeth is safe and secure way for you to do this in your medical record online. try to obtain an ideal body weight. My recent weight was Weight: 146 lb ( 66.225 kg). My weight loss goal for my next office visit is 145. limit alcohol consumption. For men two drinks per day and women one drink per day. if currently smoking, will discuss how to quit smoking with my healthcare provider and work towards quitting. Educational Resources: National Heart, Lung, & Blood [place] http://nhlbi.nih.gov/hbp/index.html The DASH Diet Eating Plan http://www.nhlbi.nih.gov/health/health-topics/ topics/dash/ Academy of Nutrition & DIetetics http://eatright.org National Smoking Cessation Site http://smokefree.gov Blood Pressure < Blood Pressure 142/84 (01/11/2019 Tamica Mathis RN 150/90 2:13 PM EST) Note: This is an individualized treatment (blood pressure) goal for Bulmaro Ga: Displayed above (on the left) is your goal for blood pressure control. Your most recent blood pressure is also shown above, on the right. You should try to achieve blood pressures that are lower than your goal listed above (on the left). Weight increase vs. 18 mo CHF 0 (01/11/2019 1:48 PM EST) No Chel Hoang RN min (lbs) < 5 Note: This is an individualized treatment (congestive heart failure, CHF) goal for Bulmaro Ga Jr.: Displayed above (on the right) is how many pounds you are in excess of your lowest weight over the past 18 months. Note that lower numbers are better. Excessive weight gain often indicates fluid reten tion and worsening heart failure. You should contact your doctor immediately if the above number is too high (above your goal, the number on the left). Smoking Cessation COPD No Tamica Hoang RN Note: This is an individualized treatment (COPD) goal for Bulmaro Ga: Quit smoking immediately! Your provider has information and resources that may help you to quit. Keep immunizations current Lifestyle No Tamica Hoang RN Note: This is an individualized lifestyle goal for Bulmaro Ga: Please be sure to keep up-to-date on recommended immunizations. For example, this would include a yearly influenza vaccine. Immunization status can be seen by looking at the Health Maintenance sections of your e[facility], Plan of Care, and any After Visit Summaries. Consume a [id number] diet Lifestyle No Tamica Hoang RN Note: This is an individualized lifestyle goal for Bulmaro Ga Jr.: Please do not add additional salt to your food. Additional salt may lead to fluid retention and worsen your congestive heart failure. Take all prescribed medications as Self-management No Tamica Hoang RN directed Note: This is an individualized self-management goal for Bulmaro Ga: Please take all prescribed medications as directed. 1. Do not skip doses. If you cannot afford your medications, talk with your doctor. 2. Use a pill reminder system such as a pill box if needed. Your pharmacist can help you with this. 3. Contact your Pharmacy 5 days before your medication runs out. If you cannot take your medications for any reasons, talk with your doctor. 4. Please bring all of your medication bottles and inhalers (or a list of all your medications/inhalers) with you to every visit. Potential barriers to meeting all of your care plan goals will continue to be addressed on an ongoing basis. Check your weight daily Self-management Tamica Mathis RN Note: This is an individualized self-management goal for Bulmaro Ga Jr.: Please check your weight daily. Refer to the accompanying CHF treatment goal and call your doctor immediately for further instructions on how to respond to unexpected weight gain. documented as of this encounter Implants Implanted Type Area Vp Public Relations Device Shelf Model / Serial Identifier Expiration / Lot Date Iol, [id number] 21.0 Diopter - [id number] Right: STORZ [id number] / Implanted: Qty: 1 on 12/21/2015 by Lawrence Zhang MD at [facility] [id number] / Iol, [id number] 21.5 Diopter - [id number] N/A: Eye STORZ [id number] / Implanted: Qty: 1 on 02/03/2016 by Lawrence Zhang MD at [facility] [id number] / Axillo Bifem 8 X 40 Graft - [id number] [employer] 12/12/2020 [id number] / Implanted: Qty: 1 on 03/15/2017 by Yogesh Mims MD at [facility] / [id number] Description:LEFT axillary artery to LEFT femoral artery to RIGHT femoral artery. documented as of this encounter Results Not on filedocumented in this encounter Visit Diagnoses Diagnosis Dizziness and giddiness - Primary S/P vascular bypass Chest pressure Other chest pain documented in this encounter Insurance Payer Benefit Plan / Subscriber ID Effective Dates Phone Address Type Group MEDICARE MEDICARE PART A xxxxxxxxxxx 2017-Present Medicare & B MEDICAID [facility] xxxxxxxx 2016-Present Medicaid [place] MED[place]ID documented as of this encounter
[2019-01-11 16:35] LABS: ABS Lymphocytes 0.5 10^3/ul (1.0-4.8); ABS Monocytes 0.2 10^3/ul (0-0.8); ABS Neutrophils 1.1 10^3/ul (1.5-7.7); Hematocrit 26 % (42-52); Hemoglobin 8.4 g/dL (14.0-18.0); Lymphocyte % 28.3 %; Mean Corpuscular HGB Conc 32 g/dL (31-36); Mean Corpuscular Hemoglobin 32 pg (27-31); Mean Corpuscular Volume 100 fL (80-94); Mean Platelet Volume 7.8 fL (7.4-10.4); Nucleated Red Blood Cells % 1.8; Platelet Count 107 10^3/uL (150-450); Red Blood Count 2.59 10^6 /uL (4.18-5.48); Red Cell Distribution Width 14 % (10-15); White Blood Count 1.9 10^3/uL (3.5-10.8)
[2019-01-11 16:45] LABS: Activated Partial Thrombo Time 33.8 seconds (26.0-38.0); INR 1.01 (0.82-1.09)
[2019-01-11 16:56] LABS: ALT 101 U/L (7-52); AST 203 U/L (13-39); Albumin 3.6 g/dL (3.2-5.2); Alkaline Phosphatase 55 U/L (34-104); Anion Gap 6 mmol/L (2-11); BUN/Creatinine Ratio 9.4 (8-20); Blood Urea Nitrogen 9 mg/dL (6-24); CO2 Carbon Dioxide 27 mmol/L (22-32); Calcium 8.9 mg/dL (8.6-10.3); Chloride 107 mmol/L (101-111); Creatine Kinase 160 U/L (10-223); EGFR African American 94.8 (>60); EGFR Non-African American 78.4 (>60); Globulin 3.6 g/dL (2-4); Glucose 92 mg/dL (70-100); Sodium 140 mmol/L (135-145); Total Protein 7.2 g/dL (6.4-8.9)
[2019-01-11 16:59] LABS: CKMB ng/mL 2.5 ng/mL (0.6-6.3)
[2019-01-11 17:02] LABS: Troponin I 0.04 ng/mL (<0.03)
[2019-01-11] MEDS ORDERED: HYDROcodone/ACETAMIN 5-325 MG* 1 TAB PO ONE (17:10)
[2019-01-11 17:34] LABS: TSH (Thyroid Stimulating Horm) 1.94 mcIU/mL (0.34-5.60)
[2019-01-11 18:38] LABS: Troponin I 0.04 ng/mL (<0.03)
[2019-01-11 18:45] VITALS: BP 121/69
== END 2019-01-11 18:51 | disposition home or self-care (01) ==
LOC: ED 14:55
DX: R07.81 Pleurodynia (principal); J44.9 Chronic obstructive pulmonary disease, unspecified; I25.10 Atherosclerotic heart disease of native coronary artery without angina pectoris; I25.2 Old myocardial infarction; E78.00 Pure hypercholesterolemia, unspecified; K21.9 Gastro-esophageal reflux disease without esophagitis; F90.9 Attention-deficit hyperactivity disorder, unspecified type; F17.210 Nicotine dependence, cigarettes, uncomplicated; Z86.74 Personal history of sudden cardiac arrest; Z79.82 Long term (current) use of aspirin; Z79.899 Other long term (current) drug therapy
CPT/HCPCS: 36415; 80053; 82550; 82553; 83605; 83735; 83880; 84443; 84484; 85025; 85610; 85730; 93005; 99284

== ENCOUNTER 2019-01-16 11:06 | Inpatient (IN) | payer MEDICARE, MEDICAID ==
[2019-01-16 15:14] LABS: ABS Basophils 0.1 10^3/ul (0-0.2); ABS Lymphocytes 0.5 10^3/ul (1.0-4.8); ABS Monocytes 0.3 10^3/ul (0-0.8); ABS Neutrophils 1.3 10^3/ul (1.5-7.7); Eosinophil % 1.5 %; Hematocrit 22 % (42-52); Hemoglobin 7.2 g/dL (14.0-18.0); Lymphocyte % 24.1 %; Mean Corpuscular HGB Conc 32 g/dL (31-36); Mean Corpuscular Hemoglobin 33 pg (27-31); Mean Corpuscular Volume 101 fL (80-94); Mean Platelet Volume 8.4 fL (7.4-10.4); Nucleated Red Blood Cells % 0.6; Platelet Count 134 10^3/uL (150-450); Red Blood Count 2.22 10^6 /uL (4.18-5.48); Red Cell Distribution Width 15 % (10-15); White Blood Count 2.2 10^3/uL (3.5-10.8)
[2019-01-16 15:29] LABS: ALT 108 U/L (7-52); AST 203 U/L (13-39); Albumin 3.6 g/dL (3.2-5.2); Albumin/Globulin Ratio 1.1 (1-3); Alkaline Phosphatase 55 U/L (34-104); Anion Gap 4 mmol/L (2-11); BUN/Creatinine Ratio 7.9 (8-20); Blood Urea Nitrogen 7 mg/dL (6-24); CO2 Carbon Dioxide 26 mmol/L (22-32); Calcium 8.5 mg/dL (8.6-10.3); Chloride 108 mmol/L (101-111); EGFR African American 103.5 (>60); EGFR Non-African American 85.5 (>60); Globulin 3.3 g/dL (2-4); Glucose 89 mg/dL (70-100); Potassium 3.6 mmol/L (3.5-5.0); Sodium 138 mmol/L (135-145); Total Protein 6.9 g/dL (6.4-8.9)
[2019-01-16] MEDS ORDERED: NS 0.9% 1000 ML** 1,000 ML IV ONE (15:38)
--- NOTE | 2019-01-16 15:44 | ED ---
Complex/Multi-Sys Presentation - HPI Summary HPI Summary: 68-year-old male with a significant past medical history of coronary artery disease, peripheral vascular disease, alcohol abuse, COPD, cardiac arrest secondary to severe hypovolemic anemia, Ischemic and nonischemic myopathy presents to the emergency department today complaining of feeling lightheaded and dizzy for 2 weeks. He was recently admitted to this facility January 11, 2019 where he was given a blood transfusion due to a hemoglobin of 8.4. Patient states she's noticed his stool has been darker than usual the last few weeks however he is not in any blood. Patient denies physical pain and feels well otherwise. Patient denies fever, chest pain, abdominal pain or shortness of breath, pain and urination. - History Of Current Complaint Chief Complaint: EDGeneral Time Seen by Provider: 01/16/19 15:25 Hx Obtained From: Patient Onset/Duration: Gradual Onset, Lasting Weeks Timing: Constant Severity Currently: Mild Severity Initially: Mild Associated Signs And Symptoms: Positive: Dizziness, Weakness, Melena. Negative : Syncope, Headache, Chest Pain, Palpitations, Nausea, Vomiting, Diarrhea, Abdominal Pain, Back Pain, Fever, Anticoagulation Therapy - Allergies/Home Medications Allergies/Adverse Reactions: Allergies Allergy/AdvReac Type Severity Reaction Status Date / Time No Known Allergies Allergy Verified 01/16/19 11:11 Home Medications: Home Medications Metoprolol Succinate XL TAB* [Toprol XL TAB*] 12.5 mg PO BID 01/16/19 [History Confirmed 01/16/19] Thiamine TAB* [Vitamin B-1 TAB*] 100 mg PO DAILY 01/16/19 [History Confirmed 12/25] PMH/Surg Hx/FS Hx/Imm Hx Endocrine/Hematology History: Reports: Hx Anticoagulant Therapy, Hx Blood Transfusions, Hx Anemia Denies: Hx Diabetes Cardiovascular History: Reports: Hx Angina, Hx Cardiac Arrest, Hx Coronary Artery Disease, Hx Hypercholesterolemia, Hx Hypertension, Hx Myocardial Infarction, Hx Peripheral Vascular Disease, Other Cardiovascular Problems/ Disorders - EF <20%, HLD. PVD Denies: Hx Congestive Heart Failure Respiratory History: Denies: Hx Asthma, Hx Chronic Obstructive Pulmonary Disease (COPD) GI History: Reports: Hx Gastroesophageal Reflux Disease, Other GI Disorders - DUODENAL ULCER History: Reports: Other Problems/Disorders - DONTRELL Denies: Hx Chronic Renal Failure, Hx Renal Disease Musculoskeletal History: Reports: Hx Scoliosis Denies: Hx Arthritis, Hx Osteoporosis Sensory History: Denies: Hx Cataracts, Hx Contacts or Glasses, Hx Hearing Aid Opthamlomology History: Denies: Hx Cataracts, Hx Contacts or Glasses Neurological History: Denies: Hx Headaches, Hx Seizures, Hx Transient Ischemic Attacks (TIA) Psychiatric History: Reports: Hx Attention Deficit Hyperactivity Disorder, Hx Substance Abuse - ETOH, Other Psychiatric Issues/Disorders - ETOH Denies: Hx Eating Disorder, Hx of Violent Episodes Against Others - Surgical History Surgery Procedure, Year, and Place: carpal tunnel left and right wrist 2000. tonsillectomy 1999. ILIAC ARTERY OCCLUSION AND AXILLARY FEM BYPASS 03-15-17 Hx Anesthesia Reactions: No - Immunization History Date of Tetanus Vaccine: UNKNOWN Infectious Disease History: No Infectious Disease History: Denies: Traveled Outside the [place] in Last 30 Days - Family History Known Family History: Positive: Cardiac Disease, Respiratory Disease - Asthma, Other - Cancer - Social History Alcohol Use: Occasionally Alcohol Amount: 2-3 Hx Substance Use: Yes Substance Use Type: Reports: None Substance Use Comment - Amount & Last Used: 03/09/17 Hx Tobacco Use: Yes Smoking Status (MU): Current Some Day Smoker Type: Cigarettes Have You Smoked in the Last Year: Yes Review of Systems Constitutional: Negative Eyes: Negative ENT: Negative Cardiovascular: Negative Respiratory: Negative Gastrointestinal: Negative Genitourinary: Negative Musculoskeletal: Negative Skin: Negative Positive: Weakness. Negative: Headache, Paresthesia, Numbness, Syncope, Slurred Speech Psychological: Normal All Other Systems Reviewed And Are Negative: Yes Physical Exam - Summary Physical Exam Summary: Rectal exam chaperoned by JESSIE Wiley. Rectal exam revealed no lesions or external hemorrhoids. There is good rectal tone. No evidence of gross blood however stool was suggestive of melena. Triage Information Reviewed: Yes Vital Signs On Initial Exam: Initial Vitals Temp Pulse Resp BP Pulse Ox 98.2 F 72 14 115/92 100 01/16/19 11:08 01/16/19 11:08 01/16/19 11:08 01/16/19 11:08 01/16/19 11:08 Vital Signs Reviewed: Yes Appearance: Positive: Well-Appearing, No Pain Distress, Well-Nourished Skin: Positive: Warm, Skin Color Reflects Adequate Perfusion Eyes: Positive: EOMI, EILEEN ENT: Positive: Hearing grossly normal Respiratory/Lung Sounds: Positive: Clear to Auscultation, Breath Sounds Present Cardiovascular: Positive: RRR, S1, S2 Abdomen Description: Positive: Nontender, Soft. Negative: Distended, Guarding Bowel Sounds: Positive: Present Musculoskeletal: Positive: Strength/ROM Intact Neurological: Positive: Sensory/Motor Intact, Alert, Oriented to Person Place, Time, Speech Normal Psychiatric: Positive: Normal AVPU Assessment: Alert Procedures - Sedation Patient Received Moderate/Deep Sedation with Procedure: No Diagnostics - Vital Signs Vital Signs Temp Pulse Resp BP Pulse Ox 01/16/19 13:00 99.2 F 81 14 111/67 99 01/16/19 11:08 98.2 F 72 14 115/92 100 - Laboratory Lab Results: Lab Results 01/16/19 01/16/19 01/16/19 Range/Units 15:03 15:03 15:03 WBC 2.2 L (3.5-10.8) 10^3/uL RBC 2.22 L (4.18-5.48) 10^6 /uL Hgb 7.2 L (14.0-18.0) g/dL Hct 22 L (42-52) % MCV 101 H (80-94) fL MCH 33 H (27-31) pg MCHC 32 (31-36) g/dL RDW 15 (10-15) % Plt Count 134 L (150-450) 10^3/uL MPV 8.4 (7.4-10.4) fL Neut % (Auto) 58.7 % Lymph % (Auto) 24.1 % Nash % (Auto) 12.8 % Eos % (Auto) 1.5 % Baso % (Auto) 2.9 % Absolute Neuts (auto) 1.3 L (1.5-7.7) 10^3/ul Absolute Lymphs (auto) 0.5 L (1.0-4.8) 10^3/ul Absolute Monos (auto) 0.3 (0-0.8) 10^3/ul Absolute Eos (auto) 0.0 (0-0.6) 10^3/ul Absolute Basos (auto) 0.1 (0-0.2) 10^3/ul Absolute Nucleated RBC 0.0 10^3/ul Nucleated RBC % 0.6 Sodium 138 (135-145) mmol/L Potassium 3.6 (3.5-5.0) mmol/L Chloride 108 (101-111) mmol/L Carbon Dioxide 26 (22-32) mmol/L Anion Gap 4 (2-11) mmol/L BUN 7 (6-24) mg/dL Creatinine 0.89 (0.67-1.17) mg/dL Est GFR ( Amer) 103.5 (>60) Est GFR (Non-Af Amer) 85.5 (>60) BUN/Creatinine Ratio 7.9 L (8-20) Glucose 89 (70-100) mg/dL Calcium 8.5 L (8.6-10.3) mg/dL Total Bilirubin 0.50 (0.2-1.0) mg/dL AST 203 H (13-39) U/L ALT 108 H (7-52) U/L Alkaline Phosphatase 55 (34-104) U/L Total Protein 6.9 (6.4-8.9) g/dL Albumin 3.6 (3.2-5.2) g/dL Globulin 3.3 (2-4) g/dL Albumin/Globulin Ratio 1.1 (1-3) Blood Type Pending Antibody Screen Pending Result Diagrams: 01/16/19 15:03 01/16/19 15:03 Lab Statement: Any lab studies that have been ordered have been reviewed, and results considered in the medical decision making process. Complex Multi-Symp Course/Dx Course Of Treatment: Patient was evaluated in the emergency department today for lightheadedness. Patient seen and examined his vitals are stable and he is afebrile. Laboratories returned showing H&H of 7.2/22. Neutropenia with blood cell count 2.2 platelet count 134 indicating pancytopenia. there are no significant electrolyte abnormalities. AST and ALT are elevated at 203/108. Troponin 0.03. Occult stool positive. EKG shows sinus bradycardia at a rate of 56 bpm. There is a left bundle branch block. There are no signs of acute myocardial infarction. Left axis deviation. This EKG is unchanged when compared to prior EKG done during previous admission at January 11, 2019. Doctor Herminia was consulted at 1609 and suggested to start a PPI and admit the patient to medicine. Hospitalist, Dr. Lopez was consulted for admission of the patient. - Diagnoses Differential Diagnoses/HQI/PQRI: Other - anemia, lower GI bleed, upper GI bleed Provider Diagnoses: Anemia - Physician Notifications Discussed Care Of Patient With: Erin Hope - Start patient on PPI and admit to hospital for managment Time Discussed With Above Provider: 16:09 Instructed by Provider To: Admit As Inpatient Discharge ED - Sign-Out/Discharge Documenting (check all that apply): Patient Departure - Discharge Plan Condition: Stable Disposition: ADMITTED TO [facility] Referrals: Niraj Ly MD [Primary Care Provider] - - Billing Disposition and Condition Condition: STABLE Disposition: Admitted to [facility]
[2019-01-16 16:08] LABS: Troponin I 0.03 ng/mL (<0.03)
[2019-01-16] MEDS ORDERED: Pantoprazole IV* 40 MG IV ONE (16:11)
[2019-01-16] MEDS ORDERED: Pantoprazole* 80 mg IN NS 80 MG/250 ML BAG IV ONE (16:14)
[2019-01-16] MEDS ORDERED: Acetaminophen TAB* 325 MG PO PRN (17:11)
[2019-01-16] MEDS ORDERED: Morphine INJ* 2 MG/ML 1 ML SYRINGE (TWO MG - NEW SYRINGE VERSION) IV PRN (17:11)
[2019-01-16] MEDS ORDERED: Al Hydrox/Mg Hydrox/Simet LIQ* 30 ML UDC PO PRN (17:11)
[2019-01-16] MEDS ORDERED: HYDROcodone/ACETAMIN 5-325 MG* 1 TAB PO PRN (17:15)
[2019-01-16] MEDS ORDERED: LORazepam TAB(*) 0.5 MG PO PRN (17:29)
[2019-01-16] MEDS: Pantoprazole* 80 mg IN NS 80 MG/250 ML BAG IV SCH (18:05)
[2019-01-16 18:24] LABS: Hematocrit 20 % (42-52); Hemoglobin 6.6 g/dL (14.0-18.0)
--- NOTE | 2019-01-16 19:52 | CONS ---
GASTROENTEROLOGY CONSULTATION REPORT: DATE OF CONSULT: 01/16/19 REQUESTING PROVIDER: ED. REASON FOR CONSULT: Melena and anemia. HISTORY OF PRESENT ILLNESS: Mr. 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 Mr. Ga is accompanied in the ER by his partner, Cassi. He apparently has been having lightheadedness and dizziness as well as frequent falls over the past 2 weeks. He underwent blood work through his primary office, which demonstrated a low hemoglobin. Mr. Ga reports seeing loose black stool several times a day. He feels that this has been going off and on for months. He does not see any gross blood. Denies any nausea, vomiting, heartburns, dysphagia or abdominal pain. No other symptoms besides lightheadedness and weakness. The patient drinks 3 to 4 beers per day. He denies being on any blood thinners, but it appears he has been using Plavix. To review, Mr. Ga was hospitalized in March 2018. He had a syncopal event prompting admission. He underwent an EGD with Dr. Landers, which was essentially negative. Recommendation was for a colonoscopy. The patient left AMA before this was performed. Going back further in his history, the patient was found to have a hemoglobin in the 2 to 3 range in 2018. He went into cardiac arrest. Upper endoscopy at that time was performed. An epinephrine and a clip were used in the duodenum. Dr. Gordon was the pulley worker and posited that perhaps a Dieulafoy lesion was the source as no particular lesion or ulcer were identified. The patient states that he has never had a colonoscopy. PAST MEDICAL HISTORY: 1. Alcohol abuse with suspected subsequent liver disease. The patient's LFTs have been abnormal in the past. Additionally, he has thrombocytopenia. CTA of chest, abdomen, and pelvis in September 2018 commented on a normal appearing liver. Spleen was normal in size with multiple calcifications consistent with granulomatous disease. No definitive evidence of cirrhosis seen on that exam. 2. History of COPD. 3. Coronary artery disease, status post DC. 4. Peripheral arterial disease, status post axillobifemoral bypass. 5. Massive presumed upper GI bleed in 2018. 6. History of mediastinal tumor resected at [place]. 7. Ischemic and nonischemic cardiomyopathy. MEDICATIONS: Home medicine reconciliation still needs to be completed. The patient denies any antiplatelet or anticoagulation use, although he has been on Plavix in the past. According to his May 2018 discharge summary, he was discharged on: 1. Aspirin 81 mg daily. 2. Atorvastatin 20 mg daily. 3. Ferrous sulfate 325 mg twice daily, 4. Loratadine 10 mg daily. 5. Thiamine 100 mg daily. 6. Acetaminophen as needed. 7. Maalox as needed. 8. Folic acid 1 mg daily. 9. Toprol-XL 12.5 mg daily. Discussed with admitting hospitalist after patient interview, and apparently the patient has remained on Plavix daily. ALLERGIES: No known drug allergies. FAMILY HISTORY: No known GI or liver disease. SOCIAL HISTORY: Lives in [place]. His female partner is Cassi. He smokes occasionally. Drinks 3 to 4 beers a day. REVIEW OF SYSTEMS: Complete review of systems negative except as mentioned above. PHYSICAL EXAM: Vital Signs: Temp 99.2, heart rate 60s, blood pressure 142/73, 99% on room air. General: Thin, chronically ill-appearing gentleman. HEENT: Mild scleral icterus. Mucous membranes are moist. Pulmonary: Breathing comfortably. Cardiovascular: Regular rate and rhythm. Abdomen: Soft, nontender, nondistended. The patient's vascular graft can be felt on abdominal exam. Extremities: No significant edema. Rectal: The ED performed rectal and noted that it was Hemoccult positive. DIAGNOSTIC STUDIES/LAB DATA: Labs reviewed. White count 2.2, hemoglobin 7.2. Hgb down from 8.4 on 01/11/19 and 9.4 on 09/13/18. MCV is 101, platelet count 134. AST is 203, ALT is 108, alk phos is 55, bilirubin is 0.5. Troponin is minimally elevated at 0.03. Imaging: Chest x-ray on 01/11/19 was negative for acute findings. IMPRESSION AND RECOMMENDATIONS: Mr. Ga is a 68-year-old gentleman with a history of alcoholism, vascular disease, chronic obstructive pulmonary disease, cardiomyopathy, and prior massive gastrointestinal hemorrhage of unclear etiology, who is admitted with weakness, ongoing melenic stools, and acute on chronic anemia. The patient is hemodynamically stable. His hemoglobin has drifted down as compared to several days ago and earlier this year. He is reporting stable chronic melena. Given his history of a massive upper GI bleed as well as the chronic melena, I remained concerned about a small intestinal source of bleeding. Unfortunately, the patient left prior to having the colonoscopy done during his last admission. My recommendation would be to repeat the upper endoscopy as it has been 8 months since this was last performed and there has been more acute drop in his blood counts. I have some concern for underlying liver disease given his chronic alcohol use and his liver enzymes and thrombocytopenia, although his current presentation is not consistent with what would be seen for a variceal bleed. If upper endoscopy is negative, then I would plan for a colonoscopy while the patient is in the hospital. If this is negative, then consideration for a video capsule endoscopy would be reasonable. - Clear diet and n.p.o. after midnight. - IV PPI b.i.d. for now. - Plan for EGD tomorrow with tentative plan for colonoscopy on Monday if upper endoscopy is negative. - Continue to monitor CBC. The patient likely is in need of a transfusion now as his goal hemoglobin is likely 8 or higher. Will defer to primary team. - Please obtain liver ultrasound with elastography as I do have some concern for underlying alcoholic-related liver disease. As part of elevated LFT work-up , please also check chronic hepatitis panel, ceruloplasmin, KRYSTEN, alpha-1 antitrypsin level, and iron studies. Thank you for this consult. Please contact GI for any acute clinical change. [id number]/[facility] #: [id number] MAKENNA
--- NOTE | 2019-01-16 20:50 | HP ---
CC: Dr. Hope; Dr. Ly * HISTORY AND PHYSICAL: DATE OF ADMISSION: 01/16/19 PRIMARY CARE PROVIDER: Dr. Ly. CHIEF COMPLAINT: Dizziness and weakness and falls. HISTORY OF PRESENT ILLNESS: Bulmaro Ga is a 68-year-old male with a history of coronary artery disease as well as ischemic cardiomyopathy, who has a history of GI bleeding in the past and iron deficiency anemia in the past with recent negative EGD in May 2018, who presented to the hospital complaining of melena and dizziness and weakness. The patient was noted to have heme-positive stools. He fell a few days ago, bruising in the left side of his chest. He denies any abdominal pain. He is going to be admitted to the hospital with diagnosis of GI bleed. Due to a history of significant cardiac disease, he is going to be placed on telemetry monitored bed. PAST MEDICAL HISTORY: 1. History of alcoholism. The patient still drinks approximately 3 to 4 beers a day. He used to drink excessively and way above what he quoted today up to a year ago. 2. History of COPD, not oxygen dependent. 3. History of coronary artery disease and RI in 2017. The patient's insurance loss control surveyor is Dr. Sun. He had a cardiac catheterization in 2014, which showed 95% stenosis of RCA, which was not stented and treated medically. In December 2016, he had inferior RI, but also at the same time he had a mediastinal tumor resection at [facility] and due to that, no intervention was performed. 4. History of left bundle-branch block. 5. History of EF of approximately 30%. The patient refused LifeVest in the past. 6. History of PEA arrest secondary to anemia in 2018. 7. History of peripheral vascular disease with axillofemoral bypass in 2018. 8. Mediastinal tumor resection in 2017 at [facility]. MEDICATIONS: At home, include: 1. Thiamine 100 mg daily. 2. Omeprazole 20 mg b.i.d. 3. Metoprolol succinate 12.5 mg b.i.d. 4. Claritin 10 mg daily. 5. [place] 5/325 mg one tablet every 6 hours p.r.n. 6. Folic acid 1 mg daily. 7. Ferrous sulfate 325 mg b.i.d. 8. Colace 100 mg b.i.d. 9. Flexeril 10 mg at bedtime. 10. Plavix 75 mg daily. 11. Atorvastatin 20 mg daily. 12. Aspirin 81 mg daily. ALLERGIES: No known drug allergies. FAMILY HISTORY: Positive for mother of unknown cancer in her 40s. Father of stroke at the age of 52. SOCIAL HISTORY: The patient had been an alcoholic most of his life. He started cutting down in the past year. He had been smoking a pack per day ever since his teenage years, but he cut down to 2 cigarettes a day in the past several months. He lives with his girlfriend, Cassi Ansari, who is his surrogate. REVIEW OF SYSTEMS: Positive for dizziness and falls. Negative for chest pain, negative for shortness of breath, negative for abdominal pain. All the remaining 12 systems were reviewed with the patient and were otherwise negative. PHYSICAL EXAMINATION GENERAL: The patient is a very pleasant 68-year-old male, with thin body habitus. The patient is in no acute distress. The patient is alert and oriented x3. VITAL SIGNS: Blood pressure 142/73, heart rate of 55 and regular, respiratory rate 16, oxygen saturation 99% on room air, temperature of 99.2. HEENT: Head atraumatic, normocephalic. Eyes: Pupils are equal and reactive to light and accommodation. Oropharynx is clear. Mucosa moist. NECK: Supple. No JVD. No bruit bilaterally. RESPIRATORY: Clear to auscultation bilaterally. CARDIOVASCULAR: Regular rate and rhythm with 2/6 systolic ejection murmur noted on auscultation of the entire precordium. ABDOMEN: Soft, nontender. Bowel sounds are present in all 4 quadrants. EXTREMITIES: There is no edema. Pulses +1 bilaterally. No clubbing or cyanosis. NEUROLOGIC: On neuro evaluation, speech clear. Cranial nerves II through XII grossly intact. Motor strength is 5/5 bilaterally. SKIN: On evaluation of the skin, no ecchymotic areas or rashes noted. DIAGNOSTIC STUDIES/LAB DATA: White blood cell count of 2.2, hemoglobin of 7.2 , hematocrit of 22, MCV of 101, and platelets of 134. Please note the patient' s thrombocytopenia and leukopenia is chronic, likely related to his history of alcoholism. Sodium of 138, potassium 3.6, chloride 108, carbon dioxide 26, BUN 7, creatinine 0.89. Liver function tests showed AST of 203, ALT of 108, troponin of 0.03. The patient's EKG reveals left bundle-branch block with a heart rate of 56 beats per minute, bradycardia with borderline ST depressions in leads V4, V5. Comparing with prior EKG from a couple days ago, the T wave depressions were actually inverted at that point in V4 to V6 and were more pronounced. Comparing to EKG from September of 2018, the T waves were similar to today. The patient also has deep negative T waves in leads II, III, and aVF, which is chronic. ASSESSMENT AND PLAN: 1. Gastrointestinal bleed in a patient with history of gastric ulcer and as he mentioned small intestinal bleed in the past. The patient is going to be placed on clear liquid diet and n.p.o. in the morning for likely EGD. Dr. Yo Quinones was notified by the ED provider and one of the gastroenterologists will perform the procedure tomorrow. At this time, the patient is going to be placed on Protonix drip. His hemoglobin and hematocrit are going to be checked throughout his hospital stay. 2. Acute anemia due to gastrointestinal hemorrhage. Due to his history of significant heart disease, the patient is going to be transfused 1 unit of packed red blood cells. So far, his troponin is unremarkable and at his baseline. 3. History of coronary artery disease. The patient has a history of EF of 30% and coronary artery disease. The patient is going to be placed on telemetry monitored bed. 4. Pancytopenia. The patient has a history of mild leukopenia and thrombocytopenia, which is chronic likely related to his chronic alcoholism. 5. Mildly elevated AST and ALT. Likely due to his chronic alcoholism. Thiamine and folate are going to be provided to the patient throughout his hospital stay. I also placed him on Ativan as needed if he were to start withdrawing. 6. For DVT prophylaxis, the patient is contraindicated to be on anticoagulation. His aspirin and Plavix will have to be stopped. He is going to be placed on sequential compression devices. 7. Code status is full. His surrogate is his girlfriend. [id number]/[facility] #: [id number] MAKENNA
[2019-01-16] MEDS: Cyclobenzaprine TAB* 10 MG PO SCH (22:59)
[2019-01-16] MEDS: Metoprolol Succinate XL TAB* 25 MG PO SCH (22:59)
[2019-01-17] MEDS: NS 0.9% 1000 ML** 1,000 ML IV SCH ×2 (00:03→13:59)
[2019-01-17 01:17] LABS: Hematocrit 23 % (42-52); Hemoglobin 7.5 g/dL (14.0-18.0)
[2019-01-17 01:18] LABS: Troponin I 0.04 ng/mL (<0.03)
[2019-01-17] MEDS: Pantoprazole* 80 mg IN NS 80 MG/250 ML BAG IV SCH ×2 (04:32→16:22)
[2019-01-17 06:43] LABS: ABS Lymphocytes 0.5 10^3/ul (1.0-4.8); ABS Monocytes 0.2 10^3/ul (0-0.8); ABS Neutrophils 1.3 10^3/ul (1.5-7.7); Eosinophil % 0.9 %; Hematocrit 23 % (42-52); Hemoglobin 7.7 g/dL (14.0-18.0); Lymphocyte % 22.7 %; Mean Corpuscular HGB Conc 33 g/dL (31-36); Mean Corpuscular Hemoglobin 33 pg (27-31); Mean Corpuscular Volume 99 fL (80-94); Mean Platelet Volume 8.2 fL (7.4-10.4); Nucleated Red Blood Cells % 0.4; Platelet Count 103 10^3/uL (150-450); Red Blood Count 2.35 10^6 /uL (4.18-5.48); Red Cell Distribution Width 17 % (10-15); White Blood Count 2.1 10^3/uL (3.5-10.8)
[2019-01-17 06:53] LABS: Anion Gap 4 mmol/L (2-11); Blood Urea Nitrogen 7 mg/dL (6-24); CO2 Carbon Dioxide 24 mmol/L (22-32); Chloride 109 mmol/L (101-111); EGFR African American 106.2 (>60); EGFR Non-African American 87.8 (>60); Glucose 88 mg/dL (70-100); Sodium 137 mmol/L (135-145)
[2019-01-17] MEDS: Metoprolol Succinate XL TAB* 25 MG PO SCH ×2 (09:31→21:00)
[2019-01-17] MEDS: Thiamine TAB* 100 MG TAB PO SCH (09:31)
[2019-01-17 10:14] LABS: % Iron Saturation 7 % (15-55); Iron 28 ug/dL (50-212); Total Iron Binding Capacity 423 mcg/dL (250-450); Transferrin 302 mg/dL (203-362)
[2019-01-17 10:36] LABS: Ferritin 68.3 ng/mL (24-336)
[2019-01-17 10:39] LABS: Folate 15.72 ng/mL (>3.99)
--- NOTE | 2019-01-17 12:48 | PN ---
Subjective Date of Service: 01/17/19 Interval History: Pt feels well, denies CP/COB. no BM since last night, no abd pain, awaiting EGD Objective Active Medications: Acetaminophen (Tylenol Tab*) 650 mg PO Q4H PRN PRN Reason: PAIN-MODERATE/TEMP >/= 100.4 Hydrocodone Bitart/Acetaminophen ([place] 5-325 Tab*) 1 tab PO Q6H PRN PRN Reason: PAIN - MODERATE Al Hydrox/Mg Hydrox/Simethicone (Maalox Plus*) 30 ml PO Q6H PRN PRN Reason: INDIGESTION Cyclobenzaprine HCl (Flexeril Tab*) 10 mg PO BEDTIME [facility] Last Admin: 01/16/19 22:59 Dose: 10 mg Sodium Chloride (Ns 0.9% 1000 Ml) 1,000 mls @ 75 mls/hr IV PER RATE [facility] Last Admin: 01/17/19 00:03 Dose: 75 mls/hr Pantoprazole Sodium (Protonix Iv Bag*) 80 mg in 250 mls @ 25 mls/hr IV Q10H [facility] Last Admin: 01/17/19 04:32 Dose: 25 mls/hr Lorazepam (Ativan Tab(*)) 0.5 mg PO Q4H PRN PRN Reason: ANXIETY Metoprolol Succinate (Toprol Xl Tab*) 12.5 mg PO BID [facility] Last Admin: 01/17/19 09:31 Dose: 12.5 mg Morphine Sulfate (Morphine Inj (Syringe))*) 1 mg IV Q4H PRN PRN Reason: PAIN - SEVERE Thiamine HCl (Vitamin B-1 Tab*) 100 mg PO DAILY [facility] Last Admin: 01/17/19 09:31 Dose: 100 mg Vital Signs - 8 hr 01/17/19 01/17/19 07:15 08:00 Temperature 97.8 F Pulse Rate 52 Respiratory 16 16 Rate Blood Pressure 126/55 (mmHg) O2 Sat by Pulse 100 Oximetry Oxygen Devices in Use Now: None Appearance: 68 yo m in nAD, aAOx3 Eyes: No Scleral Icterus, PERRLA Ears/Nose/Mouth/Throat: NL Teeth, Lips, Gums, Mucous Membranes Moist Neck: NL Appearance and Movements; NL JVP, Trachea Midline Respiratory: Symmetrical Chest Expansion and Respiratory Effort, Clear to Auscultation Cardiovascular: NL Sounds; No Murmurs; No JVD, RRR Abdominal: NL Sounds; No Tenderness; No Distention Lymphatic: No Cervical Adenopathy Extremities: No Edema, No Clubbing, Cyanosis Skin: No Rash or Ulcers, No Nodules or Sclerosis Neurological: Alert and Oriented x 3, NL Muscle Strength and Tone Result Diagrams: 01/17/19 06:22 01/17/19 06:22 Additional Lab and Data: Lab Results 01/16/19 01/16/19 01/16/19 Range/Units 15:03 15:03 15:03 WBC 2.2 L (3.5-10.8) 10^3/uL RBC 2.22 L (4.18-5.48) 10^6 /uL Hgb 7.2 L (14.0-18.0) g/dL Hct 22 L (42-52) % MCV 101 H (80-94) fL MCH 33 H (27-31) pg MCHC 32 (31-36) g/dL RDW 15 (10-15) % Plt Count 134 L (150-450) 10^3/uL MPV 8.4 (7.4-10.4) fL Neut % (Auto) 58.7 % Lymph % (Auto) 24.1 % [place] % (Auto) 12.8 % Eos % (Auto) 1.5 % Baso % (Auto) 2.9 % Absolute Neuts (auto) 1.3 L (1.5-7.7) 10^3/ul Absolute Lymphs (auto) 0.5 L (1.0-4.8) 10^3/ul Absolute Monos (auto) 0.3 (0-0.8) 10^3/ul Absolute Eos (auto) 0.0 (0-0.6) 10^3/ul Absolute Basos (auto) 0.1 (0-0.2) 10^3/ul Absolute Nucleated RBC 0.0 10^3/ul Nucleated RBC % 0.6 Sodium 138 (135-145) mmol/L Potassium 3.6 (3.5-5.0) mmol/L Chloride 108 (101-111) mmol/L Carbon Dioxide 26 (22-32) mmol/L Anion Gap 4 (2-11) mmol/L BUN 7 (6-24) mg/dL Creatinine 0.89 (0.67-1.17) mg/dL Est GFR ( Amer) 103.5 (>60) Est GFR (Non-Af Amer) 85.5 (>60) BUN/Creatinine Ratio 7.9 L (8-20) Glucose 89 (70-100) mg/dL Calcium 8.5 L (8.6-10.3) mg/dL Total Bilirubin 0.50 (0.2-1.0) mg/dL AST 203 H (13-39) U/L ALT 108 H (7-52) U/L Alkaline Phosphatase 55 (34-104) U/L Total Protein 6.9 (6.4-8.9) g/dL Albumin 3.6 (3.2-5.2) g/dL Globulin 3.3 (2-4) g/dL Albumin/Globulin Ratio 1.1 (1-3) Blood Type Pending Antibody Screen Pending Microbiology and Other Data: Microbiology 01/16/19 15:41 Stool Occult Blood (TESFAYE) - Final Stool Assess/Plan/Problems-Billing Assessment: 68 yo alcoholic with h/o ischemic cardiomyopathy (EF 30%), recurrent GI bled (PEA arrest in face of GI bleed and anemia in 2018), pancytopenia (likely due to alcoholism), known 95% lesion in RCA (not amenable for intervention) presents with generalized weakness and melana Hb of 7.2 - Patient Problems (1) Acute blood loss anemia Comment: Hb still below 8 s/p 1 U PRBC transfusion. Will transfuse another unit Hgb still low and due to significant CAD and c/o weakness will transfuse another Unit. Goal Hb for pt with CAD >8 No melena/hemotochezia today continue ppi IV (2) Alcohol abuse Comment: -Patient denies history of withdrawal -Monitoring for S/S withdrawal, ativan prn (3) COPD (chronic obstructive pulmonary disease) Comment: Current smoker. Nicotine patch ordered. (4) HTN (hypertension) Comment: BP acceptable on metoprolol (5) CAD (coronary artery disease) Comment: - Known CAD with 95% RCA stenosis not amenable to intervention. - ASA, clopidogrel held due to GI bleed. -cont telem (6) Pancytopenia Comment: may be due to ETOH or liver disease or both Liver US, cerulopasmin, alpha 1 antitripsin antibody, acute hapatatis panel ordered as recemmended by GI (7) DVT prophylaxis Comment: SCD's Status and Disposition: inpatient
[2019-01-17] MEDS: Nicotine PATCH 14 MG/24 HR* PATCH TRANSDERM SCH (13:25)
[2019-01-17] MEDS ORDERED: fentaNYL* 50 MCG/ML 2 ML VIAL (100 MCG VIAL) ONE (15:16)
[2019-01-17] MEDS ORDERED: Midazolam* 1 MG/ML 10 ML VIAL (10 MG) ONE (15:16)
--- NOTE | 2019-01-17 15:48 | PN ---
Progress Note - Progress Note Date of Service: 01/17/19 Note: EGD report: 75 mcg IV frent, 6 mg IV versed E----->no varices, +HH, no davie's G---->no ulcer, phg, GV D--->no ulcer normal EGD as per Dr Hope's note from yesterday, colonoscopy tomorrow to eval for anemia Daniel Mcintosh MD
[2019-01-17] MEDS ORDERED: PEG 3000 GI LAVAGE* 1 GALLON PO ONE (15:49)
[2019-01-17 17:38] LABS: Hematocrit 29 % (42-52); Hemoglobin 9.5 g/dL (14.0-18.0)
[2019-01-17 18:58] LABS: Hepatitis B Surface Antigen Nonreactive (Nonreactive)
[2019-01-17 19:18] LABS: Hepatitis C Antibody Reactive (Negative)
[2019-01-17] MEDS: Cyclobenzaprine TAB* 10 MG PO SCH (21:01)
--- NOTE | 2019-01-17 23:18 | PRO ---
DATE OF PROCEDURE: 01/17/19 - ROOM #418 PROCEDURE: EGD. INDICATION: Anemia, history of ulcer in the past. REFERRING PROVIDER: None. MEDICATIONS GIVEN: 75 mcg IV fentanyl, 6 mg IV Versed. PROCEDURE IN DETAIL: After the EGD procedure, including the risks, benefits, and alternatives, not limited to perforation, surgery and/or were explained to Mr. Ga, written consent was then obtained, IV medication was given, and a bite- block was placed between the teeth. An Olympus gastroscope was then inserted into the patient's mouth, advanced down the esophagus, into the stomach and into the distal duodenum. In the esophagus at the GE junction, the Z-line was intact. No esophageal varices were seen. No erosive esophagitis was seen. The scope was advanced through the GE junction into the body of the stomach. Retroflex view was unremarkable. Forward view also was unremarkable. No portal hypertensive gastropathy nor gastric varices were seen. He does have a hiatal hernia. No Julien's erosions were seen. The scope was advanced through the pylorus, into the duodenal bulb, into the distal duodenum, both of which were unremarkable. The scope was then withdrawn from the patient. He tolerated the procedure well and was returned to his hospital room in stable condition. IMPRESSION: 1. Complete upper endoscopy into the distal duodenum. 2. No evidence for any varices, portal hypertensive gastropathy or ulcer. 3. As per the consultation from Dr. Hope yesterday, if the EGD was negative, the patient should have a colonoscopy. We will arrange for colonoscopy tomorrow for further workup of his anemia. [id number]/[facility] #: [id number] [facility] SHOREWilbert
[2019-01-18 06:43] LABS: ABS Lymphocytes 0.6 10^3/ul (1.0-4.8); ABS Monocytes 0.4 10^3/ul (0-0.8); ABS Neutrophils 2.1 10^3/ul (1.5-7.7); Eosinophil % 0.4 %; Hematocrit 28 % (42-52); Hemoglobin 9.2 g/dL (14.0-18.0); Lymphocyte % 18.4 %; Mean Corpuscular HGB Conc 33 g/dL (31-36); Mean Corpuscular Hemoglobin 32 pg (27-31); Mean Corpuscular Volume 97 fL (80-94); Mean Platelet Volume 8.6 fL (7.4-10.4); Nucleated Red Blood Cells % 0.1; Platelet Count 115 10^3/uL (150-450); Red Blood Count 2.86 10^6 /uL (4.18-5.48); Red Cell Distribution Width 17 % (10-15)
[2019-01-18 07:07] LABS: BUN/Creatinine Ratio 8.2 (8-20); Calcium 8.7 mg/dL (8.6-10.3); EGFR African American 92.6 (>60); EGFR Non-African American 76.5 (>60); Potassium 3.9 mmol/L (3.5-5.0)
[2019-01-18] MEDS: Thiamine TAB* 100 MG TAB PO SCH (07:19)
[2019-01-18] MEDS: Nicotine PATCH 14 MG/24 HR* PATCH TRANSDERM SCH (07:19)
[2019-01-18] MEDS: Metoprolol Succinate XL TAB* 25 MG PO SCH ×2 (07:19→21:56)
[2019-01-18] MEDS ORDERED: Magnesium CITRATE* 300 ML BTL PO ONE ×2 (14:07→21:00)
[2019-01-18] MEDS ORDERED: Ferric Gluconate IV* 25 MG in NS 0.9% 50 ML* 50 ML IVPB ONE (14:08)
--- NOTE | 2019-01-18 14:31 | PN ---
Subjective Date of Service: 01/18/19 Interval History: Pt wanted to leave today, but then his girlfriend came and convinced his to stay overnight . Going through colonoscopy prep and still having formed stools. Objective Active Medications: Acetaminophen (Tylenol Tab*) 650 mg PO Q4H PRN PRN Reason: PAIN-MODERATE/TEMP >/= 100.4 Hydrocodone Bitart/Acetaminophen ([place] 5-325 Tab*) 1 tab PO Q6H PRN PRN Reason: PAIN - MODERATE Al Hydrox/Mg Hydrox/Simethicone (Maalox Plus*) 30 ml PO Q6H PRN PRN Reason: INDIGESTION Cyclobenzaprine HCl (Flexeril Tab*) 10 mg PO BEDTIME [facility] Last Admin: 01/17/19 21:01 Dose: 10 mg Sodium Chloride (Ns 0.9% 1000 Ml) 1,000 mls @ 75 mls/hr IV PER RATE [facility] Last Admin: 01/17/19 13:59 Dose: 75 mls/hr Lorazepam (Ativan Tab(*)) 0.5 mg PO Q4H PRN PRN Reason: ANXIETY Magnesium Citrate (Citrate Of Magnesia*) 300 ml PO ONCE ONE Stop: 01/18/19 14:08 Magnesium Citrate (Citrate Of Magnesia*) 300 ml PO ONCE ONE Stop: 01/18/19 21:01 Metoprolol Succinate (Toprol Xl Tab*) 12.5 mg PO BID [facility] Last Admin: 01/18/19 07:19 Dose: 12.5 mg Morphine Sulfate (Morphine Inj (Syringe))*) 1 mg IV Q4H PRN PRN Reason: PAIN - SEVERE Nicotine (Nicotine Patch 14 Mg/24 Hr*) 1 patch TRANSDERM DAILY [facility] Last Admin: 01/18/19 07:19 Dose: Not Given Pantoprazole Sodium (Protonix Iv*) 40 mg IV DAILY [facility] Thiamine HCl (Vitamin B-1 Tab*) 100 mg PO DAILY [facility] Last Admin: 01/18/19 07:19 Dose: 100 mg Vital Signs - 8 hr 01/18/19 01/18/19 01/18/19 07:15 07:24 11:15 Temperature 99.6 F 97.9 F Pulse Rate 65 65 Respiratory 20 18 18 Rate Blood Pressure 140/75 146/73 (mmHg) O2 Sat by Pulse 100 100 Oximetry Oxygen Devices in Use Now: None Appearance: 68 yo m in NAD, AAOx3 Eyes: No Scleral Icterus, PERRLA Ears/Nose/Mouth/Throat: NL Teeth, Lips, Gums, Mucous Membranes Moist Neck: NL Appearance and Movements; NL JVP, Trachea Midline Respiratory: Symmetrical Chest Expansion and Respiratory Effort Cardiovascular: NL Sounds; No Murmurs; No JVD, RRR Abdominal: NL Sounds; No Tenderness; No Distention, No Hepatosplenomegaly Lymphatic: No Cervical Adenopathy Skin: No Rash or Ulcers, No Nodules or Sclerosis Neurological: Alert and Oriented x 3, NL Muscle Strength and Tone Result Diagrams: 01/18/19 06:15 01/18/19 06:15 Additional Lab and Data: Lab Results 01/16/19 01/16/19 01/16/19 Range/Units 15:03 15:03 15:03 WBC 2.2 L (3.5-10.8) 10^3/uL RBC 2.22 L (4.18-5.48) 10^6 /uL Hgb 7.2 L (14.0-18.0) g/dL Hct 22 L (42-52) % MCV 101 H (80-94) fL MCH 33 H (27-31) pg MCHC 32 (31-36) g/dL RDW 15 (10-15) % Plt Count 134 L (150-450) 10^3/uL MPV 8.4 (7.4-10.4) fL Neut % (Auto) 58.7 % Lymph % (Auto) 24.1 % [place] % (Auto) 12.8 % Eos % (Auto) 1.5 % Baso % (Auto) 2.9 % Absolute Neuts (auto) 1.3 L (1.5-7.7) 10^3/ul Absolute Lymphs (auto) 0.5 L (1.0-4.8) 10^3/ul Absolute Monos (auto) 0.3 (0-0.8) 10^3/ul Absolute Eos (auto) 0.0 (0-0.6) 10^3/ul Absolute Basos (auto) 0.1 (0-0.2) 10^3/ul Absolute Nucleated RBC 0.0 10^3/ul Nucleated RBC % 0.6 Sodium 138 (135-145) mmol/L Potassium 3.6 (3.5-5.0) mmol/L Chloride 108 (101-111) mmol/L Carbon Dioxide 26 (22-32) mmol/L Anion Gap 4 (2-11) mmol/L BUN 7 (6-24) mg/dL Creatinine 0.89 (0.67-1.17) mg/dL Est GFR ( Amer) 103.5 (>60) Est GFR (Non-Af Amer) 85.5 (>60) BUN/Creatinine Ratio 7.9 L (8-20) Glucose 89 (70-100) mg/dL Calcium 8.5 L (8.6-10.3) mg/dL Total Bilirubin 0.50 (0.2-1.0) mg/dL AST 203 H (13-39) U/L ALT 108 H (7-52) U/L Alkaline Phosphatase 55 (34-104) U/L Total Protein 6.9 (6.4-8.9) g/dL Albumin 3.6 (3.2-5.2) g/dL Globulin 3.3 (2-4) g/dL Albumin/Globulin Ratio 1.1 (1-3) Blood Type Pending Antibody Screen Pending Microbiology and Other Data: Microbiology 01/16/19 15:41 Stool Occult Blood (TESFAYE) - Final Stool Assess/Plan/Problems-Billing Assessment: 68 yo alcoholic with h/o ischemic cardiomyopathy (EF 30%), recurrent GI bled (PEA arrest in face of GI bleed and anemia in 2018), pancytopenia (likely due to alcoholism), known 95% lesion in RCA (not amenable for intervention) presents with generalized weakness and melana Hb of 7.2 - Patient Problems (1) Acute blood loss anemia Comment: Hb stable after a total of 2 U PRBC transfusion. continue ppi IV daily EGD on 01/17/19 unremarkable c-scope planned for tomorrow(not adequate prep today) (2) Alcohol abuse Comment: -Patient denies history of withdrawal -Monitoring for S/S withdrawal, ativan prn (3) COPD (chronic obstructive pulmonary disease) Comment: Current smoker. Nicotine patch ordered. (4) HTN (hypertension) Comment: BP acceptable on metoprolol (5) CAD (coronary artery disease) Comment: - Known CAD with 95% RCA stenosis not amenable to intervention. - ASA, clopidogrel held due to GI bleed. -no arrythmia , d/c telem (6) Pancytopenia Comment: may be due to ETOH or liver disease or both Liver elastography shows mild to mod liver fibrosis, cerulopasmin, alpha 1 antitripsin antibody, acute hapatitis panel pending due to low iron will tx with IV iron daily when in hospital (7) DVT prophylaxis Comment: SCD's Status and Disposition: inpatient
[2019-01-18] MEDS ORDERED: Ferric Gluconate IV* 100 MG in NS 0.9% 100 ML* 100 ML IVPB ONE (15:30)
[2019-01-18] MEDS: Cyclobenzaprine TAB* 10 MG PO SCH (21:56)
[2019-01-19] MEDS: NS 0.9% 1000 ML** 1,000 ML IV SCH (05:22)
[2019-01-19] MEDS ORDERED: Ferric Gluconate IV* 100 MG in NS 0.9% 100 ML* 100 ML IVPB ONE (08:00)
[2019-01-19] MEDS: Pantoprazole IV* 40 MG IV SCH (08:41)
[2019-01-19] MEDS: Nicotine PATCH 14 MG/24 HR* PATCH TRANSDERM SCH (08:48)
[2019-01-19] MEDS ORDERED: fentaNYL* 50 MCG/ML 2 ML VIAL (100 MCG VIAL) ONE (10:39)
[2019-01-19] MEDS ORDERED: Midazolam* 1 MG/ML 10 ML VIAL (10 MG) ONE (10:39)
--- NOTE | 2019-01-19 13:28 | PN ---
Subjective Date of Service: 01/19/19 Interval History: Denies any complaints. Was more confused earlier this am. Reports that he drinks 3-4 beers a day and then says he is not sure but dosent get drunk Objective Active Medications: Acetaminophen (Tylenol Tab*) 650 mg PO Q4H PRN PRN Reason: PAIN-MODERATE/TEMP >/= 100.4 Hydrocodone Bitart/Acetaminophen ([place] 5-325 Tab*) 1 tab PO Q6H PRN PRN Reason: PAIN - MODERATE Al Hydrox/Mg Hydrox/Simethicone (Maalox Plus*) 30 ml PO Q6H PRN PRN Reason: INDIGESTION Cyclobenzaprine HCl (Flexeril Tab*) 10 mg PO BEDTIME [facility] Last Admin: 01/18/19 21:56 Dose: 10 mg Sodium Chloride (Ns 0.9% 1000 Ml) 1,000 mls @ 75 mls/hr IV PER RATE [facility] Last Admin: 01/19/19 05:22 Dose: 75 mls/hr Lorazepam (Ativan Tab(*)) 0.5 mg PO Q4H PRN PRN Reason: ANXIETY Metoprolol Succinate (Toprol Xl Tab*) 12.5 mg PO BID [facility] Last Admin: 01/18/19 21:56 Dose: 12.5 mg Morphine Sulfate (Morphine Inj (Syringe))*) 1 mg IV Q4H PRN PRN Reason: PAIN - SEVERE Nicotine (Nicotine Patch 14 Mg/24 Hr*) 1 patch TRANSDERM DAILY [facility] Last Admin: 01/19/19 08:48 Dose: Not Given Pantoprazole Sodium (Protonix Iv*) 40 mg IV DAILY [facility] Last Admin: 01/19/19 08:41 Dose: 40 mg Thiamine HCl (Vitamin B-1 Tab*) 100 mg PO DAILY [facility] Last Admin: 01/18/19 07:19 Dose: 100 mg Vital Signs - 8 hr 01/19/19 01/19/19 08:03 12:18 Temperature 100.1 F 98.4 F Pulse Rate 71 58 Respiratory 17 17 Rate Blood Pressure 118/59 149/90 (mmHg) O2 Sat by Pulse 100 100 Oximetry Oxygen Devices in Use Now: None Eyes: No Scleral Icterus Ears/Nose/Mouth/Throat: NL Teeth, Lips, Gums Neck: NL Appearance and Movements; NL JVP Respiratory: Symmetrical Chest Expansion and Respiratory Effort Cardiovascular: NL Sounds; No Murmurs; No JVD Abdominal: NL Sounds; No Tenderness; No Distention Extremities: No Edema Neurological: - - alert oriented Result Diagrams: 01/18/19 06:15 01/18/19 06:15 Additional Lab and Data: Lab Results 01/16/19 01/16/19 01/16/19 Range/Units 15:03 15:03 15:03 WBC 2.2 L (3.5-10.8) 10^3/uL RBC 2.22 L (4.18-5.48) 10^6 /uL Hgb 7.2 L (14.0-18.0) g/dL Hct 22 L (42-52) % MCV 101 H (80-94) fL MCH 33 H (27-31) pg MCHC 32 (31-36) g/dL RDW 15 (10-15) % Plt Count 134 L (150-450) 10^3/uL MPV 8.4 (7.4-10.4) fL Neut % (Auto) 58.7 % Lymph % (Auto) 24.1 % [place] % (Auto) 12.8 % Eos % (Auto) 1.5 % Baso % (Auto) 2.9 % Absolute Neuts (auto) 1.3 L (1.5-7.7) 10^3/ul Absolute Lymphs (auto) 0.5 L (1.0-4.8) 10^3/ul Absolute Monos (auto) 0.3 (0-0.8) 10^3/ul Absolute Eos (auto) 0.0 (0-0.6) 10^3/ul Absolute Basos (auto) 0.1 (0-0.2) 10^3/ul Absolute Nucleated RBC 0.0 10^3/ul Nucleated RBC % 0.6 Sodium 138 (135-145) mmol/L Potassium 3.6 (3.5-5.0) mmol/L Chloride 108 (101-111) mmol/L Carbon Dioxide 26 (22-32) mmol/L Anion Gap 4 (2-11) mmol/L BUN 7 (6-24) mg/dL Creatinine 0.89 (0.67-1.17) mg/dL Est GFR ( Amer) 103.5 (>60) Est GFR (Non-Af Amer) 85.5 (>60) BUN/Creatinine Ratio 7.9 L (8-20) Glucose 89 (70-100) mg/dL Calcium 8.5 L (8.6-10.3) mg/dL Total Bilirubin 0.50 (0.2-1.0) mg/dL AST 203 H (13-39) U/L ALT 108 H (7-52) U/L Alkaline Phosphatase 55 (34-104) U/L Total Protein 6.9 (6.4-8.9) g/dL Albumin 3.6 (3.2-5.2) g/dL Globulin 3.3 (2-4) g/dL Albumin/Globulin Ratio 1.1 (1-3) Blood Type Pending Antibody Screen Pending Microbiology and Other Data: Microbiology 01/16/19 15:41 Stool Occult Blood (TESFAYE) - Final Stool Assess/Plan/Problems-Billing Assessment: 68 yo alcoholic with h/o ischemic cardiomyopathy (EF 30%), recurrent GI bled (PEA arrest in face of GI bleed and anemia in 2018), pancytopenia (likely due to alcoholism), known 95% lesion in RCA (not amenable for intervention) presents with generalized weakness and melana Hb of 7.2 - Patient Problems (1) Acute blood loss anemia Current Visit: No Status: Acute Code(s): D62 - ACUTE POSTHEMORRHAGIC ANEMIA SNOMED Code(s): 933484020 Comment: Hb stable after a total of 2 U PRBC transfusion. continue ppi IV daily EGD on 01/17/19 unremarkable c-scope planned for today to r/o malignancy iron def anemia on iv iron appreciate gi input (2) Alcohol abuse Current Visit: No Status: Acute Priority: Medium Code(s): F10.10 - ALCOHOL ABUSE, UNCOMPLICATED SNOMED Code(s): 29052941 Comment: -Patient denies history of withdrawal -Monitoring for S/S withdrawal, ativan prn -more delirous today -b12 low normal -continue b12,thiamine,mvt,folate (3) Pancytopenia Current Visit: Yes Status: Acute Code(s): D61.818 - OTHER PANCYTOPENIA SNOMED Code(s): 608192476 Comment: may be due to ETOH or liver disease or both Liver elastography shows mild to mod liver fibrosis, cerulopasmin, alpha 1 antitripsin antibody, acute hapatitis panel pending due to low iron will tx with IV iron daily when in hospital (4) CAD (coronary artery disease) Current Visit: No Status: Chronic Code(s): I25.10 - ATHSCL HEART DISEASE OF [place] CORONARY ARTERY W/O ANG PCTRS SNOMED Code(s): 59837686 Comment: - Known CAD with 95% RCA stenosis not amenable to intervention. - ASA, clopidogrel held due to GI bleed. -no arrythmia , d/c telem (5) COPD (chronic obstructive pulmonary disease) Current Visit: No Status: Acute Code(s): J44.9 - CHRONIC OBSTRUCTIVE PULMONARY DISEASE, UNSPECIFIED SNOMED Code(s): 66848066 Comment: Current smoker. Nicotine patch ordered. (6) DVT prophylaxis Current Visit: Yes Status: Acute Code(s): Z29.9 - ENCOUNTER FOR PROPHYLACTIC MEASURES, UNSPECIFIED SNOMED Code(s): 903981929 Comment: SCD's Status and Disposition: inpatient
[2019-01-19] MEDS: Metoprolol Succinate XL TAB* 25 MG PO SCH ×2 (14:01→20:24)
[2019-01-19] MEDS: Folic Acid TAB* 1 MG PO SCH ×2 (14:02→17:18)
[2019-01-19] MEDS: Thiamine TAB* 100 MG TAB PO SCH ×2 (14:02→17:18)
[2019-01-19] MEDS: Cyanocobalamin TAB* 500 MCG PO SCH (14:02)
[2019-01-19 14:50] LABS: Ceruloplasmin 20.1 mg/dL
--- NOTE | 2019-01-19 16:09 | PRO ---
DATE: 01/19/19 REFERRING PHYSICIANS: Dr. Niraj Ly, Dr. Ulices Pacheco. PROCEDURE: Colonoscopy to cecum. INDICATION: This 68-year-old vasculopath with history of multiple interventions , coronary and peripheral vascular, who was admitted with anemia and found to have heme-positive stool. Upper endoscopy by Dr Mcintosh was negative for a source and had been negative in the spring. In 2018, he had an apparent [place]ul[place] bleeding event from the duodenum, treated by Dr. Raven Gordon with epinephrine and clip. He had presented then with a hemoglobin of 2 and was transfused with multiple units. He had been on Xarelto. For this current admission, he had been on Plavix and aspirin, though compliance is uncertain. There was no overt bleeding, but he is heme-positive. All of his cardiac and gastroenterology consults were reviewed. His prep was a combination of some Colyte and some magnesium citrate. ENDOSCOPIST: Dr. Padgett. MEDICATIONS: Midazolam 2.5, fentanyl 37.5. FINDINGS: He is a slender, chronically ill-appearing, older man, in no overt distress. He was positioned left side down and moderate sedation induced with very small sequential doses of medication. Initial views showed a fair prep. Fortunately, the material could be easily suctioned. There were a few sigmoid diverticula. The scope passed easily through the sigmoid, descending, transverse, and right colon. At the base of the cecum, there was a 3 mm low profile clearly benign polyp without any blood. No AVMs were seen. At no point during scope passage was any blood seen. Coming back from the cecum, there were no additional findings. The diminutive polyp would not be relevan to any current concern and it is judged for at least a 5-year timeframe (more likely more)and removing it would create an impediment to further use of antiplatelet agents or higher level anticoagulants for which with his vasculopathy he would be at considerable ongoing risk of developing an acute indication. IMPRESSION: 1. Minimal sigmoid diverticulosis. 2. Diminutive cecal cap polyp. 3. Anemia, heme-positive stool - no source found and tapering his antiplatelet agent as it is possible with iron supplementation as needed is recommended. [id number]/[facility] #: [id number] [facility]
[2019-01-19] MEDS ORDERED: Lorazepam PYXIS KEY PRN (16:22)
[2019-01-19] MEDS ORDERED: LORazepam INJ* 2 MG/ML 1 ML VIAL IV PUSH ONE (16:22)
[2019-01-19] MEDS ORDERED: Thiamine INJ* 100 MG/ML 2 ML VIAL IM ONE (16:23)
[2019-01-19] MEDS ORDERED: Lorazepam PYXIS KEY ONE (16:25)
[2019-01-19] MEDS ORDERED: LORazepam INJ* 2 MG/ML 1 ML VIAL ONE (16:26)
[2019-01-19] MEDS: Multivitamins/Minerals TAB PO SCH (17:18)
[2019-01-19] MEDS: LORazepam INJ* 2 MG/ML 1 ML VIAL IV PUSH SCH ×2 (17:18→20:26)
[2019-01-19] MEDS: Cyclobenzaprine TAB* 10 MG PO SCH (20:25)
[2019-01-20] MEDS: LORazepam INJ* 2 MG/ML 1 ML VIAL IV PUSH SCH ×2 (04:56→05:12)
[2019-01-20 06:49] LABS: ABS Lymphocytes 0.4 10^3/ul (1.0-4.8); ABS Monocytes 0.4 10^3/ul (0-0.8); ABS Neutrophils 1.7 10^3/ul (1.5-7.7); Eosinophil % 0.3 %; Hematocrit 26 % (42-52); Hemoglobin 8.5 g/dL (14.0-18.0); Lymphocyte % 14.5 %; Mean Corpuscular HGB Conc 33 g/dL (31-36); Mean Corpuscular Hemoglobin 32 pg (27-31); Mean Corpuscular Volume 97 fL (80-94); Mean Platelet Volume 8.4 fL (7.4-10.4); Nucleated Red Blood Cells % 0.1; Platelet Count 116 10^3/uL (150-450); Red Blood Count 2.65 10^6 /uL (4.18-5.48); Red Cell Distribution Width 16 % (10-15); White Blood Count 2.6 10^3/uL (3.5-10.8)
[2019-01-20 06:53] LABS: BUN/Creatinine Ratio 12.8 (8-20); Calcium 8.2 mg/dL (8.6-10.3); EGFR African American 107.7 (>60); Potassium 3.4 mmol/L (3.5-5.0)
[2019-01-20] MEDS: NS 0.9% 1000 ML** 1,000 ML IV SCH (10:18)
[2019-01-20] MEDS: Pantoprazole IV* 40 MG IV SCH (10:18)
--- NOTE | 2019-01-20 11:54 | PN ---
Subjective Date of Service: 01/20/19 Interval History: Pt opens eyes but does not speak. His girlfriend is concerned that he may have hit his head with one of the falls he has taken and that may be why he is now delirious. Objective Active Medications: Acetaminophen (Tylenol Tab*) 650 mg PO Q4H PRN PRN Reason: PAIN-MODERATE/TEMP >/= 100.4 Hydrocodone Bitart/Acetaminophen ([place] 5-325 Tab*) 1 tab PO Q6H PRN PRN Reason: PAIN - MODERATE Al Hydrox/Mg Hydrox/Simethicone (Maalox Plus*) 30 ml PO Q6H PRN PRN Reason: INDIGESTION Cyanocobalamin (Vitamin B12 Tab*) 1,000 mcg PO DAILY [facility] Last Admin: 01/19/19 14:02 Dose: 1,000 mcg Cyclobenzaprine HCl (Flexeril Tab*) 10 mg PO BEDTIME [facility] Last Admin: 01/19/19 20:25 Dose: 10 mg Folic Acid (Folvite Tab*) 1 mg PO DAILY [facility] Last Admin: 01/19/19 14:02 Dose: 1 mg Sodium Chloride (Ns 0.9% 1000 Ml) 1,000 mls @ 75 mls/hr IV PER RATE [facility] Last Admin: 01/20/19 10:18 Dose: 75 mls/hr Lorazepam (Ativan Tab(*)) 0.5 mg PO Q4H PRN PRN Reason: ANXIETY Lorazepam (Ativan Inj*) 0 - 3 mg IV PUSH .PER [facility] PROTOCOL [facility]; Protocol Last Admin: 01/20/19 05:12 Dose: 1 mg Metoprolol Succinate (Toprol Xl Tab*) 12.5 mg PO BID [facility] Last Admin: 01/19/19 20:24 Dose: 12.5 mg Miscellaneous (Ativan Pyxis Nolan) 1 ea N/A .ATIVAN IV NOLAN PRN PRN Reason: PYXIS NOLAN Morphine Sulfate (Morphine Inj (Syringe))*) 1 mg IV Q4H PRN PRN Reason: PAIN - SEVERE Multivitamins/Minerals (Theragran/Minerals Tab*) 1 tab PO DAILY [facility] Last Admin: 01/19/19 17:18 Dose: 1 tab Nicotine (Nicotine Patch 14 Mg/24 Hr*) 1 patch TRANSDERM DAILY [facility] Last Admin: 01/19/19 08:48 Dose: Not Given Pantoprazole Sodium (Protonix Iv*) 40 mg IV DAILY [facility] Last Admin: 01/20/19 10:18 Dose: 40 mg Thiamine HCl (Vitamin B-1 Tab*) 100 mg PO DAILY [facility] Last Admin: 01/19/19 14:02 Dose: 100 mg Vital Signs - 8 hr 01/20/19 01/20/19 01/20/19 04:51 04:56 05:12 Temperature 98.2 F Pulse Rate 71 Respiratory 20 20 20 Rate Blood Pressure 153/94 (mmHg) O2 Sat by Pulse 95 Oximetry 01/20/19 01/20/19 01/20/19 05:56 06:12 07:13 Temperature 97.4 F Pulse Rate 73 Respiratory 20 20 22 Rate Blood Pressure 129/79 (mmHg) O2 Sat by Pulse 100 Oximetry 01/20/19 01/20/19 01/20/19 09:00 10:55 11:05 Temperature 97.6 F 97.6 F Pulse Rate 60 49 96 Respiratory 22 25 Rate Blood Pressure 135/80 118/76 (mmHg) O2 Sat by Pulse 98 79 76 Oximetry 01/20/19 11:07 Temperature Pulse Rate 72 Respiratory Rate Blood Pressure (mmHg) O2 Sat by Pulse 100 Oximetry Oxygen Devices in Use Now: None Appearance: Middle aged thin black male sitting up in bed, sleeping, opens eyes to voice, NAD Eyes: No Scleral Icterus Ears/Nose/Mouth/Throat: Mucous Membranes Moist Respiratory: Symmetrical Chest Expansion and Respiratory Effort, Clear to Auscultation Cardiovascular: NL Sounds; No Murmurs; No JVD, RRR, No Edema Abdominal: NL Sounds; No Tenderness; No Distention Extremities: No Clubbing, Cyanosis Skin: No Nodules or Sclerosis Neurological: - - lethargic Result Diagrams: 01/20/19 06:12 01/20/19 06:12 Additional Lab and Data: Lab Results 01/16/19 01/16/19 01/16/19 Range/Units 15:03 15:03 15:03 WBC 2.2 L (3.5-10.8) 10^3/uL RBC 2.22 L (4.18-5.48) 10^6 /uL Hgb 7.2 L (14.0-18.0) g/dL Hct 22 L (42-52) % MCV 101 H (80-94) fL MCH 33 H (27-31) pg MCHC 32 (31-36) g/dL RDW 15 (10-15) % Plt Count 134 L (150-450) 10^3/uL MPV 8.4 (7.4-10.4) fL Neut % (Auto) 58.7 % Lymph % (Auto) 24.1 % [place] % (Auto) 12.8 % Eos % (Auto) 1.5 % Baso % (Auto) 2.9 % Absolute Neuts (auto) 1.3 L (1.5-7.7) 10^3/ul Absolute Lymphs (auto) 0.5 L (1.0-4.8) 10^3/ul Absolute Monos (auto) 0.3 (0-0.8) 10^3/ul Absolute Eos (auto) 0.0 (0-0.6) 10^3/ul Absolute Basos (auto) 0.1 (0-0.2) 10^3/ul Absolute Nucleated RBC 0.0 10^3/ul Nucleated RBC % 0.6 Sodium 138 (135-145) mmol/L Potassium 3.6 (3.5-5.0) mmol/L Chloride 108 (101-111) mmol/L Carbon Dioxide 26 (22-32) mmol/L Anion Gap 4 (2-11) mmol/L BUN 7 (6-24) mg/dL Creatinine 0.89 (0.67-1.17) mg/dL Est GFR ( Amer) 103.5 (>60) Est GFR (Non-Af Amer) 85.5 (>60) BUN/Creatinine Ratio 7.9 L (8-20) Glucose 89 (70-100) mg/dL Calcium 8.5 L (8.6-10.3) mg/dL Total Bilirubin 0.50 (0.2-1.0) mg/dL AST 203 H (13-39) U/L ALT 108 H (7-52) U/L Alkaline Phosphatase 55 (34-104) U/L Total Protein 6.9 (6.4-8.9) g/dL Albumin 3.6 (3.2-5.2) g/dL Globulin 3.3 (2-4) g/dL Albumin/Globulin Ratio 1.1 (1-3) Blood Type Pending Antibody Screen Pending Microbiology and Other Data: Microbiology 01/16/19 15:41 Stool Occult Blood (TESFAYE) - Final Stool Assess/Plan/Problems-Billing Mr Ga is a 68 yo alcoholic M with h/o ischemic cardiomyopathy (EF 30%), recurrent GI bleed (PEA arrest in face of GI bleed and anemia in 2018), pancytopenia (likely due to alcoholism), known 95% lesion in RCA (not amenable for intervention) presents with generalized weakness and melana Hb of 7.2 - Patient Problems (1) GI hemorrhage Current Visit: Yes Status: Acute Priority: High Code(s): K92.2 - GASTROINTESTINAL HEMORRHAGE, UNSPECIFIED SNOMED Code(s): 14606899 Comment: H/H relatively stable. Recheck tomorrow. EGD and colonoscopy both unrevealing as to the source of bleeding. ? need for capsule endoscopy. (2) Alcohol abuse Current Visit: Yes Status: Acute Code(s): F10.10 - ALCOHOL ABUSE, UNCOMPLICATED SNOMED Code(s): 25861543 Comment: Patient (when alert) denied history of withdrawal, pts girlfriend stated he has never been through withdrawal but likely his AMS that began relatively acutely yesterday is secondary to withdrawal. Will conitnue [place] protocol. Check ammonia level. (3) Pancytopenia Current Visit: Yes Status: Acute Code(s): D61.818 - OTHER PANCYTOPENIA SNOMED Code(s): 700501485 Comment: Likely secondary to ETOH use and underlying liver disease. Alpha 1 antitripsin antibody pending. (4) COPD (chronic obstructive pulmonary disease) Current Visit: Yes Status: Acute Code(s): J44.9 - CHRONIC OBSTRUCTIVE PULMONARY DISEASE, UNSPECIFIED SNOMED Code(s): 86315257 Comment: Encourage smoking cessation. (5) CAD (coronary artery disease) Current Visit: Yes Status: Chronic Code(s): I25.10 - ATHSCL HEART DISEASE OF [place] CORONARY ARTERY W/O ANG PCTRS SNOMED Code(s): 32780219 Comment: Known CAD with 95% RCA stenosis not amenable to intervention. ASA and clopidogrel held due to GI bleed. No c/o chest pain. ? need to restart ASA or plavix prior to d/c. Perhaps he can be on one agent moving forward. (6) DVT prophylaxis Current Visit: Yes Status: Acute Code(s): Z29.9 - ENCOUNTER FOR PROPHYLACTIC MEASURES, UNSPECIFIED SNOMED Code(s): 709375825 Comment: SCD's only secondary to presumed GI bleed (7) Full code status Current Visit: Yes Status: Acute Code(s): Z78.9 - OTHER SPECIFIED HEALTH STATUS SNOMED Code(s): 631949678 Status and Disposition: inpatient
[2019-01-20] MEDS: Thiamine TAB* 100 MG TAB PO SCH ×2 (12:51→15:22)
[2019-01-20] MEDS: Folic Acid TAB* 1 MG PO SCH ×2 (12:51→15:21)
[2019-01-20] MEDS: Cyanocobalamin TAB* 500 MCG PO SCH (15:21)
[2019-01-20] MEDS: Metoprolol Succinate XL TAB* 25 MG PO SCH ×2 (15:22→21:51)
[2019-01-20] MEDS: Nicotine PATCH 14 MG/24 HR* PATCH TRANSDERM SCH (15:22)
[2019-01-20] MEDS: Multivitamins/Minerals TAB PO SCH (15:22)
[2019-01-20] MEDS: Cyclobenzaprine TAB* 10 MG PO SCH (21:52)
[2019-01-21] MEDS: NS 0.9% 1000 ML** 1,000 ML IV SCH ×2 (00:35→15:52)
[2019-01-21 07:01] LABS: ABS Lymphocytes 0.4 10^3/ul (1.0-4.8); ABS Monocytes 0.3 10^3/ul (0-0.8); ABS Neutrophils 1.2 10^3/ul (1.5-7.7); Eosinophil % 1.1 %; Hematocrit 27 % (42-52); Hemoglobin 8.7 g/dL (14.0-18.0); Lymphocyte % 20.7 %; Mean Corpuscular HGB Conc 33 g/dL (31-36); Mean Corpuscular Hemoglobin 32 pg (27-31); Mean Corpuscular Volume 96 fL (80-94); Mean Platelet Volume 8.7 fL (7.4-10.4); Nucleated Red Blood Cells % 0.1; Platelet Count 117 10^3/uL (150-450); Red Blood Count 2.77 10^6 /uL (4.18-5.48); Red Cell Distribution Width 16 % (10-15); White Blood Count 1.9 10^3/uL (3.5-10.8)
[2019-01-21 07:21] LABS: BUN/Creatinine Ratio 11.8 (8-20); EGFR African American 98.4 (>60); EGFR Non-African American 81.3 (>60); Potassium 3.5 mmol/L (3.5-5.0)
[2019-01-21] MEDS: Multivitamins/Minerals TAB PO SCH (09:44)
[2019-01-21] MEDS: Thiamine TAB* 100 MG TAB PO SCH (09:44)
[2019-01-21] MEDS: Cyanocobalamin TAB* 500 MCG PO SCH (09:44)
[2019-01-21] MEDS: Folic Acid TAB* 1 MG PO SCH (09:44)
[2019-01-21] MEDS: Metoprolol Succinate XL TAB* 25 MG PO SCH ×2 (09:45→21:44)
[2019-01-21] MEDS: Pantoprazole IV* 40 MG IV SCH (09:45)
[2019-01-21] MEDS: Nicotine PATCH 14 MG/24 HR* PATCH TRANSDERM SCH (09:48)
--- NOTE | 2019-01-21 14:38 | PN ---
Subjective Date of Service: 01/21/19 Interval History: Pt is feeling ok today. He became very upset when I asked him how much he drinks per day. He states 2/day, his girlfriend stated 3-4- I think it is still unclear how much he drinks. He states he has walked some. Objective Active Medications: Acetaminophen (Tylenol Tab*) 650 mg PO Q4H PRN PRN Reason: PAIN-MODERATE/TEMP >/= 100.4 Last Admin: 01/20/19 17:13 Dose: 650 mg Hydrocodone Bitart/Acetaminophen ([place] 5-325 Tab*) 1 tab PO Q6H PRN PRN Reason: PAIN - MODERATE Al Hydrox/Mg Hydrox/Simethicone (Maalox Plus*) 30 ml PO Q6H PRN PRN Reason: INDIGESTION Cyanocobalamin (Vitamin B12 Tab*) 1,000 mcg PO DAILY [facility] Last Admin: 01/21/19 09:44 Dose: 1,000 mcg Cyclobenzaprine HCl (Flexeril Tab*) 10 mg PO BEDTIME [facility] Last Admin: 01/20/19 21:52 Dose: 10 mg Folic Acid (Folvite Tab*) 1 mg PO DAILY [facility] Last Admin: 01/21/19 09:44 Dose: 1 mg Sodium Chloride (Ns 0.9% 1000 Ml) 1,000 mls @ 75 mls/hr IV PER RATE [facility] Last Admin: 01/21/19 00:35 Dose: 75 mls/hr Lorazepam (Ativan Tab(*)) 0.5 mg PO Q4H PRN PRN Reason: ANXIETY Lorazepam (Ativan Inj*) 0 - 3 mg IV PUSH .PER [facility] PROTOCOL [facility]; Protocol Last Admin: 01/20/19 05:12 Dose: 1 mg Metoprolol Succinate (Toprol Xl Tab*) 12.5 mg PO BID [facility] Last Admin: 01/21/19 09:45 Dose: 12.5 mg Miscellaneous (Ativan Pyxis Nolan) 1 ea N/A .ATIVAN IV NOLAN PRN PRN Reason: PYXIS NOLAN Morphine Sulfate (Morphine Inj (Syringe))*) 1 mg IV Q4H PRN PRN Reason: PAIN - SEVERE Last Admin: 01/20/19 13:18 Dose: 1 mg Multivitamins/Minerals (Theragran/Minerals Tab*) 1 tab PO DAILY [facility] Last Admin: 01/21/19 09:44 Dose: 1 tab Nicotine (Nicotine Patch 14 Mg/24 Hr*) 1 patch TRANSDERM DAILY [facility] Last Admin: 01/21/19 09:48 Dose: Not Given Pantoprazole Sodium (Protonix Iv*) 40 mg IV DAILY [facility] Last Admin: 01/21/19 09:45 Dose: 40 mg Thiamine HCl (Vitamin B-1 Tab*) 100 mg PO DAILY [facility] Last Admin: 01/21/19 09:44 Dose: 100 mg Vital Signs - 8 hr 01/21/19 01/21/19 01/21/19 07:00 07:15 08:58 Temperature 99.7 F Pulse Rate 74 Respiratory 18 18 18 Rate Blood Pressure 125/58 (mmHg) O2 Sat by Pulse 100 Oximetry 01/21/19 01/21/19 01/21/19 08:59 10:53 11:00 Temperature 98.7 F 99.6 F Pulse Rate 73 76 Respiratory 18 18 18 Rate Blood Pressure 129/69 135/83 (mmHg) O2 Sat by Pulse 100 100 Oximetry 01/21/19 13:10 Temperature Pulse Rate 70 Respiratory Rate Blood Pressure 139/81 (mmHg) O2 Sat by Pulse 100 Oximetry Oxygen Devices in Use Now: None Appearance: Middle aged male sitting up in bed, sleeping, awakens to voice, NAD Eyes: No Scleral Icterus Ears/Nose/Mouth/Throat: Mucous Membranes Moist Respiratory: Symmetrical Chest Expansion and Respiratory Effort, Clear to Auscultation Cardiovascular: NL Sounds; No Murmurs; No JVD, RRR, No Edema Abdominal: NL Sounds; No Tenderness; No Distention Extremities: No Clubbing, Cyanosis Skin: No Nodules or Sclerosis Neurological: - - speech is mildly dysarthric at times Result Diagrams: 01/21/19 06:28 01/21/19 06:28 Additional Lab and Data: Lab Results 01/16/19 01/16/19 01/16/19 Range/Units 15:03 15:03 15:03 WBC 2.2 L (3.5-10.8) 10^3/uL RBC 2.22 L (4.18-5.48) 10^6 /uL Hgb 7.2 L (14.0-18.0) g/dL Hct 22 L (42-52) % MCV 101 H (80-94) fL MCH 33 H (27-31) pg MCHC 32 (31-36) g/dL RDW 15 (10-15) % Plt Count 134 L (150-450) 10^3/uL MPV 8.4 (7.4-10.4) fL Neut % (Auto) 58.7 % Lymph % (Auto) 24.1 % [place] % (Auto) 12.8 % Eos % (Auto) 1.5 % Baso % (Auto) 2.9 % Absolute Neuts (auto) 1.3 L (1.5-7.7) 10^3/ul Absolute Lymphs (auto) 0.5 L (1.0-4.8) 10^3/ul Absolute Monos (auto) 0.3 (0-0.8) 10^3/ul Absolute Eos (auto) 0.0 (0-0.6) 10^3/ul Absolute Basos (auto) 0.1 (0-0.2) 10^3/ul Absolute Nucleated RBC 0.0 10^3/ul Nucleated RBC % 0.6 Sodium 138 (135-145) mmol/L Potassium 3.6 (3.5-5.0) mmol/L Chloride 108 (101-111) mmol/L Carbon Dioxide 26 (22-32) mmol/L Anion Gap 4 (2-11) mmol/L BUN 7 (6-24) mg/dL Creatinine 0.89 (0.67-1.17) mg/dL Est GFR ( Amer) 103.5 (>60) Est GFR (Non-Af Amer) 85.5 (>60) BUN/Creatinine Ratio 7.9 L (8-20) Glucose 89 (70-100) mg/dL Calcium 8.5 L (8.6-10.3) mg/dL Total Bilirubin 0.50 (0.2-1.0) mg/dL AST 203 H (13-39) U/L ALT 108 H (7-52) U/L Alkaline Phosphatase 55 (34-104) U/L Total Protein 6.9 (6.4-8.9) g/dL Albumin 3.6 (3.2-5.2) g/dL Globulin 3.3 (2-4) g/dL Albumin/Globulin Ratio 1.1 (1-3) Blood Type Pending Antibody Screen Pending Microbiology and Other Data: Microbiology 01/16/19 15:41 Stool Occult Blood (TESFAYE) - Final Stool Assess/Plan/Problems-Billing Mr Ga is a 68 yo alcoholic M with h/o ischemic cardiomyopathy (EF 30%), recurrent GI bleed (PEA arrest in face of GI bleed and anemia in 2018), pancytopenia (likely due to alcoholism), known 95% lesion in RCA (not amenable for intervention) presents with generalized weakness and melana Hb of 7.2 - Patient Problems (1) GI hemorrhage Current Visit: Yes Status: Acute Code(s): K92.2 - GASTROINTESTINAL HEMORRHAGE, UNSPECIFIED SNOMED Code(s): 65784062 Comment: H/H stable. EGD and colonoscopy both unrevealing as to the source of bleeding. ? need for capsule endoscopy. (2) Alcohol abuse Current Visit: Yes Status: Acute Code(s): F10.10 - ALCOHOL ABUSE, UNCOMPLICATED SNOMED Code(s): 57966352 Comment: Continue [place] protocol for alcohol withdrawal. No need for ativian since yesterday AM. Continue to monitor for symptoms of withdrawal. Liver elastography reveals severe fibrosis (score of F3). Encourage pt abstain from EtOH. (3) Pancytopenia Current Visit: Yes Status: Acute Code(s): D61.818 - OTHER PANCYTOPENIA SNOMED Code(s): 429533881 Comment: Likely secondary to ETOH use and underlying liver disease. (4) COPD (chronic obstructive pulmonary disease) Current Visit: Yes Status: Acute Code(s): J44.9 - CHRONIC OBSTRUCTIVE PULMONARY DISEASE, UNSPECIFIED SNOMED Code(s): 93050156 Comment: Encourage smoking cessation. (5) CAD (coronary artery disease) Current Visit: Yes Status: Chronic Code(s): I25.10 - ATHSCL HEART DISEASE OF [place] CORONARY ARTERY W/O ANG PCTRS SNOMED Code(s): 54338569 Comment: Known CAD with 95% RCA stenosis not amenable to intervention. Will restart plavix later this week and hold ASA for now. (6) DVT prophylaxis Current Visit: Yes Status: Acute Code(s): Z29.9 - ENCOUNTER FOR PROPHYLACTIC MEASURES, UNSPECIFIED SNOMED Code(s): 613082182 Comment: SCD's only secondary to presumed GI bleed (7) Full code status Current Visit: Yes Status: Acute Code(s): Z78.9 - OTHER SPECIFIED HEALTH STATUS SNOMED Code(s): 275077043 Status and Disposition: inpatient
[2019-01-21] MEDS: Cyclobenzaprine TAB* 10 MG PO SCH (21:45)
[2019-01-21] MEDS ORDERED: Albuterol 2.5 MG/3 ML NEB.SOL* (0.083%) INH PRN (23:26)
[2019-01-21 23:32] LABS: Urine Appearance Cloudy; Urine Bilirubin Negative (Negative); Urine Blood Negative (Negative); Urine Color Yellow; Urine Glucose Negative (Negative); Urine Ketones Negative (Negative); Urine Nitrite Negative (Negative); Urine Protein Negative (Negative); Urine Specific Gravity 1.013 (1.010-1.030); Urine Urobilinogen Negative (Negative)
[2019-01-21 23:36] LABS: Urine Bacteria 1+ (Absent); Urine Red Blood Cell Trace(0-2/hpf) (Absent); Urine Squamous Epithelial Cell Present (Absent); Urine White Blood Cell Trace(0-5/hpf) (Absent)
[2019-01-22] MEDS: NS 0.9% 1000 ML** 1,000 ML IV SCH (07:26)
--- NOTE | 2019-01-22 07:36 | PN ---
Subjective Date of Service: 01/22/19 Interval History: I was called urgently to the patient's bedside due to concerns he was coughing up meli blood. When I arrived, it was clear he was having a nosebleed with blood dripping into the back of his throat and then coughing it up. He states it started suddenly. He has not been using O2. He states he just got hot and then started having the bleed. He denies any pain or SOB. Objective Active Medications: Acetaminophen (Tylenol Tab*) 650 mg PO Q4H PRN PRN Reason: PAIN-MODERATE/TEMP >/= 100.4 Last Admin: 01/20/19 17:13 Dose: 650 mg Hydrocodone Bitart/Acetaminophen ([place] 5-325 Tab*) 1 tab PO Q6H PRN PRN Reason: PAIN - MODERATE Al Hydrox/Mg Hydrox/Simethicone (Maalox Plus*) 30 ml PO Q6H PRN PRN Reason: INDIGESTION Albuterol (Ventolin 2.5 Mg/3 Ml Neb.Danielle*) 2.5 mg INH [id number] AWAKE PRN PRN Reason: SOB/WHEEZING Last Admin: 01/22/19 00:08 Dose: 2.5 mg Cyanocobalamin (Vitamin B12 Tab*) 1,000 mcg PO DAILY [facility] Last Admin: 01/21/19 09:44 Dose: 1,000 mcg Cyclobenzaprine HCl (Flexeril Tab*) 10 mg PO BEDTIME [facility] Last Admin: 01/21/19 21:45 Dose: 10 mg Folic Acid (Folvite Tab*) 1 mg PO DAILY [facility] Last Admin: 01/21/19 09:44 Dose: 1 mg Sodium Chloride (Ns 0.9% 1000 Ml) 1,000 mls @ 75 mls/hr IV PER RATE [facility] Last Admin: 01/22/19 07:26 Dose: 75 mls/hr Lorazepam (Ativan Tab(*)) 0.5 mg PO Q4H PRN PRN Reason: ANXIETY Lorazepam (Ativan Inj*) 0 - 3 mg IV PUSH .PER [facility] PROTOCOL [facility]; Protocol Last Admin: 01/20/19 05:12 Dose: 1 mg Metoprolol Succinate (Toprol Xl Tab*) 12.5 mg PO BID [facility] Last Admin: 01/21/19 21:44 Dose: 12.5 mg Miscellaneous (Ativan Pyxis Nolan) 1 ea N/A .ATIVAN IV NOLAN PRN PRN Reason: PYXIS NOLAN Morphine Sulfate (Morphine Inj (Syringe))*) 1 mg IV Q4H PRN PRN Reason: PAIN - SEVERE Last Admin: 01/20/19 13:18 Dose: 1 mg Multivitamins/Minerals (Theragran/Minerals Tab*) 1 tab PO DAILY [facility] Last Admin: 01/21/19 09:44 Dose: 1 tab Nicotine (Nicotine Patch 14 Mg/24 Hr*) 1 patch TRANSDERM DAILY [facility] Last Admin: 01/21/19 09:48 Dose: Not Given Pantoprazole Sodium (Protonix Iv*) 40 mg IV DAILY [facility] Last Admin: 01/21/19 09:45 Dose: 40 mg Thiamine HCl (Vitamin B-1 Tab*) 100 mg PO DAILY [facility] Last Admin: 01/21/19 09:44 Dose: 100 mg Vital Signs - 8 hr 01/22/19 01/22/19 01/22/19 00:13 01:03 03:07 Temperature 98.9 F 98.4 F Pulse Rate 73 77 72 Respiratory 16 16 20 Rate Blood Pressure 143/71 146/86 (mmHg) O2 Sat by Pulse 98 99 98 Oximetry 01/22/19 05:00 Temperature 98.8 F Pulse Rate 75 Respiratory 16 Rate Blood Pressure 142/88 (mmHg) O2 Sat by Pulse 100 Oximetry Oxygen Devices in Use Now: None Appearance: Middle aged male sitting up in bed, blood dripping from the R nostril, NAD Eyes: No Scleral Icterus Ears/Nose/Mouth/Throat: Mucous Membranes Moist Respiratory: Symmetrical Chest Expansion and Respiratory Effort, Clear to Auscultation - diminished breath sounds throughout Cardiovascular: RRR, No Edema Abdominal: NL Sounds; No Tenderness; No Distention Extremities: No Clubbing, Cyanosis Skin: No Nodules or Sclerosis Neurological: Alert and Oriented x 3 Result Diagrams: 01/21/19 06:28 01/21/19 06:28 Additional Lab and Data: Lab Results 01/16/19 01/16/19 01/16/19 Range/Units 15:03 15:03 15:03 WBC 2.2 L (3.5-10.8) 10^3/uL RBC 2.22 L (4.18-5.48) 10^6 /uL Hgb 7.2 L (14.0-18.0) g/dL Hct 22 L (42-52) % MCV 101 H (80-94) fL MCH 33 H (27-31) pg MCHC 32 (31-36) g/dL RDW 15 (10-15) % Plt Count 134 L (150-450) 10^3/uL MPV 8.4 (7.4-10.4) fL Neut % (Auto) 58.7 % Lymph % (Auto) 24.1 % [place] % (Auto) 12.8 % Eos % (Auto) 1.5 % Baso % (Auto) 2.9 % Absolute Neuts (auto) 1.3 L (1.5-7.7) 10^3/ul Absolute Lymphs (auto) 0.5 L (1.0-4.8) 10^3/ul Absolute Monos (auto) 0.3 (0-0.8) 10^3/ul Absolute Eos (auto) 0.0 (0-0.6) 10^3/ul Absolute Basos (auto) 0.1 (0-0.2) 10^3/ul Absolute Nucleated RBC 0.0 10^3/ul Nucleated RBC % 0.6 Sodium 138 (135-145) mmol/L Potassium 3.6 (3.5-5.0) mmol/L Chloride 108 (101-111) mmol/L Carbon Dioxide 26 (22-32) mmol/L Anion Gap 4 (2-11) mmol/L BUN 7 (6-24) mg/dL Creatinine 0.89 (0.67-1.17) mg/dL Est GFR ( Amer) 103.5 (>60) Est GFR (Non-Af Amer) 85.5 (>60) BUN/Creatinine Ratio 7.9 L (8-20) Glucose 89 (70-100) mg/dL Calcium 8.5 L (8.6-10.3) mg/dL Total Bilirubin 0.50 (0.2-1.0) mg/dL AST 203 H (13-39) U/L ALT 108 H (7-52) U/L Alkaline Phosphatase 55 (34-104) U/L Total Protein 6.9 (6.4-8.9) g/dL Albumin 3.6 (3.2-5.2) g/dL Globulin 3.3 (2-4) g/dL Albumin/Globulin Ratio 1.1 (1-3) Blood Type Pending Antibody Screen Pending Microbiology and Other Data: Microbiology 01/16/19 15:41 Stool Occult Blood (TESFAYE) - Final Stool Assess/Plan/Problems-Billing Mr Ga is a 68 yo alcoholic M with h/o ischemic cardiomyopathy (EF 30%), recurrent GI bleed (PEA arrest in face of GI bleed and anemia in 2018), pancytopenia (likely due to alcoholism), known 95% lesion in RCA (not amenable for intervention) presents with generalized weakness and melana Hb of 7.2 - Patient Problems (1) GI hemorrhage Current Visit: Yes Status: Acute Code(s): K92.2 - GASTROINTESTINAL HEMORRHAGE, UNSPECIFIED SNOMED Code(s): 75870184 Comment: H/H stable. EGD and colonoscopy both unrevealing as to the source of bleeding. Pt now with nosebleed but states he does not get nosebleeds at home so unlikely a nosebleed led to heme positive stool. Repeat CBC today. (2) Alcohol abuse Current Visit: Yes Status: Acute Code(s): F10.10 - ALCOHOL ABUSE, UNCOMPLICATED SNOMED Code(s): 41940138 Comment: Stop WAM protocol. He has not scored high enough to receive ativan since 01/20. Pt will need follow up for the liver fibrosis. Encourage pt to abstain completely from EtOH. (3) Pancytopenia Current Visit: Yes Status: Acute Code(s): D61.818 - OTHER PANCYTOPENIA SNOMED Code(s): 434314677 Comment: Likely secondary to ETOH use and underlying liver disease. Repeat CBC pending today. (4) COPD (chronic obstructive pulmonary disease) Current Visit: Yes Status: Acute Code(s): J44.9 - CHRONIC OBSTRUCTIVE PULMONARY DISEASE, UNSPECIFIED SNOMED Code(s): 79633360 Comment: Encourage smoking cessation. No signs of exacerbation. (5) CAD (coronary artery disease) Current Visit: Yes Status: Chronic Code(s): I25.10 - ATHSCL HEART DISEASE OF [place] CORONARY ARTERY W/O ANG PCTRS SNOMED Code(s): 85249190 Comment: Known CAD with 95% RCA stenosis not amenable to intervention. Will restart plavix later this week and hold ASA for now. (6) DVT prophylaxis Current Visit: Yes Status: Acute Code(s): Z29.9 - ENCOUNTER FOR PROPHYLACTIC MEASURES, UNSPECIFIED SNOMED Code(s): 013914930 Comment: SCD's only secondary to presumed GI bleed (7) Full code status Current Visit: Yes Status: Acute Code(s): Z78.9 - OTHER SPECIFIED HEALTH STATUS SNOMED Code(s): 961621372 Status and Disposition: possible d/c home later today if nosebleed resolves
[2019-01-22] MEDS ORDERED: Oxymetazoline 0.05% NASAL SPR* 15 ML BTL RIGHT NARE ONE (07:41)
[2019-01-22] MEDS: Pantoprazole IV* 40 MG IV SCH (08:11)
[2019-01-22] MEDS: Nicotine PATCH 14 MG/24 HR* PATCH TRANSDERM SCH ×2 (08:12→08:13)
[2019-01-22] MEDS: Cyanocobalamin TAB* 500 MCG PO SCH (08:14)
[2019-01-22] MEDS: Thiamine TAB* 100 MG TAB PO SCH (08:14)
[2019-01-22] MEDS: Multivitamins/Minerals TAB PO SCH (08:14)
[2019-01-22] MEDS: Metoprolol Succinate XL TAB* 25 MG PO SCH (08:14)
[2019-01-22] MEDS: Folic Acid TAB* 1 MG PO SCH (08:14)
[2019-01-22 08:41] LABS: Hematocrit 28 % (42-52); Mean Corpuscular HGB Conc 33 g/dL (31-36); Mean Corpuscular Hemoglobin 32 pg (27-31); Mean Corpuscular Volume 98 fL (80-94); Mean Platelet Volume 8.1 fL (7.4-10.4); Platelet Count 110 10^3/uL (150-450); Red Blood Count 2.83 10^6 /uL (4.18-5.48); Red Cell Distribution Width 16 % (10-15); White Blood Count 2.3 10^3/uL (3.5-10.8)
[2019-01-22 08:51] LABS: INR 1.03 (0.82-1.09)
[2019-01-22 14:08] VITALS: BP 142/60
--- NOTE | 2019-01-23 00:18 | DS ---
CC: Dr. Ly * DISCHARGE SUMMARY: DATE OF ADMISSION: 01/16/19 DATE OF DISCHARGE: 01/22/19 PRIMARY CARE PROVIDER: Dr. Ly. PRINCIPAL DIAGNOSES: 1. Gastrointestinal bleed with unclear source identified. 2. Pancytopenia. 3. Probable alcohol withdrawal. SECONDARY DIAGNOSES: 1. Alcoholism. 2. Chronic obstructive pulmonary disease. 3. Coronary artery disease. 4. Ischemic cardiomyopathy. 5. Peripheral arterial disease. DISCHARGE MEDICATIONS: 1. Thiamine 100 mg p.o. daily. 2. Omeprazole 20 mg p.o. daily. 3. Metoprolol XL 12.5 mg p.o. b.i.d. 4. Loratadine 10 mg p.o. daily. 5. [place] 5/325 mg 1 tab p.o. q.6 hours p.r.n. pain. 6. Folic acid 1 mg daily. 7. Ferrous sulfate 325 mg p.o. b.i.d. 8. Colace 100 mg p.o. b.i.d. 9. Flexeril 10 mg p.o. q.h.s. 10. Plavix 75 mg p.o. daily, start on 01/27/19. 11. Lipitor 20 mg p.o. daily. 12. Aspirin 81 mg p.o. daily, held until seen by PCP. 13. Multivitamin 1 tab p.o. daily. HOSPITAL COURSE: Mr. Ga is a 68-year-old male with history of alcoholism, who presented to the emergency room with complaints of dizziness and weakness on 01/16/19. The patient was noted to have heme-positive stools in the setting of complaining of melena. He was admitted for evaluation of possible GI bleed. The patient's hemoglobin on admission was low at 7.2. This was down from 8.4 on 01/11/19. The patient ended up receiving 2 units of packed red blood cells. He underwent consultation by Dr. Hope. She recommended EGD which was performed. This was done on 01/17/19. EGD revealed no evidence for varices, portal hypertensive gastropathy, or ulcer. She therefore recommended the patient to undergo a colonoscopy. This was performed on 01/19/19. Colonoscopy revealed a diminutive cecal cap polyp that was not removed. No other source of bleeding was identified. By the evening of 01/19/19, the patient began to have what appeared to be alcohol withdrawal. He was placed on WAM protocol and received several doses of Ativan. On 01/20/19, the patient was quite lethargic. By 01/21/19, he was improving and by 01/22/19, his mental status was back to baseline. It is still unclear as to the source of the patient's GI bleeding. His hemoglobin remained stable through the course of his hospitalization after receiving 2 units packed red blood cells. The patient, however, is noted to be pancytopenic. This was felt to be likely secondary to his alcohol use and liver disease. The patient at the time of consultation by Dr. Hope did have liver elastography which revealed a METAVIR score of likely F3 indicating severe fibrosis. The patient has been instructed to completely abstain from alcohol. This was also told to the patient's girlfriend who was present at the time of discharge. On the day of discharge, the patient developed a nosebleed in the morning. This was not able to be controlled with just pressure alone. Aspirin was utilized to control the nosebleed and this resolved the bleed. The patient's girlfriend did state that he had a nosebleed recently, perhaps that was the source of the heme- positive stool. Of note, the patient also had a fever of 101.2 on 01/20/19. Chest x-ray and urinalysis were obtained and no clear source of infection was identified. He has subsequently been afebrile. The patient has been on aspirin and Plavix for history of coronary artery disease and peripheral arterial disease. Unfortunately, due to concern for GI bleed, these were held. The patient has been instructed to restart his Plavix on 01/27/19. His aspirin should be held until he sees his PCP in followup. It is unclear if he needs both antiplatelets at this time. FOLLOWUP CONCERNS: The patient is being discharged home today 01/22/19. Activity level is as tolerated. Diet is regular. CONDITION ON DISCHARGE: Stable. The patient is to follow up with Dr. Ly on 01/31/19 at 1 p.m. TIME SPENT: Thirty-five minutes was spent discharging this patient. [id number]/[facility] #: [id number] [facility] HOSPITALWilbert
== END 2019-01-22 19:20 | disposition home or self-care (01) | DRG 378 ==
LOC: ED 11:06 → MED 17:11
PROVIDERS: ADMIT Internal Medicine; ATTEND Hospitalist
PROC: 30233N1 Transfusion of Nonautologous Red Blood Cells into Peripheral Vein, Percutaneous Approach (ICD-10-PCS; 2019-01-17)
PROC: 0DJ08ZZ Inspection of Upper Intestinal Tract, Via Natural or Artificial Opening Endoscopic (ICD-10-PCS; 2019-01-17)
PROC: 0DJD8ZZ Inspection of Lower Intestinal Tract, Via Natural or Artificial Opening Endoscopic (ICD-10-PCS; principal; 2019-01-19)
DX: K92.1 Melena (principal); F10.239 Alcohol dependence with withdrawal, unspecified; I42.8 Other cardiomyopathies; D61.818 Other pancytopenia; D62 Acute posthemorrhagic anemia; J44.9 Chronic obstructive pulmonary disease, unspecified; I25.10 Atherosclerotic heart disease of native coronary artery without angina pectoris; I73.9 Peripheral vascular disease, unspecified; I25.5 Ischemic cardiomyopathy; K57.30 Diverticulosis of large intestine without perforation or abscess without bleeding; R50.9 Fever, unspecified; R04.0 Epistaxis; D12.0 Benign neoplasm of cecum; D64.9 Anemia, unspecified; K44.9 Diaphragmatic hernia without obstruction or gangrene; I10 Essential (primary) hypertension; K70.2 Alcoholic fibrosis and sclerosis of liver; E78.00 Pure hypercholesterolemia, unspecified; M41.9 Scoliosis, unspecified; F90.9 Attention-deficit hyperactivity disorder, unspecified type; F17.210 Nicotine dependence, cigarettes, uncomplicated; I44.7 Left bundle-branch block, unspecified; Z79.02 Long term (current) use of antithrombotics/antiplatelets; I25.2 Old myocardial infarction; Z79.82 Long term (current) use of aspirin; Z79.899 Other long term (current) drug therapy
CPT/HCPCS: 36415; 70450; 71045; 76981; 80048; 80053; 80074; 81003; 81015; 82103; 82140; 82270; 82390; 82607; 82728; 82746; 83540; 83550; 84484; 85014; 85018; 85025; 85027; 85610; 86850; 86900; 86901; 86922; 87040; 87077; 87086; 87186; 87522; 93005; 94640; 99156; 99284; A9270-GY; J2060; J2250; J2270; J2916; J3010; J3411; P9040

== ENCOUNTER 2019-02-28 18:51 | Inpatient (IN) | payer MEDICARE, MEDICAID ==
--- OUTSIDE RECORDS SUMMARY | 2019-02-28 19:12 | XMS REPORT | Summary of Care ---
:1950 Author Organization [facility] Address [address] [facility] [place] [address] Care Team Providers Name Role Phone AliyahMaryanradha Titus Primary Care Provider Jason Weaver OD Primary Firer [employer]otive[employer]Building Trades Teacher Lawrence Zhang MD Secondary Firer Locomotive/Building Trades Teacher Unavailable Reason for Visit Reason Comments Transitional Care Management [place] [facility] [place] for GI bleed,pancytopenia ,and probable alcohol withdrawl. Encounter Details Date Type Department Care Team Description 01/31/2019 Office Visit [place] [facility] Niraj Ly Gastrointestinal hemorrhage with melena (Primary Dx); Tonie Titus MD History of tobacco use; [address] PVD (peripheral vascular disease) (HCC); [place] [address] [place] [address] S/P vascular bypass; [phone] Essential hypertension, benign; [phone] Centrilobular emphysema (HCC); (Fax) History of alcohol abuse; Pancytopenia (HCC) Allergies No Known Allergiesdocumented as of this encounter (statuses as of 01/31/2019) Medications Medication Sig Dispensed Refills Start Date End Date Status Thiamine HCl (B-1) Take 1 Tab 30 Tab 11 09/14/2018 Active 100 MG Oral Tab by mouth DAILY. foliC acid 1 MG Oral TAKE 1 30 Tab 0 10/18/2018 Active TabIndications: PVD TABLET BY (peripheral vascular MOUTH ONCE disease) ([facility]) DAILY Omeprazole delayed Take 20 mg 90 Cap 5 01/31/2019 Active rel cap 20 MG Oral by mouth CAPSULE DELAYED DAILY. RELEASEIndications: PVD (peripheral vascular disease) ([facility]) metoprolol succinate Take 1 Tab 90 Tab 5 01/31/2019 Active (TOPROL XL) 50 MG by mouth Oral TABLET SR 24 HR DAILY. atorvastatin Take 1 Tab 90 Tab 3 01/31/2019 Active (LIPITOR) 20 MG Oral by mouth TabIndications: PVD DAILY. (peripheral vascular disease) ([facility]) clopidogrel (PLAVIX) Take 1 Tab 90 Tab 3 01/31/2019 Active 75 MG Oral by mouth TabIndications: PVD DAILY. (peripheral vascular disease) ([facility]), S/P vascular bypass loratadine Take 1 Tab 90 Tab 4 01/31/2019 Active (CLARITIN,ALAVERT) by mouth 10 MG Oral DAILY. TabIndications: PVD (peripheral vascular disease) ([facility]) Aspirin (ASPIRIN LOW Take 1 Tab 30 Tab 6 05/24/2016 Discontinued DOSE) 81 MG Oral Tab by mouth 9 (Provider DAILY. Discontinued) HYDROcodone-acetamin Take 1 Tab 10 Tab 0 03/23/2017 Discontinued ophen (NORCO) 5-325 by mouth 9 (Provider MG Oral Tab EVERY SIX Discontinued) HOURS NEEDED (pain). Max Daily Amount: 4 Tabs. cyclobenzaprine Take 1 Tab 30 Tab 11 08/17/2017 Discontinued (FLEXERIL) 10 MG by mouth 9 (Provider Oral TabIndications: EVERY Discontinued) PVD (peripheral BEDTIME. vascular disease) ([facility]) docusate sodium Take 1 Cap 60 Cap 11 08/17/2017 Discontinued (COLACE) 100 MG Oral by mouth 9 (Provider CapIndications: PVD TWICE Discontinued) (peripheral vascular DAILY. disease) ([facility]) Omeprazole delayed Take 20 mg 30 Cap 0 08/17/2017 Discontinued rel cap 20 MG Oral by mouth 9 (Dose Adjustment) CAPSULE DELAYED TWICE RELEASEIndications: DAILY. PVD (peripheral vascular disease) ([facility]) Thiamine Mononitrate Take 1 Tab 30 Tab 11 08/17/2017 Discontinued (RA VITAMIN B-1) 100 by mouth 9 (Provider MG Oral DAILY. Discontinued) TabIndications: PVD (peripheral vascular disease) ([facility]) metoprolol take 1/2 60 Tab 5 09/25/2017 Discontinued (LOPRESSOR) 25 MG tablet by 9 (Provider Oral TabIndications: mouth twice Discontinued) PVD (peripheral a day vascular disease) ([facility]) ferrous sulfate 325 take 1 60 Tab 5 03/26/2018 Discontinued (65 Fe) MG Oral tablet by 9 (Provider TabIndications: PVD mouth twice Discontinued) (peripheral vascular a day disease) ([facility]) atorvastatin Take 1 Tab 90 Tab 3 05/01/2018 Discontinued (LIPITOR) 20 MG Oral by mouth 9 (Reorder) TabIndications: PVD DAILY. (peripheral vascular disease) ([facility]) loratadine TAKE 1 30 Tab 0 11/06/2018 Discontinued (CLARITIN,ALAVERT) TABLET BY 9 (Reorder) 10 MG Oral MOUTH ONCE TabIndications: DAILY Urticaria, PVD (peripheral vascular disease) ([facility]) clopidogrel (PLAVIX) TAKE 1 90 Tab 0 12/10/2018 Discontinued 75 MG Oral TABLET BY 9 (Reorder) TabIndications: PVD MOUTH ONCE (peripheral vascular DAILY. disease) ([facility]), S/P vascular bypass documented as of this encounter (statuses as of 01/31/2019) Active Problems Problem Noted Date Alcoholism 03/06/2018 Chronic systolic CHF (congestive heart failure) 03/06/2018 Bleeding ulcer 04/24/2017 Overview: [facility] admission april 2017 Dr [facility] .Esophago-gastroduodenoscopy negative January 2019 PVD (peripheral vascular disease) 03/15/2017 Pseudophakia of both eyes 01/04/2016 Combined forms [...] right hand Dr Vasquez Knee osteoarthritis 05/20/2011 History of tobacco use 05/20/2011 Overview: 08/2013 5-7 cigarette per day Began age 49 Quit fall 2018 documented as of this encounter (statuses as of 01/31/2019) Resolved Problems Problem Noted Date Resolved Date Syncope and collapse 01/01/2017 01/31/2019 CAD (coronary artery disease) 12/30/2013 01/27/2014 Pain of left calf 08/15/2013 08/29/2013 Knee pain, left 08/15/2013 08/29/2013 documented as of this encounter (statuses as of 01/31/2019) Immunizations Name Administration Dates Next Due Influenza [...] Sign Reading Time Taken Comments Blood Pressure 148/80 01/31/2019 1:05 PM EST Pulse 72 01/31/2019 1:05 PM EST Temperature - - Respiratory Rate - - Oxygen Saturation 93% 01/31/2019 1:05 PM EST Inhaled Oxygen Concentration - - Weight 65.3 kg (144 lb) 01/31/2019 1:05 PM EST Height 180.3 cm (5' 11") 01/31/2019 1:05 PM EST Body Mass Index 20.08 01/31/2019 1:05 PM EST documented in this encounter Patient Instructions Patient InstructionsNiraj Ly MD - 01/31/2019 1:00 PM ESTStop cyclobenzaprine Stop aspirin Stop colace Continue plavix atorvastatin and claritin Use metoprolol xl one per day Avoid alcohol and cigarette use Omeprazole once daily Multivitamin once daily Blood test one month You are doing well documented in this encounter Progress Notes Niraj Ly MD - 01/31/2019 1:00 PM EST TCM Statement. Review of the hospitalization: I am seeing for transition of care following hospitalization. The date of discharge was: 01/22/19 The discharge diagnosis was Alcohol withdrawal, gastro-intestinal bleed undetermine source pancytopenia . Aspirin and plavix held No futher gastro-intestinal bleed symptoms He is now alcohol free No tobacco use I reviewed the discharge summary, discharge instructions, and pertinent additional documentation obtained during hospitalization. I reconciled the medications. I also reviewed the Transition of Care documentation done by staff. The tests that were not available at the time of discharge were reviewed. Additional tests which are not yet available include: None Exam BP 148/80 Pulse 72 Ht 5' 11" (1.803 m) Wt 144 lb (65.3 kg) SpO2 93% BMI 20.08 kg/m2 S1 and S2 normal, no murmurs, clicks, gallops or rubs. Regular rate and rhythm. Chest is clear; no wheezes or rales. No edema or JVD. ICD-9-CM ICD-10-CM 1. Gastrointestinal hemorrhage with melena resolved stay off aspirin resume plavix 578.1 K92.1 CBC WITH DIFFERENTIAL 2. History of tobacco use V15.82 Z87.891 3. PVD (peripheral vascular disease) ([facility]) 443.9 I73.9 Omeprazole delayed rel cap 20 MG Oral CAPSULEDELAYED RELEASE atorvastatin (LIPITOR) 20 MG Oral Tab clopidogrel (PLAVIX) 75 MG Oral Tab loratadine (CLARITIN,ALAVERT) 10 MG Oral Tab COMPREHENSIVE METABOLIC PANEL 4. S/P vascular bypass V45.89 Z95.828 clopidogrel (PLAVIX) 75 MG Oral Tab 5. Essential hypertension, benign change to toprol xl one per day 50 mg follow up 401.1 I10 6. Centrilobular emphysema ([facility]) 492.8 J43.2 7. History of alcohol abuse 305.03 F10.11 8. Pancytopenia ([facility]) complete blood count one month 284.19 D61.818 Coordination of care. - Additional testing related to hospitilization was requested today: yes See orders. I confirmed the patient's understanding of the diagnosis and plan of care. Specific education that was provided today: Patient Instructions Stop cyclobenzaprine Stop aspirin Stop colace Continue plavix atorvastatin and claritin Use metoprolol xl one per day Avoid alcohol and cigarette use Omeprazole once daily Multivitamin once daily Blood test one month You are doing well The current and discharge medications were reconciled by me, today The source document was hospital discharge summary documented in this encounter Plan of Treatment Date Type Specialty Care Team Description 02/19/2019 Office Visit Vascular Surgery Yogesh Mims MD [address] [place] [phone] Name Type Priority Associated Diagnoses Order Schedule CBC WITH DIFFERENTIAL Lab Routine Gastrointestinal hemorrhage Expected: with melena 01/31/2019 (Approximate), Expires: 07/30/2019 COMPREHENSIVE METABOLIC Lab Routine PVD (peripheral vascular Expected: PANEL disease) (HCC) 01/31/2019 (Approximate), Expires: 07/30/2019 Health Maintenance Due Date Last Done Comments MEDICARE ANNUAL WELLNESS 1950 VISIT HEPATITIS A IMMUNIZATION 1951 SERIES (1 of 2 - Risk 2-dose series) DTaP/Tdap/Td Vaccines (1 - 09/19/1963 Tdap) Colonoscopy 2002 ZOSTER IMMUNIZATION SERIES 2002 (1 of 2) INFLUENZA VACCINE (#1) 2018 01/26/2017, 03/20/2015, 12/21/2012 LIPID DISORDER SCREENING 05/02/2019 05/01/2018, 04/18/2014, 08/29/2013 DEPRESSION SCREENING 01/12/2020 01/11/2019 FALL RISK ASSESSMENT 01/12/2020 01/11/2019, 01/11/2019 PNEUMOCOCCAL 65+YRS (2 of 2 01/26/2022 01/26/2017, 05/06/2014 - PPSV23) AAA SCREENING/SURVEILLANCE Completed 01/15/2019, 03/06/2018, 04/18/2017, Additional history exists HPV IMMUNIZATION SERIES Aged Out No longer eligible based on patient's age to complete this topic MENINGOCOCCAL VACCINE IMM Aged Out No longer eligible based on patient's age to complete this topic documented as of this encounter Goals Goal Patient Goal Associated Recent Patient-Stated? Author Type Problems Progress Blood Pressure Blood Pressure Essential 148/80 No [place], < 140/90 hypertension, (01/31/2019 Niraj Titus, benign 1:05 PM EST) Note: Hypertension Care Plan Based [...] Educational Resources. record my blood pressure results. [facility] is safe and secure way for you [...] Educational Resources: National Heart, Lung, & Blood [place] http://nhlbi.nih.gov/hbp/index.html The DASH Diet Eating Plan http://www.nhlbi.nih.gov/health/health-topics/ topics/dash/ Academy of Nutrition & DIetetics http://eatright.org National Smoking Cessation Site http://smokefree.gov Blood Pressure < Blood Pressure 148/80 (01/31/2019 No Tamica Hoang RN 150/90 1:05 PM EST) Note: This is an individualized treatment (blood pressure) goal for Bulmaro Ga: Displayed above (on the left) is your goal for blood pressure control. Your most recent blood pressure is also shown above, on the right. You should try to achieve blood pressures that are lower than your goal listed above (on the left). Weight increase vs. 18 mo CHF 7 (01/31/2019 1:05 PM EST) Chel Mathis RN min (lbs) < 5 Note: This [...] and any After Visit Summaries. Consume a ur-yrsvb-olkb diet Lifestyle No Tamica Hoang RN Note: [...] ongoing basis. Check your weight daily Self-management No Tamica Hoang RN Note: This is an individualized self-management goal for Bulmaro Ga Jr.: Please check your weight daily. Refer to the accompanying CHF treatment goal and call your doctor immediately for further instructions on how to respond to unexpected weight gain. documented as of this encounter Implants Implanted Type Area Sales And Distribution Clerk Device Shelf Model / Serial Identifier Expiration / Lot Date Iol, [id number] 21.0 Diopter - [id number] Right: STORZ [id number] / Implanted: Qty: 1 on 12/21/2015 by Lawrence Zhang MD at [facility] Eye [id number] / Iol, [id number] 21.5 Diopter - [id number] N/A: Eye STORZ [id number] / Implanted: Qty: 1 on 02/03/2016 by Lawrence Zhang MD at [facility] [id number] / Axillo Bifem 8 X 40 Graft - [id number] [employer] 12/12/2020 [id number] / Implanted: Qty: 1 on 03/15/2017 by Yogesh Mims MD at [facility] / [id number] Description:LEFT axillary artery to LEFT femoral artery to RIGHT femoral artery. documented as of this encounter Results Not on filedocumented in this encounter Visit Diagnoses Diagnosis History of tobacco use Personal history of tobacco use, presenting hazards to health PVD (peripheral vascular disease) (HCC) Peripheral vascular disease, unspecified S/P vascular bypass Gastrointestinal hemorrhage with melena Essential hypertension, benign Centrilobular emphysema (HCC) Other emphysema History of alcohol abuse Nondependent alcohol abuse, in remission Pancytopenia (HCC) Other pancytopenia documented in this encounter Insurance Payer Benefit Plan / Subscriber ID Effective Dates Phone Address Type Group MEDICARE MEDICARE PART A xxxxxxxxxxx 2017-Present Medicare & B [place] xxxxxxxx 2016-Present [place] documented as of this encounter
--- OUTSIDE RECORDS SUMMARY | 2019-02-28 19:12 | XMS REPORT | Summary of Care ---
:1950 Author Organization [facility] Address [address] [facility] [place] [address] Care Team Providers Name Role Phone AliyahNiraj Tacho Primary Care Provider Jason Weaver OD Primary Tank Refinisher/Knapsack Sprayer Lawrence Zhang MD Secondary Tank Refinisher/Knapsack Sprayer Unavailable Reason for Referral MRI/CAT/PET Scan (Routine) Status Reason Specialty Diagnoses / Referred By Referred To Procedures Contact Contact Authorized Diagnoses Dizziness Amparo Lewis, Procedures VL NECK CAROTID BILATERAL MEDICAL LOGISTICS SPECIALIST [address] [facility] [place] [id number] Reason for Visit Reason Comments Other Encounter Details Date Type Department Care Team Description 01/15/2019 Office Visit Carlyn Princess Coronelanincierra, Dizziness (Primary Dx) Surgery MD Yogesh [address] [place] [address] [place] [address] Allergies No Known Allergiesdocumented as of this encounter (statuses as of 01/20/2019) Medications Medication Sig Dispensed Refills Start Date [...] EVERY TabIndications: PVD BEDTIME. (peripheral vascular disease) ([facility]) docusate sodium (COLACE) Take 1 Cap by 60 Cap 11 08/17/2017 Active 100 MG Oral mouth TWICE CapIndications: PVD DAILY. (peripheral vascular disease) ([facility]) Omeprazole delayed rel Take 20 mg by 30 Cap 0 08/17/2017 Active cap 20 MG Oral CAPSULE mouth TWICE DELAYED DAILY. RELEASEIndications: PVD (peripheral vascular disease) ([facility]) Thiamine Mononitrate (RA Take 1 Tab by 30 Tab 11 08/17/2017 Active VITAMIN B-1) 100 MG Oral mouth DAILY. TabIndications: PVD (peripheral vascular disease) ([facility]) metoprolol (LOPRESSOR) 25 take 1/2 tablet 60 Tab 5 09/25/2017 Active MG Oral TabIndications: by mouth twice PVD (peripheral vascular a day disease) ([facility]) ferrous sulfate 325 (65 take 1 tablet 60 Tab 5 03/26/2018 Active Fe) MG Oral by mouth twice TabIndications: PVD a day (peripheral vascular disease) ([facility]) atorvastatin (LIPITOR) 20 Take 1 Tab by 90 Tab 3 05/01/2018 Active MG Oral TabIndications: mouth DAILY. PVD (peripheral vascular disease) ([facility]) Thiamine HCl (B-1) 100 MG Take 1 Tab by 30 Tab 11 09/14/2018 Active Oral Tab mouth DAILY. foliC acid 1 MG Oral TAKE 1 TABLET 30 Tab 0 10/18/2018 Active TabIndications: PVD BY MOUTH ONCE (peripheral vascular DAILY disease) ([facility]) loratadine TAKE 1 TABLET 30 Tab 0 11/06/2018 Active (CLARITIN,ALAVERT) 10 MG BY MOUTH ONCE Oral TabIndications: DAILY Urticaria, PVD (peripheral vascular disease) ([facility]) clopidogrel (PLAVIX) 75 TAKE 1 TABLET 90 Tab 0 12/10/2018 Active MG Oral TabIndications: BY MOUTH ONCE PVD (peripheral vascular DAILY. disease) ([facility]), S/P vascular bypass documented as of this encounter (statuses as of 01/20/2019) Active Problems Problem Noted Date Alcoholism 03/06/2018 Chronic systolic CHF (congestive heart failure) 03/06/2018 Bleeding ulcer 04/24/2017 Overview: [facility] admission april 2017 Dr [facility] PVD (peripheral vascular disease) 03/15/2017 Syncope and [...] as of this encounter (statuses as of 01/20/2019) Resolved Problems Problem Noted Date Resolved Date CAD (coronary artery disease) 12/30/2013 01/27/2014 Pain of left calf 08/15/2013 08/29/2013 Knee pain, left 08/15/2013 08/29/2013 documented as of this encounter (statuses as of 01/20/2019) Immunizations Name Administration Dates Next Due Influenza [...] Sign Reading Time Taken Comments Blood Pressure 102/62 01/15/2019 1:39 PM EST Pulse 72 01/15/2019 1:39 PM EST Temperature - - Respiratory Rate - - Oxygen Saturation - - Inhaled Oxygen Concentration - - Weight 62.1 kg (137 lb) 01/15/2019 1:39 PM EST Height 180.3 cm (5' 11") 01/15/2019 1:39 PM EST Body Mass Index 19.11 01/15/2019 1:39 PM EST documented in this encounter Progress Notes Yogesh Mims MD - 01/15/2019 1:20 PM EST PATIENT: Bulmaro Ga Jr. : 1950 DATE OF SERVICE: 01/15/2019 REFERRING PRACTITIONER: Self-Referred PRIMARY CARE PROVIDER: Niraj Ly CHIEF COMPLAINT: Chief Complaint Patient presents with Other HISTORY OF PRESENT ILLNESS: Bulmaro Ga Jr. is a 68-y.o. male who presents to be scheduled for surgery . He is s/p peripheral angiogram on 04/15/15 by sd which indicated bilateral iliac artery occlusion and was unable to cross. He will require aorta bifemoral bypass for revascularization. He has a history of intermittent claudication 1/2 block to one block left leg worse than right. He is taking Pletal which has not helped his symptoms at all. He complains of B/L feet pain at night wakes him up in the middle of the night, he has to get up to walk around to improve it. 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 He was worked up with cardiac cath in March 2014 done via right groin which showed RCA high gradestenosis which is heavily calcified and it was though to be not be beneficial to be revascularized since the patient has scar on the inferior wall. He was cleared by cardiology for lower extremities revascularization at that time. Patient returns to vascular surgery clinic after 2-3 years lost to follow up, now returns with rest pain bilateral lower extremity extremity left worse than right. States he can't sleep at night and his both the legs are numb all the time. Recently admitted with NSTEMI with cocaine usage and his ejection fraction was found to be around 25%. Denies ulcers. Patient is wheel chair bound. Complains of right upper extremity pain and tenderness on exertion. [id number] Patient comes to vascular surgery clinic status post: DATE OF SURGERY: 03/15/2017 Procedure: 1. Left axillary to bifemoral artery bypass with 8 mm Propaten graft ( bifurcated graft) 2. Left femoral endarterectomy with patch angioplasty with paulson of the left limb of the axillary bifemoral artery bypass graft. 3. Right femoral endarterectomy with patch angioplasty with paulson of the right limb of the axillary bifemoral artery bypass graft. 4. Completion angiogram (Thoracic angiogram, abdominal graftogram and proximal bilateral upper leg arteriogram) 5. Radiologic guidance, fluoroscopic guidance and interpretation of digital subtraction angiography. Patient was discharged almost a week after the surgery, after the discharge patient apparently had Collins bleeding and was admitted to [facility] found to have a bleeding from the stomach and required injection therapy. The anticoagulation was stopped and patient was started on only an aspirin. Patient was also was seen by patient financial coordinator who was planning to perform a cardiac catheterization for his chest pain. Patient has also required multiple blood transfusions at [facility]. Patient states now he is ambulating well and he is no longer using wheelchair or the walker. States that he can walk one to 2 blocks now without much Pain. Complains of a right groin swelling. Denies fever or chills or rigors. No other complaints. [id number]: Patient complains of weakness and dizziness upon getting up and walking, complains of lumpiness in his right groin, "states he feels like worm crawling on his legs" Continues to smoke. No claudication type of pain. No fever or chills. 03/06/2018: Patient seen in follow up, did not come to follow up appointment appointment after surgery. He reports feeling fatigued with walking. Reports black tarry stool. Has a history of GIB. Continues to smoke, reports he has cut down "quite a bit". No leg pain with walking or at rest. Denies chest pain, unusual shortness of breath, or recent fever or chills. [id number]: Patient c/o dizziness, weakness and falling recently. [facility] He denies any change in his walking. He c/o bilateral feet coldness and numbness at night. He denies chest pain and SOB. He is smoking 1.5 cigarettes per day. PREVIOUS DIAGNOSTIC TESTS: 03/06/2018 IMPRESSIONS: 67 year old male with history of left axillary to femoral artery as well as left to right femoral artery bypass, complains of muscle pain, weakness, feet numbness and uncontrollable leg jerking. ABIS and PVRs of the bilateral lower extremities indicates a normal resting ankle brachial index study. PVRs of the bilateral thighs, calves, ankles, metatarsals and toe digits are normal. Biphasic bilateral DP/PTs. Right BRANDEE: 1.1, Left BRANDEE: .98 There is no change since previous exam of 04/18/2017. BRANDEE VALUE: Over 1.3 (Non compressible), .90-1.3 (Normal ) .89-.60 (Mild), .59-.40(Moderate),Under .40 (Severe) IMPRESSIONS: 67 year old male with history of left axillary to left femoral artery bypass as well as left to right femoral to femoral artey bypass, states muscle pain, weakness and numbness of feet, follow up exam. Duplex imaging of the left axilllary to left femoral artery as well as left to right femoral to femoral bypass graft shows no evidence for narrowing or increased velocities there appears to be no change since previous exam of 04/18/2017. 04/18/2017 ankle brachial index: IMPRESSIONS: Indication: Follow up left axillary to femoral artery bypass graft as well as a left to right cross femoral bypass graft. PVRs and dopplers of the bilateral lower extremities was performed. Bilaterally the thigh, calf, and ankle PVRs are mild, the transmet, and 1st toe are moderate with biphasic dopplers obtained at the dorsalis pedis and posterior tibial arteries. RT BRANDEE: 1.05 LT BRANDEE: 1.0 There appears to be little to no change seen since the previous study completed on 03/10/17. PVRs and dopplers can be viewed in the Ops Analyst's office. IMPRESSIONS: Indication: Follow up left axillary to femoral bypass graft as well as a left to right cross femoral bypass graft. The patient presents with complaints of right groin pain Duplex imaging of the left axillary to femoral bypass graft as well as the left to right cross femoral bypass graft was performed and shows both bypass grafts to be widely patent with no focal narrowing or velocity step ups seen throughout. A 2.94cm AP x 3.09cm LAT fluid filled collection is seen in the right groin region medial and anterior to the superficial femoral artery. 03/10/15 REFERRING PROVIDER: Yoli Ching EXAMINATION: Arterial - Lower INDICATION: Claudication/atherosclerosis -440.21 TECHNOLOGIST: José Miguel Murphy IMPRESSIONS: Hx: bilateral leg pain states is getting worse,. ABIs and PVRs of the bilateral lower extremities indicates moderate bilateral arterial occlusive disease. PVRs of the bilateral thighs, calves, ankles and metatarsals are moderate. Bilateral dopplers are monophasic Right BRANDEE: .52, left BRANDEE: .52. There is no significant change since previous exam of 11/21/14 . 02/16/15 Procedure(s): CT ANGIO AORTA FEM RUN W AND OR WO CON Date of service: 02/16/2015 2:34 PM Provided clinical information: 64 years, Male, "Imaging for possilbe aorta bi-fem bypass" Procedure and materials: CT angiography and runoff. Contrast: 125 mL Omnipaque 350 Potential limitations: Motion Comparison studies: 10/23/2013 Observations: CT abdomen and pelvis: Base of thorax: Normal Liver: Normal. Biliary system: Normal Kidneys and ureters: Normal Adrenals: Normal Pancreas: Normal Spleen: Normal Vasculature: Tortuous abdominal aorta. Single bilateral renal arteries without high-grade stenosis. Moderate stenosis of the aorta just above the bifurcation. Severe stenosis of both proximal common iliac arteries. On the right, there is also moderate external iliac artery stenosis. The common and superficial femoral arteries as well as the popliteal artery demonstrate diffuse plaque without high-grade stenosis. Three-vessel runoff to the ankle. On the left, only mild external iliac artery stenosis is noted. The common and superficial femoral arteries and the popliteal artery demonstrates eccentric calcified plaque without high-grade stenosis. 3 vessel runoff to the ankles. Mesentery and omentum: Normal Retroperitoneum: Normal Stomach and small bowel: Normal Colon: Normal Appendix: Not identified. Pelvic organs: Normal Free fluid: None Musculoskeletal: Severe levoconvex lumbar curvature with a hemivertebral body is unchanged. IMPRESSION: 1. Severe aortoiliac atherosclerosis. 2. Severe levoconvex lumbar curvature with a hemivertebral body, unchanged. Urgency: Routine. This is a routine medical imaging report. Recommendation: No specific imaging recommendation. Signed by Fabian Zhou MD on 02/21/2015 3:47 PM 12/17/14 Procedure(s): SP PERIPHERAL ANGIOGRAM UNILATERAL Date of service: 12/17/2014 10:11 AM Provided clinical information: 64 years, Male, "bilateral pvd" Reason for exam: Symptomatic peripheral artery disease with bilateral lower extremity short distance lifestyle limiting intermittent claudication and right lower extremity ischemic rest pain. Preoperative diagnosis: Atherosclerosis of the [place] arteries with bilateral lower extremity short distance lifestyle limiting intermittent claudication and right lower extremity ischemic rest pain. Postoperative diagnoses: 1. Atherosclerosis of the [place] arteries with bilateral lower extremity short distance lifestyle-limiting intermittent claudication and right lower extremity ischemic rest pain. 2. 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 Procedure:Percutaneous ultrasound-guided access to the right common femoral artery with right lower extremity selective angiogram with radiology supervision interpretation. Surgeon:Humza Kent MD Anesthesia: Local anesthesia and monitored anesthesia care. Estimated blood loss: Less than 25 ml Total contrast used: Visipak 270 a total of 28 milliliters. Complications: None Disposition: The patient tolerated procedure well and he was transferred to recovery room in stable condition. Indication procedure: This is a 63 years old gentleman with lifestyle limiting intermittent claudication bilateral lower extremity and ischemic rest pain right lower extremity. We discussed a digital subtraction angiogram possible of both lower extremities to define the anatomy and the options for revascularization We discussed in detail the benefits, alternatives, risks and potential complications. All questions are answered. Patient seems to understand. He requested procedure be done. Findings: The right common iliac artery appeared to be heavily calcified and occluded. The right external iliac arteries is open however has an area of calcified high-grade stenosis. The right common femoral artery has heavily calcified plaque in the distal segment with high grade stenosis in the distal segment. The right profunda femoris is wide open no stenosis. The right superficial femoral artery has a high-grade stenosis in the proximal segment there and then it is heavily calcified with few areas of stenosis. The popliteal artery is open for the entire length. The anterior tibial artery is occluded for the entire length, no reconstitution of the dorsalis pedis artery. The peroneal artery is small, no significant collateralization at the ankle. The posterior tibial artery is the single vessel runoff in the right calf with continuation with plantar branches in the right foot. Procedure in detail: After proper identification the patient was brought to the endovascular suite and placed supine on the endovascular table. IV antibiotics were administrated. IV hydration was given as well. Both groin was sterilely prepped and draped in usual fashion. Appropriate timeout was performed. The access point in the right groin was chosen using both ultrasound and fluoroscopy guidance. Local anesthetic was injected the access site. Access was obtained into the right common femoral artery using real-time ultrasound guidance with a micropuncture needle and a micropuncture wire was fed in followed by micropuncture sheath followed by Magic torque wire followed by a 4 Palestinian SideArm sheath that we flushed heparinized saline.We tried to advance the Magic torque wire in the aorta, I was unable to do so. I tried to advance an angle glidewire and an angle glide catheter and I was unable to do so, It appears that the right common iliac artery is occluded. We then did a right lower extremity selective angiogram injecting contrast into the right femoral sheath with the findings noted on the findings. Decided complete the procedure at this point. The sheath was removed and the hemostasis achieved in the right groin using quick clot and the manual compression for 20 minutes by the clock. Excellent hemostasis achieved. No heparin was given. The patient tolerated procedure well and he was transferred to recovery room in stable condition. At the end of procedure the patient had unchanged Doppler signals into the lower extremities comparing with prior the procedure. Impression: 1. Right iliac artery chronic total occlusion. 2. Right common femoral artery and right superficial femoral artery high-grade stenosis. 3. Right lower extremity single-vessel runoff posterior tibial artery with right anterior tibial and peroneal artery occlusion. Procedure and materials: Standard protocol. Potential limitations: None. Comparison studies: None. Urgency: Routine. This is a routine medical imaging report. Recommendation: No specific imaging recommendation. Signed by Humza Kent MD on 01/22/2015 3:22 PM Past Medical History: Diagnosis Date Back pain Fibromyalgia GERD (gastroesophageal reflux disease) High cholesterol Hypertension PVD (peripheral vascular disease) ([facility]) Past Surgical History: Procedure Laterality Date CARPAL TUNNEL RELEASE Bilateral CATHETERIZATION HEART LEFT N/A 03/18/2014 Procedure: CATHETERIZATION HEART LEFT; Surgeon: Shaquille Huerta MD; Location: [facility] CCL PHACOEMULSIFICATION WITH INTRA OCULAR LENS Right 12/21/2015 Procedure: PHACOEMULSIFICATION WITH INTRA OCULAR LENS; Surgeon: Lawrence Zhang MD; Location:[facility] NH REMV CATARACT EXTRACAP,INSERT LENS N/A 02/03/2016 Procedure: PHACOEMULSIFICATION WITH INTRA OCULAR LENS; Surgeon: Lawrence Zhang MD; Location:[facility] TONSILLECTOMY Family History Problem Relation Age of Onset Cancer Mother Heart Disease Father Asthma Brother Current Outpatient Medications Medication Sig Aspirin (ASPIRIN LOW DOSE) 83 [...] Take 1 Tab by mouth DAILY. No current facility-administered medications for this visit. No Known Allergies Social History Socioeconomic History Marital status: Single Spouse name: Not on file Number of children: Not on file Years of education: Not on file Highest education level: Not on file Occupational History Not on file Social Needs Financial resource strain: Not on file Food insecurity: Worry: Not on file Inability: Not on file Transportation needs: Medical: Not on file Non-medical: Not on file Tobacco Use Smoking status: Current Some Day Smoker Years: 25.00 Types: Cigarettes Smokeless tobacco: Former User Substance and Sexual Activity Alcohol use: Yes Alcohol/week: 14.0 standard drinks Types: 14 Cans of beer per week Comment: beer Drug use: Yes Types: Marijuana, Cocaine Comment: None currently Sexual activity: Not Currently Lifestyle Physical activity: Days per week: Not on file Minutes per session: Not on file Stress: Not on file Relationships Social connections: Talks on phone: Not on file Gets together: Not on file Attends hinduism service: Not on file Active member of club or organization: Not on file Attends meetings of clubs or organizations: Not on file Relationship status: Not on file Intimate partner violence: Fear of current or ex partner: Not on file Emotionally abused: Not on file Physically abused: Not on file Forced sexual activity: Not on file Other Topics Concern Back Care Not Asked Bike Helmet Not Asked Blood Transfusions Not Asked Caffeine Concern Not Asked Exercise No Hobby Hazards Not Asked International Travel Not Asked Service Not Asked Occupational Exposure Not Asked Seat Belt Not Asked Self-Exams Not Asked Sleep Concern Not Asked Special Diet No Stress Concern No Weight Concern Not Asked Social History Narrative Lives alone in house in [place], [place] , no significant other 7 kids 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 PHYSICAL EXAMINATION: VITALS: BP 102/62 (BP Location: Left arm, Patient Position: Sitting) | Pulse 72 | Ht 5' 11" (1.803 m) | Wt 137 lb (62.1 kg) | BMI 19.11 kg/m GENERAL: awake, alert, oriented, no distress. HEENT: sclera normal, anicteric, mucous membrane moist, conjunctiva pink and pale. NECK: no mass, no adenopathy, no thyromegaly. LUNGS: clear to auscultation bilaterally. HEART: regular rhythm, no murmurs, no gallops, no rubs. ABDOMEN: soft, non tender, without masses or organomegaly. EXTREMITIES: no clubbing, cyanosis, or edema B/L lower extremities. Left brachial access site well healed, no hematoma. NEUROLOGICAL: Muscle Strength: Equal bilaterally. PULSES: left radial +2 normal, right radial +2 normal, left femoral not palpable, right femoral not palpable, left dorsalis not palpable, right dorsalis not palpable, left posterior tibialis not palpable and right posterior tibialis not palpable. FEET: reasonable capillary filling, no ulceration, no discoloration. 01/15/2019: No change in physical exam, pulses: Bilateral femoral 2+ normal, bilateral dorsalis and bilateral posterior tibialis dopplerable. No open wounds or ulcers, no tenderness. Feet with good capillary refill, no ulcerations, no discoloration. Bilateral lower extremity warm with palpable pedal pulses, good capillary refill. Left upper extremity is warm with palpable radial artery, left axillary incision is well healed, bilateral groin incisions are well healed. Dopplerable signals were noted within the left axillary bifemoral artery bypass graft. Excellent dopplerable signals noted within the ax bifemoral graft. DIAGNOSTICS: 01/15/19 IMPRESSIONS: Patient with left axillary to left femoral and left to right femoral to femoral bypass graft, complaining of left leg restlessness ,tingling and pain. Duplex imaging of the left axillary to left femoral bypass and left to right femoral to femoral bypass show both bypass to be patent ,it is noted that the velocities within the femoral to femoral bypass graft do appear lower when compared to previous exam of 03/06/2018. No obvious evidence for stenosis or increased velocties were noted. IMPRESSIONS: Patient with left sided axillary to left femoral and left femoral to femaoral bypass graft, complaining of restless left leg , tingling and pain. ABIS and PVRs of the bilateral lower extremties indicates mild to moderate bilateral lower extremity occlusive disease. PVRs of the bilateral thighs, calves, anlkles and metatarsals are mild. Biphasic bilateral DP/PTs. Right BRANDEE .59, Left BRANDEE: .73 There has been a decrease in both PVRs and pressures since previous exam of 03/06/2018. Right > Left. ASSESSMENT AND PLAN: Bulmaro Ga Jr. is a 67-y.o. male with PVD with lifestyle limiting claudication as well as some ischemic rest pain B/L feet. He is s/p peripheral angiogram which indicated with bilateral iliac arteryocclusion unable to cross Via brachial approach. Also unable to cross in December via right femoralapproach. No diagnosis found. He will required aorta bifemoral bypass for revascularization. He was deemed to be not a prohibitivehigh risk form cardiac standpoint by Dr Ferrertic his coutierier and he would like to proceed with the aortobifemoral bypass. Discussed that this is a major operation in which the diseased blood vessel is bypassed with an artificial graft, sewing the artificial graft to the more normal blood vesselabove the blockage and the more normal blood vessel below the blockage in the groins. The patient would be in the hospital for five to seven days assuming there are no complications. The patient wouldbe in the Intensive Care Unit for one or two days of this hospitalization. It would be three months before the patient will feel fully recovered. It is asked that the patient not drive for six weeks after this repair and not lift more than five pounds for three months after this repair.The risk of this surgery is about a 4 % risk of dying from the surgery itself, another 10% risk of other serious complications including but not limitate to bleeding, infection with graft infection and the consequences, graft thrombosis, would healing problems, lymphatic leak and lymphocele, injuries to intraabdominalorgans that will require repair, leg ischemia with possible limb loss, bowel ischemia with possible bowel loss, renal ischemia with possible renal failure and dialysis, dehiscence with possible eviscerations and hernias, ventilator dependency and pneumonia, stroke, myocardial infarction and other cardiac complications ( higher risk than average as detailed in Dr Sun's note, deep venous thrombosis and pulmonary embolism, other cardiac, pulmonary, hepatic, multiple organ failure, other risks of anesthesia. Discuss the alternative of no revascularization however he is very debilitated by his symptoms of claudication and ischemic rest pain and he wants to proceed. Discuss endovascular approach which is not an option for his distribution of disease. He has been on baby ASA, statins, and beta -blockers. Will stop the plavix. I once again urged the patient to quit smoking and I explained the importance of smoking cessation to decrease the incidenceof perioperative complications and adverse vascular events. Also emphasized to him to refrain from use of illicit drugs. All questions were answered. Patient seems to understand. He agrees with the plan and he requested the aortobifemoral bypass to be done. Orders as above. The patient will be scheduled for surgery [id number] Mr. Ga returns to the clinic with bilateral lower extremity rest pain, after 2 or 3 years of lost to follow-up.bilateral lower extremity ankle- brachial intervention suggest severe bilateral lowershowed arterial insufficiency with severe waveforms at thigh, calf and foot level. Patient recently had non-ST elevation IN after cocaine intake. Patient's current EF is around 25%. With low EF and recent IN patient is at very high risk of major procedures such as aortobifemoral bypass, mortality could be very high In the range of 10-15%, with significant morbidity rate of 20-30% with a prolonged ventilator dependence as well as recurrent IN. To improve the Bilateral lower extremity arterial circulation, we will consider axillary bifemoral artery bypass, which is comparatively less morbid compared to aortobifemoral bypass. Although the patency rate of axillary bifemoral artery bypass is not as robust and less long-lasting as compared to aortobifemoral bypass, in the eventuality of thrombosed axillarybifemoral bypass, if the patient's heart condition improves will consider aortobifemoral bypassat a later stage. Risk and complication of axillary to bifemoral artery bypass including infection , wound breakdown, graft infection, graft thrombosis, distal embolization, need for prolonged anticoagulation, systemic and complications such as IN, pneumonia , stroke, gangrene and other competition were discussed. Patient after understanding risks and benefits of the procedure and agreed to provided informed consent forright or left axillary to bifemoral artery bypass possible femoral endarterectomy possible angiogrampossible percutaneous transluminal balloon angioplasty possible stent placement. Patient will need preoperative anesthesia evaluation and patient already had previous cardiac work up, now with critical limb ischemia with rest pain and numbness, procedure will be considered a relatively semi-urgent and as such a less morbid procedure is chosen. Will obtain bilateral upper extremity wrist brachial index examination given unequal pulse exam, to choose an appropriate inflow artery for the axillary bifemoral artery bypass.. Procedure scheduled for March 15, 2017, preoperative instructions were given, patient was instructed to stop Plavix on September 05, 2017. [id number]: On [id number]; Procedure: 1. Left axillary to bifemoral artery bypass with 8 mm Propaten graft ( bifurcated graft) 2. Left femoral endarterectomy with patch angioplasty with paulson of the left limb of the axillary bifemoral artery bypass graft. 3. Right femoral endarterectomy with patch angioplasty with paulson of the right limb of the axillary bifemoral artery bypass graft. 4. Completion angiogram (Thoracic angiogram, abdominal graftogram and proximal bilateral upper leg arteriogram) 5. Radiologic guidance, fluoroscopic guidance and interpretation of digital subtraction angiography. Patient is status post left axillary to bifemoral artery bypass, doing well from peripheral arterialdisease standpoint with ankle brachial index now is normal, patient is now ambulating without need awalker or a wheelchair. He has got a small right groin swelling likely postoperative seroma, expected to resolve within matter few months. No evidence of wound break age or wound discharge. Given the history of recent life-threatening GI bleed, anticoagulation was stopped at [facility], given the fact that the patient has a long bypass graft from axillary to bifemoral artery, he will require dual antiplatelets with aspirin and Plavix to maintain the and into the graft patency ,patient may require anticoagulation once his GI bleeding resolves. Follow up in 2 months. All questions and concerns were addressed. [id number]: Patient returns with "lumpiness in his right groin"; patient has a small seroma or lymph collection that is fairly common after groin bypass surgery; non infected; patient is cachetic makes it prominent and continues to smoke; emphasized the benign nature of the seroma and the healing process may takeover year. NON INFECTED SMALL SEROMA THAT IS UNCHANGED; WILL CONTINUE TO OBSERVE; NO INTERVENTION RECOMMENDED; ANY INTERVENTION WILL EXPOSE GRAFT AND PREDISPOSE GRAFT INFECTION. Patient complains of weakness and dizziness; has conjunctival pallor ; ? Anemic ; given history of recent GI bleeding will repeat cbc; if anemia is confirmed patient need to go to nearest ED for furtherevaluation and treatment; patient no longer taking plavix; patient expressed understanding and need for further evaluation of anemia. Resume anticoagulation as feasible. Follow up in 3 months 03/06/2018 Patient seen in follow up with complaints of weakness with walking. Ultrasound indicating ankle brachial index's stable and bypass graft patent. Reports black tarry stool, with history of GIB. Patient sent to lab for CBC and CMP. Recommend following up with primary care provider. Follow up with Vascular Surgery in 6 months with ankle brachial index's and bilateral arterial duplex, or sooner with problems. 01/15/2019: Patient denies change in walking. BRANDEE's are decreased bilaterally today. Duplex of both grafts shows them to be patent. The fem fem bypass has lower velocities than previous. Will recheck brandee's in 3 months. Also C/o dizziness, weakness and falling recently. Will check for carotid stenosis. Follow up in 1 month for carotid duplex. Author: Yogesh Mims MD 01/15/2019 13:44 documented in this encounter Plan of Treatment Date Type Specialty Care Team Description 02/19/2019 Office Visit Vascular Surgery Yogesh Mims MD [address] [id number] [phone] Name Type Priority Associated Diagnoses Order Schedule VL NECK CAROTID Imaging Routine Dizziness Expected: 01/15/2019, BILATERAL Expires: 03/15/2020 Health Maintenance Due Date Last Done Comments [...] Problems Progress Blood Pressure Blood Pressure Essential 102/62 No [place], < 140/90 hypertension, (01/15/2019 Niraj Titus, benign 1:39 PM EST) Note: Hypertension Care Plan Based [...] Educational Resources. record my blood pressure results. WiNetworkse is safe and secure way for you [...] Educational Resources: National Heart, Lung, & Blood [place] http://nhlbi.nih.gov/hbp/index.html The DASH Diet Eating Plan http://www.nhlbi.nih.gov/health/health-topics/ topics/dash/ Academy of Nutrition & DIetetics http://eatright.org National Smoking Cessation Site http://smokefree.gov Blood Pressure < Blood Pressure 102/62 (01/15/2019 No Tamica Hoang, RN 150/90 1:39 PM EST) Note: This is an individualized treatment (blood pressure) goal for Bulmaro Ga: Displayed above (on the left) is your goal for blood pressure control. Your most recent blood pressure is also shown above, on the right. You should try to achieve blood pressures that are lower than your goal listed above (on the left). Weight increase vs. 18 mo CHF 0 (01/15/2019 1:39 PM EST) No Chel Hoang RN min (lbs) < 5 Note: This is an individualized treatment (congestive heart failure, CHF) goal for Bulmaro Ga JrMihaela: Displayed above (on the right) is how [...] is an individualized lifestyle goal for Bulmaro Ulloaison: Please be sure to keep up-to-date on recommended immunizations. For example, this would include a yearly influenza vaccine. Immunization status can be seen by looking at the Health Maintenance sections of your eGuthrie, Plan of Care, and any After Visit Summaries. Consume a [id number] diet Lifestyle No Tamica Hoang RN Note: This is an individualized lifestyle goal for Bulmaro Ga Jr.: Please do not add additional salt to your food. Additional salt may lead to fluid retention and worsen your congestive heart failure. Take all prescribed medications as Self-management Tamica Mathis RN directed Note: This is an individualized [...] of this encounter Implants Implanted Type Area Orchestrator Device Shelf Model / Serial Identifier Expiration / Lot Date Iol, [id number] 21.0 Diopter - [id number] Right: STORZ [id number] / Implanted: Qty: 1 on 12/21/2015 by Lawrence Zhang MD at [facility] Eye [id number] / Iol, [id number] 21.5 Diopter - [id number] N/A: Eye STORZ [id number] / Implanted: Qty: 1 on 02/03/2016 by Lawrence Zhang MD at [facility] [id number] / Axillo Bifem 8 X 40 Graft - [id number] [employer] 12/12/2020 [id number] / Implanted: Qty: 1 on 03/15/2017 by Yogesh Mims MD at [facility] / [id number] Description:LEFT axillary artery to LEFT femoral artery to RIGHT femoral artery. documented as of this encounter Procedures Procedure Name Priority Date/Time Associated Comments Diagnosis BASIC METABOLIC PANEL Routine 01/15/2019 2:04 Dizziness Results for this PM EST procedure are in the results section. CBC NO DIFFERENTIAL Routine 01/15/2019 2:04 Dizziness Results for this PM EST procedure are in the results section. documented in this encounter Results CBC NO DIFFERENTIAL (01/15/2019 2:04 PM EST) WBC Count 2.20 (L)Comment: 4.23 - 9.07 [facility] Methodology was K/uL [facility] changed 02/08/2018. Please note updated reference range and units. RBC Count 2.37 (L) 4.30 - 5.89 [facility] M/UL [facility] Hemoglobin 7.4 (L) 13.7 - 17.5 [facility] g/dL [facility] Hematocrit 24.9 (L) 40.1 - 51.0 % [facility] MCV 105.1 (H) 79.0 - 92.2 [facility] FL [facility] MCH 31.2 25.7 - 32.2 [facility] PG [facility] MCHC 29.7 (L) 32.3 - 36.5 [facility] g/dL [facility] Platelet Count 136 (L) 163 - 337 [facility] K/uL [facility] MPV 10.9 9.4 - 12.4 FL [facility] RDW 14.8 (H) 11.6 - 14.4 % [facility] Specimen Blood - Blood specimen (specimen) Performing Organization Address [facility] Phone Number [facility] [address] [address] [phone] BASIC METABOLIC PANEL (01/15/2019 2:04 PM EST) [facility] Glucose 90 70 - 99 mg/dl [facility] BUN 9 9 - 20 mg/dl [facility] Creatinine 0.9 0.8 - 1.5 mg/dl [facility] Sodium 140 134 - 145 mmol/L [facility] Potassium 3.8 3.5 - 5.1 mmol/L [facility] Chloride 106 98 - 107 mmol/L [facility] CO2 23 22 - 30 mmol/L [facility] Calcium 8.6 8.3 - 10.1 mg/dl [facility] eGFR >60 See Interpretation [facility] Comment: Below ml/min/1.73ml GROUP Estimated GFR Interpretation: Sq LABORATORY Above 60ml/min/1.73m2 = Normal Renal Function 30-59 ml/min/1.73m2 = Stage 3 Chronic Kidney Disease 15-29 ml/min/1.73m2 = Stage 4 Chronic Kidney Disease Less than 15 ml/min/1.73m2 = Stage 5 Chronic Kidney Disease The GFR value is calculated using the Modification of Diet in Renal Disease ( MDRD) Study Equation which can be found at: https://www.kidney.org/content/egbi-zeuiz-ejnfjzgc BUN/Creatinine 10 6 - 22 RATIO [facility] Anion Gap 11 3 - 11 mmol/L [facility] Specimen Blood - Blood specimen (specimen) Performing Organization Address [facility] Phone Number [facility] [address] [address] [phone] documented in this encounter Visit Diagnoses Diagnosis Dizziness Dizziness and giddiness documented in this encounter Insurance Payer Benefit Plan / Subscriber ID Effective Dates Phone Address Type Group MEDICARE MEDICARE PART A xxxxxxxxxxx 2017-Present Medicare & B MEDICAID [facility] xxxxxxxx 2016-Present Medicaid [place] MEDICA[place] documented as of this encounter
[2019-02-28 19:48] LABS: Hematocrit 19 % (42-52); Hemoglobin 5.7 g/dL (14.0-18.0); Mean Corpuscular HGB Conc 31 g/dL (31-36); Mean Corpuscular Hemoglobin 27 pg (27-31); Mean Corpuscular Volume 89 fL (80-94); Mean Platelet Volume 7.6 fL (7.4-10.4); Platelet Count 241 10^3/uL (150-450); Red Blood Count 2.09 10^6 /uL (4.18-5.48); Red Cell Distribution Width 19 % (10-15); White Blood Count 2.9 10^3/uL (3.5-10.8)
[2019-02-28 19:50] LABS: Activated Partial Thrombo Time 31.5 seconds (26.0-38.0); INR 1.02 (0.82-1.09)
[2019-02-28 19:54] LABS: Albumin 3.8 g/dL (3.2-5.2); BUN/Creatinine Ratio 10.7 (8-20); Calcium 8.9 mg/dL (8.6-10.3); EGFR African American 87.4 (>60); EGFR Non-African American 72.3 (>60); Globulin 3.8 g/dL (2-4); Potassium 3.7 mmol/L (3.5-5.0); Total Bilirubin 0.4 mg/dL (0.2-1.0); Total Protein 7.6 g/dL (6.4-8.9)
[2019-02-28 20:05] LABS: Polychromasia 1+
[2019-02-28 20:07] LABS: ABS Basophils 0.1 10^3/ul (0-0.2); ABS Lymphocytes 0.7 10^3/ul (1.0-4.8); ABS Monocytes 0.3 10^3/ul (0-0.8); ABS Neutrophils 1.7 10^3/ul (1.5-7.7); Eosinophil % 1.5 %; Lymphocyte % 26.1 %
--- NOTE | 2019-02-28 20:38 | ED ---
Complex/Multi-Sys Presentation - HPI Summary HPI Summary: Patient is a 68 y/o M presenting to the ED for a chief complaint of dizziness and generalized weakness. Patient notes nausea, vomiting, hemoptysis, epistaxis , and occasional black stools. Previously, patient was seen at [place] for blood work and told to be [facility] after his blood work showed a low WBC count. Patient admits tobacco and alcohol use. He reports a history of liver problems. One month ago, patient was admitted to [facility] for similar symptoms. - History Of Current Complaint Chief Complaint: EDGeneral Time Seen by Provider: 02/28/19 20:28 Hx Obtained From: Patient Onset/Duration: Sudden Onset, Still Present Timing: Constant Severity Currently: Moderate Severity Initially: Moderate Associated Signs And Symptoms: Positive: Dizziness, Weakness - Generalized, Hemoptysis, Nausea, Vomiting Related History: Recent Hospitalization - One month ago - Allergies/Home Medications Allergies/Adverse Reactions: Allergies Allergy/AdvReac Type Severity Reaction Status Date / Time No Known Allergies Allergy Verified 02/28/19 20:43 Home Medications: Home Medications Metoprolol Succinate XL TAB* [Toprol XL TAB*] 50 mg PO DAILY 02/28/19 [History Confirmed 02/28/19] PMH/Surg Hx/FS Hx/Imm Hx Previously Healthy: Yes Endocrine/Hematology History: Reports: Hx Anticoagulant Therapy, Hx Blood Transfusions, Hx Anemia Denies: Hx Diabetes Cardiovascular History: Reports: Hx Angina, Hx Cardiac Arrest, Hx Coronary Artery Disease, Hx Hypercholesterolemia, Hx Hypertension, Hx Myocardial Infarction, Hx Peripheral Vascular Disease, Other Cardiovascular Problems/ Disorders - EF <20%, HLD. PVD Denies: Hx Congestive Heart Failure Respiratory History: Denies: Hx Asthma, Hx Chronic Obstructive Pulmonary Disease (COPD) GI History: Reports: Hx Gastroesophageal Reflux Disease, Other GI Disorders - DUODENAL ULCER History: Reports: Other Problems/Disorders - DONTRELL Denies: Hx Chronic Renal Failure, Hx Renal Disease Musculoskeletal History: Reports: Hx Scoliosis Denies: Hx Arthritis, Hx Osteoporosis Sensory History: Reports: Hx Contacts or Glasses Denies: Hx Cataracts, Hx Legally Blind, Hx Deafness, Hx Hearing Aid Opthamlomology History: Reports: Hx Contacts or Glasses Denies: Hx Cataracts, Hx Legally Blind EENT History: Denies: Hx Deafness Neurological History: Denies: Hx Headaches, Hx Seizures, Hx Transient Ischemic Attacks (TIA) Psychiatric History: Reports: Hx Attention Deficit Hyperactivity Disorder, Hx Substance Abuse - ETOH, Other Psychiatric Issues/Disorders - ETOH Denies: Hx Eating Disorder, Hx of Violent Episodes Against Others - Surgical History Surgical History: Yes Surgery Procedure, Year, and Place: carpal tunnel left and right wrist 2000. tonsillectomy 1999. ILIAC ARTERY OCCLUSION AND AXILLARY FEM BYPASS 03-15-17 Hx Anesthesia Reactions: No - Immunization History Date of Tetanus Vaccine: UNKNOWN Infectious Disease History: No Infectious Disease History: Denies: Traveled Outside the [place] in Last 30 Days - Family History Known Family History: Positive: Cardiac Disease, Respiratory Disease - Asthma, Other - Cancer - Social History Occupation: Disabled Alcohol Use: Occasionally Alcohol Amount: 2-3 Hx Substance Use: Yes Substance Use Type: Reports: Other Substance Use Comment - Amount & Last Used: 03/09/17 Hx Tobacco Use: Yes Smoking Status (MU): Current Some Day Smoker Type: Cigarettes Have You Smoked in the Last Year: Yes Review of Systems Positive: Epistaxis, Other - Positive hemoptysis Positive: Vomiting, Nausea, Other - Positive occasional black stools Neurological: Other - Positive dizziness Positive: Weakness - Generalized All Other Systems Reviewed And Are Negative: Yes Physical Exam - Summary Physical Exam Summary: Appearance: Well-appearing, Well-nourished, lying in bed comfortably Skin: Warm, dry, no obvious rash Eyes: sclera anicteric, conjunctival pallor ENT: mucous membranes moist, pharynx appears normal Neck: Supple, nontender Respiratory: Clear to auscultation, no signs of respiratory distress Cardiovascular: Normal S1, S2. No murmurs. Normal distal pulses in tibial and radial bilaterally. Abdomen: Soft, nontender, normal active bowel sounds present Musculoskeletal: Normal, Strength/ROM Intact Neurological: A&Ox3, awake and alert, mentation is normal, speech is fluent and appropriate Psychiatric: affect is normal, does not appear anxious or depressed Triage Information Reviewed: Yes Vital Signs On Initial Exam: Initial Vitals Temp Pulse Resp BP Pulse Ox 98.8 F 95 18 126/69 100 02/28/19 18:54 02/28/19 18:54 02/28/19 18:54 02/28/19 18:54 02/28/19 18:54 Vital Signs Reviewed: Yes Procedures - Sedation Patient Received Moderate/Deep Sedation with Procedure: No Diagnostics - Vital Signs Vital Signs Temp Pulse Resp BP Pulse Ox 02/28/19 18:54 98.8 F 95 18 126/69 100 - Laboratory Lab Results: Lab Results 02/28/19 02/28/19 02/28/19 Range/Units 19:28 19:28 19:28 WBC 2.9 L (3.5-10.8) 10^3/uL RBC 2.09 L (4.18-5.48) 10^6 /uL Hgb 5.7 L* (14.0-18.0) g/dL Hct 19 L (42-52) % MCV 89 (80-94) fL MCH 27 (27-31) pg MCHC 31 (31-36) g/dL RDW 19 H (10-15) % Plt Count 241 (150-450) 10^3/uL MPV 7.6 (7.4-10.4) fL Neut % (Auto) 59.2 % Lymph % (Auto) 26.1 % [place] % (Auto) 9.9 % Eos % (Auto) 1.5 % Baso % (Auto) 3.3 % Absolute Neuts (auto) 1.7 (1.5-7.7) 10^3/ul Absolute Lymphs (auto) 0.7 L (1.0-4.8) 10^3/ul Absolute Monos (auto) 0.3 (0-0.8) 10^3/ul Absolute Eos (auto) 0.0 (0-0.6) 10^3/ul Absolute Basos (auto) 0.1 (0-0.2) 10^3/ul Absolute Nucleated RBC 0.0 10^3/ul Nucleated RBC % 1.0 Polychromasia 1+ Hypochromasia 1+ Anisocytosis 2+ INR (Anticoag Therapy) 1.02 (0.82-1.09) APTT 31.5 (26.0-38.0) seconds Sodium 138 (135-145) mmol/L Potassium 3.7 (3.5-5.0) mmol/L Chloride 106 (101-111) mmol/L Carbon Dioxide 24 (22-32) mmol/L Anion Gap 8 (2-11) mmol/L BUN 11 (6-24) mg/dL Creatinine 1.03 (0.67-1.17) mg/dL Est GFR ( Amer) 87.4 (>60) Est GFR (Non-Af Amer) 72.3 (>60) BUN/Creatinine Ratio 10.7 (8-20) Glucose 101 H (70-100) mg/dL Calcium 8.9 (8.6-10.3) mg/dL Total Bilirubin 0.40 (0.2-1.0) mg/dL AST 115 H (13-39) U/L ALT 70 H (7-52) U/L Alkaline Phosphatase 57 (34-104) U/L Total Protein 7.6 (6.4-8.9) g/dL Albumin 3.8 (3.2-5.2) g/dL Globulin 3.8 (2-4) g/dL Albumin/Globulin Ratio 1.0 (1-3) Blood Type Antibody Screen 02/28/19 Range/Units 19:28 WBC (3.5-10.8) 10^3/uL RBC (4.18-5.48) 10^6 /uL Hgb (14.0-18.0) g/dL Hct (42-52) % MCV (80-94) fL MCH (27-31) pg MCHC (31-36) g/dL RDW (10-15) % Plt Count (150-450) 10^3/uL MPV (7.4-10.4) fL Neut % (Auto) % Lymph % (Auto) % [place] % (Auto) % Eos % (Auto) % Baso % (Auto) % Absolute Neuts (auto) (1.5-7.7) 10^3/ul Absolute Lymphs (auto) (1.0-4.8) 10^3/ul Absolute Monos (auto) (0-0.8) 10^3/ul Absolute Eos (auto) (0-0.6) 10^3/ul Absolute Basos (auto) (0-0.2) 10^3/ul Absolute Nucleated RBC 10^3/ul Nucleated RBC % Polychromasia Hypochromasia Anisocytosis INR (Anticoag Therapy) (0.82-1.09) APTT (26.0-38.0) seconds Sodium (135-145) mmol/L Potassium (3.5-5.0) mmol/L Chloride (101-111) mmol/L Carbon Dioxide (22-32) mmol/L Anion Gap (2-11) mmol/L BUN (6-24) mg/dL Creatinine (0.67-1.17) mg/dL Est GFR ( Amer) (>60) Est GFR (Non-Af Amer) (>60) BUN/Creatinine Ratio (8-20) Glucose (70-100) mg/dL Calcium (8.6-10.3) mg/dL Total Bilirubin (0.2-1.0) mg/dL AST (13-39) U/L ALT (7-52) U/L Alkaline Phosphatase (34-104) U/L Total Protein (6.4-8.9) g/dL Albumin (3.2-5.2) g/dL Globulin (2-4) g/dL Albumin/Globulin Ratio (1-3) Blood Type O Positive Antibody Screen Negative Result Diagrams: 02/28/19 19:28 02/28/19 19:28 Lab Statement: Any lab studies that have been ordered have been reviewed, and results considered in the medical decision making process. Complex Multi-Symp Course/Dx Course Of Treatment: Patient is a 68 y/o M presenting to the ED for a chief complaint of dizziness and generalized weakness. Patient notes nausea, vomiting , hemoptysis, epistaxis, and occasional black stools. Previously, patient was seen at [place] for blood work and told to be seen at [facility] for a blood transfusion after his blood work showed a low WBC count. Patient admits tobacco and alcohol use. He reports a history of liver problems. One month ago, patient was admitted to [facility] for similar symptoms. On exam, pale conjunctiva. Laboratory abnormal findings: WBC 2.9, RBC 2.09, Hgb 5.7, Hct 19, absolute lymphs 0.7, glucose 101, AST 115, ALT 70. At 20:36, Dr. Krysta Walker agrees to admit the patient to [facility] with a diagnosis of severe anemia. Patient will be admitted to [facility] with a diagnosis of severe anemia. - Diagnoses Provider Diagnoses: Severe anemia - Physician Notifications Discussed Care Of Patient With: Krysta Walker - At 20:36, Dr. Walker agrees to admit the patient to [facility] with a diagnosis of severe anemia. Time Discussed With Above Provider: 20:36 Instructed by Provider To: Admit As Inpatient Discharge ED - Sign-Out/Discharge Documenting (check all that apply): Patient Departure - Admit - Discharge Plan Condition: Fair Disposition: ADMITTED TO [facility] - Billing Disposition and Condition Condition: FAIR Disposition: Admitted to [facility] - Attestation Statements Document Initiated by Roula: Yes Documenting Scribe: Adela Hernandez Provider For Whom Roula is Documenting (Include Credential): Daquan Vargas MD Scribe Attestation: Adela Membreno, scribed for Daquan Vargas MD on 03/01/19 at 0216. Scribe Documentation Reviewed: Yes Provider Attestation: The documentation as recorded by the Adela arreguin accurately reflects the service I personally performed and the decisions made by me, Daquan Vargas MD Status of Scribe Document: Viewed
[2019-02-28] MEDS ORDERED: Iron Sucrose* 200 MG in NS 0.9% 100 ML* 100 ML IVPB ONE (21:13)
[2019-02-28 21:23] LABS: Corrected Retic Count 1.5 % (0.5-1.5); Hematocrit for Retic CNT 19 % (42-52); Immature Retic Fraction 0.44; RBC Retic Count 2.12 10^6/uL (4.18-5.48)
[2019-02-28] MEDS ORDERED: Ondansetron INJ* 2 MG/ML VIAL IV PRN (21:50)
[2019-02-28] MEDS ORDERED: LORazepam TAB(*) 1 MG PO SCH (23:00)
--- NOTE | 2019-03-01 03:29 | HP ---
ADMISSION HISTORY AND PHYSICAL: DATE OF ADMISSION: 02/28/19 PRIMARY PHYSICIAN: Dr. Ly. PROVIDER: Priscilla Calzada NP ATTENDING PHYSICIAN: Dr. Walker.* (DICTATED BY PRISCILLA CALZADA NP) OTHER PROVIDER: Dr. Mcintosh. CHIEF COMPLAINT: Dizziness. HISTORY OF PRESENT ILLNESS: This is a 68-year-old male with past medical history significant for ETOH abuse, ischemic cardiomyopathy, and previous GI bleeds who came to the emergency room on 02/28/19 for a several week history of dizziness, feeling off balance, echoing ears, and intermittent abdominal cramps. Of note, he was [place] [facility] 01/22/19 with a diagnosis of GI bleed with unknown source, pancytopenia, and probable ETOH withdrawal. He had an EGD which showed no varices, portal hypertensive gastropathy, or ulcer. He also has had liver elastography at that time, which revealed METAVIR score likely of 3 indicating severe fibrosis. At that point, his folate and B12 were also normal. He had also had a colonoscopy which showed a diminutive polyp, at no point was active bleeding seen during the scoping. Since his discharge, he has been having off and on nosebleeds about 2 to 3 times a week. The patient was unable to state how heavy the flow was or how long the bleeds lasted, though my impression is that they were short-lived. He also states that his legs and feet intermittently become numb, walking makes it feel better. He gets short of breath with exercise and had black stool last yesterday. Denies any hematochezia. In the emergency room, he received 2 units of packed red blood cells and Hospitalists were asked to evaluate the patient for admission. PAST MEDICAL HISTORY: ETOH abuse, COPD, coronary artery disease, ischemic cardiomyopathy with an ejection fraction of 20% to 25%, pulmonary nodules, peripheral arterial disease, left bundle-branch block, MT x2, benign mediastinal tumor, and in 2018, he had PEA arrest secondary to anemia. PAST SURGICAL HISTORY: Mediastinal tumor resection and axillofemoral bypass in 2018. HOME MEDICATIONS: 1. Metoprolol succinate 50 mg p.o. daily. 2. Thiamine 100 mg p.o. daily. 3. Omeprazole 20 mg p.o. b.i.d. 4. Multivitamin 1 tablet p.o. daily. 5. Loratadine 10 mg p.o. daily. 6. Folic acid 1 tablet p.o. daily. 7. Ferrous sulfate 325 mg p.o. b.i.d. 8. Docusate 100 mg p.o. b.i.d. 9. Cyclobenzaprine 10 mg p.o. at bedtime. 10. Clopidogrel 75 mg p.o. daily. 11. Atorvastatin 20 mg p.o. daily. 12. Aspirin 81 mg p.o. daily. ALLERGIES: None. FAMILY HISTORY: His mother due to cancer in her 40s. Brother had passed due to cancer and lung disease. His older brother has dementia. SOCIAL HISTORY: He smokes 2 to 3 cigarettes a day. He drinks 2 to 3 beers a day. Denies any recreational substance use. He is disabled. He is and has 7 children. REVIEW OF SYSTEMS: A 12-point system review was performed. All pertinent positives and negatives are in the HPI. The patient is not having any chest pain or palpitations. PHYSICAL EXAMINATION GENERAL: This is a thin, chronically ill-looking gentleman seen sitting in the bed, in no acute distress. VITAL SIGNS: 98.8 Fahrenheit, 91 pulse, 20 respirations, 100% oxygen on room air, 137/83 blood pressure. HEENT: Sclerae are yellow. Conjunctivae pale and moist. Oropharynx clear. Mucous membranes moist. Tongue has multiple black discolorations, which she states is normal. NECK: Supple. No cervical or supraclavicular lymphadenopathy noted. RESPIRATORY: Lung sounds are clear throughout bilaterally on room air. No accessory muscle use noted. CARDIAC: S1 and S2. Heart rate regular. Grade 2 systolic murmur. No gallops or rubs appreciated. No lower extremity edema. 2+ positive pedal pulses. ABDOMEN: Soft, nontender, and nondistended with positive bowel sounds x4. MUSCULOSKELETAL: No clubbing or cyanosis of the digits. Full range of motion. NEUROLOGIC: Sensation intact to light touch. No focal deficits appreciated. SKIN: No rashes or open areas appreciated. PSYCH: Alert and oriented x3. Thought content is organized. PERTINENT LAB DATA: WBC 2.9, RBC 2.09, RBC (retic) 2.12, hemoglobin 5.7, hematocrit 19, RDW 19, retic count 3.5. Glucose 101. AST 115, ALT 70. Lactase dehydrogenase 241. DIAGNOSTIC STUDIES: None for this admission. ASSESSMENT AND PLAN: My impression is that this is a 68-year-old male with past medical history significant for past gastrointestinal bleed, ETOH abuse, and ischemic cardiomyopathy who was admitted on 02/28/19 for possible gastrointestinal bleed and severe anemia and pancytopenia. 1. Possible gastrointestinal bleed with pancytopenia. The patient has been symptomatic for several weeks with dizziness, but without any chest pain or palpitations. Received 2 units of packed red blood cells in the emergency room. Previous folate and B12 levels were normal. Previous iron saturation was 7%. We will start on iron sucrose infusions once a day for a total of 5 days. I feel that this is likely secondary to his ETOH use. He was instructed upon his previous discharge that he was to completely abstain from alcohol, which he has been unable to do so. GI had been consulted, suggested that perhaps we should be looking at a small bowel obstruction as a possible source of bleed. Dr. Mcintosh said that he would see the patient in the morning and likely that he would follow up on an outpatient basis to have further investigation of his small bowel. Reticulocyte count did not reveal any bone marrow dysfunction. We will do guaiac of his stool, hydrate with normal saline at 100 mL an hour, and place on telemetry monitoring. At this point, because of his numerous gastrointestinal bleeds which have been quite severe at times, the patient has failed all anticoagulation and antiplatelet therapy, he is to no longer take his aspirin or Plavix from here on out, as the risk of bleeding is too high. We placed the patient on Protonix drip. 2. Ischemic cardiomyopathy. He is to continue his metoprolol. He is having no acute coronary syndrome symptoms. 3. Possible ETOH abuse. We will place the patient on [facility] protocol. Continue folic acid and thiamine supplements daily. 4. DVT prophylaxis. All anticoagulation is contraindicated. We will order SCDs. 5. Code status is full code. 6. Disposition is to admit OBV to [address] [place] [address]. Condition is guarded. TIME SPENT: Time spent on the patient is about 60 minutes with half of that spent face to face. PRISCILLA CALZADA, SUSTAINABILITY MANAGER [id number]/[facility] #: [id number] MTDD
[2019-03-01] MEDS: Pantoprazole* 80 mg IN NS 80 MG/250 ML BAG IV SCH ×2 (04:52→12:21)
[2019-03-01 05:54] LABS: ABS Basophils 0.1 10^3/ul (0-0.2); ABS Eosinophils 0.1 10^3/ul (0-0.6); ABS Lymphocytes 0.5 10^3/ul (1.0-4.8); ABS Monocytes 0.3 10^3/ul (0-0.8); ABS Neutrophils 3.3 10^3/ul (1.5-7.7); Eosinophil % 1.3 %; Hematocrit 25 % (42-52); Lymphocyte % 11.6 %; Mean Corpuscular HGB Conc 33 g/dL (31-36); Mean Corpuscular Hemoglobin 29 pg (27-31); Mean Corpuscular Volume 89 fL (80-94); Mean Platelet Volume 7.4 fL (7.4-10.4); Nucleated Red Blood Cells % 0.9; Platelet Count 183 10^3/uL (150-450); Red Blood Count 2.77 10^6 /uL (4.18-5.48); Red Cell Distribution Width 17 % (10-15); White Blood Count 4.1 10^3/uL (3.5-10.8)
[2019-03-01 06:14] LABS: BUN/Creatinine Ratio 13.1 (8-20); Calcium 8.8 mg/dL (8.6-10.3); EGFR African American 110.6 (>60); EGFR Non-African American 91.4 (>60); Potassium 3.9 mmol/L (3.5-5.0)
[2019-03-01] MEDS: Folic Acid TAB* 1 MG PO SCH (09:08)
[2019-03-01] MEDS: Multivitamins/Minerals TAB PO SCH (09:09)
[2019-03-01] MEDS: Atorvastatin* 20 MG TAB PO SCH (09:09)
[2019-03-01] MEDS: Metoprolol Succinate XL TAB* 50 MG PO SCH (09:09)
[2019-03-01] MEDS: Thiamine TAB* 100 MG TAB PO SCH (09:09)
[2019-03-01] MEDS: Cetirizine* 10 MG TAB PO SCH (09:09)
--- NOTE | 2019-03-01 09:42 | PN ---
Subjective Date of Service: 03/01/19 Interval History: Mr. Ga presented to the ER with appx 3 weeks of weakness, dizziness that he states is constant and worse with walking. He denied associated SOB, BRBPR, hematemesis, recent injury, extensive bleeding, chest pain. He reports daily melena for "a couple months." He states that he has not used alcohol since he was in his 50's, although November 2017 labs show ETOH in system and H&P reports recent use of alcohol, although unsure when last use was. He has no other complaints today. Objective Active Medications: Atorvastatin Calcium (Lipitor*) 20 mg PO DAILY [facility] Last Admin: 03/01/19 09:09 Dose: 20 mg Cetirizine HCl (Zyrtec*) 10 mg PO DAILY [facility] Last Admin: 03/01/19 09:09 Dose: 10 mg Cyclobenzaprine HCl (Flexeril Tab*) 10 mg PO BEDTIME MAEVE Folic Acid (Folvite Tab*) 1 mg PO DAILY [facility] Last Admin: 03/01/19 09:08 Dose: 1 mg Sodium Chloride (Ns 0.9% 1000 Ml) 1,000 mls @ 100 mls/hr IV PER RATE [facility] Pantoprazole Sodium (Protonix Iv Bag*) 80 mg in 250 mls @ 25 mls/hr IV Q10H [facility] Last Admin: 03/01/19 04:52 Dose: 25 mls/hr Lorazepam (Ativan Tab(*)) 0 - 6 mg PO .PER [facility] PROTOCOL [facility]; Protocol Metoprolol Succinate (Toprol Xl Tab*) 50 mg PO DAILY [facility] Last Admin: 03/01/19 09:09 Dose: 50 mg Multivitamins/Minerals (Theragran/Minerals Tab*) 1 tab PO DAILY [facility] Last Admin: 03/01/19 09:09 Dose: 1 tab Ondansetron HCl (Zofran Inj*) 4 mg IV Q4H PRN PRN Reason: NAUSEA/VOMITING Thiamine HCl (Vitamin B-1 Tab*) 100 mg PO DAILY [facility] Last Admin: 03/01/19 09:09 Dose: 100 mg Vital Signs: Temp Pulse Resp BP Pulse Ox 98.3 F 76 16 140/79 100 03/01/19 08:03 03/01/19 08:03 03/01/19 08:03 03/01/19 08:03 03/01/19 08:03 Oxygen Devices in Use Now: None Appearance: Mr. Ga is an average-weight 68 yo black male who is sitting up in bed. He is resting, breathing comfortably on room air. He appears to be in no acute distress. Eyes: No Scleral Icterus, PERRLA Ears/Nose/Mouth/Throat: NL Teeth, Lips, Gums, Clear Oropharnyx, Mucous Membranes Moist Neck: NL Appearance and Movements; NL JVP, Trachea Midline Respiratory: Symmetrical Chest Expansion and Respiratory Effort, Clear to Auscultation Cardiovascular: NL Sounds; No Murmurs; No JVD, RRR, No Edema Abdominal: NL Sounds; No Tenderness; No Distention, No Hepatosplenomegaly Extremities: No Edema, No Clubbing, Cyanosis Neurological: Alert and Oriented x 3 Result Diagrams: 03/01/19 11:38 03/01/19 05:42 Additional Lab and Data: Lab Results 02/28/19 02/28/19 02/28/19 Range/Units 19:28 19:28 19:28 WBC 2.9 L (3.5-10.8) 10^3/uL RBC 2.09 L (4.18-5.48) 10^6 /uL Hgb 5.7 L* (14.0-18.0) g/dL Hct 19 L (42-52) % MCV 89 (80-94) fL MCH 27 (27-31) pg MCHC 31 (31-36) g/dL RDW 19 H (10-15) % Plt Count 241 (150-450) 10^3/uL MPV 7.6 (7.4-10.4) fL Neut % (Auto) 59.2 % Lymph % (Auto) 26.1 % [place] % (Auto) 9.9 % Eos % (Auto) 1.5 % Baso % (Auto) 3.3 % Absolute Neuts (auto) 1.7 (1.5-7.7) 10^3/ul Absolute Lymphs (auto) 0.7 L (1.0-4.8) 10^3/ul Absolute Monos (auto) 0.3 (0-0.8) 10^3/ul Absolute Eos (auto) 0.0 (0-0.6) 10^3/ul Absolute Basos (auto) 0.1 (0-0.2) 10^3/ul Absolute Nucleated RBC 0.0 10^3/ul Nucleated RBC % 1.0 Polychromasia 1+ Hypochromasia 1+ Anisocytosis 2+ INR (Anticoag Therapy) 1.02 (0.82-1.09) APTT 31.5 (26.0-38.0) seconds Sodium 138 (135-145) mmol/L Potassium 3.7 (3.5-5.0) mmol/L Chloride 106 (101-111) mmol/L Carbon Dioxide 24 (22-32) mmol/L Anion Gap 8 (2-11) mmol/L BUN 11 (6-24) mg/dL Creatinine 1.03 (0.67-1.17) mg/dL Est GFR ( Amer) 87.4 (>60) Est GFR (Non-Af Amer) 72.3 (>60) BUN/Creatinine Ratio 10.7 (8-20) Glucose 101 H (70-100) mg/dL Calcium 8.9 (8.6-10.3) mg/dL Total Bilirubin 0.40 (0.2-1.0) mg/dL AST 115 H (13-39) U/L ALT 70 H (7-52) U/L Alkaline Phosphatase 57 (34-104) U/L Total Protein 7.6 (6.4-8.9) g/dL Albumin 3.8 (3.2-5.2) g/dL Globulin 3.8 (2-4) g/dL Albumin/Globulin Ratio 1.0 (1-3) Blood Type Antibody Screen 02/28/19 Range/Units 19:28 WBC (3.5-10.8) 10^3/uL RBC (4.18-5.48) 10^6 /uL Hgb (14.0-18.0) g/dL Hct (42-52) % MCV (80-94) fL MCH (27-31) pg MCHC (31-36) g/dL RDW (10-15) % Plt Count (150-450) 10^3/uL MPV (7.4-10.4) fL Neut % (Auto) % Lymph % (Auto) % Oxford % (Auto) % Eos % (Auto) % Baso % (Auto) % Absolute Neuts (auto) (1.5-7.7) 10^3/ul Absolute Lymphs (auto) (1.0-4.8) 10^3/ul Absolute Monos (auto) (0-0.8) 10^3/ul Absolute Eos (auto) (0-0.6) 10^3/ul Absolute Basos (auto) (0-0.2) 10^3/ul Absolute Nucleated RBC 10^3/ul Nucleated RBC % Polychromasia Hypochromasia Anisocytosis INR (Anticoag Therapy) (0.82-1.09) APTT (26.0-38.0) seconds Sodium (135-145) mmol/L Potassium (3.5-5.0) mmol/L Chloride (101-111) mmol/L Carbon Dioxide (22-32) mmol/L Anion Gap (2-11) mmol/L BUN (6-24) mg/dL Creatinine (0.67-1.17) mg/dL Est GFR ( Amer) (>60) Est GFR (Non-Af Amer) (>60) BUN/Creatinine Ratio (8-20) Glucose (70-100) mg/dL Calcium (8.6-10.3) mg/dL Total Bilirubin (0.2-1.0) mg/dL AST (13-39) U/L ALT (7-52) U/L Alkaline Phosphatase (34-104) U/L Total Protein (6.4-8.9) g/dL Albumin (3.2-5.2) g/dL Globulin (2-4) g/dL Albumin/Globulin Ratio (1-3) Blood Type O Positive Antibody Screen Negative Assess/Plan/Problems-Billing Assessment: 68 yom PMHx EtOH abuse, COPD, CAD, ischemic CM, recurrent GIB presents with GIB. - Patient Problems (1) GI hemorrhage Comment: -presentes with "couple moinths" melena, weeks of dizziness -H/H 5.9 at admission; improved and stable at appx 8 since 2U PRBC -stool for blood positive -GI consulting -pt received a full work up in January, with negative EGD, colonoscopy; will require outpatient capsule study for suspected small bowel bleed -continue patoprazole drip -monitor H/H (2) Iron deficiency anemia Comment: -low iron -GIB -iron sucrose IV (3) CAD (coronary artery disease) Comment: -known CAD with 95% RCA stenosis not amenable to intervention -frequent GIB, therefore unable to tolerate DAPT -continue metoprolol (4) Ischemic cardiomyopathy Comment: -05/2018 echo EF 20-25%, diastolic dysfunction -continue metoprolol (5) COPD (chronic obstructive pulmonary disease) Comment: -does not appear to be in exacerbation (6) Alcohol abuse Comment: -pt reports no alcohol in years, but has recent record of use last month -continue WAM; has yet to score -continue thiamine, folate (7) HLD (hyperlipidemia) Comment: -atorvastatin (8) DVT prophylaxis Comment: -SCD's only secondary to GI bleed (9) Full code status Status and Disposition: Observation. Discharge when stable.
[2019-03-01 11:54] LABS: Hematocrit 26 % (42-52); Hemoglobin 8.3 g/dL (14.0-18.0)
[2019-03-01 18:44] LABS: Hematocrit 25 % (42-52); Hemoglobin 8.3 g/dL (14.0-18.0)
--- NOTE | 2019-03-01 21:27 | CONS ---
CC: VIC Rubi * GASTROENTEROLOGY CONSULTATION: DATE OF CONSULT: 03/01/19 REQUESTING PROVIDER: VIC Rubi. REASON FOR CONSULT: Concern for ongoing GI bleeding. HISTORY OF PRESENT ILLNESS: Mr. Ga is a 68-year-old gentleman with history of alcoholism, COPD, CAD, status post NV with ischemic cardiomyopathy, peripheral arterial disease, status post axillobifemoral bypass, and prior massive GI bleeding as well as chronic GI bleeding of unclear etiology, who presents with weakness, dizziness, and anemia. Mr. Ga has a complicated medical course. He was hospitalized most recently 01/16/19 to 01/22/19 with chronic melena of unclear etiology. He underwent an EGD on 01/17/19, which was unremarkable. A colonoscopy was then performed on 01/19/19. There was minimal sigmoid diverticulosis. There was also a diminutive cecal cap polyp, which was removed. No source was found as to the explanation for his chronic presumed GI blood loss. The patient was discharged and it is unclear if he has followed up with Dr. Padgett as I do not have his office notes. In regards to his prior GI bleeding history, Mr. Ga was found to have hemoglobin of 2 to 3 range in 2018. He went to cardiac arrest at that time. An upper endoscopy was performed. Epinephrine and a clipper used in the duodenum, although it is unclear if there was any source identified. The clinical suspicion was that for a massive upper GI bleed , possibly a Dieulafoy. The patient was admitted again in March 2018 with syncopal episode. EGD at that time was negative. The patient left AMA before colonoscopy was performed. In regards to current presentation, Mr. Ga reports that he has been feeling dizzy, off balance, and having intermittent abdominal discomfort. He continues to have melanic stools, which he states is chronic. He has a stool everyday. He has not seen any red blood in the stool. He has noted daily epistaxis episodes. He has bleeding for 10 to 20 minutes before it stops with pressure. Hemoglobin was noted to be 5.7. He was given 2 units of blood and admitted for observation. On interview, Mr. Ga denies any particular complaints. He denies any abdominal pain. He states that his dark bowel movements are unchanged. PAST MEDICAL HISTORY: 1. Alcohol abuse with subsequent liver disease. Elastography during last admission was suggestive of severe fibrosis. 2. History of COPD. 3. Coronary artery disease, status post NV. 4. Peripheral arterial disease, status post axillobifemoral bypass. 5. Massive presumed upper GI bleed in 2018. 6. History of mediastinal tumor resected at [facility]. 7. Ischemic and non-ischemic cardiomyopathy. MEDICATIONS: According to the home reconciliation in the computer system at present, Mr. Ga is on: 1. Atorvastatin 20 mg daily. 2. Cyclobenzaprine 10 mg at bedtime. 3. Docusate twice daily. 4. Ferrous sulfate 325 mg twice daily. 5. Loratadine 10 mg daily. 6. Metoprolol XL 50 mg daily. 7. Omeprazole 20 mg twice daily. 8. Thiamine 100 mg daily. 9. Aspirin 81 mg daily. 10. Clopidogrel 75 mg daily. 11. Folic acid daily. 12. Multivitamin daily. ALLERGIES: No known drug allergies. FAMILY HISTORY: No known GI or liver disease. SOCIAL HISTORY: Lives in [place] with his partner, Cassi. 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 Drinks several alcoholic beverages per week. Smokes occasionally. REVIEW OF SYSTEMS: The patient reports some lower extremity numbness and dyspnea with exertion. He denies any syncopal episode. Epistaxis as described above. Melena as above. Otherwise, complete review of systems is negative. PHYSICAL EXAM: Vital Signs: Temperature 98.7, heart rate 67, blood pressure 114/66. General: A thin, chronically ill-appearing -[place] gentleman. HEENT: Mucous membranes are moist. No significant scleral icterus. Pulmonary: Breathing comfortably. Cardiovascular: Regular rate and rhythm. Abdomen: Soft, nontender, and nondistended. The patient's vascular graft can be felt on abdominal exam. Extremities: No significant edema. Rectal: Not performed again. Stool occult positive when checked earlier today. In the past , this has been Hemoccult positive. DIAGNOSTIC STUDIES/LAB DATA: White count 2.9 on admission, up to 4.1 on recheck. Hemoglobin 5.7 on admission after 2 units; repeat 6 hours later, was 8.3. MCV is 89. Platelet count is 183. Comprehensive panel notable for an AST of 115, an ALT of 70, alk phos 57, bilirubin 0.4, albumin 3.8. Stool occult positive. Imaging: No imaging performed in this admission. CTA chest, abdomen and pelvis was performed in September and did not comment on any bowel or intestinal findings. Liver elastography in November demonstrated F3 or severe fibrosis. Endoscopy/EGD from January 2019 reviewed as above and was negative. EGD in May 2018 was negative except for a hiatal hernia. EGD in May 2018 also demonstrated a hiatal hernia as well as mild antral gastritis. No source of bleeding seen on either of those exams. Colonoscopy in January demonstrated mild sigmoid diverticulosis. IMPRESSION AND RECOMMENDATION: Mr. Ga is a 68-year-old gentleman with history of alcoholism and hepatic fibrosis, vascular disease, chronic obstructive pulmonary disease, cardiomyopathy, and prior massive gastrointestinal hemorrhage of unclear etiology, who was admitted with weakness , chronic melena, and rrihh-[id number] anemia. Mr. Ga is a difficult clinical case. There has been a suspicion that he has had slow ongoing gastrointestinal blood loss, particularly in the setting of Plavix. EGD and colonoscopy in January were not revealing for a source of bleeding. The patient reports his symptoms are unchanged today. Hemoglobin again down quite low to 5.7. He had an appropriate bump after 2 units to 8, which has remained stable throughout the day on recheck. The patient has had significant epistaxis on a daily basis over the past week. He estimates that it takes 10 to 20 minutes for the bleeding to stop, possible that this has contributed to his anemia and melena. Regardless, I think pursuing video capsule endoscopy is a reasonable idea in this gentleman to evaluate for possible small bowel source of bleeding. Assuming Mr. Ga remains stable on serial checks without ongoing drop in hemoglobin, I think that it would be reasonable to set up an outpatient capsule endoscopy within the next week or 2. If clinical scenario changes or hemoglobin drops again, then we can consider video capsule endoscopy while inpatient. We will defer evaluation/management of recurrent epistaxis to primary team. We will continue omeprazole for now. Discussion regarding Plavix should be had with the patient. He is at high risk for severe anemia it seems at this point. Unfortunately, I have not been able to identify a cause of this anemia, so I am unable to predict the trajectory of the bleeding. I would consider involving Cardiology in the risk/benefits discussion of continuing the Plavix. Thank you very much for this consult. GI will continue to follow. [id number]/[facility] #: [id number] [facility] CENTERWilbert
[2019-03-01] MEDS: Cyclobenzaprine TAB* 10 MG PO SCH (21:30)
[2019-03-02 00:34] LABS: Hematocrit 25 % (42-52); Hemoglobin 8.2 g/dL (14.0-18.0)
[2019-03-02] MEDS: Pantoprazole* 80 mg IN NS 80 MG/250 ML BAG IV SCH ×4 (01:08→13:09)
[2019-03-02] MEDS: NS 0.9% 1000 ML** 1,000 ML IV SCH ×2 (04:45→15:39)
[2019-03-02 04:47] LABS: Hematocrit 25 % (42-52); Hemoglobin 7.8 g/dL (14.0-18.0)
[2019-03-02] MEDS: Metoprolol Succinate XL TAB* 50 MG PO SCH (07:56)
[2019-03-02] MEDS: Atorvastatin* 20 MG TAB PO SCH (07:56)
[2019-03-02] MEDS: Folic Acid TAB* 1 MG PO SCH (07:56)
[2019-03-02] MEDS: Thiamine TAB* 100 MG TAB PO SCH (07:56)
[2019-03-02] MEDS: Cetirizine* 10 MG TAB PO SCH (07:57)
[2019-03-02] MEDS: Multivitamins/Minerals TAB PO SCH (07:57)
[2019-03-02 11:36] LABS: Hematocrit 23 % (42-52); Hemoglobin 7.5 g/dL (14.0-18.0)
--- NOTE | 2019-03-02 11:36 | PN ---
Subjective Date of Service: 03/02/19 Interval History: Mr. Ga states he is improved since blood transfusion. He denies dizziness , lightheadedness, SOB, abd pain, melena, hematochezia. Last episode of melena was yesterday. He reports frequent epistaxis, but has not had this since admission. He c/o chronic cough, which has been productive lately; denies fever , chills, sweats. No other complaints today. Objective Active Medications: Atorvastatin Calcium (Lipitor*) 20 mg PO DAILY [facility] Last Admin: 03/02/19 07:56 Dose: 20 mg Cetirizine HCl (Zyrtec*) 10 mg PO DAILY [facility] Last Admin: 03/02/19 07:57 Dose: 10 mg Cyclobenzaprine HCl (Flexeril Tab*) 10 mg PO BEDTIME [facility] Last Admin: 03/01/19 21:30 Dose: 10 mg Folic Acid (Folvite Tab*) 1 mg PO DAILY [facility] Last Admin: 03/02/19 07:56 Dose: 1 mg Sodium Chloride (Ns 0.9% 1000 Ml) 1,000 mls @ 100 mls/hr IV PER RATE [facility] Last Admin: 03/02/19 04:45 Dose: 100 mls/hr Pantoprazole Sodium (Protonix Iv Bag*) 80 mg in 250 mls @ 25 mls/hr IV Q10H [facility] Last Admin: 03/02/19 07:39 Dose: Not Given Lorazepam (Ativan Tab(*)) 0 - 6 mg PO .PER [facility] PROTOCOL [facility]; Protocol Metoprolol Succinate (Toprol Xl Tab*) 50 mg PO DAILY [facility] Last Admin: 03/02/19 07:56 Dose: 50 mg Multivitamins/Minerals (Theragran/Minerals Tab*) 1 tab PO DAILY [facility] Last Admin: 03/02/19 07:57 Dose: 1 tab Ondansetron HCl (Zofran Inj*) 4 mg IV Q4H PRN PRN Reason: NAUSEA/VOMITING Thiamine HCl (Vitamin B-1 Tab*) 100 mg PO DAILY [facility] Last Admin: 03/02/19 07:56 Dose: 100 mg Vital Signs: Temp Pulse Resp BP Pulse Ox 97.9 F 59 16 114/68 100 03/02/19 15:15 03/02/19 15:15 03/02/19 15:15 03/02/19 15:15 03/02/19 15:15 Oxygen Devices in Use Now: None Appearance: Mr. Ga is a middle-aged black male who is sitting up in bed. He appears to be in no acute distress, breathing comfortably on room air. Eyes: No Scleral Icterus, PERRLA Ears/Nose/Mouth/Throat: NL Teeth, Lips, Gums, Clear Oropharnyx, Mucous Membranes Moist Neck: NL Appearance and Movements; NL JVP, Trachea Midline Respiratory: Symmetrical Chest Expansion and Respiratory Effort, Clear to Auscultation Cardiovascular: RRR, No Edema, - - systolic murmur Abdominal: NL Sounds; No Tenderness; No Distention, No Hepatosplenomegaly Extremities: No Edema, No Clubbing, Cyanosis Neurological: Alert and Oriented x 3 Result Diagrams: 03/02/19 11:30 03/01/19 05:42 Additional Lab and Data: Lab Results 02/28/19 02/28/19 02/28/19 Range/Units 19:28 19:28 19:28 WBC 2.9 L (3.5-10.8) 10^3/uL RBC 2.09 L (4.18-5.48) 10^6 /uL Hgb 5.7 L* (14.0-18.0) g/dL Hct 19 L (42-52) % MCV 89 (80-94) fL MCH 27 (27-31) pg MCHC 31 (31-36) g/dL RDW 19 H (10-15) % Plt Count 241 (150-450) 10^3/uL MPV 7.6 (7.4-10.4) fL Neut % (Auto) 59.2 % Lymph % (Auto) 26.1 % [place] % (Auto) 9.9 % Eos % (Auto) 1.5 % Baso % (Auto) 3.3 % Absolute Neuts (auto) 1.7 (1.5-7.7) 10^3/ul Absolute Lymphs (auto) 0.7 L (1.0-4.8) 10^3/ul Absolute Monos (auto) 0.3 (0-0.8) 10^3/ul Absolute Eos (auto) 0.0 (0-0.6) 10^3/ul Absolute Basos (auto) 0.1 (0-0.2) 10^3/ul Absolute Nucleated RBC 0.0 10^3/ul Nucleated RBC % 1.0 Polychromasia 1+ Hypochromasia 1+ Anisocytosis 2+ INR (Anticoag Therapy) 1.02 (0.82-1.09) APTT 31.5 (26.0-38.0) seconds Sodium 138 (135-145) mmol/L Potassium 3.7 (3.5-5.0) mmol/L Chloride 106 (101-111) mmol/L Carbon Dioxide 24 (22-32) mmol/L Anion Gap 8 (2-11) mmol/L BUN 11 (6-24) mg/dL Creatinine 1.03 (0.67-1.17) mg/dL Est GFR ( Amer) 87.4 (>60) Est GFR (Non-Af Amer) 72.3 (>60) BUN/Creatinine Ratio 10.7 (8-20) Glucose 101 H (70-100) mg/dL Calcium 8.9 (8.6-10.3) mg/dL Total Bilirubin 0.40 (0.2-1.0) mg/dL AST 115 H (13-39) U/L ALT 70 H (7-52) U/L Alkaline Phosphatase 57 (34-104) U/L Total Protein 7.6 (6.4-8.9) g/dL Albumin 3.8 (3.2-5.2) g/dL Globulin 3.8 (2-4) g/dL Albumin/Globulin Ratio 1.0 (1-3) Blood Type Antibody Screen 02/28/19 Range/Units 19:28 WBC (3.5-10.8) 10^3/uL RBC (4.18-5.48) 10^6 /uL Hgb (14.0-18.0) g/dL Hct (42-52) % MCV (80-94) fL MCH (27-31) pg MCHC (31-36) g/dL RDW (10-15) % Plt Count (150-450) 10^3/uL MPV (7.4-10.4) fL Neut % (Auto) % Lymph % (Auto) % [place] % (Auto) % Eos % (Auto) % Baso % (Auto) % Absolute Neuts (auto) (1.5-7.7) 10^3/ul Absolute Lymphs (auto) (1.0-4.8) 10^3/ul Absolute Monos (auto) (0-0.8) 10^3/ul Absolute Eos (auto) (0-0.6) 10^3/ul Absolute Basos (auto) (0-0.2) 10^3/ul Absolute Nucleated RBC 10^3/ul Nucleated RBC % Polychromasia Hypochromasia Anisocytosis INR (Anticoag Therapy) (0.82-1.09) APTT (26.0-38.0) seconds Sodium (135-145) mmol/L Potassium (3.5-5.0) mmol/L Chloride (101-111) mmol/L Carbon Dioxide (22-32) mmol/L Anion Gap (2-11) mmol/L BUN (6-24) mg/dL Creatinine (0.67-1.17) mg/dL Est GFR ( Amer) (>60) Est GFR (Non-Af Amer) (>60) BUN/Creatinine Ratio (8-20) Glucose (70-100) mg/dL Calcium (8.6-10.3) mg/dL Total Bilirubin (0.2-1.0) mg/dL AST (13-39) U/L ALT (7-52) U/L Alkaline Phosphatase (34-104) U/L Total Protein (6.4-8.9) g/dL Albumin (3.2-5.2) g/dL Globulin (2-4) g/dL Albumin/Globulin Ratio (1-3) Blood Type O Positive Antibody Screen Negative Microbiology and Other Data: Microbiology 03/01/19 11:00 Stool Occult Blood (TESFAYE) - Final Stool Assess/Plan/Problems-Billing Assessment: 68 yom PMHx EtOH abuse, COPD, CAD, ischemic CM, recurrent GIB presents with GIB. - Patient Problems (1) GI hemorrhage Comment: -presents with "couple months" melena, weeks of dizziness -H/H 5.9 at admission; improved and stable at appx 8 since 2U PRBC -stool for blood positive -GI consulting -pt received a full work up in January, with negative EGD, colonoscopy; will require outpatient capsule study for suspected small bowel bleed -continue pantoprazole drip -monitor H/H (2) Epistaxis Comment: -reported daily epistaxis; none since hospitalization -denies drug abuse -may benefit from ENT consult if epistaxis persists (3) Iron deficiency anemia Comment: -low Fe -GIB -iron sucrose IV (4) CAD (coronary artery disease) Comment: -known CAD with 95% RCA stenosis not amenable to intervention -frequent GIB, therefore may not be able tolerate DAPT -peanut separator: Nabiltic -continue metoprolol (5) Ischemic cardiomyopathy Comment: -05/2018 echo EF 20-25%, diastolic dysfunction -continue metoprolol (6) COPD (chronic obstructive pulmonary disease) Comment: -does not appear to be in exacerbation (7) Alcohol abuse Comment: -pt reports no alcohol in years, but has recent record of use last month -continue WAM; has yet to score -continue thiamine, folate (8) HLD (hyperlipidemia) Comment: -atorvastatin (9) DVT prophylaxis Comment: -SCD's only secondary to GI bleed (10) Full code status Status and Disposition: Observation. Discharge when stable.
--- NOTE | 2019-03-02 15:31 | PN ---
Progress Note - Progress Note Date of Service: 03/02/19 Note: BRIEF GI NOTE Spoke with primary team. Patient is clinically stable without overt bleeding. H/ H stable to slightly down (Hgb 8.2 > 7.8 > 7.5). Patient needs VCE to evaluate small bowel. Can likely be done next week, although there is no capsule available on Monday. Potentially could be done Monday if patient's labs remain unstable. Otherwise, he can be discharged (if stable blood counts) with plan for outpatient VCE later in the week. - Continue to monitor CBC every 8-12 hours. Transfuse per primary team. - Regular diet ok for now. - Agree with IV iron infusions given low iron noted in January. - Discuss with cardiology. Would consider continuing ASA 81 mg daily OR Plavix ( but not both) given significant heart disease. Patient is high-risk to remain on dual anti-platelet therapy given ongoing anemia issues without clear source. - Please notify GI if acute clinical change. Otherwise, we will determine plan based on labs over next 24 hours. Erin Hope MD Gastroenterology Fellow
[2019-03-02] MEDS: Iron Sucrose* 200 MG in NS 0.9% 100 ML* 100 ML IVPB SCH (15:40)
[2019-03-02 18:31] LABS: Hematocrit 25 % (42-52)
[2019-03-02] MEDS: Cyclobenzaprine TAB* 10 MG PO SCH (21:20)
[2019-03-03] MEDS: Pantoprazole* 80 mg IN NS 80 MG/250 ML BAG IV SCH ×3 (02:23→23:02)
[2019-03-03 07:14] LABS: ABS Basophils 0.1 10^3/ul (0-0.2); ABS Eosinophils 0.1 10^3/ul (0-0.6); ABS Lymphocytes 0.9 10^3/ul (1.0-4.8); ABS Monocytes 0.5 10^3/ul (0-0.8); ABS Neutrophils 2.1 10^3/ul (1.5-7.7); ABS Nucleated RBC 0.1 10^3/ul; Eosinophil % 3.8 %; Hematocrit 23 % (42-52); Hemoglobin 7.6 g/dL (14.0-18.0); Lymphocyte % 24.3 %; Mean Corpuscular HGB Conc 34 g/dL (31-36); Mean Corpuscular Hemoglobin 30 pg (27-31); Mean Corpuscular Volume 89 fL (80-94); Mean Platelet Volume 8.2 fL (7.4-10.4); Nucleated Red Blood Cells % 2.8; Platelet Count 152 10^3/uL (150-450); Red Blood Count 2.57 10^6 /uL (4.18-5.48); Red Cell Distribution Width 17 % (10-15); White Blood Count 3.7 10^3/uL (3.5-10.8)
[2019-03-03 07:30] LABS: BUN/Creatinine Ratio 8.9 (8-20); Calcium 8.2 mg/dL (8.6-10.3); EGFR African American 102.2 (>60); EGFR Non-African American 84.4 (>60); Potassium 3.5 mmol/L (3.5-5.0)
[2019-03-03] MEDS ORDERED: Artificial Tears* 15 ML BTL BOTH EYES PRN (09:44)
--- NOTE | 2019-03-03 09:51 | PN ---
Subjective Date of Service: 03/03/19 Interval History: Patient states that he is not longer dizzy or lightheaded like he used to be. Able to walk without feeling unstable. Denies chest pain, palpitations, shortness of breath, abdominal pain, nausea or vomiting. Only complaints is dry , itchy eyes. Family History: Unchanged from Admission Social History: Unchanged from Admission Past Medical History: Unchanged from Admission Objective Active Medications: Atorvastatin Calcium (Lipitor*) 20 mg PO DAILY [facility] Last Admin: 03/02/19 07:56 Dose: 20 mg Cetirizine HCl (Zyrtec*) 10 mg PO DAILY [facility] Last Admin: 03/02/19 07:57 Dose: 10 mg Cyclobenzaprine HCl (Flexeril Tab*) 10 mg PO BEDTIME [facility] Last Admin: 03/02/19 21:20 Dose: 10 mg Folic Acid (Folvite Tab*) 1 mg PO DAILY [facility] Last Admin: 03/02/19 07:56 Dose: 1 mg Pantoprazole Sodium (Protonix Iv Bag*) 80 mg in 250 mls @ 25 mls/hr IV Q10H [facility] Last Admin: 03/03/19 02:23 Dose: 25 mls/hr Iron Sucrose 200 mg/ Sodium (Chloride) 110 mls @ 110 mls/hr IVPB DAILY [facility] Stop: 03/05/19 09:59 Last Admin: 03/02/19 15:40 Dose: 110 mls/hr Lorazepam (Ativan Tab(*)) 0 - 6 mg PO .PER [facility] PROTOCOL [facility]; Protocol Metoprolol Succinate (Toprol Xl Tab*) 50 mg PO DAILY [facility] Last Admin: 03/02/19 07:56 Dose: 50 mg Multivitamins/Minerals (Theragran/Minerals Tab*) 1 tab PO DAILY [facility] Last Admin: 03/02/19 07:57 Dose: 1 tab Ondansetron HCl (Zofran Inj*) 4 mg IV Q4H PRN PRN Reason: NAUSEA/VOMITING Polyvinyl Alcohol (Polyvinyl Alcohol 1.4% Opth*) 1 drop BOTH EYES Q2H PRN PRN Reason: DRY EYE Thiamine HCl (Vitamin B-1 Tab*) 100 mg PO DAILY [facility] Last Admin: 03/02/19 07:56 Dose: 100 mg Vital Signs - 8 hr 03/03/19 03/03/19 03:03 07:51 Temperature 97.7 F 97.9 F Pulse Rate 61 62 Respiratory 20 16 Rate Blood Pressure 129/67 111/50 (mmHg) O2 Sat by Pulse 100 100 Oximetry Oxygen Devices in Use Now: None Appearance: Thin, chronically ill in appearance. Eyes: No Scleral Icterus, PERRLA, - - Sclera yellowed. No discharge. Ears/Nose/Mouth/Throat: NL Teeth, Lips, Gums, Clear Oropharnyx, Mucous Membranes Moist Neck: NL Appearance and Movements; NL JVP, Trachea Midline Respiratory: Symmetrical Chest Expansion and Respiratory Effort, Clear to Auscultation Cardiovascular: NL Sounds; No Murmurs; No JVD, RRR, No Edema Abdominal: - - Abdomen soft, non-distended, mildly tender to left upper and lower quadrants. Lymphatic: No Cervical Adenopathy Extremities: No Edema, No Clubbing, Cyanosis Skin: No Rash or Ulcers, No Nodules or Sclerosis Neurological: Alert and Oriented x 3 Lines/Tubes/Other Access: Clean, Dry and Intact Peripheral IV Result Diagrams: 03/03/19 06:54 03/03/19 06:54 Additional Lab and Data: Lab Results 02/28/19 02/28/19 02/28/19 Range/Units 19:28 19:28 19:28 WBC 2.9 L (3.5-10.8) 10^3/uL RBC 2.09 L (4.18-5.48) 10^6 /uL Hgb 5.7 L* (14.0-18.0) g/dL Hct 19 L (42-52) % MCV 89 (80-94) fL MCH 27 (27-31) pg MCHC 31 (31-36) g/dL RDW 19 H (10-15) % Plt Count 241 (150-450) 10^3/uL MPV 7.6 (7.4-10.4) fL Neut % (Auto) 59.2 % Lymph % (Auto) 26.1 % [place] % (Auto) 9.9 % Eos % (Auto) 1.5 % Baso % (Auto) 3.3 % Absolute Neuts (auto) 1.7 (1.5-7.7) 10^3/ul Absolute Lymphs (auto) 0.7 L (1.0-4.8) 10^3/ul Absolute Monos (auto) 0.3 (0-0.8) 10^3/ul Absolute Eos (auto) 0.0 (0-0.6) 10^3/ul Absolute Basos (auto) 0.1 (0-0.2) 10^3/ul Absolute Nucleated RBC 0.0 10^3/ul Nucleated RBC % 1.0 Polychromasia 1+ Hypochromasia 1+ Anisocytosis 2+ INR (Anticoag Therapy) 1.02 (0.82-1.09) APTT 31.5 (26.0-38.0) seconds Sodium 138 (135-145) mmol/L Potassium 3.7 (3.5-5.0) mmol/L Chloride 106 (101-111) mmol/L Carbon Dioxide 24 (22-32) mmol/L Anion Gap 8 (2-11) mmol/L BUN 11 (6-24) mg/dL Creatinine 1.03 (0.67-1.17) mg/dL Est GFR ( Amer) 87.4 (>60) Est GFR (Non-Af Amer) 72.3 (>60) BUN/Creatinine Ratio 10.7 (8-20) Glucose 101 H (70-100) mg/dL Calcium 8.9 (8.6-10.3) mg/dL Total Bilirubin 0.40 (0.2-1.0) mg/dL AST 115 H (13-39) U/L ALT 70 H (7-52) U/L Alkaline Phosphatase 57 (34-104) U/L Total Protein 7.6 (6.4-8.9) g/dL Albumin 3.8 (3.2-5.2) g/dL Globulin 3.8 (2-4) g/dL Albumin/Globulin Ratio 1.0 (1-3) Blood Type Antibody Screen 02/28/19 Range/Units 19:28 WBC (3.5-10.8) 10^3/uL RBC (4.18-5.48) 10^6 /uL Hgb (14.0-18.0) g/dL Hct (42-52) % MCV (80-94) fL MCH (27-31) pg MCHC (31-36) g/dL RDW (10-15) % Plt Count (150-450) 10^3/uL MPV (7.4-10.4) fL Neut % (Auto) % Lymph % (Auto) % [place] % (Auto) % Eos % (Auto) % Baso % (Auto) % Absolute Neuts (auto) (1.5-7.7) 10^3/ul Absolute Lymphs (auto) (1.0-4.8) 10^3/ul Absolute Monos (auto) (0-0.8) 10^3/ul Absolute Eos (auto) (0-0.6) 10^3/ul Absolute Basos (auto) (0-0.2) 10^3/ul Absolute Nucleated RBC 10^3/ul Nucleated RBC % Polychromasia Hypochromasia Anisocytosis INR (Anticoag Therapy) (0.82-1.09) APTT (26.0-38.0) seconds Sodium (135-145) mmol/L Potassium (3.5-5.0) mmol/L Chloride (101-111) mmol/L Carbon Dioxide (22-32) mmol/L Anion Gap (2-11) mmol/L BUN (6-24) mg/dL Creatinine (0.67-1.17) mg/dL Est GFR ( Amer) (>60) Est GFR (Non-Af Amer) (>60) BUN/Creatinine Ratio (8-20) Glucose (70-100) mg/dL Calcium (8.6-10.3) mg/dL Total Bilirubin (0.2-1.0) mg/dL AST (13-39) U/L ALT (7-52) U/L Alkaline Phosphatase (34-104) U/L Total Protein (6.4-8.9) g/dL Albumin (3.2-5.2) g/dL Globulin (2-4) g/dL Albumin/Globulin Ratio (1-3) Blood Type O Positive Antibody Screen Negative Microbiology and Other Data: Microbiology 03/01/19 11:00 Stool Occult Blood (TESFAYE) - Final Stool Assess/Plan/Problems-Billing Assessment: 68 yom PMHx EtOH abuse, COPD, CAD, ischemic CM, recurrent GIB presents with GIB. - Patient Problems (1) GI hemorrhage Current Visit: No Status: Acute Code(s): K92.2 - GASTROINTESTINAL HEMORRHAGE , UNSPECIFIED SNOMED Code(s): 24324136 Comment: -presents with "couple months" melena, weeks of dizziness -H/H 5.9 at admission; improved though continues to trend down after initial improvement. Will recheck HH at 1400, may need to transfuse later. -stool for blood positive -GI consulting -pt received a full work up in January, with negative EGD, colonoscopy; will require outpatient capsule study for suspected small bowel bleed -continue pantoprazole drip -Continue to trend HH (2) Alcohol abuse Current Visit: No Status: Acute Code(s): F10.10 - ALCOHOL ABUSE, UNCOMPLICATED SNOMED Code(s): 58732206 Comment: -pt reports no alcohol in years, but has recent record of use last month -d/c WAM, has not been scoring. -continue thiamine, folate (3) COPD (chronic obstructive pulmonary disease) Current Visit: No Status: Acute Code(s): J44.9 - CHRONIC OBSTRUCTIVE PULMONARY DISEASE, UNSPECIFIED SNOMED Code(s): 93057595 Comment: -Does not use any home inhalers. -Does not appear to be in exacerbation. -Encourage smoking cessation. (4) HTN (hypertension) Current Visit: No Status: Acute Code(s): I10 - ESSENTIAL (PRIMARY) HYPERTENSION SNOMED Code(s): 41131156 Comment: BP acceptable on metoprolol (5) Epistaxis Current Visit: Yes Status: Acute Code(s): R04.0 - EPISTAXIS SNOMED Code(s) : 558798892 Comment: -reported daily epistaxis; none since hospitalization -denies drug abuse -may benefit from ENT consult if epistaxis persists (6) HLD (hyperlipidemia) Current Visit: Yes Status: Acute Code(s): E78.5 - HYPERLIPIDEMIA, UNSPECIFIED SNOMED Code(s): 79088582 Comment: -atorvastatin (7) Iron deficiency anemia Current Visit: Yes Status: Acute Code(s): D50.9 - IRON DEFICIENCY ANEMIA, UNSPECIFIED SNOMED Code(s): 81845607 Comment: -low Fe -GIB -iron sucrose IV (8) CAD (coronary artery disease) Current Visit: No Status: Chronic Code(s): I25.10 - ATHSCL HEART DISEASE OF [place] CORONARY ARTERY W/O ANG PCTRS SNOMED Code(s): 01365628 Comment: -known CAD with 95% RCA stenosis not amenable to intervention -frequent GIB, therefore may not be able tolerate DAPT -window trimmer: Corinne -continue metoprolol (9) DVT prophylaxis Current Visit: No Status: Acute Code(s): TBV0789 - SNOMED Code(s): 547357688 Comment: -SC heparin (10) Full code status Current Visit: No Status: Acute Code(s): Z78.9 - OTHER SPECIFIED HEALTH STATUS SNOMED Code(s): 117481247 Status and Disposition: Observation. Discharge when stable. Attending: Teri Saba
[2019-03-03] MEDS: Iron Sucrose* 200 MG in NS 0.9% 100 ML* 100 ML IVPB SCH (09:59)
[2019-03-03] MEDS: Thiamine TAB* 100 MG TAB PO SCH (09:59)
[2019-03-03] MEDS: Cetirizine* 10 MG TAB PO SCH (09:59)
[2019-03-03] MEDS: Multivitamins/Minerals TAB PO SCH (09:59)
[2019-03-03] MEDS: Folic Acid TAB* 1 MG PO SCH (09:59)
[2019-03-03] MEDS: Metoprolol Succinate XL TAB* 50 MG PO SCH (09:59)
[2019-03-03] MEDS: Atorvastatin* 20 MG TAB PO SCH (09:59)
[2019-03-03] MEDS ORDERED: PEG 3000 GI LAVAGE* 1 GALLON PO ONE (12:00)
[2019-03-03 13:48] LABS: Hematocrit 24 % (42-52); Hemoglobin 7.7 g/dL (14.0-18.0)
[2019-03-03] MEDS: Cyclobenzaprine TAB* 10 MG PO SCH (21:02)
[2019-03-04] MEDS: Iron Sucrose* 200 MG in NS 0.9% 100 ML* 100 ML IVPB SCH (09:20)
[2019-03-04] MEDS: Thiamine TAB* 100 MG TAB PO SCH (09:21)
[2019-03-04] MEDS: Multivitamins/Minerals TAB PO SCH (09:21)
[2019-03-04] MEDS: Cetirizine* 10 MG TAB PO SCH (09:21)
[2019-03-04] MEDS: Atorvastatin* 20 MG TAB PO SCH (09:21)
[2019-03-04] MEDS: Folic Acid TAB* 1 MG PO SCH (09:21)
[2019-03-04] MEDS: Metoprolol Succinate XL TAB* 50 MG PO SCH (09:21)
[2019-03-04 09:30] LABS: Hematocrit 25 % (42-52); Hemoglobin 7.9 g/dL (14.0-18.0); Mean Corpuscular HGB Conc 32 g/dL (31-36); Mean Corpuscular Hemoglobin 29 pg (27-31); Mean Corpuscular Volume 91 fL (80-94); Mean Platelet Volume 8.4 fL (7.4-10.4); Platelet Count 168 10^3/uL (150-450); Red Cell Distribution Width 18 % (10-15); White Blood Count 3.4 10^3/uL (3.5-10.8)
[2019-03-04] MEDS: Pantoprazole* 80 mg IN NS 80 MG/250 ML BAG IV SCH ×2 (09:47→18:51)
--- NOTE | 2019-03-04 17:05 | PN ---
Progress Note - Progress Note Date of Service: 03/04/19 Note: pt seen and examined; feels well, needs capsule endo to continue anemia wilson VS; 98.5, 135/78, 64 nad, alert +bs Hgb 7.9<------7.7 anemia, needs capsule endo; first available is ; discussed with pt doing this as outpt and he swears he will get it done; first avail is , will arrange as outpt; can dc when primary team oks Daniel Mcintosh md
[2019-03-04 17:55] VITALS: BP 147/80
[2019-03-04 18:58] LABS: Hematocrit 26 % (42-52); Hemoglobin 8.3 g/dL (14.0-18.0)
--- NOTE | 2019-03-05 04:36 | DS ---
CC: Dr. Ly; Dr. Hope; Dr. Mcintosh * DISCHARGE SUMMARY: DATE OF ADMISSION: 03/02/19 DATE OF DISCHARGE: 03/04/19 PROVIDER: Priscilla Calzada NP ATTENDING PHYSICIAN: Dr. Morrell.* (DICTATED BY PRISCILLA CALZADA NP) PRIMARY CARE PHYSICIAN: Dr. Ly. CONSULTING PHYSICIANS: Dr. Hope and Dr. Mcintosh. PRIMARY DIAGNOSIS: Acute iron deficiency anemia secondary to gastrointestinal bleed. SECONDARY DIAGNOSES: 1. Past history of EtOH abuse. 2. Ischemic cardiomyopathy. PROCEDURES: None. STUDIES: None. PERTINENT LAB DATA: Hemoglobin 8.3, hematocrit 26, WBC 3.4, RBC 2.70. Calcium 8.2. HISTORY OF PRESENT ILLNESS/HOSPITAL COURSE: This is a 68-year-old male with past medical history significant for EtOH abuse, ischemic cardiomyopathy, and previous GI bleed, who originally came to the emergency room on 02/28/19 due to a several week history of dizziness, gait instability, echo in his ears, and intermittent abdominal cramping. He had been previously admitted to [facility] from 01/16/19 to 01/22/19 with a diagnosis of a GI bleed secondary to an unknown source, pancytopenia, and probable EtOH withdrawal. At that point, he had had a fairly complete GI workup with an EGD that showed no varices, portal hypertensive gastropathy, or ulcer. He also has had a liver elastography at that time, which revealed a METAVIR score likely of 3 indicating severe fibrosis. His folate and B12 levels were also normal. His colonoscopy and endoscopy both showed no signs of active bleeding. Since his discharge, he reported having off and on nosebleeds 2 to 3 times a week. He was not able to state how long the bleeds lasted for or how many tissues he would use to stop the bleeding. He also stated that intermittently his feet would become numb particularly with just standing, but walking would make it better and had noticed black stools, though denied vomiting any blood. Initially, in the emergency room, he received 2 units of packed red blood cells. Labs were drawn. At that time, his hemoglobin and hematocrit were found to be 5.7 and 19, which is why he received the units of packed red blood cells, but even at that time, he was normotensive and only mildly tachycardic between 91 and 103 heart rate. He denied any chest pain, did reveal shortness of breath with exertion, but had no other symptoms. The next day, Dr. Hope was consulted to help evaluate the source of the bleed as I felt this likely is somewhere in the lower GI tract. Initially, it was felt that perhaps this could be due to another bout of EtOH withdrawal, as the patient had admitted to drinking 2 to 3 beers a day since his discharge from the hospital. At which point, he was told that he should abstain altogether from alcohol. However, he did not end up scoring on the WAM protocol and therefore, the likelihood of this being related to alcohol is decreased. Because the patient had recently had an unremarkable endoscopy and colonoscopy, Dr. Hope felt that Mr. Ga would benefit from a video capsule endoscopy, which she was unable to do at that particular time. We continued to trend his hemoglobin and hematocrit 2 to 3 times a day, which after the initial transfusions, the hemoglobin and hematocrit came up and remained into the low 8 and 25 range. The next day on 03/02/19, his hemoglobin trended back down to 7.5 and 7.8, hematocrit stayed between 23 and 25. The patient remained asymptomatic at this time without any tachycardia, hypertension or dizziness. He felt that his shortness of breath had improved since being admitted, was having no further episodes of epistaxis that he had described upon admission. The patient was kept through the weekend with the impression that he would perhaps be able to undergo a videocapsule endoscopy on Monday as was initially thought by Dr. Yo Quinones; however, the first available time slot to do this procedure turned out to be on . After trending the H and H and noted that it had stabilized in the low 8 and 25 range and again the patient was completely asymptomatic, so I and Dr. Mcintosh felt that it was safe to discharge the patient to home with the promise to Dr. Mcintosh that he would return on for the videocapsule endoscopy as there was a concern that he would not do so because he had canceled a previous follow up with GI. REVIEW OF SYSTEMS: A 12-point system review was performed with no pertinent positives. Pertinent negatives include no black stools. Denied any lightheadedness, dizziness, chest pain, palpitations, shortness of breath, abdominal pain, nausea, vomiting or issues moving his bowel or bladder. PHYSICAL EXAMINATION: Vital Signs: 98.6 Fahrenheit, 66 pulse, 20 respirations , 100% oxygen on room air, and 147/80 blood pressure. General: This is a well- developed, thin older gentleman seen sitting up in the edge of the bed in no acute distress. HEENT: Conjunctivae pink and moist. Sclerae yellowed. Oropharynx clear. Mucous membranes moist. Noted discolored spots to his tongue, which he states is normal. Neck is supple. Cardiac: S1, S2 present. Heart rate regular. No murmurs, gallops, or rubs appreciated. Respiratory: Lung sounds clear throughout bilaterally on room air. No accessory muscle use noted. Abdomen: Soft, nontender, nondistended with positive bowel sounds x4. Musculoskeletal: Strength 5/5 to bilateral upper and lower extremities with no clubbing or cyanosis of the digits. Skin: Intact without any rashes or lesions. Neurologic: No focal deficits appreciated. Sensation intact to light touch. Psych: He is alert and oriented x3. Thought content organized. DISCHARGE PLAN: He is to resume a consistent carb diet. Activity is as tolerated. He is to return to the hospital should he have increase in shortness of breath, chest pain, or bright red blood per rectum. PLAN FOR EACH CONDITION: 1. Acute iron deficiency anemia secondary to GI bleed. Initially, his stool guaiac was positive. However, because his previous colonoscopy and endoscopy were clear for any signs of active bleeding, we feel that the bleeding may originate somewhere in the small intestine, which is why he is going for a videocapsule endoscopy on with Dr. Mcintosh. While he was in the hospital, he also received a total of 3 bags of iron sucrose and had been placed on a Protonix drip. He should continue his ferrous sulfate and omeprazole twice a day. 2. History of EtOH abuse. He recommended that he abstain from all alcohol consumption from here on out if possible, continue his thiamine, folate and multivitamins. 3. COPD. He did not appear to be in any exacerbation during his stay. He does not use any at home inhalers. I encouraged smoking cessation. 4. Hypertension. Blood pressure controlled has been acceptable on the Toprol, which he should continue at discharge. 5. Hyperlipidemia. Continue atorvastatin. 6. Ischemic cardiomyopathy. He has a known 95% RCA stenosis that is not amenable to intervention, which is why I feel he should continue not on his metoprolol, but his baby aspirin because his risk of developing a cardiac event is high and outweighs the risk of bleed secondary to baby aspirin. MEDICATIONS CONTINUED UPON DISCHARGE: 1. Aspirin 81 mg p.o. daily. 2. Atorvastatin 20 mg p.o. daily. 3. Cyclobenzaprine 10 mg p.o. at bedtime. 4. Docusate 100 mg p.o. b.i.d. as needed. 5. Ferrous sulfate 325 mg p.o. b.i.d. 6. Folic acid 1 mg p.o. daily. 7. Loratadine 10 mg p.o. daily. 8. Metoprolol succinate 50 mg p.o. daily. 9. Multivitamin 1 tab p.o. daily. 10. Omeprazole 20 mg p.o. b.i.d. 11. Thiamine 100 mg p.o. daily. CONDITION UPON DISCHARGE: Fair. DISPOSITION: Home. TIME SPENT: Time spent on the patient is 60 minutes plus with 20 of that spent face to face. PRISCILLA CALZADA, LICENSED PHYSICAL THERAPY ASSISTANT [id number]/[facility] #: [id number] MAKENNA
== END 2019-03-04 19:39 | disposition home or self-care (01) | DRG 378 ==
LOC: ED 18:51 → MEDTELE 21:50 → OBSVTOIN 03-02 12:00
PROVIDERS: ADMIT Internal Medicine; ATTEND Internal Medicine
PROC: 30233N1 Transfusion of Nonautologous Red Blood Cells into Peripheral Vein, Percutaneous Approach (ICD-10-PCS; principal; 2019-02-28)
DX: K92.1 Melena (principal); D61.818 Other pancytopenia; D62 Acute posthemorrhagic anemia; I25.10 Atherosclerotic heart disease of native coronary artery without angina pectoris; E78.00 Pure hypercholesterolemia, unspecified; I10 Essential (primary) hypertension; I73.9 Peripheral vascular disease, unspecified; E78.5 Hyperlipidemia, unspecified; K21.9 Gastro-esophageal reflux disease without esophagitis; M41.9 Scoliosis, unspecified; F90.9 Attention-deficit hyperactivity disorder, unspecified type; F17.210 Nicotine dependence, cigarettes, uncomplicated; J44.9 Chronic obstructive pulmonary disease, unspecified; I25.5 Ischemic cardiomyopathy; I44.7 Left bundle-branch block, unspecified; F10.10 Alcohol abuse, uncomplicated; Y90.9 Presence of alcohol in blood, level not specified; K70.9 Alcoholic liver disease, unspecified; K74.0 Hepatic fibrosis; Z79.82 Long term (current) use of aspirin; I25.2 Old myocardial infarction
CPT/HCPCS: 36415; 80048; 80053; 82272; 83615; 85014; 85018; 85025; 85027; 85045; 85610; 85730; 86850; 86900; 86901; 86922; 96374; 96375; 96376; 99284; A9270-GY; G0378; J1756; P9040

== ENCOUNTER 2019-03-27 10:34 | Inpatient (IN) | payer MEDICARE, MEDICAID ==
--- OUTSIDE RECORDS SUMMARY | 2019-03-27 10:41 | XMS REPORT | Summary of Care ---
:1950 Author Organization [facility] Address [address] [place] [address] Care Team Providers Name Role Phone Niraj Ly Primary Care Provider Jason Weaver OD Primary Entry Engineer/Property Management Intern Lawrence Zhang MD Secondary Entry Engineer/Property Management Intern Unavailable Reason for Visit Reason Comments Transitional Care Management Patient was discharged from [facility] on 03/04/2019 after being treated for acute iron deficiency second to gastrintestinal bleed. Encounter Details Date Type Department Care Team Description 03/08/2019 Office Visit [place] [facility] Niraj Ly, History of alcohol abuse (Primary Dx); Medicine PVD (peripheral vascular disease) ([facility]); [address] [facility] Essential hypertension, benign; [place] [address] [place] [address] Coronary artery disease involving [place] coronary artery of [place] heart without angina pectoris; [phone] Alcoholism ([facility]); Occult GI bleeding Allergies No Known Allergiesdocumented as of this encounter (statuses as of 03/08/2019) Medications Medication Sig Dispensed Refills Start Date End Date Status atorvastatin Take 1 Tab 90 Tab 3 02/15/2019 Active (LIPITOR) 20 MG by mouth Oral DAILY. TabIndications: PVD (peripheral vascular disease) ([facility]) foliC acid 1 MG Take 1 Tab 30 Tab 5 03/08/2019 Active Oral by mouth TabIndications: DAILY. PVD (peripheral vascular disease) (HCC) loratadine Take 1 Tab 90 Tab 4 03/08/2019 Active (CLARITIN,ALAVERT) by mouth 10 MG Oral DAILY. TabIndications: PVD (peripheral vascular disease) (HCC) metoprolol Take 1 Tab 90 Tab 5 03/08/2019 Active succinate (TOPROL by mouth XL) 50 MG Oral DAILY. TABLET SR 24 HR Omeprazole delayed Take 20 mg 90 Cap 5 03/08/2019 Active rel cap 20 MG Oral by mouth CAPSULE DELAYED DAILY. RELEASEIndications : PVD (peripheral vascular disease) (HCC) Thiamine HCl (B-1) Take 1 Tab 30 Tab 11 03/08/2019 Active 100 MG Oral Tab by mouth DAILY. ferrous sulfate Take 1 Tab 45 Tab 3 03/08/2019 Active 325 (65 Fe) MG by mouth Oral Tab EVERY OTHER DAY. Aspirin 81 MG Oral Take 1 Tab 30 Tab 5 03/08/2019 Active Tab by mouth DAILY. Multiple Vitamin Take 1 Cap 90 Cap 4 03/08/2019 Active (MULTIVITAMINS) by mouth Oral Cap DAILY. clopidogrel Take 1 Tab 90 Tab 3 01/31/2019 03/08/2019 Discontinued (PLAVIX) 75 MG by mouth (Provider Oral DAILY. Discontinued) TabIndications: PVD (peripheral vascular disease) (HCC), S/P vascular bypass foliC acid 1 MG Take 1 Tab 30 Tab 5 02/15/2019 03/08/2019 Discontinued Oral by mouth (Reorder) TabIndications: DAILY. PVD (peripheral vascular disease) (HCC) loratadine Take 1 Tab 90 Tab 4 02/15/2019 03/08/2019 Discontinued (CLARITIN,ALAVERT) by mouth (Reorder) 10 MG Oral DAILY. TabIndications: PVD (peripheral vascular disease) (HCC) metoprolol Take 1 Tab 90 Tab 5 02/15/2019 03/08/2019 Discontinued succinate (TOPROL by mouth (Reorder) XL) 50 MG Oral DAILY. TABLET SR 24 HR Omeprazole delayed Take 20 mg 90 Cap 5 02/15/2019 03/08/2019 Discontinued rel cap 20 MG Oral by mouth (Reorder) CAPSULE DELAYED DAILY. RELEASEIndications : PVD (peripheral vascular disease) (HCC) Thiamine HCl (B-1) Take 1 Tab 30 Tab 11 02/15/2019 03/08/2019 Discontinued 100 MG Oral Tab by mouth (Reorder) DAILY. documented as of this encounter (statuses as of 03/08/2019) Active Problems Problem Noted Date Occult GI bleeding 03/08/2019 Alcoholism 03/06/2018 Chronic systolic CHF (congestive heart failure) 03/06/2018 Bleeding ulcer 04/24/2017 Overview: [facility] admission april 2017 Dr [facility] .Esophago-gastroduodenoscopy negative January 2019 PVD (peripheral vascular [...] as of this encounter (statuses as of 03/08/2019) Resolved Problems Problem Noted Date Resolved Date Syncope and collapse 01/01/2017 01/31/2019 CAD (coronary artery disease) 12/30/2013 01/27/2014 Pain of left calf 08/15/2013 08/29/2013 Knee pain, left 08/15/2013 08/29/2013 documented as of this encounter (statuses as of 03/08/2019) Immunizations Name Administration Dates Next Due Influenza [...] Sign Reading Time Taken Comments Blood Pressure 110/62 03/08/2019 11:24 AM EST Pulse 80 03/08/2019 11:24 AM EST Temperature - - Respiratory Rate - - Oxygen Saturation 99% 03/08/2019 11:24 AM EST Inhaled Oxygen Concentration - - Weight 63.5 kg (140 lb) 03/08/2019 11:24 AM EST Height 180.3 cm (5' 11") 03/08/2019 11:24 AM EST Body Mass Index 19.53 03/08/2019 11:24 AM EST documented in this encounter Patient Instructions Patient InstructionsNiraj Ly MD - 03/08/2019 11:20 AM ESTRefill all medication No alcohol Blood work today Follow up Claudia HO or Blayne HO 2 weeks Bring in all pill bottles next office visit Iron every other dayElectronically signed by Niraj Ly MD at 2019 12:09 PM EST documented in this encounter Progress Notes Niraj Ly MD - 03/08/2019 11:20 AM EST TCM Statement. Review of the hospitalization: I am seeing for transition of care following hospitalization. The date of discharge was: 03/04/18 The discharge diagnosis was Occult gastro-intestinal bleed recent esophago- gastroduodenoscopy and colonoscopy negative capsule enteroscopy pending He was sent home on aspirin 81 mg and no plavix He was not sent home on iron or vitamin c he has alcohol abuse and no alcohol withdrawal in hospital he was sent home on multivitamin folate and thiamine and his has not picked those up yet He received transfusion and discharge hemoglobin 7.8 up from admission hemoglobin 5 range He denies gastro-intestinal symptoms no black stools He still drinks wine 1-2 glasses per day but has cut down He refuses referral to alcohol counseling program or to alcoholics anonymous Patient Active Problem List Diagnosis Carpal tunnel syndrome Knee osteoarthritis History of tobacco use Bilateral claudication of lower limb (HCC) Essential hypertension, benign Chronic hepatitis C (HCC) Atherosclerosis of leg with intermittent claudication (HCC) LV dysfunction CAD (coronary artery disease) History of cocaine abuse (HCC) Iliac artery occlusion (HCC) Centrilobular emphysema (HCC) Combined forms of age-related cataract of both eyes Glaucoma suspect of both eyes Pterygium eye Pseudophakia of both eyes PVD (peripheral vascular disease) ([facility]) Bleeding ulcer Alcoholism (HCC) Chronic systolic CHF (congestive heart failure) (HCC) Occult GI bleeding Outpatient Medications Marked as Taking for the 03/08/19 encounter (Office Visit ) with Niraj Ly MD Medication Sig Dispense Refill Aspirin 81 MG Oral Tab Take 1 Tab by mouth DAILY. 30 Tab 5 atorvastatin (LIPITOR) 20 MG Oral Tab Take 1 Tab by mouth DAILY. 90 Tab 3 ferrous sulfate 325 (65 Fe) MG Oral Tab Take 1 Tab by mouth EVERY OTHER DAY. 45 Tab 3 foliC acid 1 MG Oral Tab Take 1 Tab by mouth DAILY. 30 Tab 5 loratadine (CLARITIN,ALAVERT) 10 MG Oral Tab Take 1 Tab by mouth DAILY. 90 Tab 4 metoprolol succinate (TOPROL XL) 50 MG Oral TABLET SR 24 HR Take 1 Tab by mouth DAILY. 90 Tab5 Multiple Vitamin (MULTIVITAMINS) Oral Cap Take 1 Cap by mouth DAILY. 90 Cap 4 Omeprazole delayed rel cap 20 MG Oral CAPSULE DELAYED RELEASE Take 20 mg by mouth DAILY. 90 Cap 5 Thiamine HCl (B-1) 100 MG Oral Tab Take 1 Tab by mouth DAILY. 30 Tab 11 ROS no cardiovascular or pulmonary symptoms Exam BP 110/62 Pulse 80 Ht 5' 11" (1.803 m) Wt 140 lb (63.5 kg) SpO2 99% BMI 19.53 kg/m2 Mental status exam; he is alert, orient to time, person and place. Normal thought content, speech, affect, mood and dress are noted. The abdomen is soft without tenderness, guarding, mass, rebound or organomegaly. Bowel sounds are normal. No CVA tenderness or inguinal adenopathy noted. No tremor or withdrawal symptoms ICD-9-CM ICD-10-CM 1. History of alcohol abuse he is advised to quit he refuses referrals 305.03 F10.11 COMPREHENSIVE METABOLIC PANEL CBC WITH DIFFERENTIAL 2. PVD (peripheral vascular disease) ([facility]) 443.9 I73.9 foliC acid 1 MG Oral Tab loratadine (CLARITIN,ALAVERT) 10 MG Oral Tab Omeprazole delayed rel cap 20 MG Oral CAPSULE DELAYED RELEASE 3. Essential hypertension, benign at goal 401.1 I10 4. Coronary artery disease involving [place] coronary artery of [place] heart without angina pectoris low dose aspirin 81 mg no plavix due to gastro- intestinal bleed 414.01 I25.10 6. Occult GI bleeding with anemia use iron 325 mg every other day and gastro- intestinal follow up [facility] for results capsule enteroscopy 792.1 R19.5 I reviewed the discharge summary, discharge instructions, and pertinent additional documentation obtained during hospitalization. I reconciled the medications. I also reviewed the Transition of Care documentation done by staff. The tests that were not available at the time of discharge were reviewed. Additional tests which are not yet available include: Capsule test Coordination of care. - Additional testing related to hospitilization was requested today: yes See orders. I confirmed the patient's understanding of the diagnosis and plan of care. Specific education that was provided today: Patient Instructions Refill all medication No alcohol Blood work today Follow up Claudia HO or Blayne HO 2 weeks Bring in all pill bottles next office visit Iron every other day The current and discharge medications were reconciled by me, today The source document was hospital discharge summary documented in this encounter Plan of Treatment Date Type Specialty Care Team Description 03/22/2019 Office Visit Internal Medicine Niraj Ly MD [address] [place] [address] [phone] Name Type Priority Associated Diagnoses Date/Time COMPREHENSIVE METABOLIC Lab Routine History of alcohol 03/08/2019 12:16 PM PANEL abuse EST CBC WITH DIFFERENTIAL Lab Routine History of alcohol 03/08/2019 12:16 PM abuse EST Health Maintenance Due Date Last Done Comments MEDICARE ANNUAL WELLNESS 1950 VISIT HEPATITIS A IMMUNIZATION 1951 SERIES (1 of 2 - Risk 2-dose series) DTaP/Tdap/Td Vaccines (1 - 09/19/1963 Tdap) Colonoscopy 2002 ZOSTER IMMUNIZATION SERIES 2002 (1 of 2) INFLUENZA VACCINE (#1) 2018 01/26/2017, 03/20/2015, 12/21/2012 DEPRESSION SCREENING 01/12/2020 01/11/2019 FALL RISK ASSESSMENT 01/12/2020 01/11/2019, 01/11/2019 LIPID DISORDER SCREENING 02/16/2020 02/15/2019, 04/18/2014, 08/29/2013 PNEUMOCOCCAL 65+YRS (2 of 2 01/26/2022 01/26/2017, [...] Problems Progress Blood Pressure Blood Pressure Essential 110/62 No [place], < 140/90 hypertension, (03/08/2019 Niraj Titus, benign 11:24 AM EST) Note: Hypertension Care Plan Based on [...] Educational Resources: National Heart, Lung, & Blood [place] http://nhlbi.nih.gov/hbp/index.html The DASH Diet Eating Plan http://www.nhlbi.nih.gov/health/health-topics/ topics/dash/ Academy of Nutrition & DIetetics http://eatright.org National Smoking Cessation Site http://smokefree.gov Blood Pressure < Blood Pressure 110/62 (03/08/2019 No Tamica Hoang RN 150/90 11:24 AM EST) Note: This is an individualized treatment (blood pressure) goal for Bulmaro Ga: Displayed above (on the left) is your goal for blood pressure control. Your most recent blood pressure is also shown above, on the right. You should try to achieve blood pressures that are lower than your goal listed above (on the left). Weight increase vs. 18 mo CHF 3 (03/08/2019 11:24 AM EST) No Chel Hoang RN min (lbs) [...] and any After Visit Summaries. Consume a [id number] diet Lifestyle No Tamica Hoang RN Note: [...] of this encounter Implants Implanted Type Area Residential Support Specialist Device Shelf Model / Serial Identifier Expiration / Lot Date Iol, [id number] 21.0 Diopter - [id number] Right: STORZ [id number] / Implanted: Qty: 1 on 12/21/2015 by Lawrence Zhang MD at [facility] [id number] / Iol, [id number] 21.5 Diopter - [id number] N/A: Eye STORZ [id number] / Implanted: Qty: 1 on 02/03/2016 by Lawrence Zhang MD at [facility] [id number] / Axillo Bifem 8 X 40 Graft - [id number] [employer] 12/12/2020 [id number] / Implanted: Qty: 1 on 03/15/2017 by Yogesh Mims MD at [facility] / [id number] Description:LEFT axillary artery to LEFT femoral artery to RIGHT femoral artery. documented as of this encounter Results Not on filedocumented in this encounter Visit Diagnoses Diagnosis History of alcohol abuse Nondependent alcohol abuse, in remission PVD (peripheral vascular disease) (HCC) Peripheral vascular disease, unspecified Essential hypertension, benign Coronary artery disease involving [place] coronary artery of [place] heart without angina pectoris Alcoholism (HCC) Other and unspecified alcohol dependence, unspecified drinking behavior Occult GI bleeding Nonspecific abnormal finding in stool contents documented in this encounter Insurance Payer Benefit Plan / Subscriber ID Effective Dates Phone Address Type Group MEDICARE MEDICARE PART A xxxxxxxxxxx 2017-Present Medicare & B MEDICAID [facility] xxxxxxxx 2016-Present Medicaid [place] MEDICA[place] documented as of this encounter
--- OUTSIDE RECORDS SUMMARY | 2019-03-27 10:41 | XMS REPORT | Summary of Care ---
:1950 Author Organization [facility] Address [address] [facility] [place] [address] Care Team Providers Name Role Phone Niraj Ly Primary Care Provider Jason Weaver OD Primary Solar Installation Supervisor/Caddy/Caddie Supervisor Lawrence Zhang MD Secondary Solar Installation Supervisor/Caddy/Caddie Supervisor Unavailable Reason for Visit Reason Comments Hypertension f/u GI Bleeding f/u had xray done and awaiting results from [facility]; ordered by [facility] GI Coronary Artery Disease f/u Abdominal Pain chronic issue. Encounter Details Date Type Department Care Team Description 03/22/2019 Office Visit [facility] Niraj Ly Acquired arteriovenous Medicine RMD malformation of small [address] intestine (Primary Dx) [place] [address] [place] [address] [phone] Allergies No Known Allergiesdocumented as of this encounter (statuses as of 03/22/2019) Medications Medication Sig Dispensed Refills Start Date End Date Status atorvastatin Take 1 Tab 90 Tab 3 02/15/2019 Active (LIPITOR) 20 MG by mouth Oral DAILY. TabIndications: PVD (peripheral vascular disease) ([facility]) loratadine Take 1 Tab 90 Tab 4 [...] RELEASEIndications : PVD (peripheral vascular disease) (HCC) ferrous sulfate Take 1 Tab 45 Tab 3 03/08/2019 Active 325 (65 Fe) MG by mouth Oral Tab EVERY OTHER DAY. Aspirin 81 MG Oral Take 1 Tab 30 Tab 5 03/08/2019 Active Tab by mouth DAILY. Multiple Vitamin Take 1 Cap 90 Cap 4 03/08/2019 Active (MULTIVITAMINS) by mouth Oral Cap DAILY. foliC acid 1 MG Take 1 Tab 30 Tab 5 03/08/2019 03/22/2019 Discontinued Oral by mouth (Provider TabIndications: DAILY. Discontinued) PVD (peripheral vascular disease) (HCC) Thiamine HCl (B-1) Take 1 Tab 30 Tab 11 03/08/2019 03/22/2019 Discontinued 100 MG Oral Tab by mouth (Provider DAILY. Discontinued) documented as of this encounter (statuses as of 03/22/2019) Active Problems Problem Noted Date Acquired arteriovenous malformation of small intestine 03/22/2019 Alcoholism 03/06/2018 Chronic systolic CHF (congestive heart failure) 03/06/2018 Bleeding ulcer 04/24/2017 Overview: [facility] admission april 2017 Dr [facility] .Esophago-gastroduodenoscopy negative January 2019 PVD (peripheral [...] Carpal tunnel syndrome 05/20/2011 Overview: S/p surgery [address] Vasquez Knee osteoarthritis 05/20/2011 History of tobacco use 05/20/2011 Overview: 08/2013 5-7 cigarette per day Began age 49 Quit fall 2018 documented as of this encounter (statuses as of 03/22/2019) Resolved Problems Problem Noted Date Resolved Date Occult GI bleeding 03/08/2019 03/22/2019 Syncope and collapse 01/01/2017 01/31/2019 CAD (coronary artery disease) 12/30/2013 01/27/2014 Pain of left calf 08/15/2013 08/29/2013 Knee pain, left 08/15/2013 08/29/2013 documented as of this encounter (statuses as of 03/22/2019) Immunizations Name Administration Dates Next Due Influenza [...] Assigned at Date Recorded Not on file documented as of this encounter Last Filed Vital Signs Vital Sign Reading Time Taken Comments Blood Pressure 122/62 03/22/2019 4:14 PM EST Pulse 60 03/22/2019 4:14 PM EST Temperature - - Respiratory Rate - - Oxygen Saturation 100% 03/22/2019 4:14 PM EST Inhaled Oxygen Concentration - - Weight 62.6 kg (138 lb) 03/22/2019 4:14 PM EST Height 180.3 cm (5' 11") 03/22/2019 4:14 PM EST Body Mass Index 19.25 03/22/2019 4:14 PM EST documented in this encounter Patient Instructions Patient InstructionsNiraj Ly MD - 03/22/2019 4:00 PM ESTContinue iron every other day You are doing well [facility] will contact you for follow up to the bleeding in the intestine documented in this encounter Progress Notes Niraj Ly MD - 03/22/2019 4:00 PM EST PATIENT: Bulmaro Ga Jr. : 1950 DATE OF SERVICE: 03/22/2019 CHIEF COMPLAINT: Chief Complaint Patient presents with ? Hypertension f/u ? GI Bleeding f/u had xray done and awaiting results from [facility]; ordered by [facility] GI ? Coronary Artery Disease f/u ? Abdominal Pain chronic issue. Subjective HISTORY OF PRESENT ILLNESS: Bulmaro Ga Jr. is a 68-y.o. male. HPI He had AVM small intestine and waiting to hear from Dr Satnam Quinones [facility] He is on every other day iron pill and denies alcohol abuse Lab Results Component Value Date WBC 4.24 03/08/2019 HGB 8.7 (L) 03/08/2019 HCT 29.9 (L) 03/08/2019 PLAT 180 03/08/2019 No cardiovascular symptoms Past Medical History: Diagnosis Date ? Back pain ? Fibromyalgia ? GERD (gastroesophageal reflux disease) ? High cholesterol ? Hypertension ? PVD (peripheral vascular disease) (HCC) Family History Problem Relation Age of Onset ? Cancer Mother ? Heart Disease Father ? Asthma Brother Current Outpatient Medications Medication Sig ? Aspirin 81 MG Oral Tab Take 1 Tab by mouth DAILY. ? atorvastatin (LIPITOR) 20 MG Oral Tab Take 1 Tab by mouth DAILY. ? ferrous sulfate 325 (65 Fe) MG Oral Tab Take 1 Tab by mouth EVERY OTHER DAY. ? loratadine (CLARITIN,ALAVERT) 10 MG Oral Tab Take 1 Tab by mouth DAILY. ? metoprolol succinate (TOPROL XL) 50 MG Oral TABLET SR 24 HR Take 1 Tab by mouth DAILY. ? Multiple Vitamin (MULTIVITAMINS) Oral Cap Take 1 Cap by mouth DAILY. ? Omeprazole delayed rel cap 20 MG Oral CAPSULE DELAYED RELEASE Take 20 mg by mouth DAILY. No current facility-administered medications for this visit. No Known Allergies Social History Socioeconomic History ? Marital status: Single Spouse name: Not on file ? Number of children: Not on file ? Years of education: Not on file ? Highest education level: Not on file Occupational History ? Not on file Social Needs ? Financial resource strain: Not on file ? Food insecurity Worry: Not on file Inability: Not on file ? Transportation needs Medical: Not on file Non-medical: Not on file Tobacco Use ? Smoking status: Current Some Day Smoker Years: 25.00 Types: Cigarettes ? Smokeless tobacco: Former User Substance and Sexual Activity ? Alcohol use: Yes Alcohol/week: 14.0 standard drinks Types: 14 Cans of beer per week Comment: beer ? Drug use: Yes Types: Marijuana, Cocaine Comment: None currently ? Sexual activity: Not Currently Lifestyle ? Physical activity Days per week: Not on file Minutes per session: Not on file ? Stress: Not on file Relationships ? Social connections Talks on phone: Not on file Gets together: Not on file Attends protestant service: Not on file Active member of club or organization: Not on file Attends meetings of clubs or organizations: Not on file Relationship status: Not on file ? Intimate partner violence Fear of current or ex partner: Not on file Emotionally abused: Not on file Physically abused: Not on file Forced sexual activity: Not on file Other Topics Concern ? Back Care Not Asked ? Bike Helmet Not Asked ? Blood Transfusions Not Asked ? Caffeine Concern Not Asked ? Exercise No ? Hobby Hazards Not Asked ? International Travel Not Asked ? Service Not Asked ? Occupational Exposure Not Asked ? Seat Belt Not Asked ? Self-Exams Not Asked ? Sleep Concern Not Asked ? Special Diet No ? Stress Concern No ? 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 Physical Exam The abdomen is soft without tenderness, guarding, mass, rebound or organomegaly. Bowel sounds are normal. No CVA tenderness or inguinal adenopathy noted. ASSESSMENT / IMPRESSION: ICD-9-CM ICD-10-CM 1. Acquired arteriovenous malformation of small intestine every other day iron follow up Dr Satnam Quinones [phone] [id number] Patient Instructions Continue iron every other day You are doing well [facility] will contact you for follow up to the bleeding in the intestine Niraj Ly MD 03/22/2019 16:25 documented in this encounter Plan of Treatment Health Maintenance Due Date Last Done Comments [...] Problems Progress Blood Pressure Blood Pressure Essential 122/62 No [place], < 140/90 hypertension, (03/22/2019 Niraj Titus, benign 4:14 PM EST) Note: Hypertension Care Plan Based [...] Educational Resources. record my blood pressure results. [employer] is safe and secure way for you [...] Educational Resources: National Heart, Lung, & Blood [place] http://nhlbi.nih.gov/hbp/index.html The DASH Diet Eating Plan http://www.nhlbi.nih.gov/health/health-topics/ topics/dash/ Academy of Nutrition & DIetetics http://eatright.org National Smoking Cessation Site http://smokefree.gov Blood Pressure < Blood Pressure 122/62 (03/22/2019 No Tamica Hoang RN 150/90 4:14 PM EST) Note: This is an individualized treatment (blood pressure) goal for Bulmaro Ga: Displayed above (on the left) is your goal for blood pressure control. Your most recent blood pressure is also shown above, on the right. You should try to achieve blood pressures that are lower than your goal listed above (on the left). Weight increase vs. 18 mo CHF 1 (03/22/2019 4:14 PM EST) No Chel Hoang RN min [...] and any After Visit Summaries. Consume a [id number] diet Lifestyle No Tamica Hoang RN Note: [...] of this encounter Implants Implanted Type Area Direct Support Professional Caregiver Device Shelf Model / Serial Identifier Expiration / Lot Date Iol, [id number] 21.0 Diopter - [id number] Right: STORZ [id number] / Implanted: Qty: 1 on 12/21/2015 by Lawrence Zhang MD at [facility] [id number] / Iol, [id number] 21.5 Diopter - [id number] N/A: Eye STORZ [id number] / Implanted: Qty: 1 on 02/03/2016 by Lawrence Zhang MD at [facility] [id number] / Axillo Bifem 8 X 40 Graft - [id number] [employer] 12/12/2020 [id number] / Implanted: Qty: 1 on 03/15/2017 by Yogesh Mims MD at [facility] / [id number] Description:LEFT axillary artery to LEFT femoral artery to RIGHT femoral artery. documented as of this encounter Results Not on filedocumented in this encounter Visit Diagnoses Diagnosis Acquired arteriovenous malformation of small intestine documented in this encounter Insurance Payer Benefit Plan / Subscriber ID Effective Dates Phone Address Type Group MEDICARE MEDICARE PART A [id number] 2017-Present Medicare & B MEDICAID [facility] [id number] 2016-Present Medicaid [place] MEDICAID documented as of this encounter
[2019-03-27] MEDS ORDERED: NS 0.9% 1000 ML** 1,000 ML IV ONE (10:54)
--- NOTE | 2019-03-27 10:58 | ED ---
HPI Cardiac - HPI Summary HPI Summary: This pt is a 68 Y/O M presenting to [facility] with a CC of coughing up blood that began on 03/25/2019 at 1038. He states that he has been very fatigued since the onset and has been worsening since the onset to where he is currently too fatigued to state. He states dark urine, productive cough, and abdominal pain due to the productive cough. He has no headaches, CP, N/V, SOB, or recent fevers. He has a PMHx of a previous cardiac arrest in 2018 2/2 anemia and GI bleeds. Also hx CAD, PVD, HTN, and anemia. He has no aggravating or alleviating factors. - History of Current Complaint Chief Complaint: EDGeneral Stated Complaint: WEAKNESS PER Time Seen by Provider: 03/27/19 10:35 Hx Obtained From: Patient Onset/Duration: Started Days Ago - 2, Still Present, Worse Since - 03/27/2019 Time of Onset: 10:38 Timing: Constant Initial Severity: Mild Current Severity: Mild Pain Intensity: 3 Pain Scale Used: 0-10 Numeric Chest Pain Radiates: No Aggravating Factor(s): Nothing Alleviating Factor(s): Nothing Associated Signs and Symptoms: Positive: Productive Cough - blood, Abdominal Pain, Bloody Sputum, Other: - dark urine. Negative: Chest Pain, Headaches, Shortness of Breath, Fever, Chills, Nausea, Vomiting - Additional Pertinent History Primary Care Physician: [id number] - Allergy/Home Medications Allergies/Adverse Reactions: Allergies Allergy/AdvReac Type Severity Reaction Status Date / Time No Known Allergies Allergy Verified 02/28/19 20:43 Home Medications: Home Medications Atorvastatin* [Lipitor 20 MG*] 20 mg PO DAILY 03/29/17 [History Confirmed ] Ferrous Sulfate TAB* 325 mg PO EVERY OTHER DAY 03/29/17 [History Confirmed 03/27] LoraTADine TAB(NF) [Claritin 10 MG TAB(NF)] 10 mg PO DAILY 03/29/17 [History Confirmed 03/27/19] Omeprazole CAP (NF) [Prilosec CAP* 20 MG] 20 mg PO DAILY 01/11/19 [History Confirmed 03/27/19] Aspirin EC TAB* [Ecotrin EC Low Dose 81 MG*] 81 mg PO DAILY #0 01/22/19 [Rx Confirmed 03/27/19] Multivitamins/Minerals TAB* [Theragran/minerals TAB*] 1 tab PO DAILY tab [Rx Confirmed 03/27/19] Metoprolol Succinate XL TAB* [Toprol XL TAB*] 50 mg PO DAILY 02/28/19 [History Confirmed 03/27/19] PMH/Surg Hx/FS Hx/Imm Hx Previously Healthy: Yes Endocrine/Hematology History: Reports: Hx Anticoagulant Therapy, Hx Blood Disorders - anemia, Hx Blood Transfusions, Hx Anemia Denies: Hx Bone Marrow Disease, Hx Diabetes, Hx Systemic Lupus Erythematosus , Hx Sickle Cell Disease, Hx Thyroid Disease, Hx Unexplained Bleeding, Other Endocrine/Hematological Disorders Cardiovascular History: Reports: Hx Angina, Hx Cardiac Arrest, Hx Coronary Artery Disease, Hx Hypercholesterolemia, Hx Hypertension, Hx Myocardial Infarction, Hx Peripheral Vascular Disease, Hx Syncope, Other Cardiovascular Problems/Disorders - EF <20%, HLD. PVD Denies: Hx Aneurysm, Hx Angioplasty, Hx Auto Implanted Cardiovert Defib, Hx Cardiomegaly, Hx Congenital Heart Disease, Hx Congestive Heart Failure, Hx Deep Vein Thrombosis, Hx Embolism, Hx Hypotension, Hx Pacemaker/ICD, Hx Rheumatic Fever, Hx Valvular Heart Disease Respiratory History: Denies: Hx Asthma, Hx Bronchopulmonary Dysplasia, Hx Chronic Bronchitis, Hx Chronic Obstructive Pulmonary Disease (COPD), Hx Cystic Fibrosis, Hx Lung Cancer , Hx Pleural Effusion, Hx Pneumonia, Hx Pulmonary Edema, Hx Pulmonary Embolism, Hx Seasonal Allergies, Hx Sleep Apnea, Other Respiratory Problems/Disorders GI History: Reports: Hx Gastroesophageal Reflux Disease, Hx Gastrointestinal Bleed, Hx Ulcer, Other GI Disorders - DUODENAL ULCER Denies: Hx Cirrhosis, Hx Crohn's Disease, Hx Diverticulosis, Hx Gall Bladder Disease, Hx Hiatal Hernia, Hx Irritable Bowel, Hx Jaundice, Hx Obstructive Bowel , Hx Ileostomy, Hx Pyloric Stenosis History: Reports: Hx Acute Renal Failure, Other Problems/Disorders - DONTRELL Denies: Hx Benign Prostatic Hyperplasia, Hx Chronic Renal Failure, Hx Dialysis, Hx Kidney Infection, Hx Kidney Stones, Hx Renal Disease Musculoskeletal History: Reports: Hx Back Problems, Hx Congenital Bone Abnormalities, Hx Scoliosis Denies: Hx Arthritis, Hx Bursitis, Hx Fibromyalgia, Hx Gout, Hx Orthopedic Injury, Hx Osteoporosis, Hx Tendonitis, Other Musculoskeletal History Sensory History: Reports: Hx Contacts or Glasses Denies: Hx Cataracts, Hx Eye Injury, Hx Eye Prosthesis, Hx Glaucoma, Hx Legally Blind, Hx Macular Degeneration, Hx Vision Problem, Hx Deafness, Hx Hearing Aid, Hx Hearing Problem, Other Sensory Impairments Opthamlomology History: Reports: Hx Contacts or Glasses Denies: Hx Cataracts, Hx Eye Injury, Hx Eye Prosthesis, Hx Glaucoma, Hx Legally Blind, Hx Macular Degeneration, Hx Vision Problem, Other Sensory Impairments Neurological History: Denies: Hx Dementia, Hx Developmental Delay, Hx Headaches, Hx Migraine, Hx Nerve Disease, Hx Seizures, Hx Spinal Cord Injury, Hx Transient Ischemic Attacks (TIA), Other Neuro Impairments/Disorders Psychiatric History: Reports: Hx Attention Deficit Hyperactivity Disorder, Hx Substance Abuse - ETOH, Other Psychiatric Issues/Disorders - ETOH Denies: Hx Anxiety, Hx Autism, Hx Eating Disorder, Hx Oppositional [place] Disorder, Hx Depression, Hx Panic Disorder, Hx Post Traumatic Stress Disorder, Hx Inpatient Treatment, Hx Community Mental Health Tx, Hx Schizophrenia, Hx Bipolar Disorder, Hx Suicide Attempt, Hx of Violent Episodes Against Others - Cancer History Hx Hematologic Symptoms: No Hx Chemotherapy: No Hx Radiation Therapy: No Hx Palliative Cancer Treatment: No - Surgical History Surgical History: Yes Surgery Procedure, Year, and Place: carpal tunnel left and right wrist 2000. tonsillectomy 1999. ILIAC ARTERY OCCLUSION AND AXILLARY FEM BYPASS 03-15-17 Hx Anesthesia Reactions: No - Immunization History Date of Tetanus Vaccine: UNKNOWN Immunizations Up to Date: Yes Infectious Disease History: No Infectious Disease History: Denies: Hx Clostridium Difficile, Hx Hepatitis, Hx Human Immunodeficiency Virus (HIV), Hx of Known/Suspected MRSA, Hx Shingles, Hx Tuberculosis, Hx Known/ Suspected VRE, Hx Known/Suspected VRSA, History Other Infectious Disease, Traveled Outside the [place] in Last 30 Days - Family History Known Family History: Positive: Cardiac Disease, Respiratory Disease - Asthma, Other - Cancer - Social History Occupation: Retired Lives: With Family Alcohol Use: Occasionally Alcohol Amount: 2-3 Hx Substance Use: Yes Substance Use Type: Reports: None Substance Use Comment - Amount & Last Used: 03/09/17 Hx Tobacco Use: Yes Smoking Status (MU): Current Some Day Smoker Type: Cigarettes Have You Smoked in the Last Year: Yes Review of Systems Positive: Fatigue. Negative: Fever, Chills Negative: Chest Pain Positive: Cough - productive, bloody sputum . Negative: Shortness Of Breath Positive: Abdominal Pain. Negative: Vomiting, Nausea Genitourinary: Other - dark urine Negative: Headache All Other Systems Reviewed And Are Negative: Yes Physical Exam - Summary Physical Exam Summary: Constitutional: Thin, chronically ill appearing, Alert. (-) Distressed Skin: Warm, Dry HENT: Normocephalic; Atraumatic Eyes: Conjunctiva normal Neck: Musculoskeletal ROM normal neck. (-) JVD, (-) Stridor, (-) Nuchal rigidity Cardio: Rhythm regular, rate normal, Heart sounds normal; Intact distal pulses; Radial pulses are 2+ and symmetric. (-) Murmur Pulmonary/Chest wall: Effort normal. (-) Respiratory distress, (-) Wheezes, (-) Rales Abd: Soft, (-) tenderness, (-) Distension, (-) Guarding, (-) Rebound Musculoskeletal: (-) Edema Lymph: (-) Cervical adenopathy Neuro: Alert, Oriented x3 Psych: Mood and affect Normal Triage Information Reviewed: Yes Vital Signs On Initial Exam: Initial Vitals Temp Pulse Resp BP Pulse Ox 97.4 F 77 18 129/74 98 03/27/19 10:38 03/27/19 10:38 03/27/19 10:38 03/27/19 10:38 03/27/19 10:38 Vital Signs Reviewed: Yes Procedures - Sedation Patient Received Moderate/Deep Sedation with Procedure: No Diagnostics - Vital Signs Vital Signs Temp Pulse Resp BP Pulse Ox 03/27/19 10:38 97.4 F 77 18 129/74 98 - Laboratory Result Diagrams: 03/27/19 10:47 03/27/19 10:47 Lab Statement: Any lab studies that have been ordered have been reviewed, and results considered in the medical decision making process. - CT Chest/Thorax CTA CT Interpretation Completed By: Radiologist Summary of CT Findings: No evidence of pulmonary artery embolus is noted. There is thrombosis of the left posterior inferior pulmonary vein with diminished flow. Patient is status post left axillary to femoral artery bypass graft. ED ramiro has reviewed this report. - EKG 1044 Cardiac Rate: NL - 77 BPM Summary of EKG Findings: An EKG at 1044 reveals normal sinus rhythm 77 BPM, T wave inversions in leads V1-6, aVL and aVF. T wave inversions 2 deep T wave inversions and depressions in leads 5 and 6 which is a change from previous. Interpreted by Dr. Bethea at 1046 03/27/2019. Disposition - Course Course Of Treatment: 68 y/o male w hx GIB, cardiac arrest, CAD, EtOH abuse p/w hemoptysis. - VSS NAD. PE thin, chronically ill appearing. - labs notable for trop 0.06, EKG w new deep TWI and ST depressions laterally. Dr. Song aware of patient and hospitalist can consulther. No CP. CTA chest w pulmonary vein thrombus. - given protonix for concern over possible GIB initially. - Easy WOB on RA. - admit to medicine. - Diagnoses Provider Diagnoses: SOB (shortness of breath), Fatigue, Hemoptysis, Thrombus of pulmonary vein - Physician Notifications Discussed Care Of Patient With: Xin Song Time Discussed With Above Provider: 11:59 Instructed by Provider To: Other - Dr. Song, food inspector, was informed of the pt's condition due to his abnormal EKG. Discharge ED - Sign-Out/Discharge Documenting (check all that apply): Patient Departure - admitted - Discharge Plan Condition: Stable Disposition: ADMITTED TO [facility] - Billing Disposition and Condition Condition: STABLE Disposition: Admitted to [facility] - Attestation Statements Document Initiated by Scribe: Yes Documenting Scribe: Moy Melgar Provider For Whom Roula is Documenting (Include Credential): Sakina Bethea MD Scribe Attestation: IMoy, scribed for Sakina Bethea MD on 03/27/19 at 1543. Scribe Documentation Reviewed: Yes Provider Attestation: The documentation as recorded by the Moy arreguin accurately reflects the service I personally performed and the decisions made by ms, Sakina Bethea MD Status of Scribe Document: Ready
[2019-03-27 11:21] LABS: INR 1.05 (0.82-1.09)
[2019-03-27 11:28] LABS: Troponin I 0.06 ng/mL (<0.03)
[2019-03-27 11:36] LABS: ABS Lymphocytes 0.6 10^3/ul (1.0-4.8); ABS Monocytes 0.5 10^3/ul (0-0.8); ABS Neutrophils 1.9 10^3/ul (1.5-7.7); Hematocrit 33 % (42-52); Hemoglobin 10.7 g/dL (14.0-18.0); Lymphocyte % 19.7 %; Mean Corpuscular HGB Conc 33 g/dL (31-36); Mean Corpuscular Hemoglobin 30 pg (27-31); Mean Corpuscular Volume 93 fL (80-94); Nucleated Red Blood Cells % 0.4; Platelet Count 169 10^3/uL (150-450); Red Blood Count 3.54 10^6 /uL (4.18-5.48); Red Cell Distribution Width 21 % (10-15); White Blood Count 2.9 10^3/uL (3.5-10.8)
[2019-03-27 11:44] LABS: ALT 116 U/L (7-52); AST 284 U/L (13-39); Albumin 3.7 g/dL (3.2-5.2); Albumin/Globulin Ratio 0.9 (1-3); Alkaline Phosphatase 59 U/L (34-104); Anion Gap 9 mmol/L (2-11); BUN/Creatinine Ratio 11.6 (8-20); Blood Urea Nitrogen 11 mg/dL (6-24); CO2 Carbon Dioxide 24 mmol/L (22-32); Calcium 8.9 mg/dL (8.6-10.3); Chloride 98 mmol/L (101-111); EGFR Non-African American 79.3 (>60); Globulin 4.3 g/dL (2-4); Glucose 90 mg/dL (70-100); Sodium 131 mmol/L (135-145)
[2019-03-27] MEDS ORDERED: Morphine 4 MG/ML VIAL (1 ml) 4 MG/ML VIAL IV ONE (11:55)
[2019-03-27] MEDS ORDERED: Iodixanol* (CONTRAST) 320 MG/ML 100 ML SDV IV ONE (12:02)
[2019-03-27] MEDS ORDERED: Pantoprazole IV* 40 MG IV ONE (12:03)
[2019-03-27 15:17] LABS: Magnesium 1.6 mg/dL (1.9-2.7)
[2019-03-27] MEDS ORDERED: LORazepam INJ* 2 MG/ML 1 ML VIAL IV PUSH PRN (15:18)
[2019-03-27] MEDS ORDERED: Lorazepam PYXIS KEY PRN (15:18)
[2019-03-27 15:47] LABS: Troponin I 0.06 ng/mL (<0.03)
[2019-03-27 15:48] LABS: Magnesium 1.3 mg/dL (1.9-2.7)
[2019-03-27] MEDS ORDERED: Furosemide TAB* 20 MG PO ONE (15:50)
[2019-03-27] MEDS ORDERED: Magnesium Sulfate IV* 3 GM in NS 0.9% 100 ML* 100 ML IVPB ONE (16:30)
--- NOTE | 2019-03-27 16:56 | HP ---
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 According to patient, he woke up this morning and was sitting on a chair and then he coughed up blood; about half cup and was bright red in color. He states that he is having cough for 2 days and is dry in nature. He also has fatigue and is having lack of energy. He also felt warm yesterday evening but did not record the temperature at home. He denies chest pain, shortness of breath, palpitation, edema, and runny nose. He also noticed nose bleed this morning which was controlled by its own. He also had hemoptysis and epistaxis in the past. He denies nausea, vomiting, hematemesis, melena and blood in stool. Hospital Course On arrival, patient vitals were stable. Blood work showed Hb of 2.7, WBC 2.9, plt 169, sodium 131, Mg 1.6, AST 284, ALT 116, BNP 473 and troponin 0.06. EKG showed normal sinus rhythm 77 BPM, T wave inversions in leads V1-6, aVL and aVF. T wave inversions 2 deep T wave inversions and depressions in leads 5 and 6 which is a change from previous. Chest CTA showed No evidence of pulmonary artery embolus but There is thrombosis of the left posterior inferior pulmonary vein with diminished flow and Patient is status post left axillary to femoral artery bypass graft. Chest Xray showed pulmonary edema. - Past Medical History Past Medical History: 1. 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 HFrEF with EF of 20% 2/2 ischemic cardiomyopathy; also had PEA arrest 2/2 to anemia 3. PVD s/p left femoral graft 4. Hepatitis C- not on any treatment 5. Alcohol use disorder 6. Substance use disorder. 7. COPD 8.Pulmonary nodules/Benign mediastinal tumor 9. History of duodenal ulcer - Past Surgical History Past Surgical History: 1. Mediastinal tumor resection 2. Axillofemoral bypass 3. Cardiac cath on 2014-showing 95% mid RCA occlusion - Past Family History Past Family History: Mother due to cancer in her 40's. Father had heart disease. One brother passed due to cancer and lung disease. On brother had dementia and asthma. - Past Social History Past Social History: Patient lives with his . He smokes 2-3 cigarettes per day; used to smoke half pack a day before. He drinks 2-3 beers per day and has been drinking since he remembers; last drink was yesterday. He denies any recreational drug use but his urine is cocaine positive in the past. He is disbled. 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 He is full code. Medications: Atorvastatin* [Lipitor 20 MG*] 20 mg PO DAILY 03/29/17 [History Confirmed ] Ferrous Sulfate TAB* 325 mg PO EVERY OTHER DAY 03/29/17 [History Confirmed 03/27] LoraTADine TAB(NF) [Claritin 10 MG TAB(NF)] 10 mg PO DAILY 03/29/17 [History Confirmed 03/27/19] Omeprazole CAP (NF) [Prilosec CAP* 20 MG] 20 mg PO DAILY 01/11/19 [History Confirmed 03/27/19] Aspirin EC TAB* [Ecotrin EC Low Dose 81 MG*] 81 mg PO DAILY #0 01/22/19 [Rx Confirmed 03/27/19] Multivitamins/Minerals TAB* [Theragran/minerals TAB*] 1 tab PO DAILY tab [Rx Confirmed 03/27/19] Metoprolol Succinate XL TAB* [Toprol XL TAB*] 50 mg PO DAILY 02/28/19 [History Confirmed 03/27/19] Plavix 75 mg PO daily Folic acid 100 mg PO daily Vitamin B1 100 mg PO daily Allergies/Adverse Reactions: Allergies Allergy/AdvReac Type Severity Reaction Status Date / Time No Known Allergies Allergy Verified 02/28/19 20:43 Review of Systems - Review of Systems Constitutional: Positive: Fever, Weakness. Negative: Chills, Sweats, Malaise, Other Eyes: Negative: Pain, Vision Change, Conjunctivae Inflammation, Eyelid Inflammation, Redness, Other ENT: Positive: Other - Epistaxis. Negative: Ear Pain, Ear Discharge, Nose Pain , Nose Discharge, Nose Congestion, Mouth Pain, Mouth Swelling, Throat Pain, Throat Swelling Respiratory: Positive: Cough, Dry, Hemoptysis. Negative: Shortness of Breath, SOB with Excertion, Pleuritic Pain, Sputum, Wheezing Cardiovascular: Negative: Chest Pain, Palpitations, Orthopnea, Paroxysmal Noc. Dyspnea, Edema, Light Headedness, Other Gastrointestinal: Negative: Nausea, Vomiting, Abdominal Pain, Diarrhea, Constipation, Melena, Hematochezia, Other Genitourinary: Negative: Dysuria, Frequency, Incontinence, Hematuria, Retention , Other Musculoskeletal: Negative: Neck Pain, Shoulder Pain, Arm Pain, Back Pain, Hand Pain, Leg Pain, Foot Pain, Other Skin: Negative: Rash, Lesions, Abhishek, Bruising, Other Neurological/Mental Status: Negative: Weakness, Numbness, Incoordination, Change in Speech, Confusion, Seizures, Other Exam Vital Signs: Vital Signs (72 hours) 03/27/19 03/27/19 03/27/19 10:38 10:40 10:41 Temperature 97.4 F Pulse Rate 77 76 67 Respiratory 18 Rate Blood Pressure 129/74 129/74 (mmHg) O2 Sat by Pulse 98 98 97 Oximetry 03/27/19 03/27/19 03/27/19 11:00 11:11 11:41 Temperature Pulse Rate 76 67 78 Respiratory 18 20 17 Rate Blood Pressure 126/84 135/105 (mmHg) O2 Sat by Pulse 97 94 99 Oximetry 03/27/19 03/27/19 03/27/19 11:58 12:11 12:42 Temperature Pulse Rate 71 Respiratory 16 24 24 Rate Blood Pressure 125/75 136/76 (mmHg) O2 Sat by Pulse 97 Oximetry 03/27/19 03/27/19 03/27/19 13:00 13:11 13:41 Temperature Pulse Rate 63 64 Respiratory 21 20 20 Rate Blood Pressure 127/77 138/80 (mmHg) O2 Sat by Pulse 95 97 Oximetry 03/27/19 03/27/19 03/27/19 14:00 14:11 14:42 Temperature Pulse Rate 64 63 72 Respiratory 23 20 15 Rate Blood Pressure 130/78 137/80 (mmHg) O2 Sat by Pulse 95 96 99 Oximetry 03/27/19 03/27/19 03/27/19 15:11 15:42 15:55 Temperature 98.4 F Pulse Rate 61 65 60 Respiratory 15 20 21 Rate Blood Pressure 137/80 144/80 144/80 (mmHg) O2 Sat by Pulse 98 99 98 Oximetry Exam: General - NAD, sitting up in bed, Eyes - PERRLA, EOM intact HEENT- no abnormality Lymph Nodes - No lymphadenopathy Cardiovascular - S1/S2 heard with soft systolic murmur. No rubs or gallop noted Lungs - Bilateral crackles heard at lung bases Skin - No rashes, skin warm and dry, no erythematous areas Abdomen - Normal bowel sounds, abdomen soft and nontender Extremities - Nocyanosis or clubbing Musculo Skeletal - 5/5 strength, normal range of motion, no swollen or erythematous joints. Neurological Alert and oriented x 3, CN 2-12 grossly intact. Result Diagrams: 03/28/19 04:56 03/28/19 04:56 Assessment/Plan - Assessment/Plan Assessment: 68 M with PMH of Anemia 2/2 AVM, HFrEF(Ef 20%) 2/2 ischemic cardiomyopathy 2/2 CAD, PVD s/p axillofemoral bypass and alcohol use disorder presented with hemoptysis and epistaxis associated with fatigue. Found to have NSTEMI, HF exacerbation and transaminitis. Plan: 1. Hemoptysis and Epistaxis: Had episode today. Also had similar episode in the past. His Hb is stable today and he is not actively bleeding. We will hold his aspirin and plavix. We will watch him and repeat CBC tomorrow. Because of recurrence we will ask ENT to evaluate tomorrow. If negative then we will need to rule out lung pathology; although he has pulmonary vein thrombosis. it could also be pink-frothy sputum. 2. NSTEMI: He is asymptomatic but his troponin is elevated and EKG showing new ST depression and deep T inversions. His troponin has plateaued. We will treat him medically at present with statin, BB and WENDI. His Magnesium is low; replaced. Keep Mg>2 and K>4. Avoid NSAIDS. Cannot give anti-coagulant given his hemoptysis. WE will ask cardiology to see him. 3. Heart failure exacerbation: HIs last echo was on 05/2018 and EF was 20% which is 2/2 to ischemic cardiomyopathy. His cardiac cath in 2014 showed 95% RCA occlusion and there was plan for ICD placement but was not done. We will give him lasix and order ECHO. 4. Elevated liver enzymes: His AST is two times than that of ALT which points towards alcoholic. But other D/D include: Hepatitis C infection, congestive hepatopathy. We will monitor it. 5. Anemia 2/2 AVM: His Hb is stable now. Recently had capsule endoscopy done which showed AVM. He is on Ferrous sulphate every other day and we will continue that. 6. Alcohol use disorder: Patient has long history of alcohol use and his serum alcohol was high in the past. His last drink was yesterday. we should watch for withdrawal. I will place him on [facility] protocol. 7. hepatitis C: His viral load was [id number] in 01/17/19. He is not on treatment. He can follow up with GI or Infectious disease as an outpatient. Follow universal precaution. 8.Pulmonary vein Thrombosis: Ideally he should be anti-coagulated but given his hemoptysis we will hold that for now. 9. DVT prophylaxis: SCD 10. Full code Attestation Documenting Resident: Dana Hale Supervising Physician: Tara Moore Attending/Supervising Physician Comment: 68M with HFrEF20%, CAD c/b MIs, alcohol use disorder, active HCV, presents with epistaxis after 1 day of dry cough and subjective fever. Found without bleeding here (actually improved Hgb) but flu positive. Now having HF regimen optimized ( adding WENDI-I and spironolactone). HDS and not on O2 supplement. ENT not in house this week. Attestation: This service has been performed in part by a resident under the direction of a teaching physician.I, Tara Moore, performed the service, or was physically present during the critical, or booker portions of the service, furnished by the resident. I participated in the management of the patient.
[2019-03-27 18:16] LABS: Influenza A Molecular POSITIVE (Negative)
--- NOTE | 2019-03-27 19:20 | PN ---
Cardiology Progress Note Date of Service: 03/27/19 - CC: coughing up blood Pt admitted after 2 days not feeling well, + hemoptyisis. In ED ECG showed newly inverted T waves precordial leads (+ LBBB, old). Mild bump in trops and known CAD Flu+ this admission. Pt denies CP PMHx CAD-med manage (Jason) PVD chronic anemia, AVM's, hx PEA arrest related to anemia Duodenal ulcer CM [facility] [place] MEDS: Atorvastatin Calcium (Lipitor*) 20 mg PO DAILY [facility] Ferrous Sulfate (Ferrous Sulfate Tab*) 325 mg PO EVERY OTHER DAY [facility] Lisinopril (Prinivil Tab*) 5 mg PO DAILY [facility] Lorazepam (Ativan Inj*) 0 mg IV PUSH Q4H PRN; Protocol PRN Reason: ANXIETY Metoprolol Tartrate (Lopressor Tab*) 25 mg PO Q12HR [facility] Miscellaneous (Ativan Pyxis [place]ham) 1 ea N/A .ATIVAN IV PARHAM PRN PRN Reason: PYXIS PARHAM Multivitamins/Minerals (Theragran/Minerals Tab*) 1 tab PO DAILY [facility] Oseltamivir Phosphate (Tamiflu Cap*) 75 mg PO BID [facility] Stop: 04/01/19 09:01 Pantoprazole Sodium (Protonix Tab*) 40 mg PO DAILY [facility] HOME MEDS: Atorvastatin* [Lipitor 20 MG*] 20 mg PO DAILY 03/29/17 [History Confirmed ] Ferrous Sulfate TAB* 325 mg PO EVERY OTHER DAY 03/29/17 [History Confirmed 03/27] LoraTADine TAB(NF) [Claritin 10 MG TAB(NF)] 10 mg PO DAILY 03/29/17 [History Confirmed 03/27/19] Omeprazole CAP (NF) [Prilosec CAP* 20 MG] 20 mg PO DAILY 01/11/19 [History Confirmed 03/27/19] Aspirin EC TAB* [Ecotrin EC Low Dose 81 MG*] 81 mg PO DAILY #0 01/22/19 [Rx Confirmed 03/27/19] Multivitamins/Minerals TAB* [Theragran/minerals TAB*] 1 tab PO DAILY tab [Rx Confirmed 03/27/19] Metoprolol Succinate XL TAB* [Toprol XL TAB*] 50 mg PO DAILY 02/28/19 [History Confirmed 03/27/19] FHX: Father 52 yo CVA. SHX: + smoking, cocaine (past), etoh ROS: + fevers, no hematuria, diarrhea, constipation. +cough productive of sputum. + fagtigue, anorexia No CP, orthopnea All other 14 point ROS unremarkable Vital Signs - 12 hr Temp Pulse Resp BP Pulse Ox 03/27/19 16:51 98.8 F 74 20 148/81 98 03/27/19 15:55 98.4 F 60 21 144/80 98 03/27/19 15:42 65 20 144/80 99 03/27/19 15:11 61 15 137/80 98 03/27/19 14:42 72 15 137/80 99 03/27/19 14:11 63 20 130/78 96 03/27/19 14:00 64 23 95 03/27/19 13:41 64 20 138/80 97 03/27/19 13:11 63 20 127/77 95 03/27/19 13:00 21 03/27/19 12:42 24 136/76 03/27/19 12:11 71 24 125/75 97 03/27/19 11:58 16 03/27/19 11:41 78 17 135/105 99 03/27/19 11:11 67 20 126/84 94 03/27/19 11:00 76 18 97 03/27/19 10:41 67 129/74 97 03/27/19 10:40 76 98 03/27/19 10:38 97.4 F 77 18 129/74 98 BMI 20 General: thin elderly sitting on bed with , mild tachypnea HEENT: PEERLA, mucous membranes moist. Resp: Distant, rare crackles bases, no rhonchi Cor: S1S2 regular no murmurs Abd: + BS, soft, non distended LE luke warm, no edema Psych: AAO x 3, pleasant and cooperative. Neuro: grossly normal sensory and motor function on bed exam Laboratory Last Values WBC 2.9 10^3/uL (3.5-10.8) L 03/27/19 10:47 RBC 3.54 10^6 /uL (4.18-5.48) L 03/27/19 10:47 Hgb 10.7 g/dL (14.0-18.0) L 03/27/19 10:47 Hct 33 % (42-52) L 03/27/19 10:47 MCV 93 fL (80-94) 03/27/19 10:47 MCH 30 pg (27-31) 03/27/19 10:47 MCHC 33 g/dL (31-36) 03/27/19 10:47 RDW 21 % (10-15) H 03/27/19 10:47 Plt Count 169 10^3/uL (150-450) 03/27/19 10:47 MPV 8.0 fL (7.4-10.4) 03/27/19 10:47 Neut % (Auto) 63.5 % 03/27/19 10:47 Lymph % (Auto) 19.7 % 03/27/19 10:47 [place] % (Auto) 15.4 % 03/27/19 10:47 Eos % (Auto) 0.0 % 03/27/19 10:47 Baso % (Auto) 1.4 % 03/27/19 10:47 Absolute Neuts (auto) 1.9 10^3/ul (1.5-7.7) 03/27/19 10:47 Absolute Lymphs (auto) 0.6 10^3/ul (1.0-4.8) L 03/27/19 10:47 Absolute Monos (auto) 0.5 10^3/ul (0-0.8) 03/27/19 10:47 Absolute Eos (auto) 0.0 10^3/ul (0-0.6) 03/27/19 10:47 Absolute Basos (auto) 0.0 10^3/ul (0-0.2) 03/27/19 10:47 Absolute Nucleated RBC 0.0 10^3/ul 03/27/19 10:47 Nucleated RBC % 0.4 03/27/19 10:47 INR (Anticoag Therapy) 1.05 (0.82-1.09) 03/27/19 10:47 Sodium 131 mmol/L (135-145) L 03/27/19 10:47 Potassium 4.0 mmol/L (3.5-5.0) 03/27/19 10:47 Chloride 98 mmol/L (101-111) L 03/27/19 10:47 Carbon Dioxide 24 mmol/L (22-32) 03/27/19 10:47 Anion Gap 9 mmol/L (2-11) 03/27/19 10:47 BUN 11 mg/dL (6-24) 03/27/19 10:47 Creatinine 0.95 mg/dL (0.67-1.17) 03/27/19 10:47 Est GFR ( Amer) 96.0 (>60) 03/27/19 10:47 Est GFR (Non-Af Amer) 79.3 (>60) 03/27/19 10:47 BUN/Creatinine Ratio 11.6 (8-20) 03/27/19 10:47 Glucose 90 mg/dL (70-100) 03/27/19 10:47 Calcium 8.9 mg/dL (8.6-10.3) 03/27/19 10:47 Magnesium 1.3 mg/dL (1.9-2.7) L 03/27/19 15:10 Total Bilirubin 0.60 mg/dL (0.2-1.0) 03/27/19 10:47 AST 284 U/L (13-39) H 03/27/19 10:47 ALT 116 U/L (7-52) H 03/27/19 10:47 Alkaline Phosphatase 59 U/L (34-104) 03/27/19 10:47 Troponin I 0.06 ng/mL (<0.03) H* 03/27/19 15:10 B-Natriuretic Peptide 473 pg/mL (<=100) H 03/27/19 10:47 Total Protein 8.0 g/dL (6.4-8.9) 03/27/19 10:47 Albumin 3.7 g/dL (3.2-5.2) 03/27/19 10:47 Globulin 4.3 g/dL (2-4) H 03/27/19 10:47 Albumin/Globulin Ratio 0.9 (1-3) L 03/27/19 10:47 Influenza A (Rapid) Positive (Negative) H 03/27/19 17:36 Influenza B (Rapid) Not Reportable 03/27/19 17:36 Blood Type O Positive 03/27/19 10:47 Antibody Screen Negative 03/27/19 10:47 ECG: NSR, LBBB, inverted T's precordial leads, new. Patient Name: MANUEL LONGORIA Medical Record#: [id number] Ordering Physician: Sakina Bethea MD Acct.#: [id number] : 1950 Age: 68 Sex: M Location: EMERGENCY DEPARTMENT Exam Date: 03/27/19 1155 ADM Status: REG ER Order Information: CTA CHEST Accession Number: [id number] CPT: 44655 Indication: Hemoptysis. Contrast: Administered 66.0 ml of OMNIPAQUE 350 mg/ml CTA of the chest performed after IV contrast administration. Coronal and sagittal reconstructed images were obtained. Pulmonary arterial tree is well opacified. There are no filling defects present to suggest pulmonary embolus. The aorta demonstrates atherosclerosis without evidence of aortic dissection. No aneurysmal dilatation is noted. The heart demonstrates no pericardial effusion. Coronary artery calcifications are noted. There is diminished flow in the posterior inferior left pulmonary vein. Thrombus in the pulmonary vein is not excluded. The heart demonstrates no pericardial effusion. The trachea and major bronchi appear patent. There is cardiomegaly noted. The trachea and major bronchi appear patent. Interstitial edema consistent with vascular congestion is noted. The patient is status post left axillary femoral bypass graft. IMPRESSION: No evidence of pulmonary artery embolus is noted. There is thrombosis of the left posterior inferior pulmonary vein with diminished flow. Patient is status post left axillary to femoral artery bypass graft. <Electronically signed by Elisabeth Galeana MD in [place]> 03/27/19 1240 Dictated By: Elisabeth Galeana MD Patient: MANUEL LONGORIA Med Rec#: [id number] : 1950 Date: 05/21/2018 Age: 67y Transthoracic Echocardiogram Indication: SYNCOPE BP: 152/74 HR: 68 Rhythm: NSR Findings History: MO, cardiac arrest, heavy smoker, ETOH Technical Comments: The study quality is fair. Left Ventricle: The left ventricular chamber size is normal. Mild concentric left ventricular hypertrophy is observed. There is global hypokinesis of the left ventricle with minor regional variation. There is severely decreased left ventricular systolic function. The estimated ejection fraction is 20-25%. , appears closer to 20% There is an E to A reversal in the mitral valve flow pattern suggestive of diastolic dysfunction. Left Atrium: The left atrial chamber size is normal. Right Ventricle: The right ventricular cavity size is normal. The right ventricular global systolic function is moderately reduced. Valves unremarkable. A/P 68 yo male with CC of hemoptysis, fatigue testing positive for Influenza. Hx CAD, CM on medical management. Elevated trops and new ECG changes this admission. Hx chronic anemia related to GI bleeding, ulcers and AVM's. No intervention recommended at this time, not a candidate for stenting/ intervention with hx GI bleeding/anemia. Can coordinate with Dr Gomez as well to ensure we are updated on recent cardiac events/care. ECG changes: Could be ischemia Could be non ischemic, elevated LFT's noted, RV issues/CHF or respiratory issues could cause as well. Trops: c/w type 2/demand ischemia, no chest pain. CHF: -On BB -On ACEI Consider diuretics including aldactone for fluid overload/RV failure, but carefully as w/flu likely vasodilated, risk of dropping BP. Agree with updated echo. Agree with continuation of medications for CAD (statin as well), CM. Pulmonary vein thrombosis: suggests procoagulant, Dr Calhoun has seen in the past for bleeding/anemia, consider pulmonary and/or heme evaluation regarding etiology and management. Complex patient.
[2019-03-27] MEDS: Oseltamivir CAP* 75 MG CAP PO SCH (20:28)
[2019-03-27] MEDS: Metoprolol Tartrate TAB* 50 mg PO SCH (20:28)
[2019-03-27 20:38] LABS: Troponin I 0.07 ng/mL (<0.03)
[2019-03-27] MEDS ORDERED: Acetaminophen TAB* 325 MG PO PRN (21:46)
[2019-03-28 05:17] LABS: ABS Lymphocytes 0.6 10^3/ul (1.0-4.8); ABS Monocytes 0.3 10^3/ul (0-0.8); ABS Neutrophils 1.1 10^3/ul (1.5-7.7); Eosinophil % 0.1 %; Hematocrit 32 % (42-52); Hemoglobin 10.6 g/dL (14.0-18.0); Lymphocyte % 28.4 %; Mean Corpuscular HGB Conc 33 g/dL (31-36); Mean Corpuscular Hemoglobin 30 pg (27-31); Mean Corpuscular Volume 92 fL (80-94); Mean Platelet Volume 8.1 fL (7.4-10.4); Nucleated Red Blood Cells % 0.2; Platelet Count 135 10^3/uL (150-450); Red Blood Count 3.49 10^6 /uL (4.18-5.48); Red Cell Distribution Width 21 % (10-15); White Blood Count 2.1 10^3/uL (3.5-10.8)
[2019-03-28 05:32] LABS: BUN/Creatinine Ratio 15.8 (8-20); Calcium 8.6 mg/dL (8.6-10.3); EGFR Non-African American 79.3 (>60); Magnesium 2.1 mg/dL (1.9-2.7)
--- NOTE | 2019-03-28 07:13 | PN ---
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 Found to have NSTEMI, HF exacerbation and transaminitis. Patient is flu positive. No acute overnight events Vitals: stable Patient seen and examined at bedside. Patient denies chest pain, shortness of breath and palpitation. He denies new episode of epistaxis and hemoptysis. Although he still has cough. Objective Active Medications: Acetaminophen (Tylenol Tab*) 650 mg PO Q6H PRN PRN Reason: MILD PAIN or TEMP > 100.4 Last Admin: 03/27/19 21:54 Dose: 650 mg Atorvastatin Calcium (Lipitor*) 20 mg PO DAILY [facility] Ferrous Sulfate (Ferrous Sulfate Tab*) 325 mg PO EVERY OTHER DAY MAEVE Lisinopril (Prinivil Tab*) 5 mg PO DAILY [facility] Lorazepam (Ativan Inj*) 0 mg IV PUSH Q4H PRN; Protocol PRN Reason: ANXIETY Metoprolol Tartrate (Lopressor Tab*) 25 mg PO Q12HR [facility] Last Admin: 03/27/19 20:28 Dose: 25 mg Miscellaneous (Ativan Pyxis Parham) 1 ea N/A .ATIVAN IV PARHAM PRN PRN Reason: PYXIS PARHAM Multivitamins/Minerals (Theragran/Minerals Tab*) 1 tab PO DAILY [facility] Oseltamivir Phosphate (Tamiflu Cap*) 75 mg PO BID [facility] Stop: 04/01/19 09:01 Last Admin: 03/27/19 20:28 Dose: 75 mg Pantoprazole Sodium (Protonix Tab*) 40 mg PO DAILY [facility] Spironolactone (Aldactone Tab*) 25 mg PO DAILY [facility] Vital Signs - 8 hr 03/28/19 03/28/19 01:01 03:15 Temperature 98.2 F 98.7 F Pulse Rate 69 64 Respiratory 18 17 Rate Blood Pressure 130/82 122/77 (mmHg) O2 Sat by Pulse 100 100 Oximetry Oxygen Devices in Use Now: None Exam: General - NAD, sitting up in bed, Eyes - PERRLA, EOM intact HEENT- no abnormality Lymph Nodes - No lymphadenopathy Cardiovascular - S1/S2 heard with soft systolic murmur. No rubs or gallop noted Lungs - crackles heard-left>right Skin - No rashes, skin warm and dry, no erythematous areas Abdomen - Normal bowel sounds, abdomen soft and nontender Extremities - Nocyanosis or clubbing Musculo Skeletal - 5/5 strength, normal range of motion, no swollen or erythematous joints. Neurological Alert and oriented x 3, CN 2-12 grossly intact. 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 Found to have NSTEMI, HF exacerbation, pulmonary vein thrombosis and transaminitis. Patient is flu positive. On medical management. - Patient Problems (1) Hemoptysis Current Visit: Yes Status: Acute Code(s): R04.2 - HEMOPTYSIS SNOMED Code(s ): 36421586 Comment: -has hemoptysis along with epistaxis -No episodes after admission; he had one episode 4 months ago as well. -could be from PV thrombosis -Other possiblities: Autoimmune like federico's, septal perforation -No ENT coverage today; can f/u as oupatient -Hb is stable (2) NSTEMI (non-ST elevated myocardial infarction) Current Visit: Yes Status: Acute Code(s): I21.4 - NON-ST ELEVATION (NSTEMI) MYOCARDIAL INFARCTION SNOMED Code(s): 95063103 Comment: -HAs new EKG chanegs with ST depression and T inversion and elevated trops -ECho: EF of 20% with diffuse global hypokinesis and previous infarcr; similar to last ECHO finding -Managing medically- No anticoagulant with hemoptysis and epistaxis -Appreciate Cardio input-will need further input on future anti-coagulation (3) Heart failure with reduced ejection fraction Current Visit: Yes Status: Acute Code(s): I50.20 - UNSPECIFIED SYSTOLIC ( CONGESTIVE) HEART FAILURE SNOMED Code(s): 194676146 Comment: -EF of 20% with severe diffuse hypokinesis. -has crackles bilaterally -on BB, WENDI, statin, spironolactone -will monitor and see if laxis needed or not- if BP handles as spironolactone just started today. (4) Transaminitis Current Visit: Yes Status: Acute Code(s): R74.0 - NONSPEC ELEV OF LEVELS OF TRANSAMNS & LACTIC ACID DEHYDRGNSE SNOMED Code(s): 516708273 Comment: -could be from congestive hepatopathy or hepatitis C -will monitor (5) Alcohol use disorder Current Visit: Yes Status: Acute Code(s): OAB9097 - SNOMED Code(s): 0542926 Comment: -long history for alcohol use with high serum alcohol in the past -will monitor (6) Hepatitis C Current Visit: Yes Status: Acute Comment: -His viral load was [id number] in 01/17/19. He is not on treatment. He can follow up with GI or Infectious disease as an outpatient. Follow universal precaution. (7) Pulmonary venous thrombosis Current Visit: Yes Status: Acute Code(s): I26.99 - OTHER PULMONARY EMBOLISM WITHOUT ACUTE COR PULMONALE SNOMED Code(s): 54604419 Comment: -has pulmonary vein thrombus-although not clear -cannot anti-coagualte him -other option could be thrombectomy -will ask Hem/onc to evaluat- Spoke to Dr. mcmillan (8) Influenza Current Visit: Yes Status: Acute Code(s): J11.1 - FLU DUE TO UNIDENTIFIED INFLUENZA VIRUS W OTH RESP MANIFEST SNOMED Code(s): 1285851 Comment: -has cough and fever -On tamiflu -on droplet precaution (9) Anemia Current Visit: No Status: Acute Code(s): D64.9 - ANEMIA, UNSPECIFIED SNOMED Code(s): 363838210 Comment: -2/2 AVM-recent capsule endoscopy. -Hb low but stable -continue ferrous sulphate every other day (10) DVT prophylaxis Current Visit: No Status: Acute Code(s): Z29.9 - ENCOUNTER FOR PROPHYLACTIC MEASURES, UNSPECIFIED SNOMED Code(s): 556259444 Comment: -SCD's only secondary to bleed (11) Full code status Current Visit: No Status: Acute Code(s): Z78.9 - OTHER SPECIFIED HEALTH STATUS SNOMED Code(s): 180706966 Status and Disposition: Inpatient Attending: Tara Moore Attestation Documenting Resident: Dana Hale Supervising Physician: Tara Moore Attestation: This service has been performed in part by a resident under the direction of a teaching physician.I, Tara Moore, performed the service, or was physically present during the critical, or parham portions of the service, furnished by the resident. I participated in the management of the patient.
[2019-03-28 07:49] LABS: Troponin I 0.07 ng/mL (<0.03)
--- NOTE | 2019-03-28 08:56 | ECHO ---
*[facility]* [place] [address] Fax #: [phone] Transthoracic Echocardiogram Patient: Bulmaro Ga : 1950 Study Date: 03/28/2019 Age: 68 Gender: M HR: 67 bpm Height: 71 in /180.3 cm BSA: 1.7 m^2 Weight: 129.7 lb /59 kg BMI: 18.1 kg/m^2 *Hcc Coders: * Mariana Ricks [facility] *Referring Physician: * Dana Hale *Reading Physician: * Ulices Pacheco MD Indications: Abnormal EKG. History: Chronic obstructive pulmonary disease. PMH: Cardiomyopathy. Ejection fraction 20-25 %. Risk factors: Current tobacco use. Hypertension. ETOH use. Conclusions Summary: - Left ventricle: The cavity size is normal. Wall thickness is mildly increased. Systolic function is severely reduced. The estimated ejection fraction is 20%. Severe diffuse hypokinesis. Basal to mid inferior/inferolateral wall appears akinetic consistent with previous infarct - Right ventricle: The cavity size is normal. Systolic function is mildly to moderately reduced. Systolic pressure is within the normal range. - Ventricular septum: The interventricular septum appears dyssynchronous due to conduction system disease - No significant valvular abnormalities noted. Recommendations: LVEF and wall motion similar to baselie from 05/24/2018 dobutamine stress echocardiogram. Echocardiogram otherwise similar to 05/21/2018 study. Study data: Transthoracic echocardiogram. Procedure: Transthoracic echocardiography was performed. Image quality was good. Complete 2D, spectral Doppler, and color flow Doppler. Location: Bedside. Patient status: Inpatient. Patient room number: 451. Rhythm: Normal sinus rhythm. Findings Left ventricle: The cavity size is normal. Wall thickness is mildly increased. Systolic function is severely reduced. The estimated ejection fraction is 20%. Severe diffuse hypokinesis. Basal to mid inferior/inferolateral wall appears akinetic consistent with previous infarct Left ventricular diastolic function parameters are indeterminate. Right ventricle: The cavity size is normal. Systolic function is mildly to moderately reduced. Systolic pressure is within the normal range. Ventricular septum: The interventricular septum appears dyssynchronous due to conduction system disease Left atrium: The atrium is normal in size. Right atrium: The atrium is normal in size. Mitral valve: The Mitral valve annulus appears mildly calcified. The leaflets are mildly thickened. There is no evidence of stenosis. There is trace to mild regurgitation. Aortic valve: The valve is trileaflet. The leaflets are mildly thickened and mildly calcified. There is no evidence of stenosis. There is no significant regurgitation. Tricuspid valve: The leaflets are normal thickness. There is no evidence of stenosis. There is trace to mild regurgitation. Pulmonic valve: The leaflets are normal thickness. There is no evidence of stenosis. There is trace regurgitation. Aorta: Aortic root: The aortic root is appears normal. Ascending aorta: The ascending aorta is mildly dilated. Aortic arch: The aortic arch is appears normal. Pericardium: There is no significant pericardial effusion. Pulmonary arteries: The main pulmonary artery is normal-sized. Systolic pressure is within the normal range. Systemic veins: Inferior vena cava: The vessel is normal in size. There is (>= 50%) respiratory change in the IVC dimension. Measurements Left ventricle Value Ref Right atrium Value Ref RYAN, LAX 5.0 cm 4.2 - SI dim, ES 3.9 cm 3.4 - 5.3 5.8 ML dim, ES, A4C 3.9 cm 2.6 - 4.4 ESD, LAX (H) 4.7 cm 2.5 - SI dim, ES, A4C 3.9 cm 3.4 - 5.3 4.0 SI dim/bsa, ES, A4C 2.3 cm/m^2 1.8 - 3.0 FS, LAX (L) 6 % 25 - 43 Estimated RAP 3 mm Hg --------- PW, ED, LAX (H) 1.1 cm 0.6 - 1.0 Aortic valve Value Ref ESD/bsa major ax, 4.7 cm/m^2 -------- Susana diam, S 2.1 cm 2.0 - 3.2 A4C Peak v, S 1.9 m/sec --------- RYAN/bsa minor ax, 4.7 cm/m^2 -------- VTI, S 28.0 cm --------- A4C Mean grad, S 5.7 mm Hg --------- RYAN major ax, A2C 8.8 cm -------- Peak grad, S 14.4 mm Hg --------- ESD major ax, A2C 8.9 cm -------- LVOT/AV, VTI ratio 0.5 --------- RYAN/bsa major ax, 5.2 cm/m^2 -------- ALEX, VTI 1.57 cm^2 --------- A2C ALEX, Vmax 1.65 cm^2 --------- ESD/bsa major ax, 5.2 cm/m^2 -------- A2C Mitral valve Value Ref FS (L) 6 % 25 - 43 Peak E 0.32 m/sec --------- Mid-wall FS 3 % -------- Peak A 0.8 m/sec --------- PW, ED (H) 1.1 cm 0.6 - Decel time 264 ms --------- 1.0 Peak E/A ratio 0.4 --------- EDV, A/L 101 ml 62 - 150 EDV/bsa, A/L 59 ml/m^2 34 - 74 Pulmonic valve Value Ref E', lat susana, TDI (L) 8.6 cm/sec >=10.0 Peak v, S 0.72 m/sec - -------- E/e', lat susana, TDI 4 -------- Peak grad, S 2.1 mm Hg ---- ----- E', med susana, TDI 9.0 cm/sec >=7.0 E/e', med susana, TDI 4 -------- Tricuspid valve Value Ref E', avg, TDI 8.8 cm/sec -------- TR peak v 2.2 m/sec < =2.8 E/e', avg, TDI 4 <=14 Peak RV-RA grad, S 19 mm Hg - -------- LVOT Value Ref Aortic root Value Ref Diam, S 2.00 cm -------- Root diam 3.4 cm <3.9 Area 3.1 cm^2 -------- Peak betzy, S 1 m/sec -------- Ascending aorta Value Ref VTI, S 14.0 cm -------- AAo AP diam, S 3.7 cm --------- Peak grad, S 4 mm Hg -------- AAo AP diam/bsa, S 2.2 cm/m^2 --------- Mean grad, S 2 mm Hg -------- Aortic arch Value Ref Ventricular septum Value Ref Arch diam 2.0 cm --------- IVS, ED (H) 1.1 cm 0.6 - 1.0 Pulmonary artery Value Ref Pressure, S 19.9 mm Hg --------- Right ventricle Value Ref RYAN, LAX 2.9 cm -------- Inferior vena cava Value Ref RYAN minor ax, A4C 2.8 cm 1.9 - Diam 1.4 cm --------- mid 3.5 Pressure, S 22 mm Hg -------- Left atrium Value Ref LA ID 3.1 cm -------- SI dim ES, LAX 3.1 cm -------- ML dim, A4C 4.4 cm -------- SI dim, A4C 3.9 cm -------- Vol, ES, 2-p 48 ml -------- Vol/bsa, ES, 2-p 28 ml/m^2 16 - 34 Legend: (L) and (H) jose values outside specified reference range. Prepared and electronically signed by Ulices Pacheco MD 03/28/2019 08:55
[2019-03-28] MEDS: Metoprolol Tartrate TAB* 50 mg PO SCH ×2 (10:25→20:56)
[2019-03-28] MEDS: Atorvastatin* 20 MG TAB PO SCH (10:25)
[2019-03-28] MEDS: Oseltamivir CAP* 75 MG CAP PO SCH ×2 (10:25→20:55)
[2019-03-28] MEDS: Pantoprazole TAB * 40 MG TAB PO SCH (10:25)
[2019-03-28] MEDS: Spironolactone TAB* 25 MG PO SCH (10:25)
[2019-03-28] MEDS: Multivitamins/Minerals TAB PO SCH (10:25)
[2019-03-28] MEDS: Lisinopril TAB* 5 MG PO SCH (10:25)
[2019-03-28 13:34] LABS: Corrected Retic Count 1.2 % (0.5-1.5); Hematocrit for Retic CNT 34 % (42-52); Immature Retic Fraction 0.47
[2019-03-28 13:45] LABS: Activated Partial Thrombo Time 32.8 seconds (26.0-38.0); Fibrinogen 330.3 mg/dL (110.8-404.3)
[2019-03-28 14:06] LABS: % Iron Saturation 15 % (15-55); Iron 56 ug/dL (50-212); LDH 335 U/L (140-271); Total Iron Binding Capacity 372 mcg/dL (250-450); Transferrin 266 mg/dL (203-362)
[2019-03-28 14:11] LABS: Ferritin 647.1 ng/mL (24-336)
--- NOTE | 2019-03-28 17:20 | CONSULT ---
Consultation - Reason for Consultation Reason for Consultation: Possible posterior inferior left pulmonary vein stricture versus thrombus Ordering Provider: Dana Hale Chief Complaint: Possible posterior inferior left pulmonary vein stricture versus thrombus Influenza A Hemoptysis versus epistaxis History of Present Illness: I am asked to evaluate this 68 year old gentleman with a PMH of CAD, COPD, ETOH abuse, chronic Hepatitis C, cardiomyopathy with prior cardiac infarction, admitted with cough, influenza A AND Hemoptysis as well as possible epistaxis as contributary. He has also developed a NSTEMI and has undergone CT chest to rule out PE 03/27/2019 This revealed NO PE but a posterior inferior left pulmonary vein stricture with thrombus not excluded. I have reviewed this image report with Dr Galeana Radiology and he notes thrombus is not definitive although there appears to be at least a narrowing of the vessel in this area. Of note are prior hospitalizations for GI blood loss, initial 2017 with Hg 2 and more recently 03/06/18 with reported negative EGD, colonoscopy but capsule study showing 5-7 small bowel AVMs. He has been maintained on Oral iron. He reports no further Hemoptysis, he has been treated for Influenza, WBC 2.1 Hg 10.6 platelets 135 ANC 1106 Troponins + EKG sinus with LBBB Prior ECHO EF 20% with diffuse hypokinesis. He denies hematuria nor blood in the stool Allergies/Medications Allergies/Adverse Reactions: Allergies Allergy/AdvReac Type Severity Reaction Status Date / Time No Known Allergies Allergy Verified 02/28/19 20:43 History - Past Medical History Hx Arthritis: No Hx Cancer: No Hx Cardiac Disorders: Yes Hx Circulatory Problems: Yes - Social History Hx Alcohol Use: Yes Review of Systems - Review of Systems Constitutional Symptoms: Positive: Weakness, Fatigue Dermatology: Positive: Normal HEENT: Positive: Other - epistaxis Eyes: Positive: Normal Thyroid: Positive: Normal Pulmonary: Positive: Cough, Hemoptysis, COPD Cardiology: Positive: Shortness of Breath - NSTEMI Gastroenterology: Positive: Other - Prior GI Bleed Endocrinology: Positive: Normal Hematologic/Lymphatic: Positive: Anemia - leukopenia and thrombocytopenia Physical Exam - Physical Exam Physical Examination: Alert and conversant Neck supple Abdomen soft and nontender Extrem wo CCE symmetric Neuro nonfocal Results - Lab Results Lab Results: 03/27/19 03/27/19 03/27/19 10:47 10:47 10:47 WBC 2.9 L RBC 3.54 L RBC (Retic) Hgb 10.7 L Hct 33 L HCT (Retic) MCV 93 MCH 30 MCHC 33 RDW 21 H Plt Count 169 MPV 8.0 Neut % (Auto) 63.5 Lymph % (Auto) 19.7 [place] % (Auto) 15.4 Eos % (Auto) 0.0 Baso % (Auto) 1.4 Absolute Neuts (auto) 1.9 Absolute Lymphs (auto) 0.6 L Absolute Monos (auto) 0.5 Absolute Eos (auto) 0.0 Absolute Basos (auto) 0.0 Absolute Nucleated RBC 0.0 Nucleated RBC % 0.4 Retic Count, Calc Corrected Retic Count Retic Shift Factor Retic Production Index Immature Retic Fraction Mean Retic Volume INR (Anticoag Therapy) 1.05 APTT Fibrinogen Sodium 131 L Potassium 4.0 Chloride 98 L Carbon Dioxide 24 Anion Gap 9 BUN 11 Creatinine 0.95 Est GFR ( Amer) 96.0 Est GFR (Non-Af Amer) 79.3 BUN/Creatinine Ratio 11.6 Glucose 90 Calcium 8.9 Magnesium 1.6 L Iron TIBC % Saturation Unsat Iron Binding Transferrin Ferritin Total Bilirubin 0.60 AST 284 H ALT 116 H Alkaline Phosphatase 59 Lactate Dehydrogenase Troponin I 0.06 H* B-Natriuretic Peptide Total Protein 8.0 Albumin 3.7 Globulin 4.3 H Albumin/Globulin Ratio 0.9 L Vitamin B12 Influenza A (Rapid) Influenza B (Rapid) Blood Type Antibody Screen 03/27/19 03/27/19 03/27/19 10:47 10:47 15:10 WBC RBC RBC (Retic) Hgb Hct HCT (Retic) MCV MCH MCHC RDW Plt Count MPV Neut % (Auto) Lymph % (Auto) [place] % (Auto) Eos % (Auto) Baso % (Auto) Absolute Neuts (auto) Absolute Lymphs (auto) Absolute Monos (auto) Absolute Eos (auto) Absolute Basos (auto) Absolute Nucleated RBC Nucleated RBC % Retic Count, Calc Corrected Retic Count Retic Shift Factor Retic Production Index Immature Retic Fraction Mean Retic Volume INR (Anticoag Therapy) APTT Fibrinogen Sodium Potassium Chloride Carbon Dioxide Anion Gap BUN Creatinine Est GFR ( Amer) Est GFR (Non-Af Amer) BUN/Creatinine Ratio Glucose Calcium Magnesium 1.3 L Iron TIBC % Saturation Unsat Iron Binding Transferrin Ferritin Total Bilirubin AST ALT Alkaline Phosphatase Lactate Dehydrogenase Troponin I 0.06 H* B-Natriuretic Peptide 473 H Total Protein Albumin Globulin Albumin/Globulin Ratio Vitamin B12 Influenza A (Rapid) Influenza B (Rapid) Blood Type O Positive Antibody Screen Negative 03/27/19 03/27/19 03/28/19 17:36 20:08 04:56 WBC 2.1 L RBC 3.49 L RBC (Retic) Hgb 10.6 L Hct 32 L HCT (Retic) MCV 92 MCH 30 MCHC 33 RDW 21 H Plt Count 135 L MPV 8.1 Neut % (Auto) 54.5 Lymph % (Auto) 28.4 [place] % (Auto) 15.5 Eos % (Auto) 0.1 Baso % (Auto) 1.5 Absolute Neuts (auto) 1.1 L Absolute Lymphs (auto) 0.6 L Absolute Monos (auto) 0.3 Absolute Eos (auto) 0.0 Absolute Basos (auto) 0.0 Absolute Nucleated RBC 0.0 Nucleated RBC % 0.2 Retic Count, Calc Corrected Retic Count Retic Shift Factor Retic Production Index Immature Retic Fraction Mean Retic Volume INR (Anticoag Therapy) APTT Fibrinogen Sodium Potassium Chloride Carbon Dioxide Anion Gap BUN Creatinine Est GFR ( Amer) Est GFR (Non-Af Amer) BUN/Creatinine Ratio Glucose Calcium Magnesium Iron TIBC % Saturation Unsat Iron Binding Transferrin Ferritin Total Bilirubin AST ALT Alkaline Phosphatase Lactate Dehydrogenase Troponin I 0.07 H* B-Natriuretic Peptide Total Protein Albumin Globulin Albumin/Globulin Ratio Vitamin B12 Influenza A (Rapid) Positive H Influenza B (Rapid) Not Reportable Blood Type Antibody Screen 03/28/19 03/28/19 03/28/19 04:56 07:15 13:05 WBC RBC RBC (Retic) Hgb Hct HCT (Retic) MCV MCH MCHC RDW Plt Count MPV Neut % (Auto) Lymph % (Auto) [place] % (Auto) Eos % (Auto) Baso % (Auto) Absolute Neuts (auto) Absolute Lymphs (auto) Absolute Monos (auto) Absolute Eos (auto) Absolute Basos (auto) Absolute Nucleated RBC Nucleated RBC % Retic Count, Calc Corrected Retic Count Retic Shift Factor Retic Production Index Immature Retic Fraction Mean Retic Volume INR (Anticoag Therapy) APTT Fibrinogen Sodium 131 L Potassium 4.0 Chloride 97 L Carbon Dioxide 28 Anion Gap 6 BUN 15 Creatinine 0.95 Est GFR ( Amer) 96.0 Est GFR (Non-Af Amer) 79.3 BUN/Creatinine Ratio 15.8 Glucose 90 Calcium 8.6 Magnesium 2.1 Iron 56 TIBC 372 % Saturation 15 Unsat Iron Binding < 357 Transferrin 266 Ferritin 647.1 H Total Bilirubin AST ALT Alkaline Phosphatase Lactate Dehydrogenase 335 H Troponin I 0.07 H* B-Natriuretic Peptide Total Protein Albumin Globulin Albumin/Globulin Ratio Vitamin B12 645 Influenza A (Rapid) Influenza B (Rapid) Blood Type Antibody Screen 03/28/19 03/28/19 13:05 13:05 WBC RBC RBC (Retic) 3.60 L Hgb Hct HCT (Retic) 34 L MCV MCH MCHC RDW Plt Count MPV Neut % (Auto) Lymph % (Auto) [place] % (Auto) Eos % (Auto) Baso % (Auto) Absolute Neuts (auto) Absolute Lymphs (auto) Absolute Monos (auto) Absolute Eos (auto) Absolute Basos (auto) Absolute Nucleated RBC Nucleated RBC % Retic Count, Calc 1.6 H Corrected Retic Count 1.2 Retic Shift Factor 1.5 Retic Production Index 0.80 Immature Retic Fraction 0.47 Mean Retic Volume 117.5 INR (Anticoag Therapy) APTT 32.8 Fibrinogen 330.3 Sodium Potassium Chloride Carbon Dioxide Anion Gap BUN Creatinine Est GFR ( Amer) Est GFR (Non-Af Amer) BUN/Creatinine Ratio Glucose Calcium Magnesium Iron TIBC % Saturation Unsat Iron Binding Transferrin Ferritin Total Bilirubin AST ALT Alkaline Phosphatase Lactate Dehydrogenase Troponin I B-Natriuretic Peptide Total Protein Albumin Globulin Albumin/Globulin Ratio Vitamin B12 Influenza A (Rapid) Influenza B (Rapid) Blood Type Antibody Screen - Radiology Radiology Results: CXR Mild prominence of interstitial markings Assessment and Plan Impression: Possible posterior inferior left pulmonary vein narrowing, thrombus not excluded Episode of hemoptysis and possible epistaxis Prior gastrointestinal bleeding Small bowel AVMs Alcohol abuse Chronic Hepatitis C NSTEMI Cardiomyopathy Peripheral vascular disease Left Axillary Fem Bypass CAD Mild pancytopenia likely secondary to liver disease Plan: As noted imaging report of CT has been reviewed with reading Radiologist Dr Galeana. He notes narrowing of a posterior, inferior left pulmonary vein. He also notes it is not definitive for thrombus although this cannot be entirely excluded. Given his underlying liver disease, recent hemoptysis (also possible epistaxis as contributory), recent GI bleed secondary to small bowel AVMs, prior presentation with marked anemia Hg 2 2017, and questionable presence of pulmonary vein thrombosis I would not currently recommend anticoagulation. I would recommend future short term repeat CT in the next few months. His cytopenias are likely secondary to his underlying liver disease (Alcohol and Hepatitis C) Proceed to additional labs including KRYSTEN, iron studies, B12, Folate, retics, LDH, Haptoglobin, PTT, Fibrinogen, SPEP and UPEP. Continue current cardiac and pulmonary support. Will follow
[2019-03-28] MEDS ORDERED: Benzonatate CAP* 100 MG PO PRN (23:44)
[2019-03-29 01:59] LABS: Urine Appearance Turbid; Urine Bilirubin Negative (Negative); Urine Blood 1+ (Negative); Urine Color Yellow; Urine Glucose Negative (Negative); Urine Ketones Negative (Negative); Urine Nitrite Negative (Negative); Urine Protein 1+(30 mg/dL) (Negative); Urine Specific Gravity 1.009 (1.010-1.030); Urine Urobilinogen Negative (Negative)
[2019-03-29 02:02] LABS: Urine Bacteria Absent (Absent); Urine Red Blood Cell 3+(>10/hpf) (Absent); Urine Squamous Epithelial Cell Present (Absent); Urine White Blood Cell 3+(>20/hpf) (Absent)
[2019-03-29 06:25] LABS: Hematocrit 31 % (42-52); Hemoglobin 10.4 g/dL (14.0-18.0); Mean Corpuscular HGB Conc 34 g/dL (31-36); Mean Corpuscular Hemoglobin 31 pg (27-31); Mean Corpuscular Volume 92 fL (80-94); Mean Platelet Volume 8.6 fL (7.4-10.4); Platelet Count 131 10^3/uL (150-450); Red Blood Count 3.37 10^6 /uL (4.18-5.48); Red Cell Distribution Width 20 % (10-15); White Blood Count 3.2 10^3/uL (3.5-10.8)
[2019-03-29 08:03] VITALS: BP 115/72
[2019-03-29] MEDS: Metoprolol Tartrate TAB* 50 mg PO SCH (08:16)
[2019-03-29] MEDS: Oseltamivir CAP* 75 MG CAP PO SCH (08:17)
[2019-03-29] MEDS: Pantoprazole TAB * 40 MG TAB PO SCH (08:17)
[2019-03-29] MEDS: Multivitamins/Minerals TAB PO SCH (08:17)
[2019-03-29] MEDS: Spironolactone TAB* 25 MG PO SCH (08:18)
[2019-03-29] MEDS: Lisinopril TAB* 5 MG PO SCH (08:18)
[2019-03-29] MEDS: Atorvastatin* 20 MG TAB PO SCH (08:18)
[2019-03-29] MEDS ORDERED: Furosemide TAB* 20 MG PO SCH (09:00)
[2019-03-29] MEDS ORDERED: Ferrous Sulfate TAB* 325 MG PO SCH (09:00)
--- NOTE | 2019-03-29 10:56 | PN ---
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 Found to have NSTEMI(type II), HF exacerbation and transaminitis. Patient is flu positive. No acute overnight events Vitals: stable Patient seen and examined at bedside. Patient denies cough, shortness of breath , palpitation. patient wanting to go home and all dressed up and wants to leave even AMA. Objective Vital Signs - 8 hr 03/29/19 03/29/19 03/29/19 03:11 07:15 07:53 Temperature 99 F 98.3 F Pulse Rate 88 96 Respiratory 18 16 16 Rate Blood Pressure 115/81 115/72 (mmHg) O2 Sat by Pulse 98 99 Oximetry Oxygen Devices in Use Now: None Exam: General - NAD, sitting up in bed, Eyes - PERRLA, EOM intact HEENT- no abnormality Lymph Nodes - No lymphadenopathy Cardiovascular - S1/S2 heard with soft systolic murmur. No rubs or gallop noted Lungs - crackles heard-left>right-improving Skin - No rashes, skin warm and dry, no erythematous areas Abdomen - Normal bowel sounds, abdomen soft and nontender Extremities - Nocyanosis or clubbing Musculo Skeletal - 5/5 strength, normal range of motion, no swollen or erythematous joints. Neurological Alert and oriented x 3, CN 2-12 grossly intact. 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 Found to have NSTEMI, HF exacerbation, pulmonary vein thrombosis and transaminitis. Patient is flu positive. On medical management. - Patient Problems (1) Hemoptysis Status: Acute Code(s): R04.2 - HEMOPTYSIS SNOMED Code(s): 39009731 Comment: -has hemoptysis along with epistaxis -No episodes after admission; he had one episode 4 months ago as well. -could be from PV thrombosis -Other possiblities: Autoimmune like federico's, septal perforation -No ENT coverage today; can f/u as oupatient -Hb is stable (2) NSTEMI (non-ST elevated myocardial infarction) Status: Acute Code(s): I21.4 - NON-ST ELEVATION (NSTEMI) MYOCARDIAL INFARCTION SNOMED Code(s): 43883857 Comment: -Type 2: from demand -HAs new EKG changes with ST depression and T inversion and elevated trops -ECho: EF of 20% with diffuse global hypokinesis and previous infarcr; similar to last ECHO finding -Managing medically- No anticoagulant with hemoptysis and epistaxis -Appreciate Cardio input -patient will need to f/u outpatient for STONE RIGGER as he would benefit from it (3) Heart failure with reduced ejection fraction Status: Acute Code(s): I50.20 - UNSPECIFIED SYSTOLIC (CONGESTIVE) HEART FAILURE SNOMED Code(s): 580578209 Comment: -EF of 20% with severe diffuse hypokinesis. -has crackles bilaterally -on BB, WENDI, statin, spironolactone -tolerated lasix -can f/u outpatient and optimize medication (4) Transaminitis Status: Acute Code(s): R74.0 - NONSPEC ELEV OF LEVELS OF TRANSAMNS & LACTIC ACID DEHYDRGNSE SNOMED Code(s): 359993252 Comment: -could be from congestive hepatopathy or hepatitis C -will monitor (5) Alcohol use disorder Status: Acute Code(s): DEM2610 - SNOMED Code(s): 0383497 Comment: -long history for alcohol use with high serum alcohol in the past -not scoring on wam (6) Hepatitis C Status: Acute Comment: -His viral load was [id number] in 01/17/19. He is not on treatment. He can follow up with GI or Infectious disease as an outpatient. Follow universal precaution. (7) Pulmonary venous thrombosis Status: Acute Code(s): I26.99 - OTHER PULMONARY EMBOLISM WITHOUT ACUTE COR PULMONALE SNOMED Code(s): 04381949 Comment: -has pulmonary vein thrombus-although not clear -cannot anti-coagualte him -other option could be thrombectomy -appreciate Hem Input -No acute intervention needed- can f/u outpatient wi repeat CT (8) Influenza Status: Acute Code(s): J11.1 - FLU DUE TO UNIDENTIFIED INFLUENZA VIRUS W OTH RESP MANIFEST SNOMED Code(s): 7611035 Comment: -has cough and fever -On tamiflu -on droplet precaution (9) Anemia Status: Acute Code(s): D64.9 - ANEMIA, UNSPECIFIED SNOMED Code(s): 949136262 Comment: -2/2 AVM-recent capsule endoscopy. -Hb low but stable -continue ferrous sulphate every other day (10) DVT prophylaxis Status: Acute Code(s): Z29.9 - ENCOUNTER FOR PROPHYLACTIC MEASURES, UNSPECIFIED SNOMED Code(s): 553367690 Comment: -SCD's only secondary to bleed (11) Full code status Status: Acute Code(s): Z78.9 - OTHER SPECIFIED HEALTH STATUS SNOMED Code(s) : 925651720 Status and Disposition: Inpatient Attending: Tara Moore Attestation Documenting Resident: Dana Hale Supervising Physician: Tara Moore Attestation: This service has been performed in part by a resident under the direction of a teaching physician.I, Tara Moore, performed the service, or was physically present during the critical, or booker portions of the service, furnished by the resident. I participated in the management of the patient.
--- NOTE | 2019-03-29 12:59 | DS ---
CC: Dr. Niraj Ly; Dr. Xin Song; Dr. Beny Dockery * DISCHARGE SUMMARY: DATE OF ADMISSION: 03/27/19 DATE OF DISCHARGE: 03/29/19 PRIMARY CARE PHYSICIAN: Niraj Ly MD PRIMARY DIAGNOSES: 1. Epistaxis causing likely hemoptysis. 2. Heart failure with reduced ejection fraction. 3. Influenza. 4. Possible pulmonary vein thrombosis. SECONDARY DIAGNOSES: 1. Anemia secondary to gastrointestinal bleed from arteriovenous malformations. 2. Peripheral vascular disease, status post left femoral graft. 3. Hepatitis C, not treated. 4. Alcohol use disorder. 5. Chronic obstructive pulmonary disease. CONSULTS: 1. Dr. Xin Song of Cardiology. 2. Dr. Beny Dockery of Hematology. DISCHARGE MEDICATIONS: 1. Metoprolol succinate 50 mg daily. 2. Lisinopril 5 mg daily. 3. Furosemide 20 mg daily. 4. Spironolactone 25 mg daily. 5. Oseltamivir 75 mg twice a day for 3 more days. 6. Loratadine 10 mg daily. 7. Ferrous sulfate 325 every other day. 8. Atorvastatin 20 mg daily. 9. Omeprazole 20 mg daily. 10. Tylenol 650 every 6 hours as needed for fever or pain. 11. Multivitamin 1 tablet daily. HISTORY OF PRESENT ILLNESS: Mr. Ga is a 68-year-old man with history of heart failure with reduced ejection fraction 20%, untreated hepatitis C, recent GI bleeding secondary to AVM, alcohol use disorder, who is presenting with hemoptysis on the morning of presentation. According to the patient, he woke up and was in his usual state of health until he coughed up approximately half a cup of blood per his estimate. The patient states that he has had this cough without blood for the last 2 days and previously was dry. He reports recent fatigue and lack of energy and yesterday experienced subjective fevers. He denies chest pain, shortness of breath, palpitations, edema, or runny nose. He denies recent cocaine use. The patient did have epistaxis throughout his recent admission for GI bleed. He denies nausea, vomiting, hematemesis, melena, or blood in the stool. HOSPITAL COURSE: In the emergency room, the patient's vital signs were stable. His hemoglobin was 10.7, which is 2 points higher than his prior discharge. Troponin was 0.06. An EKG showed normal sinus rhythm, rate 77 with T-wave inversions in the anterior leads and ST depression, which are new. A chest CTA showed no evidence of pulmonary embolism, but there was possible thrombosis to the left posterior inferior pulmonary vein. Hematology was consulted for this and reviewed images with Radiology. Image was deemed very equivocal and recommendations were made to follow up possible thrombosis as an outpatient without current treatment with anticoagulation given current bleeding and uncertainty of diagnosis. The patient has had a chest x-ray, which showed pulmonary edema. It was noted he was not optimized on a HFrEF regimen, so he was started on WENDI inhibitor, furosemide, and spironolactone on this admission. Also of note, the patient's flu swab resulted positive, so he was initiated on oseltamivir. For possible NSTEMI, Cardiology was consulted and did not recommend any medical intervention as the patient was not a candidate for stenting given history of GI bleed with anemia. It was recommended to continue the patient on his beta-jesus and to initiate WENDI inhibitor and diuretics. The patient was also continued on his statin, but not aspirin given bleed. By day of discharge, the patient reported feeling well, was very eager to return home. His hemoglobin was stable and he had no recurrence of epistaxis throughout entire admission. He continued to deny chest pain and his dry cough and malaise improved. 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 REVIEW OF SYSTEMS: A complete 10-point review of systems was performed and notable only for mild malaise and very rare dry cough. He denied orthopnea, chest pain, shortness of breath, dyspnea on exertion, lower extremity edema. PHYSICAL EXAMINATION: Afebrile, heart rate 80, blood pressure 115/81, respiratory rate 18, oxygen saturation 98% on room air. In general, he is a well-appearing man, in no acute distress. He is alert and interactive. He answers questions appropriately. HEENT: With moist mucous membranes. OP clear. Neck: No lymphadenopathy. No JVD. Heart: Regular rate and rhythm. Soft systolic murmur. Lungs: Bibasilar crackles. Abdomen: Soft, nontender, nondistended. Extremities: Warm and well perfused without edema. Neuro: A and O x3. CN II through XII intact. PERTINENT DIAGNOSTIC STUDIES: CBC with hemoglobin in the 10s with leukopenia, which is chronic and platelets of 130 which is also chronic INR 1. BMP with hyponatremia to 131 which is stable throughout admission. Creatinine normal. BNP 473, which is above multiple prior studies. Influenza A swab positive. Chest x-ray with mild prominence of interstitial markings suggesting the possibility of interstitial pulmonary edema. CTA of the chest without evidence of pulmonary artery embolism. There is thrombosis of left posterior inferior pulmonary vein with diminished flow. The patient is status post left axillary to femoral artery bypass graft. Transthoracic echocardiogram with LV cavity size normal, wall thickness mildly increased, systolic function severely reduced estimated EF 20%, severe diffuse hypokinesis. Basal to mid inferior/inferolateral wall appears akinetic consistent with previous infarct. RV cavity size normal with systolic function mildly-to- moderately reduced. Systolic pressure is within the normal range. The interventricular septum appears dyssynchronous due to conduction system disease. No significant valvular abnormalities are noted. LVEF and wall motion are similar to baseline from 05/24/18. DISCHARGE PLAN: The patient will be discharged to follow up with his outpatient order editor, mill labor supervisor, and primary care physician for ongoing management of his chronic medical issues. 1. Influenza. The patient has 3 more days of Tamiflu to complete a total 5-day course. He was instructed on methods to reduce transmission of infection. 2. Heart failure with reduced ejection fraction. The patient was continued on his home beta-jesus, but he was initiated on lisinopril 5 mg, furosemide 20 mg , and spironolactone 25 mg for an ejection fraction of 20%. He should continue followup with his outpatient order editor at [facility] for further management. 3. For possible pulmonary vein thrombosis, he will follow up with Dr. Calhoun of Hematology, who he has been referred to in the past. He was not started on anticoagulation given uncertainty of diagnosis and also recent bleeding from GI tract and epistaxis. No other significant changes were made to his home medications. He was given return precautions, which include but are not limited to recurrence of bleeding or new symptoms of lightheadedness, syncope, chest pain, shortness of breath. DIET: Heathy diet, low in processed foods. ACTIVITY: As tolerated. DISPOSITION: To home. CONDITION: Improved. TIME SPENT: Approximately 60 minutes was spent on discharge of this patient, more than half of which was spent with care coordination at bedside for interview and exam. [id number]/CPS #: [id number] MAKENNA
[2019-04-02 17:13] LABS: Albumin/Globulin Ratio 0.76; Gamma Globulin 2.1 g/dL (0.6-1.6)
== END 2019-03-29 09:33 | disposition home or self-care (01) | DRG 175 ==
LOC: ED 10:34 → MEDTELE 15:10
PROVIDERS: ADMIT Internal Medicine; ATTEND Internal Medicine
DX: I26.99 Other pulmonary embolism without acute cor pulmonale (principal); I21.A1 Myocardial infarction type 2; I50.23 Acute on chronic systolic (congestive) heart failure; D61.818 Other pancytopenia; I25.10 Atherosclerotic heart disease of native coronary artery without angina pectoris; E78.00 Pure hypercholesterolemia, unspecified; I25.2 Old myocardial infarction; E78.5 Hyperlipidemia, unspecified; K21.9 Gastro-esophageal reflux disease without esophagitis; Z87.19 Personal history of other diseases of the digestive system; F90.9 Attention-deficit hyperactivity disorder, unspecified type; F17.210 Nicotine dependence, cigarettes, uncomplicated; Z86.74 Personal history of sudden cardiac arrest; I11.0 Hypertensive heart disease with heart failure; Z95.828 Presence of other vascular implants and grafts; J44.9 Chronic obstructive pulmonary disease, unspecified; I25.5 Ischemic cardiomyopathy; R79.89 Other specified abnormal findings of blood chemistry; D50.0 Iron deficiency anemia secondary to blood loss (chronic); I44.7 Left bundle-branch block, unspecified; J10.1 Influenza due to other identified influenza virus with other respiratory manifestations; F10.10 Alcohol abuse, uncomplicated; B18.2 Chronic viral hepatitis C
CPT/HCPCS: 36415; 71046; 71275; 80048; 80053; 81003; 81015; 82607; 82728; 83010; 83516; 83540; 83550; 83615; 83735; 83880; 84155; 84165; 84484; 85014; 85025; 85027; 85045; 85384; 85610; 85730; 86038; 86850; 86900; 86901; 87077; 87086; 87186; 93005; 93306; 96374; 96375; 99223; 99284; A9270-GY; J2270; J3475; Q9967

== ENCOUNTER 2019-06-05 18:10 | Emergency (ER) | payer MEDICARE, MEDICAID ==
[2019-06-05 18:50] VITALS: BP 119/76
== END 2019-06-05 19:00 | disposition home or self-care (01) ==
LOC: UCEAST 18:10

== ENCOUNTER 2021-03-18 22:28 | Inpatient (IN) ==
[2021-03-18 23:00] LABS: Hematocrit 29 % (42-52); Hemoglobin 9.4 g/dL (14.0-18.0); Mean Corpuscular HGB Conc 33 g/dL (31-36); Mean Corpuscular Hemoglobin 28 pg (27-31); Mean Corpuscular Volume 87 fL (80-94); Mean Platelet Volume 7.6 fL (7.4-10.4); Platelet Count 196 10^3/uL (150-450); Red Blood Count 3.33 10^6 /uL (4.18-5.48); Red Cell Distribution Width 19 % (10-15); White Blood Count 2.4 10^3/uL (3.5-10.8)
[2021-03-18 23:07] LABS: ABS Basophils 0.1 10^3/ul (0-0.2); ABS Lymphocytes 1.1 10^3/ul (1.0-4.8); ABS Monocytes 0.4 10^3/ul (0-0.8); ABS Neutrophils 0.7 10^3/ul (1.5-7.7); Eosinophil % 1.5 %; Lymphocyte % 46.9 %; Nucleated Red Blood Cells % 0.2
[2021-03-18 23:17] LABS: ALT 128 U/L (7-52); AST 219 U/L (13-39); Albumin 3.8 g/dL (3.2-5.2); Alkaline Phosphatase 51 U/L (35-149); Anion Gap 10 mmol/L (2-11); Blood Urea Nitrogen 13 mg/dL (6-24); CO2 Carbon Dioxide 21 mmol/L (22-32); Calcium 8.8 mg/dL (8.6-10.3); Chloride 90 mmol/L (101-111); Globulin 3.8 g/dL (2-4); Glucose 101 mg/dL (70-100); Magnesium 1.5 mg/dL (1.9-2.7); Potassium 3.9 mmol/L (3.5-5.0); Sodium 121 mmol/L (135-145); Total Protein 7.6 g/dL (6.4-8.9); eGFR CKD-EPI 91.8 (>60)
[2021-03-18 23:28] LABS: Alcohol, S 216 mg/dL (<13)
[2021-03-18] MEDS ORDERED: Ondansetron ODT 4 mg TAB 4 MG TAB SL ONE (23:29)
[2021-03-18 23:42] LABS: Troponin I 0.05 ng/mL (<0.03)
[2021-03-18 23:46] LABS: TSH Ultra Thyroid Stim Horm 5.78 mcIU/mL (0.34-5.60)
[2021-03-18] MEDS ORDERED: Ondansetron 4 mg VIAL 2 MG/ML 2 ml VIAL IV ONE (23:52)
[2021-03-19] MEDS ORDERED: NS 0.9% 1000 ml BAG 1,000 ML IV SCH (02:45)
[2021-03-19] MEDS ORDERED: Magnesium Sulf 4 GM/100 ML IV 4,000 MG/100 ML BAG IVPB ONE (03:30)
[2021-03-19 03:35] LABS: Osmolality Serum 306 mOsm/kg (275-295)
[2021-03-19 04:13] LABS: Free T4 1.09 ng/dL (0.61-1.12)
[2021-03-19] MEDS ORDERED: LORazepam 2 mg VIAL 1 ml IV PUSH PRN (05:30)
[2021-03-19] MEDS ORDERED: Lorazepam PYXIS KEY PRN (05:30)
[2021-03-19 05:55] LABS: Hematocrit 29 % (42-52); Hemoglobin 9.5 g/dL (14.0-18.0); Mean Corpuscular HGB Conc 34 g/dL (31-36); Mean Corpuscular Hemoglobin 29 pg (27-31); Mean Corpuscular Volume 86 fL (80-94); Mean Platelet Volume 7.5 fL (7.4-10.4); Platelet Count 182 10^3/uL (150-450); Red Blood Count 3.32 10^6 /uL (4.18-5.48); Red Cell Distribution Width 19 % (10-15); White Blood Count 2.2 10^3/uL (3.5-10.8)
[2021-03-19 06:08] LABS: ABS Basophils 0.1 10^3/ul (0-0.2); ABS Monocytes 0.4 10^3/ul (0-0.8); ABS Neutrophils 0.7 10^3/ul (1.5-7.7); Eosinophil % 1.2 %; Lymphocyte % 44.5 %
[2021-03-19 06:13] LABS: Magnesium 2.6 mg/dL (1.9-2.7); Potassium 4.2 mmol/L (3.5-5.0); eGFR CKD-EPI 87.2 (>60)
[2021-03-19 06:25] LABS: Troponin I 0.05 ng/mL (<0.03)
[2021-03-19 06:56] LABS: Urine Appearance Clear; Urine Bilirubin Negative (Negative); Urine Blood Negative (Negative); Urine Color Yellow; Urine Glucose Negative (Negative); Urine Ketones Negative (Negative); Urine Nitrite Negative (Negative); Urine Protein Negative (Negative); Urine Urobilinogen Negative (Negative)
[2021-03-19 06:57] LABS: Urine Osmo 355 mOsm/kg (150-1150)
[2021-03-19] MEDS: Multivitamins/Minerals TAB PO SCH (10:19)
[2021-03-19] MEDS: Ondansetron 4 mg VIAL 2 MG/ML 2 ml VIAL IV PRN ×2 (10:30→17:33)
[2021-03-19] MEDS: Enoxaparin 40 MG/0.4 ML SYR SUBCUT SCH (10:31)
[2021-03-19] MEDS: NS 0.9% 1000 ml BAG 1,000 ML IV SCH (11:37)
[2021-03-19 13:25] LABS: Calcium 9.2 mg/dL (8.6-10.3); Potassium 4.4 mmol/L (3.5-5.0)
[2021-03-20] MEDS: NS 0.9% 1000 ml BAG 1,000 ML IV SCH (05:15)
[2021-03-20 06:57] LABS: ABS Lymphocytes 0.7 10^3/ul (1.0-4.8); ABS Monocytes 0.5 10^3/ul (0-0.8); ABS Neutrophils 1.7 10^3/ul (1.5-7.7); Eosinophil % 0.2 %; Hematocrit 29 % (42-52); Hemoglobin 9.7 g/dL (14.0-18.0); Mean Corpuscular HGB Conc 33 g/dL (31-36); Mean Corpuscular Hemoglobin 29 pg (27-31); Mean Corpuscular Volume 87 fL (80-94); Mean Platelet Volume 8.1 fL (7.4-10.4); Nucleated Red Blood Cells % 0.2; Platelet Count 166 10^3/uL (150-450); Red Blood Count 3.38 10^6 /uL (4.18-5.48); Red Cell Distribution Width 20 % (10-15)
[2021-03-20 07:07] LABS: Calcium 9.3 mg/dL (8.6-10.3); Magnesium 2.1 mg/dL (1.9-2.7); Potassium 4.3 mmol/L (3.5-5.0); eGFR CKD-EPI 72.3 (>60)
[2021-03-20 07:16] VITALS: BP 127/67
[2021-03-20] MEDS: Multivitamins/Minerals TAB PO SCH (08:48)
[2021-03-20] MEDS: Enoxaparin 40 MG/0.4 ML SYR SUBCUT SCH (08:50)
== END 2021-03-20 11:45 | disposition home or self-care (01) | DRG 640 ==
LOC: ED 22:28 → EDHOLD 03-19 03:19 → SUATTDRO 03-19 03:19 → EDHOLD 03-19 06:20 → MED 03-19 08:04
PROVIDERS: ADMIT Internal Medicine; ATTEND Internal Medicine

== ENCOUNTER 2023-01-05 10:37 | Inpatient (IN) ==
[2023-01-05] MEDS ORDERED: Naloxone 0.4 mg VIAL 0.4 mg/ml 1 ml VIAL IV PUSH ONE (11:22)
[2023-01-05] MEDS ORDERED: NS 0.9% 1000 ml BAG 1,000 ML IV ONE (11:24)
[2023-01-05 12:29] LABS: ABS Basophils 0.1 10^3/uL (0.0-0.1); ABS Monocytes 0.9 10^3/uL (0.0-1.1); ABS Neutrophils 5.6 10^3/uL (1.5-7.6); ABS Nucleated RBC 0.01 10^3/ul; Eosinophil % 0.3 %; Hematocrit 23.4 % (38-53); Hemoglobin 7.6 g/dL (13.2-16.3); Lymphocyte % 13.3 %; Mean Corpuscular Hemoglobin 26.5 pg (27-33); Mean Corpuscular Hgb Conc 32.4 g/dL (31-36); Mean Corpuscular Volume 81.8 fL (80-97); Nucleated Red Blood Cells % 0.1 %/100WBC (0.0-0.8); Platelet Count 390 10^3/uL (150-450); Red Blood Count 2.86 10^6/uL (4.06-5.63); Red Cell Distribution Width 17.2 % (12-17); White Blood Count 7.6 10^3/uL (3.6-10.2)
[2023-01-05 12:36] LABS: INR 1.04 (0.83-1.13)
[2023-01-05 12:52] LABS: Albumin 3.3 g/dL (3.2-5.2); Albumin/Globulin Ratio 0.8 (1-3); Creatinine, Serum 0.88 mg/dL (0.67-1.17); Globulin 3.9 g/dL (2-4); Magnesium 1.9 mg/dL (1.9-2.7); Potassium 3.6 mmol/L (3.5-5.0); Total Bilirubin 0.4 mg/dL (0.2-1.0); Total Protein 7.2 g/dL (6.4-8.9); eGFR CKD-EPI 92.5 (>60)
[2023-01-05 12:54] LABS: Creatine Kinase 153 U/L (10-223)
[2023-01-05 13:01] LABS: Urine Appearance Clear; Urine Bilirubin Negative (Negative); Urine Blood Negative (Negative); Urine Color Yellow; Urine Glucose Negative (Negative); Urine Ketones Negative (Negative); Urine Nitrite Negative (Negative); Urine Protein Negative (Negative); Urine Urobilinogen Positive (Negative)
[2023-01-05 13:09] LABS: Alcohol, S < 13 mg/dL (<13)
[2023-01-05 13:11] LABS: Urine Benzodiazepine Screen None Detected (None Detect); Urine Buprenorphine Screen None Detected (None Detect); Urine Cannabinoids Screen Presumptive Positive (None Detect); Urine Fentanyl Screen None Detected (None Detect); Urine Hydrocodone Screen None Detected (None Detect); Urine Opiates Screen None Detected (None Detect)
[2023-01-05 13:25] LABS: TSH Ultra Thyroid Stim Horm 1.36 mcIU/mL (0.34-5.60)
[2023-01-05 14:00] LABS: High Sensitivity Troponin 1 Hr 23 pg/mL (<20)
[2023-01-05 14:18] LABS: % Iron Saturation 4 % (15-55); .Transferrin 361 mg/dL (203-362); Iron < 20 ug/dL (50-212); Total Iron Binding Capacity 505 mcg/dL (250-450); Unsaturated Iron Binding 485 ug/dL
[2023-01-05 16:04] LABS: C Reactive Protein 17.38 mg/L (<8.01)
[2023-01-05] MEDS ORDERED: Furosemide 40 mg/4 ml IV VIAL IV SLOW PU ONE (17:02)
[2023-01-05] MEDS ORDERED: hydrALAZINE 20 mg/ml 1 ML Vial IV IV SLOW PU PRN (17:16)
[2023-01-05 17:54] LABS: Erythrocyte Sed Rate 72 mm/Hr (0-19)
[2023-01-05 19:05] LABS: Vitamin B12 298 pg/mL (180-914)
[2023-01-05] MEDS ORDERED: Gabapentin 600 mg TAB (NF) PO SCH (21:00)
[2023-01-05] MEDS: Enoxaparin 40 MG/0.4 ML SYR SUBCUT SCH (21:16)
[2023-01-06] MEDS ORDERED: Furosemide 40 mg/4 ml IV VIAL IV SLOW PU ONE (00:30)
[2023-01-06 05:56] LABS: ABS Basophils 0.1 10^3/uL (0.0-0.1); ABS Eosinophils 0.1 10^3/uL (0.0-0.5); ABS Lymphocytes 1.1 10^3/uL (1.0-4.8); ABS Monocytes 0.8 10^3/uL (0.0-1.1); ABS Neutrophils 4.6 10^3/uL (1.5-7.6); ABS Nucleated RBC 0.01 10^3/ul; Eosinophil % 1.1 %; Hematocrit 25.2 % (38-53); Hemoglobin 8.2 g/dL (13.2-16.3); Lymphocyte % 16.4 %; Mean Corpuscular Hemoglobin 26.3 pg (27-33); Mean Corpuscular Hgb Conc 32.4 g/dL (31-36); Mean Corpuscular Volume 81.3 fL (80-97); Mean Platelet Volume 7.2 fL (7.5-11.2); Nucleated Red Blood Cells % 0.2 %/100WBC (0.0-0.8); Platelet Count 479 10^3/uL (150-450); Red Blood Count 3.11 10^6/uL (4.06-5.63); Red Cell Distribution Width 17.3 % (12-17); White Blood Count 6.7 10^3/uL (3.6-10.2)
[2023-01-06 06:10] LABS: Calcium 9.2 mg/dL (8.6-10.3); Creatinine, Serum 0.9 mg/dL (0.67-1.17); Magnesium 1.8 mg/dL (1.9-2.7); Potassium 3.5 mmol/L (3.5-5.0); eGFR CKD-EPI 91.9 (>60)
[2023-01-06] MEDS: Aspirin EC 81 mg TAB.EC (enteric coated) PO SCH (09:05)
[2023-01-06] MEDS: Nicotine PATCH 14 MG/24 HR PATCH TRANSDERM SCH (09:06)
[2023-01-06] MEDS: Enoxaparin 40 MG/0.4 ML SYR SUBCUT SCH (20:10)
[2023-01-07 05:57] LABS: ABS Basophils 0.1 10^3/uL (0.0-0.1); ABS Eosinophils 0.1 10^3/uL (0.0-0.5); ABS Lymphocytes 1.5 10^3/uL (1.0-4.8); ABS Monocytes 0.8 10^3/uL (0.0-1.1); ABS Neutrophils 4.1 10^3/uL (1.5-7.6); ABS Nucleated RBC 0.01 10^3/ul; Eosinophil % 1.6 %; Hematocrit 24.1 % (38-53); Hemoglobin 7.8 g/dL (13.2-16.3); Lymphocyte % 22.6 %; Mean Corpuscular Hemoglobin 26.1 pg (27-33); Mean Corpuscular Hgb Conc 32.2 g/dL (31-36); Mean Corpuscular Volume 81.2 fL (80-97); Mean Platelet Volume 6.8 fL (7.5-11.2); Nucleated Red Blood Cells % 0.1 %/100WBC (0.0-0.8); Platelet Count 430 10^3/uL (150-450); Red Blood Count 2.97 10^6/uL (4.06-5.63); Red Cell Distribution Width 16.9 % (12-17); White Blood Count 6.5 10^3/uL (3.6-10.2)
[2023-01-07 06:13] LABS: Calcium 8.9 mg/dL (8.6-10.3); Creatinine, Serum 0.85 mg/dL (0.67-1.17); Magnesium 1.8 mg/dL (1.9-2.7); Potassium 3.7 mmol/L (3.5-5.0); eGFR CKD-EPI 93.5 (>60)
[2023-01-07] MEDS ORDERED: Magnesium Sulfate 2 gm BAG 2 GM/50 ML BAG IVPB ONE (08:12)
[2023-01-07] MEDS: Aspirin EC 81 mg TAB.EC (enteric coated) PO SCH (09:23)
[2023-01-07] MEDS: Nicotine PATCH 14 MG/24 HR PATCH TRANSDERM SCH (09:24)
[2023-01-07] MEDS: Enoxaparin 40 MG/0.4 ML SYR SUBCUT SCH (20:35)
[2023-01-08 06:25] LABS: ABS Basophils 0.1 10^3/uL (0.0-0.1); ABS Eosinophils 0.1 10^3/uL (0.0-0.5); ABS Lymphocytes 1.6 10^3/uL (1.0-4.8); ABS Monocytes 0.9 10^3/uL (0.0-1.1); ABS Nucleated RBC 0.01 10^3/ul; Hematocrit 24.7 % (38-53); Lymphocyte % 21.2 %; Mean Corpuscular Hemoglobin 26.4 pg (27-33); Mean Corpuscular Hgb Conc 32.5 g/dL (31-36); Mean Corpuscular Volume 81.4 fL (80-97); Mean Platelet Volume 7.2 fL (7.5-11.2); Nucleated Red Blood Cells % 0.1 %/100WBC (0.0-0.8); Platelet Count 501 10^3/uL (150-450); Red Blood Count 3.03 10^6/uL (4.06-5.63); White Blood Count 7.8 10^3/uL (3.6-10.2)
[2023-01-08 06:43] LABS: Calcium 9.3 mg/dL (8.6-10.3); Creatinine, Serum 0.85 mg/dL (0.67-1.17); Magnesium 1.9 mg/dL (1.9-2.7); Potassium 4.3 mmol/L (3.5-5.0); eGFR CKD-EPI 93.5 (>60)
[2023-01-08] MEDS: Aspirin EC 81 mg TAB.EC (enteric coated) PO SCH (09:33)
[2023-01-08] MEDS: Nicotine PATCH 14 MG/24 HR PATCH TRANSDERM SCH (09:34)
[2023-01-08 09:58] VITALS: BP 115/70
== END 2023-01-08 13:30 | disposition home or self-care (01) | DRG 299 ==
LOC: EDHOLD 10:37 → ED 10:37 → SUATTDRO 16:24 → EDHOLD 20:39 → MED 22:26
PROVIDERS: ADMIT Internal Medicine; ATTEND Internal Medicine

== ENCOUNTER 2023-02-04 16:01 | Inpatient (IN) ==
[2023-02-04] MEDS ORDERED: NS 0.9% 1000 ml BAG 1,000 ML IV ONE (16:16)
[2023-02-04] MEDS ORDERED: Clindamycin 600 MG/D5W BAG 600 MG/50 ML BAG IV ONE (16:17)
[2023-02-04] MEDS ORDERED: Vancomycin 1,250 MG in NS 0.9% 250 ml 250 ML IVPB ONE (16:17)
[2023-02-04] MEDS ORDERED: Cefepime 1 GM in Dextrose 1 GM/50 ML BAG IV ONE (16:17)
[2023-02-04] MEDS ORDERED: NS 0.9% 500 ml BAG 500 ML IV ONE (16:18)
[2023-02-04] MEDS ORDERED: Morphine 4 MG/ML VIAL (1 ml) IV ONE ×3 (16:19→20:40)
[2023-02-04] MEDS ORDERED: Iodixanol (CONTRAST) 320 MG/ML 100 ML SDV IV ONE (16:32)
[2023-02-04 16:52] LABS: ABS Lymphocytes 0.8 10^3/uL (1.0-4.8); ABS Monocytes 0.7 10^3/uL (0.0-1.1); ABS Neutrophils 9.5 10^3/uL (1.5-7.6); ABS Nucleated RBC 0.04 10^3/ul; Eosinophil % 0.3 %; Hematocrit 19.5 % (38-53); Hemoglobin 5.9 g/dL (13.2-16.3); Lymphocyte % 7.5 %; Mean Corpuscular Hemoglobin 23.2 pg (27-33); Mean Corpuscular Hgb Conc 30.3 g/dL (31-36); Mean Corpuscular Volume 76.3 fL (80-97); Mean Platelet Volume 7.5 fL (7.5-11.2); Nucleated Red Blood Cells % 0.3 %/100WBC (0.0-0.8); Platelet Count 409 10^3/uL (150-450); Red Blood Count 2.56 10^6/uL (4.06-5.63); Red Cell Distribution Width 20.4 % (12-17); White Blood Count 11.1 10^3/uL (3.6-10.2)
[2023-02-04 17:05] LABS: Albumin 3.2 g/dL (3.2-5.2); Albumin/Globulin Ratio 0.8 (1-3); C Reactive Protein 37.98 mg/L (<8.01); Calcium 8.9 mg/dL (8.6-10.3); Creatinine, Serum 0.76 mg/dL (0.67-1.17); Globulin 4.2 g/dL (2-4); Potassium 3.3 mmol/L (3.5-5.0); Total Bilirubin 0.4 mg/dL (0.2-1.0); Total Protein 7.4 g/dL (6.4-8.9); eGFR CKD-EPI 96.7 (>60)
[2023-02-04] MEDS ORDERED: Senna TAB 8.6 mg TAB PO PRN (22:01)
[2023-02-04] MEDS ORDERED: Ondansetron 4 mg VIAL 2 MG/ML 2 ml VIAL IV PRN (22:01)
[2023-02-04] MEDS ORDERED: Polyethylene Glycol 3350 17 GM PACKET PO PRN (22:01)
[2023-02-04] MEDS ORDERED: HYDROmorphone 0.5 MG/0.5 ML SYRINGE IV SLOW PU PRN (22:32)
[2023-02-04] MEDS: HYDROmorphone 0.5 MG/0.5 ML SYRINGE IV SLOW PU PRN (22:47)
[2023-02-04] MEDS ORDERED: Ondansetron ODT 4 mg TAB 4 MG TAB PO PRN (23:13)
[2023-02-05] MEDS ORDERED: Vancomycin per Pharmacy 1 EA NOTE FOLLOW UP SCH (01:00)
[2023-02-05] MEDS ORDERED: Furosemide 20 mg/2 ml IV VIAL IV SLOW PU ONE (02:17)
[2023-02-05] MEDS ORDERED: Potassium EFFERVES 25 meq TAB PO ONE ×2 (02:17→06:00)
[2023-02-05] MEDS ORDERED: KCL 20 MEQ/100 ML IVPREMIX 20 MEQ/100 ML BAG IV ONE (02:19)
[2023-02-05] MEDS: HYDROmorphone 0.5 MG/0.5 ML SYRINGE IV SLOW PU PRN ×6 (02:36→23:07)
[2023-02-05] MEDS ORDERED: Vancomycin 750 MG in NS 0.9% 250 ML IVPB SCH (04:00)
[2023-02-05] MEDS ORDERED: Cefepime 2 GM in Dextrose 2 GM/50 ML BAG IV SCH (04:00)
[2023-02-05] MEDS: KCL 10 MEQ/50 ML IVPREMIX 10 MEQ/50 ML BAG IV SCH (04:31)
[2023-02-05] MEDS: Cefepime 2 GM in Dextrose 2 GM/50 ML BAG IV SCH ×2 (04:38→17:19)
[2023-02-05] MEDS: Vancomycin 750 MG in NS 0.9% 250 ML IVPB SCH ×3 (05:52→23:14)
[2023-02-05 06:53] LABS: ABS Lymphocytes 1.1 10^3/uL (1.0-4.8); ABS Monocytes 0.9 10^3/uL (0.0-1.1); ABS Neutrophils 11.4 10^3/uL (1.5-7.6); ABS Nucleated RBC 0.12 10^3/ul; Eosinophil % 0.3 %; Hematocrit 27.6 % (38-53); Hemoglobin 8.7 g/dL (13.2-16.3); Lymphocyte % 8.1 %; Mean Corpuscular Hemoglobin 25.4 pg (27-33); Mean Corpuscular Hgb Conc 31.5 g/dL (31-36); Mean Corpuscular Volume 80.6 fL (80-97); Mean Platelet Volume 7.7 fL (7.5-11.2); Nucleated Red Blood Cells % 0.9 %/100WBC (0.0-0.8); Platelet Count 405 10^3/uL (150-450); Red Blood Count 3.43 10^6/uL (4.06-5.63); White Blood Count 13.4 10^3/uL (3.6-10.2)
[2023-02-05 07:07] LABS: Calcium 8.7 mg/dL (8.6-10.3); Creatinine, Serum 0.87 mg/dL (0.67-1.17); Magnesium 1.6 mg/dL (1.9-2.7); Potassium 4.7 mmol/L (3.5-5.0); eGFR CKD-EPI 92.8 (>60)
[2023-02-05] MEDS ORDERED: Magnesium Sulf 4 GM/100 ML IV 4,000 MG/100 ML BAG IVPB ONE (08:07)
[2023-02-05 08:18] LABS: Ferritin 37.5 ng/mL (24-336)
[2023-02-05] MEDS: Nicotine PATCH 21 MG/24 HR PATCH TRANSDERM SCH (09:56)
[2023-02-05] MEDS ORDERED: Furosemide 40 mg/4 ml IV VIAL IV SLOW PU ONE ×2 (10:51→18:00)
[2023-02-05 11:43] LABS: PCO2 Arterial 33 mmHg (35-45); PO2 Arterial 85 mmHg (80-100)
[2023-02-05 18:20] LABS: Urine Benzodiazepine Screen None Detected (None Detect); Urine Cannabinoids Screen Presumptive Positive (None Detect); Urine Opiates Screen Presumptive Positive (None Detect)
[2023-02-05] MEDS ORDERED: Vancomycin Trough Check NOTE FOLLOW UP ONE (19:30)
[2023-02-05 21:26] LABS: Urine Buprenorphine Screen None Detected (None Detect); Urine Fentanyl Screen None Detected (None Detect); Urine Hydrocodone Screen Presumptive Positive (None Detect)
[2023-02-06] MEDS: HYDROmorphone 0.5 MG/0.5 ML SYRINGE IV SLOW PU PRN ×2 (01:22→09:09)
[2023-02-06] MEDS: Cefepime 2 GM in Dextrose 2 GM/50 ML BAG IV SCH ×2 (04:40→15:48)
[2023-02-06] MEDS: Vancomycin 750 MG in NS 0.9% 250 ML IVPB SCH ×3 (05:35→21:22)
[2023-02-06 06:32] LABS: ABS Basophils 0.1 10^3/uL (0.0-0.1); ABS Lymphocytes 0.7 10^3/uL (1.0-4.8); ABS Monocytes 0.6 10^3/uL (0.0-1.1); ABS Neutrophils 14.1 10^3/uL (1.5-7.6); ABS Nucleated RBC 0.04 10^3/ul; Eosinophil % 0.3 %; Hematocrit 27.5 % (38-53); Hemoglobin 8.7 g/dL (13.2-16.3); Lymphocyte % 4.7 %; Mean Corpuscular Hemoglobin 24.9 pg (27-33); Mean Corpuscular Hgb Conc 31.6 g/dL (31-36); Mean Corpuscular Volume 78.9 fL (80-97); Mean Platelet Volume 7.5 fL (7.5-11.2); Nucleated Red Blood Cells % 0.3 %/100WBC (0.0-0.8); Platelet Count 338 10^3/uL (150-450); Red Blood Count 3.48 10^6/uL (4.06-5.63); Red Cell Distribution Width 19.2 % (12-17); White Blood Count 15.6 10^3/uL (3.6-10.2)
[2023-02-06 07:40] LABS: Albumin 2.8 g/dL (3.2-5.2); Albumin/Globulin Ratio 0.8 (1-3); Calcium 8.1 mg/dL (8.6-10.3); Creatinine, Serum 0.91 mg/dL (0.67-1.17); Globulin 3.7 g/dL (2-4); Potassium 3.8 mmol/L (3.5-5.0); Total Bilirubin 1.1 mg/dL (0.2-1.0); Total Protein 6.5 g/dL (6.4-8.9); eGFR CKD-EPI 90.7 (>60)
[2023-02-06] MEDS: Nicotine PATCH 21 MG/24 HR PATCH TRANSDERM SCH (09:14)
[2023-02-06] MEDS: Aspirin EC 81 mg TAB.EC (enteric coated) PO SCH (09:15)
[2023-02-06] MEDS ORDERED: Furosemide 40 mg/4 ml IV VIAL IV ONE (10:50)
[2023-02-06] MEDS ORDERED: Acetylcysteine INHALATION SOL 200 MG/ML NEB.SOLN 10 ML INH ONE (11:26)
[2023-02-07] MEDS: Cefepime 2 GM in Dextrose 2 GM/50 ML BAG IV SCH ×2 (05:07→16:26)
[2023-02-07] MEDS: Vancomycin 750 MG in NS 0.9% 250 ML IVPB SCH ×3 (06:06→20:46)
[2023-02-07] MEDS: Aspirin EC 81 mg TAB.EC (enteric coated) PO SCH (09:15)
[2023-02-07] MEDS: Nicotine PATCH 21 MG/24 HR PATCH TRANSDERM SCH (09:16)
[2023-02-07] MEDS ORDERED: Vancomycin Trough Check NOTE FOLLOW UP ONE (11:30)
[2023-02-07 15:39] LABS: Venous Bicarbonate HCO3 12.6 mmol/L (24-28)
[2023-02-07 15:45] LABS: Hematocrit 24.4 % (38-53); Hemoglobin 7.7 g/dL (13.2-16.3); Mean Corpuscular Hemoglobin 24.7 pg (27-33); Mean Corpuscular Hgb Conc 31.7 g/dL (31-36); Mean Platelet Volume 7.8 fL (7.5-11.2); Platelet Count 301 10^3/uL (150-450); Red Blood Count 3.13 10^6/uL (4.06-5.63); Red Cell Distribution Width 20.6 % (12-17); White Blood Count 16.9 10^3/uL (3.6-10.2)
[2023-02-07 16:05] LABS: C Reactive Protein 97.86 mg/L (<8.01); Calcium 7.7 mg/dL (8.6-10.3); Creatinine, Serum 1.24 mg/dL (0.67-1.17); Magnesium 1.9 mg/dL (1.9-2.7); Potassium 3.4 mmol/L (3.5-5.0); eGFR CKD-EPI 62.5 (>60)
[2023-02-07 16:18] LABS: Vancomycin Trough 26.7 mcg/mL
[2023-02-07 16:28] LABS: PCO2 Arterial 31 mmHg (35-45)
[2023-02-07 16:29] LABS: PO2 Arterial 53 mmHg (80-100)
[2023-02-07] MEDS ORDERED: Furosemide 40 mg/4 ml IV VIAL IV ONE ×2 (16:44→20:00)
[2023-02-07] MEDS ORDERED: Morphine 2 MG/ML SYRINGE IV ONE (16:53)
[2023-02-07] MEDS ORDERED: Furosemide 40 mg/4 ml IV VIAL ONE (16:55)
[2023-02-07] MEDS ORDERED: Naloxone Nasal Spray 4 MG/0.1 ML NASAL.SPR INTRANASAL PRN (17:27)
[2023-02-07] MEDS ORDERED: Acetaminophen IV 1 GM/100ML 1,000 MG/100 ML BAG IV ONE (20:28)
[2023-02-07 23:40] LABS: PCO2 Arterial 32 mmHg (35-45); PO2 Arterial 73 mmHg (80-100)
[2023-02-08] MEDS: Cefepime 2 GM in Dextrose 2 GM/50 ML BAG IV SCH ×2 (03:27→15:41)
[2023-02-08] MEDS: Vancomycin 1,500 MG in NS 0.9% 250 ml 250 ML IVPB SCH (05:42)
[2023-02-08 06:49] LABS: Hematocrit 25.3 % (38-53); Hemoglobin 8.2 g/dL (13.2-16.3); Mean Corpuscular Hemoglobin 25.4 pg (27-33); Mean Corpuscular Hgb Conc 32.6 g/dL (31-36); Platelet Count 297 10^3/uL (150-450); Red Blood Count 3.24 10^6/uL (4.06-5.63); Red Cell Distribution Width 19.7 % (12-17); White Blood Count 13.4 10^3/uL (3.6-10.2)
[2023-02-08 07:12] LABS: Albumin 2.6 g/dL (3.2-5.2); Albumin/Globulin Ratio 0.7 (1-3); Calcium 7.9 mg/dL (8.6-10.3); Creatinine, Serum 1.23 mg/dL (0.67-1.17); Globulin 3.5 g/dL (2-4); Magnesium 1.8 mg/dL (1.9-2.7); Potassium 3.3 mmol/L (3.5-5.0); Total Bilirubin 0.8 mg/dL (0.2-1.0); Total Protein 6.1 g/dL (6.4-8.9); eGFR CKD-EPI 63.2 (>60)
[2023-02-08] MEDS ORDERED: Magnesium Sulfate 2 gm BAG 2 GM/50 ML BAG IVPB ONE (07:26)
[2023-02-08] MEDS ORDERED: Potassium Chlor 20 meq TAB.ER PO ONE (07:26)
[2023-02-08] MEDS: Aspirin EC 81 mg TAB.EC (enteric coated) PO SCH (08:14)
[2023-02-08] MEDS: Nicotine PATCH 21 MG/24 HR PATCH TRANSDERM SCH (08:15)
[2023-02-08] MEDS ORDERED: Furosemide 40 mg/4 ml IV VIAL IV ONE (10:28)
[2023-02-08] MEDS: Albuterol/Ipratropium NEB.SOL (2.5/0.5 MG) 3 ML NEB.SOLN INH PRN ×2 (10:49→20:50)
[2023-02-08] MEDS: Furosemide 40 mg/4 ml IV VIAL IV ONE ×2 (15:47→17:30)
[2023-02-08] MEDS: Morphine 2 MG/ML SYRINGE IV PRN ×2 (19:18→21:26)
[2023-02-08] MEDS ORDERED: Albuterol/Ipratropium NEB.SOL (2.5/0.5 MG) 3 ML NEB.SOLN INH ONE (23:14)
[2023-02-09] MEDS: Morphine 2 MG/ML SYRINGE IV PRN (00:37)
[2023-02-09] MEDS: Cefepime 2 GM in Dextrose 2 GM/50 ML BAG IV SCH ×2 (03:25→17:02)
[2023-02-09 03:57] LABS: PCO2 Arterial 26 mmHg (35-45); PO2 Arterial 66 mmHg (80-100)
[2023-02-09 04:14] LABS: ABS Lymphocytes 0.3 10^3/uL (1.0-4.8); ABS Monocytes 0.5 10^3/uL (0.0-1.1); ABS Neutrophils 13.3 10^3/uL (1.5-7.6); ABS Nucleated RBC 0.05 10^3/ul; Hematocrit 25.6 % (38-53); Hemoglobin 7.8 g/dL (13.2-16.3); Mean Corpuscular Hgb Conc 30.4 g/dL (31-36); Mean Corpuscular Volume 82.2 fL (80-97); Mean Platelet Volume 8.1 fL (7.5-11.2); Nucleated Red Blood Cells % 0.3 %/100WBC (0.0-0.8); Platelet Count 307 10^3/uL (150-450); Red Blood Count 3.11 10^6/uL (4.06-5.63); Red Cell Distribution Width 20.1 % (12-17); White Blood Count 14.1 10^3/uL (3.6-10.2)
[2023-02-09 04:30] LABS: Calcium 8.5 mg/dL (8.6-10.3); Creatinine, Serum 2.03 mg/dL (0.67-1.17); Magnesium 2.5 mg/dL (1.9-2.7); Potassium 4.1 mmol/L (3.5-5.0); eGFR CKD-EPI 34.6 (>60)
[2023-02-09 04:43] LABS: Albumin 2.6 g/dL (3.2-5.2); Albumin/Globulin Ratio 0.7 (1-3); Calcium 8.2 mg/dL (8.6-10.3); Creatinine, Serum 1.84 mg/dL (0.67-1.17); Globulin 3.6 g/dL (2-4); Potassium 4.2 mmol/L (3.5-5.0); Total Bilirubin 0.9 mg/dL (0.2-1.0); Total Protein 6.2 g/dL (6.4-8.9)
[2023-02-09] MEDS: Vancomycin 1,500 MG in NS 0.9% 250 ml 250 ML IVPB SCH (07:27)
[2023-02-09] MEDS: Albuterol/Ipratropium NEB.SOL (2.5/0.5 MG) 3 ML NEB.SOLN INH PRN (07:36)
[2023-02-09 08:43] LABS: Venous Bicarbonate HCO3 16.2 mmol/L (24-28)
[2023-02-09] MEDS ORDERED: Succinylcholine 200 mg VIAL 20 mg/ml 10 ml VIAL (200 mg) ONE (10:28)
[2023-02-09] MEDS ORDERED: Rocuronium 50 mg VIAL 10 mg/ml 5 ml VIAL (50 mg) ONE ×2 (10:28→10:43)
[2023-02-09] MEDS ORDERED: Norepinephrine 4 MG/250mL D5W 4,000 MCG/250 ML BAG IV ONE (10:38)
[2023-02-09] MEDS: Norepinephrine 4 MG/250mL D5W 4,000 MCG/250 ML BAG IV SCH ×6 (10:40→20:40)
[2023-02-09] MEDS ORDERED: Etomidate 40 mg/20 ml (2 MG/ML) 20 ml VIAL (40 mg) ONE (10:43)
[2023-02-09] MEDS ORDERED: EPINEPHrine SYR 0.1MG/ML 10 ml SYRINGE IV ONE ×3 (10:43→13:21)
[2023-02-09 11:26] LABS: PCO2 Arterial 47 mmHg (35-45); PO2 Arterial 92 mmHg (80-100)
[2023-02-09 11:30] LABS: ABS Basophils 0.1 10^3/uL (0.0-0.1); ABS Lymphocytes 0.9 10^3/uL (1.0-4.8); ABS Monocytes 0.7 10^3/uL (0.0-1.1); ABS Neutrophils 12.9 10^3/uL (1.5-7.6); ABS Nucleated RBC 0.07 10^3/ul; Eosinophil % 0.1 %; Hematocrit 26.6 % (38-53); Lymphocyte % 6.4 %; Mean Corpuscular Hgb Conc 29.9 g/dL (31-36); Mean Corpuscular Volume 83.6 fL (80-97); Mean Platelet Volume 8.2 fL (7.5-11.2); Nucleated Red Blood Cells % 0.5 %/100WBC (0.0-0.8); Platelet Count 293 10^3/uL (150-450); Red Blood Count 3.18 10^6/uL (4.06-5.63); Red Cell Distribution Width 20.3 % (12-17); White Blood Count 14.6 10^3/uL (3.6-10.2)
[2023-02-09] MEDS ORDERED: Midazolam PREMIXBAG 1 MG/ML NS 100 ML IV ONE (11:32)
[2023-02-09] MEDS ORDERED: Midazolam PREMIXBAG 1 MG/ML NS 100 ML IV SCH (11:35)
[2023-02-09] MEDS: Aspirin EC 81 mg TAB.EC (enteric coated) PO SCH (11:44)
[2023-02-09] MEDS: Nicotine PATCH 21 MG/24 HR PATCH TRANSDERM SCH (11:44)
[2023-02-09 12:05] LABS: ALT 23 U/L (7-52); Albumin 2.8 g/dL (3.2-5.2); Albumin/Globulin Ratio 0.7 (1-3); Alkaline Phosphatase 99 U/L (35-149); Blood Urea Nitrogen 40 mg/dL (6-24); Calcium 8.6 mg/dL (8.6-10.3); Creatinine, Serum 1.84 mg/dL (0.67-1.17); Globulin 4.1 g/dL (2-4); Glucose 67 mg/dL (70-100); Magnesium 2.6 mg/dL (1.9-2.7); Total Protein 6.9 g/dL (6.4-8.9)
[2023-02-09 12:06] LABS: Chloride 99 mmol/L (101-111); Sodium 130 mmol/L (135-145)
[2023-02-09 12:12] LABS: Anion Gap 20 mmol/L (2-16); CO2 Carbon Dioxide 11 mmol/L (22-32)
[2023-02-09 12:36] LABS: High Sens Troponin Baseline 180 pg/mL (<20)
[2023-02-09] MEDS: Chlorhexidine MOUTHWASH 0.12% 15 ML UDC SWISH SPIT SCH ×3 (14:20→20:57)
[2023-02-09] MEDS: EPINEPHrine 1 MG/ML MDV 5 MG in D5W 250 ml BAG 245 ML IV SCH ×2 (14:42→23:02)
[2023-02-09 17:09] LABS: Resp Rate 24
[2023-02-09 17:13] LABS: PCO2 Arterial 38 mmHg (35-45); PO2 Arterial 252 mmHg (80-100)
[2023-02-09] MEDS ORDERED: Pantoprazole VIAL 40 MG VIAL IV SCH (20:00)
[2023-02-09] MEDS: Norepinephrine 16 MG/250mL NS 16,000 MCG/250 ML BAG IV SCH (22:19)
[2023-02-09] MEDS ORDERED: Hydrocortisone INJ 100 MG/2ML 2 ML VIAL ONE (22:40)
[2023-02-09] MEDS: Hydrocortisone INJ 100 MG/2ML 2 ML VIAL IV SCH ×2 (22:41→23:06)
[2023-02-09] MEDS ORDERED: Atropine 0.1 MG/ML 10 ml SYR (1 mg) ONE (23:52)
[2023-02-09] MEDS: Atropine 1 MG/ML INJ 1 ML VIAL IV PUSH PRN (23:53)
[2023-02-10] MEDS: Atropine 1 MG/ML INJ 1 ML VIAL IV PUSH PRN
[2023-02-10] MEDS ORDERED: Phenylephrine 40 mcg/mL 10mL (400mcg) SYRINGE ONE (00:03)
[2023-02-10] MEDS ORDERED: VASOPRESSIN IVPREMIX BTL 40 UNIT/100 ML BTL IV ONE ×2 (00:04→13:15)
[2023-02-10 00:15] LABS: PCO2 Arterial 32 mmHg (35-45); PO2 Arterial 422 mmHg (80-100)
[2023-02-10 01:14] VITALS: BP 103/73
[2023-02-10] MEDS ORDERED: Phenylephrine 40 mcg/mL 10mL (400mcg) SYRINGE IV PUSH PRN (01:28)
[2023-02-10] MEDS ORDERED: Vasopressin 100 UNITS in D5W 250 ml BAG 245 ML IV SCH (01:30)
[2023-02-10] MEDS ORDERED: Atropine 0.1 MG/ML 10 ml SYR (1 mg) IV PUSH PRN (01:40)
[2023-02-10] MEDS: EPINEPHrine 1 MG/ML MDV 5 MG in D5W 250 ml BAG 245 ML IV SCH ×4 (01:40→08:38)
[2023-02-10 02:09] LABS: Calcium 7.9 mg/dL (8.6-10.3); Creatinine, Serum 2.83 mg/dL (0.67-1.17); Phosphorus 10.9 mg/dL (2.5-5.0); Potassium 5.8 mmol/L (3.5-5.0); eGFR CKD-EPI 23.2 (>60)
[2023-02-10 02:10] LABS: Magnesium 2.9 mg/dL (1.9-2.7)
[2023-02-10] MEDS: Chlorhexidine MOUTHWASH 0.12% 15 ML UDC SWISH SPIT SCH ×4 (02:28→19:33)
[2023-02-10] MEDS ORDERED: Dextrose 50% Syringe 50 ml 25 GM/50 ML SYRINGE IV PUSH PRN (03:04)
[2023-02-10] MEDS ORDERED: Dextrose 50% Syringe 50 ml 25 GM/50 ML SYRINGE ONE (03:05)
[2023-02-10] MEDS: Cefepime 2 GM in Dextrose 2 GM/50 ML BAG IV SCH (03:27)
[2023-02-10] MEDS: Norepinephrine 16 MG/250mL NS 16,000 MCG/250 ML BAG IV SCH ×3 (04:19→14:49)
[2023-02-10 05:18] LABS: ABS Lymphocytes 0.5 10^3/uL (1.0-4.8); ABS Monocytes 0.4 10^3/uL (0.0-1.1); ABS Neutrophils 12.5 10^3/uL (1.5-7.6); ABS Nucleated RBC 0.46 10^3/ul; Hematocrit 22.6 % (38-53); Hemoglobin 6.4 g/dL (13.2-16.3); Lymphocyte % 3.4 %; Mean Corpuscular Hemoglobin 24.8 pg (27-33); Mean Corpuscular Hgb Conc 28.2 g/dL (31-36); Mean Corpuscular Volume 87.8 fL (80-97); Nucleated Red Blood Cells % 3.5 %/100WBC (0.0-0.8); Platelet Count 201 10^3/uL (150-450); Red Blood Count 2.57 10^6/uL (4.06-5.63); Red Cell Distribution Width 19.4 % (12-17); White Blood Count 13.3 10^3/uL (3.6-10.2)
[2023-02-10] MEDS ORDERED: Artificial Tear OPHTH.OINT 3.5 GM BOTH EYES PRN (05:23)
[2023-02-10 05:27] LABS: Albumin 2.2 g/dL (3.2-5.2); Albumin/Globulin Ratio 0.6 (1-3); Calcium 7.5 mg/dL (8.6-10.3); Creatinine, Serum 3.05 mg/dL (0.67-1.17); Globulin 3.6 g/dL (2-4); Magnesium 2.7 mg/dL (1.9-2.7); Potassium 5.7 mmol/L (3.5-5.0); Total Bilirubin 2.4 mg/dL (0.2-1.0); Total Protein 5.8 g/dL (6.4-8.9); eGFR CKD-EPI 21.2 (>60)
[2023-02-10 05:36] LABS: Vancomycin Trough 28.5 mcg/mL
[2023-02-10 05:38] LABS: High Sensitivity Troponin 1 Hr 450 pg/mL (<20)
[2023-02-10] MEDS ORDERED: Vancomycin Trough Check NOTE FOLLOW UP ONE (06:00)
[2023-02-10 06:05] LABS: Hematocrit 27.4 % (38-53); Hemoglobin 7.4 g/dL (13.2-16.3); Mean Corpuscular Hemoglobin 25.1 pg (27-33); Mean Corpuscular Volume 93.2 fL (80-97); Mean Platelet Volume 7.9 fL (7.5-11.2); Platelet Count 190 10^3/uL (150-450); Red Blood Count 2.94 10^6/uL (4.06-5.63); Red Cell Distribution Width 20.2 % (12-17); White Blood Count 17.2 10^3/uL (3.6-10.2)
[2023-02-10] MEDS: Vancomycin 1,500 MG in NS 0.9% 250 ml 250 ML IVPB SCH (06:16)
[2023-02-10 06:58] LABS: ABS Basophils 0.1 10^3/uL (0.0-0.1); ABS Lymphocytes 0.8 10^3/uL (1.0-4.8); ABS Monocytes 0.8 10^3/uL (0.0-1.1); ABS Neutrophils 15.5 10^3/uL (1.5-7.6); ABS Nucleated RBC 0.48 10^3/ul; Lymphocyte % 4.7 %; Nucleated Red Blood Cells % 2.8 %/100WBC (0.0-0.8)
[2023-02-10 07:17] LABS: Osmolality Serum 287 mOsm/kg (275-295)
[2023-02-10 07:41] LABS: PCO2 Arterial 32 mmHg (35-45); PO2 Arterial 160 mmHg (80-100)
[2023-02-10] MEDS: Hydrocortisone INJ 100 MG/2ML 2 ML VIAL IV SCH ×2 (08:17→19:33)
[2023-02-10] MEDS ORDERED: EPINEPHrine 1 MG/ML MDV 5 MG in D5W 250 ml BAG 245 ML IV SCH (10:15)
[2023-02-10 11:17] LABS: PCO2 Arterial 30 mmHg (35-45); PO2 Arterial 152 mmHg (80-100)
[2023-02-10] MEDS ORDERED: D5W IV SCH (12:15)
[2023-02-10] MEDS ORDERED: EPINEPHRINE IV SCH (12:15)
[2023-02-10] MEDS ORDERED: D5W 250 ml BAG 250 ML ONE ×2 (12:53→13:14)
[2023-02-10] MEDS ORDERED: VASOPRESSIN IVPREMIX BTL 40 UNIT/100 ML BTL IV SCH (13:19)
[2023-02-10] MEDS ORDERED: Acetaminophen IV 1 GM/100ML 1,000 MG/100 ML BAG IV PRN (13:52)
[2023-02-10 15:30] LABS: PCO2 Arterial 30 mmHg (35-45); PO2 Arterial 162 mmHg (80-100)
[2023-02-10] MEDS ORDERED: EPINEPHrine SYR 0.1MG/ML 10 ml SYRINGE IV ONE (17:21)
[2023-02-10] MEDS ORDERED: Morphine 4 MG/ML VIAL (1 ml) IV ONE (17:25)
[2023-02-10] MEDS ORDERED: Morphine 4 MG/ML VIAL (1 ml) ONE (17:25)
[2023-02-10] MEDS ORDERED: Cefepime 1 GM in Dextrose 1 GM/50 ML BAG IV SCH (18:00)
[2023-02-11] MEDS ORDERED: Vancomycin Random Level NOTE FOLLOW UP ONE (06:00)
== END 2023-02-10 18:10 | disposition expired | DRG 871 ==
LOC: ED 16:01 → SUATTDRO 22:01 → EDHOLD 22:01 → MEDTELE 02-05 01:19 → ICU 02-09 04:54
PROVIDERS: ADMIT Hospitalist; ATTEND Student in an Organized Health Care Education/Training Program